=== PATIENT | female | born 1945 | race Caucasian/White ===

== ENCOUNTER 2017-04-03 10:53 | Day surgery (SDC) | payer MEDICARE, SELFPAY ==
[2017-04-03 11:11] VITALS: BP 126/69; PULSE 98; RESP 18; TEMP 36.2; O2SAT 100; BMI 29.3
--- NOTE | 2017-04-03 12:00 | RAD_ITS ---
STUDY: X-RAY - CERVICAL SPINE REASON FOR EXAM: Female, 72 years old. Radiofrequency ablation. TECHNIQUE: 12 C-arm views of the cervical spine were obtained. COMPARISON: None FINDINGS: 12 limited [id number] images show multiple needles along the left side of the cervical spine at positions compatible with C4-C7. Correlate with procedure note. Electronically Signed: Donte Lucas MD at 7:51 EST , Service support , RAD/Cerv Spine 2 or 3 Views
[2017-04-03] MEDS: Bupivacaine 0.25% 30 ML Vial (12:24)
[2017-04-03] MEDS: MethylPREDNISolone Acetate 80 MG/ML Vial (12:24)
[2017-04-03 12:47] VITALS: BP 115/68; BP 126/69; PULSE 85; RESP 16; TEMP 36.1; O2SAT 95
[2017-04-03 12:50] VITALS: BP 109/69; BP 126/69; PULSE 85; RESP 16; O2SAT 92
[2017-04-03 12:55] VITALS: BP 116/69; BP 126/69; PULSE 80; RESP 16; O2SAT 94
[2017-04-03 13:00] VITALS: BP 126/69; BP 98/73; PULSE 80; RESP 16; TEMP 36.1; O2SAT 94
[2017-04-03 13:25] VITALS: BP 126/69
--- NOTE | 2017-04-03 16:09 | OP.PCM_ITS ---
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 Report of Operation Date of Procedure: 04/03/17 Pre-Operative Diagnosis: Cervical spondylosis, cervical degenerative disc disease, cervical facet arthropathy Post-Operative Diagnosis: Cervical spondylosis, cervical degenerative disc disease, cervical facet arthropathy Surgery/Procedure Performed:: Left-sided cervical radiofrequency ablation of the medial branch at C4, C5, C6, C7 Description of Surgical Findings:: PROCEDURE: Left-sided cervical radiofrequency ablation of the medial branch at C4, C5, C6, C7 PREOPERATIVE DIAGNOSES: Cervical spondylosis, cervical degenerative disc disease, and cervical facet arthropathy POSTOPERATIVE DIAGNOSES: Cervical spondylosis, cervical degenerative disc disease, and cervical facet arthropathy ANESTHESIA: MAC COMPLICATIONS: None BLOOD LOSS: Minimal PROCEDURE IN DETAIL: History and physical today was reviewed. Risks and benefits of the procedure were explained. The patient understood, agreed to our procedure, and informed consent was obtained. IV inserted per routine protocol. The patient was taken to the operating room, placed in a prone position with a pillow positioned underneath the chest. The neck area was prepped and draped in a sterile fashion using iodine x3. Under fluoroscopy guidance, on AP view, C4 through C7 vertebral bodies were visualized. Skin and subcutaneous tissues were anesthetized with approximately 10 mL of 1% lidocaine using a 25- gauge regular needle. Under direct visualization with fluoroscopy at approximately 15-degree angle, starting on the left C4, ending on the left C7, passing through the C5-C6 using a 20-gauge 10 cm with a 10 mm curved active tip radiofrequency ablation needle, the needle was passed through the skin. The tip of the needle was maneuvered and directed towards the apophyseal junction of each corresponding vertebra. Once the tip of the needle was at the vicinity of the medial branch and in contact with the bone, the needle was redirected more lateral towards the medial branch. Once in contact with the medial branch, the stylet of each needle was then removed. After negative aspiration of blood with CSF and confirmation of AP as well as oblique view, the radiofrequency ablation probe was then inserted at each level. Impedance was then recorded at C4 to be 276, at C5 246, at C6 215, at C7 285 ohms. Motor-evoked potential was then initiated to 1.5 volt without any motor response at each corresponding level or the left arm. The radiofrequency ablation probe was then removed intact and a total of 4 mL preservative-free 1% lidocaine was injected in divided doses between those 4 levels after negative aspiration of blood with CSF. The radiofrequency ablation probe was then reinserted after confirmation of AP, oblique as well as lateral view. Radiofrequency ablation was then initiated to 80 degrees Celsius for 60 seconds at each level. Once concluded, the probe was then removed intact and a total of 3 mL of preservative-free 0.25% Marcaine with 40 mg Depo-Medrol was injected in divided doses between those 4 levels. The needles were then removed intact. The patient experienced no signs or symptoms of intrathecal, intravascular injection. The patient experienced no paraesthesia. The procedure was completed without any apparent difficulty, any complication. The patient appeared to tolerate well. Sensory as well as motor exam was unchanged from prior to procedure. ASSESSMENT AND PLAN: This is a 72-year-old Female with cervical spondylosis, cervical degenerative disc disease, and cervical facet arthropathy, status post left-sided radiofrequency ablation of the medial branch C4 through C7. The patient will continue her current medications. The patient will follow up in approximately 2 weeks fo reevaluation.
== END 2017-04-03 13:28 | disposition home or self-care (01) ==
LOC: SDC 10:53 → AC 10:54
PROVIDERS: Family Provider Family Medicine Geriatric Medicine; PCP Family Medicine Geriatric Medicine; Visit Provider Anesthesiology Pain Medicine
PROC: (CPT 64633; principal; 2017-04-03 12:25)
DX: M47.812 Spondylosis without myelopathy or radiculopathy, cervical region (principal); M50.30 Other cervical disc degeneration, unspecified cervical region; Z87.442 Personal history of urinary calculi; E78.00 Pure hypercholesterolemia, unspecified; K21.9 Gastro-esophageal reflux disease without esophagitis; Z79.899 Other long term (current) drug therapy; I10 Essential (primary) hypertension; K51.90 Ulcerative colitis, unspecified, without complications; M19.90 Unspecified osteoarthritis, unspecified site; M79.7 Fibromyalgia; E55.9 Vitamin D deficiency, unspecified; G62.9 Polyneuropathy, unspecified; Z87.891 Personal history of nicotine dependence; Z79.891 Long term (current) use of opiate analgesic
CPT/HCPCS: 64633; 64634 ×3; 72040; 76000; J7120

== ENCOUNTER → 2017-05-24 11:49 | Outpatient (CLI) | payer MEDICARE, SELFPAY ==
[2017-05-24 13:59] LABS: Absolute Lymphocyte Count 1.43 X10^3/ul (0.83-4.51); Absolute Neutrophil Count 4.2 X10^3/uL (2.0-7.7); Basophil# 0.02 X10^3/uL; Basophil% 0.3 % (0-1); Eosinophil# 0.16 X10^3/uL; Eosinophils% 2.5 % (0-5); Hematocrit 38.1 % (37-47); Lymphocyte # 1.43 X10^3/ul (4.0); Lymphocyte % 22.1 % (19-41); Mean Corp Hgb Conc 31.5 g/gl (32-36); Mean Corpuscular Hgb 29.1 pg (27.0-32.0); Mean Corpuscular Volume 92.3 fL (81-99); Mean Platelet Vol. 9.6 fl (6.2-12.0); Monocyte# 0.67 X10^3/uL; Monocyte% 10.3 % (0-10); Neutrophil # 4.19 X10^3/uL (2.7-7.7); Neutrophil % 64.6 % (47-70); POSITIVE COUNT NO; POSITIVE DIFFERENTIAL NO; POSITIVE MORPHOLOGY NO; Platelet Count 306 K/mm3 (150-450); RBC Distribution Width CV 14.7 % (11.6-14.6); RBC Distribution Width SD 48.2 fl (35.1-43.9); Red Blood Count 4.13 M/mm3 (4.2-5.4); White Blood Count 6.5 K/mm3 (4.4-11.0)
[2017-05-24 14:16] LABS: AST(SGOT) 25 U/L (15-37); Alanine Aminotransfer ALT/SGPT 37 U/L (13-56); Albumin, Serum 3.9 g/dL (3.2-5.0); Alkaline Phosphatase 64 U/L (45-117); Anion Gap 8 (5-15); BUN 17 mg/dL (7-18); BUN/Creat Ratio 19.7 RATIO (10-20); Calcium,Total 9.1 mg/dL (8.5-10.1); Chloride 104 mmol/L (98-107); Creatinine, Serum 0.86 mg/dL (0.55-1.02); EST Glomerular Filtration Rate 69 mL/min (>60); Est Glom Filt Rate - Afr Amer 84 mL/min (>60); Globulin 3.8 g/dL (2.2-4.2); Glucose 89 mg/dL (74-106); Protein, Total 7.7 g/dL (6.4-8.2); Sodium Level 139 mmol/L (136-145); Thyroid Stim Hormone (TSH) 0.81 uIU/mL (0.358-3.74)
== END ==
PROVIDERS: Family Provider Family Medicine Geriatric Medicine; PCP Family Medicine Geriatric Medicine; Visit Provider Family Medicine Geriatric Medicine
DX: E55.9 Vitamin D deficiency, unspecified (principal); R53.83 Other fatigue
CPT/HCPCS: 36415; 80053; 82306; 84443; 85025

== ENCOUNTER → 2017-09-19 13:29 | Outpatient (CLI) | payer MEDICARE, SELFPAY ==
[2017-09-19 14:19] LABS: BUN 17 mg/dL (7-18); Creatinine, Serum 0.79 mg/dL (0.55-1.02); EST Glomerular Filtration Rate 76 mL/min (>60); Est Glom Filt Rate - Afr Amer 92 mL/min (>60)
== END ==
PROVIDERS: Family Provider Family Medicine Geriatric Medicine; PCP Family Medicine Geriatric Medicine; Visit Provider Psychiatry & Neurology Neurology
DX: M13.0 Polyarthritis, unspecified (principal); M54.14 Radiculopathy, thoracic region; M54.81 Occipital neuralgia
CPT/HCPCS: 36415; 82565; 84520

== ENCOUNTER → 2017-09-28 10:16 | Outpatient (CLI) | payer MEDICARE, SELFPAY | PROVIDERS: Family Provider Family Medicine Geriatric Medicine; PCP Family Medicine Geriatric Medicine; Visit Provider Psychiatry & Neurology Neurology | DX: M54.14 Radiculopathy, thoracic region (principal) | CPT/HCPCS: 72157; A9585 ==

== ENCOUNTER → 2017-10-27 09:00 | Outpatient (CLI) | payer MEDICARE, SELFPAY ==
[2017-10-27 11:34] LABS: Absolute Lymphocyte Count 1.39 X10^3/ul (0.83-4.51); Absolute Neutrophil Count 4.6 X10^3/uL (2.0-7.7); Basophil# 0.02 X10^3/uL; Basophil% 0.3 % (0-1); Eosinophils% 1.5 % (0-5); Hematocrit 39.1 % (37-47); Hemoglobin 12.3 g/dl (12.0-15.0); Lymphocyte # 1.39 X10^3/ul (4.0); Lymphocyte % 20.5 % (19-41); Mean Corp Hgb Conc 31.5 g/gl (32-36); Mean Corpuscular Hgb 28.9 pg (27.0-32.0); Mean Corpuscular Volume 91.8 fL (81-99); Mean Platelet Vol. 9.1 fl (6.2-12.0); Monocyte# 0.64 X10^3/uL; Monocyte% 9.4 % (0-10); Neutrophil # 4.62 X10^3/uL (2.7-7.7); Neutrophil % 68.2 % (47-70); POSITIVE COUNT NO; POSITIVE DIFFERENTIAL NO; POSITIVE MORPHOLOGY NO; Platelet Count 307 K/mm3 (150-450); RBC Distribution Width SD 46.8 fl (35.1-43.9); Red Blood Count 4.26 M/mm3 (4.2-5.4); White Blood Count 6.8 K/mm3 (4.4-11.0)
[2017-10-27 11:54] LABS: Vitamin D,25 Hydroxy 31.3 ng/mL (29.95-100.01)
[2017-10-27 11:59] LABS: AST(SGOT) 20 U/L (15-37); Alanine Aminotransfer ALT/SGPT 30 U/L (13-56); Alkaline Phosphatase 78 U/L (45-117); Anion Gap 10 (5-15); BUN 16 mg/dL (7-18); BUN/Creat Ratio 20.9 RATIO (10-20); Calcium,Total 9.1 mg/dL (8.5-10.1); Chloride 98 mmol/L (98-107); Creatinine, Serum 0.77 mg/dL (0.55-1.02); EST Glomerular Filtration Rate 79 mL/min (>60); Est Glom Filt Rate - Afr Amer 96 mL/min (>60); Globulin 3.9 g/dL (2.2-4.2); Glucose 79 mg/dL (74-106); Potassium 3.3 mmol/L (3.5-5.1); Protein, Total 7.9 g/dL (6.4-8.2); Sodium Level 136 mmol/L (136-145); Thyroid Stim Hormone (TSH) 0.72 uIU/mL (0.358-3.74)
[2017-10-28 13:40] LABS: Hep C Antibodies 0.5 s/co ratio (0.0-0.9)
== END ==
PROVIDERS: Family Provider Family Medicine Geriatric Medicine; PCP Family Medicine Geriatric Medicine; Visit Provider Family Medicine Geriatric Medicine
DX: E55.9 Vitamin D deficiency, unspecified (principal); I10 Essential (primary) hypertension; Z13.89 Encounter for screening for other disorder
CPT/HCPCS: 36415; 80053; 82306; 84443; 85025; 86803

== ENCOUNTER → 2017-11-06 11:01 | Outpatient (CLI) | payer MEDICARE, SELFPAY ==
[2017-11-06 11:39] LABS: BUN 13 mg/dL (7-18); Creatinine, Serum 0.81 mg/dL (0.55-1.02); EST Glomerular Filtration Rate 75 mL/min (>60); Glucose 95 mg/dL (74-106)
[2017-11-06 11:40] LABS: Anion Gap 12 (5-15); BUN/Creat Ratio 16.1 RATIO (10-20); Calcium,Total 9.8 mg/dL (8.5-10.1); Chloride 95 mmol/L (98-107); Est Glom Filt Rate - Afr Amer 90 mL/min (>60); Potassium 3.6 mmol/L (3.5-5.1); Sodium Level 132 mmol/L (136-145)
== END ==
PROVIDERS: Family Provider Family Medicine Geriatric Medicine; PCP Family Medicine Geriatric Medicine; Visit Provider Family Medicine Geriatric Medicine
DX: E87.6 Hypokalemia (principal)
CPT/HCPCS: 36415; 80048

== ENCOUNTER → 2017-11-28 10:12 | Outpatient (CLI) | payer MEDICARE, SELFPAY ==
--- NOTE | 2017-11-28 10:16 | US_ITS ---
STUDY: THYROID ULTRASOUND REASON FOR EXAM: Female, 72 years old. Nodule TECHNIQUE: Ultrasound evaluation of the thyroid was performed with real-time and static mlceod-scale imaging. COMPARISON: 11/25/2016 FINDINGS: RIGHT LOBE: The right lobe of the thyroid gland measures 5.5 x 2.0 x 1.7 cm. There is a homogeneous echotexture. There are no demonstrated solid, cystic or complex lesions. LEFT LOBE: The left lobe of the thyroid gland measures 5.5 x 2.3 x 2.3 cm. There is a homogeneous echotexture. Stable heterogeneous central left thyroid mass measuring 3.7 x 2.0 x 1.9 cm. This is partially solid and partially cystic with increased vascularity. Posterior to this, a cyst is present measuring 10 x 9 x 7 mm. ISTHMUS: The isthmus measures 11 mm . A 3 x 3 x 3 mm cystic nodule is present in the thyroid isthmus, not clearly visible on prior study. Vascularity was not determined. US/Thyroid IMPRESSION: Stable ultrasound appearance of a left thyroid mass, partially solid and partially cystic, with increased vascularity. Interval development of a small cystic nodule in the thyroid isthmus for which continued ultrasound may be indicated. Electronically Signed: Franki Bacon MD at 1:15 EDT Tel , Service support ,
== END ==
PROVIDERS: Family Provider Family Medicine Geriatric Medicine; PCP Family Medicine Geriatric Medicine; Referring Provider Otolaryngology; Visit Provider Otolaryngology
DX: E04.1 Nontoxic single thyroid nodule (principal)
CPT/HCPCS: 76536

== ENCOUNTER 2017-12-22 14:55 | Observation (INO) | payer MEDICARE, SELFPAY ==
[2017-12-22] VITALS (12 sets, daily range): BP systolic 104–149; BP diastolic 49–86; PULSE 81–111; RESP 16–20; TEMP 36.5–37.1; O2SAT 92–96; BMI 23.2
--- NOTE | 2017-12-22 | THYROID_PTH ---
PATIENT: SONY CHENG LOC: [facility] U#:[id number] AGE/SX: 72/F ROOM: [facility]316 RE12/22/[address]: Dr. Ant Gallardo MD : [id number] BED: 1 DIS: 12/23/2017 SPEC #: [id number] RECD: 12/22/17 14:25 STATUS: RAFAEL LISSETTE #: [id number] MART: 12/22/17 00:[address]: Ant Gallardo DEPT: SURGICAL PATHOLOGY RECD BY: Christianne Silva ENTERED: 12/22/17 15:11 SP TYPE: THYROID OTHR DR: Dr. Ray Izquierdo MD Tissues: A - Thyroid gland, NOS Procedures: Frozen Section (charge) Surgery Specimen Level V HEADER OPERATION: Thyroid lobectomy and isthmusectomy PRE-OP DIAGNOSIS: Left thyroid nodule TISSUE SUBMITTED: Left thyroid nodule with isthmus nodule FROZEN SECTION DIAGNOSIS Left lobe of thyroid, lobectomy: Colloid nodule. AM:sung 12/22/17 Case has been reviewed in consultation with Dr. Lee who concurs with the above diagnosis. JAMES:IOANA MICROSCOPIC DIAGNOSIS Left thyroid nodule with isthmus nodule, thyroid lobectomy and isthmusectomy. Multinodular goiter with a dominant isthmus nodule with focal calcification. Three perithyroidal lymph nodes reactive changes. IOANA:rickey 12/25/17 COMMENT Please make reference to previous specimen [id number], Fine needle aspiration, left thyroid nodule, with diagnosis of consistent with benign follicular nodule. MICROSCOPIC DESCRIPTION Slides are reviewed. GROSS DESCRIPTION Received fresh for frozen section diagnosis labeled with the patient's name is a specimen designated left thyroid lobe with isthmus nodule. The specimen weighs 30.8 g. The thyroid lobe measures 3.5 x 2.5 x 1 cm. The nodule in the isthmus measures 5 x 4 x 3 cm. Serial sections of the nodule reveal both solid and cystic cut surfaces filled with hemorrhagic fluid. Each section of the nodule with surrounding tissue is submitted for frozen section diagnosis. The entire specimen is submitted in 13 cassettes as follows: 1 - Frozen section. 2 through 12 - rest of the specimen, 2 through 6 containing lobe, 7 through 13 containing the nodule. /IOAAN:sp 12/22/17 TC: 5 CPT: 10504, 09549
--- NOTE | 2017-12-22 11:16 | EKG12_ITS ---
Test Reason : PREOP Blood Pressure : / mmHG Vent. Rate : 078 BPM Atrial Rate : 078 BPM P-R Int : 164 ms QRS Dur : 082 ms QT Int : 402 ms P-R-T Axes : 014 041 054 degrees QTc Int : 458 ms Normal sinus rhythm Low voltage QRS Borderline ECG When compared with ECG of 21-AUG-2013 13:33, No significant change was found Confirmed by CASIMIRO BUSTAMANTE, SURI ([id number]), legal editor KIERRA EDUARDO ([id number]) on 01/01/2018 2:34:51 PM Referred By: Ant Gallardo Confirmed By:SURI KIRKPATRICK MD
[2017-12-22 11:52] LABS: Anion Gap 8 (5-15); BUN 16 mg/dL (7-18); BUN/Creat Ratio 20.6 RATIO (10-20); Calcium,Total 9.3 mg/dL (8.5-10.1); Chloride 102 mmol/L (98-107); Creatinine, Serum 0.78 mg/dL (0.55-1.02); EST Glomerular Filtration Rate 78 mL/min (>60); Est Glom Filt Rate - Afr Amer 94 mL/min (>60); Glucose 93 mg/dL (74-106); Potassium 3.6 mmol/L (3.5-5.1); Sodium Level 136 mmol/L (136-145)
--- NOTE | 2017-12-22 14:52 | OP.PCM_ITS ---
Problem List (1) Uninodular goiter Status: Chronic Report of Operation Date of Procedure: 12/22/17 Pre-Operative Diagnosis: Uninodular goiter Post-Operative Diagnosis: same Surgery/Procedure Performed:: Left hemithyroidectomy with resection of large isthmus nodule Description of Surgical Findings:: Sarah is a 72-year-old female with a enlarging mass of the anterior thyroid. Ultrasound showed a large nodular goiter with possible satellite lesion and given the large size excision for definitive evaluation was offered as well as for therapeutic intent. The risks, alternatives, potential benefits, and complications were discussed at length and any questions answered to the patient and/or caregiver's satisfaction. Witnessed informed consent was obtained in the office, and the patient and/or caregiver was agreeable to proceed. Procedure went as follows: The patient was identified in the preoperative holding and brought to the operating room, placed under general anesthesia and intubated. The neuro monitoring electrodes were then placed in the chest and confirmed to be operational in accordance with the computer applications developer's directions to allow for recurrent laryngeal nerve monitoring. The neck was then prepped and draped in usual sterile fashion and the planned skin incision was marked 2 finger breadths above the sternal notch with a marking pen. The incisional line was then injected with 1% lidocaine with 100,000 epinephrine for a total of 6 mL. After allowing for vasoconstriction, a 15 blade scalpel was used to make an incision 6 cm in length through the skin and subcutaneous tissues and platysma. A subplatysmal flap was then elevated superiorly and inferiorly to allow placement of the self-retaining thyroid retractor. The strap muscles were then divided in the midline and beginning on the left side the thyroid lobe dissected in a sub-capsular fashion. The inferior, middle, and superior thyroid vessels were individually clamped and ligated with a combination of 3-0 silk sutures and vascular clips. The parathyroid glands were identified along the inferior vascular pedicle and preserved the recurrent laryngeal nerve was also identified and followed to its nerve entry point and the thyroid gland dissected free of its attachments to the trachea at Broyle's ligament. The large isthmus nodule was then freed with dissection continued laterally to allow for resection of this in continuity with the left lobe of the thyroid. This was then transected at the isthmus and sent for pathologic evaluation. The wound bed was then irrigated saline solution and examined for sites of bleeding. No significant bleeding was encountered and #7 flat drains were then placed into each tracheoesophageal groove and brought out through a separate stab incision in the neck and secured with 3-0 silk sutures. The strap muscles were then re- approximated in the midline with a running 3-0 Vicryl suture followed by interrupted 3-0 Vicryl sutures to close the platysma and subcutaneous tissues. A 5-0 Monocryl was then used to close the skin followed by Steri-Strips completing the procedure. An NG tube was then placed to decompress the stomach and the patient returned to anesthesia, revived and extubated having tolerated the procedure well. Type of Anesthesia:: General Anesthesiologist: Ant Downey Special Medications: none Specimen's removed: left thyroid Drains: #7 LORE drain Estimated Blood Loss (mL): 25 mL Fluids Replaced: 1200 mL Grafts/Implants Used: none - Complications none - Admit VTE Documentation VTE Present on Admission: No VTE Mechan Device Prophylaxis: SCD's VTE Pharm Prophylaxis ordered?: No
--- NOTE | 2017-12-22 14:54 | DCINST_ITS ---
- Discharge Diagnoses Current Active Problems: Current Active and Chronic Problems Uninodular goiter (Chronic) You will use the following diet at home:: Regular Discharge Activity: Return to Normal Activity, May not drive while taking narcotic pain medications. Call your doctor if your incision/area has: Increased Pain/ Swelling, Increased Redness Call your doctor if you observe: Fever of 101 or Higher, Uncontrolled pain Suture Line Care: Avoid Pulling/Pushing Cleanse incision/area with: Keep Dressing Clean & Dry Allergies/Adverse Reactions: Allergies adhesive tape Allergy (Verified 03/29/17 14:20) skin tear lisinopril Allergy (Verified 12/15/17 13:54) Other COUGH tetracycline [Tetracycline] Allergy (Verified 03/29/17 14:20) Other Medications to take at Discharge Acetaminophen [Tylenol Extra Strength] 1,000 mg PO TID 08/16/13 Naproxen Sodium [Aleve] 440 mg PO BID 08/16/13 Omeprazole [Prilosec] 20 mg PO DAILY 08/16/13 Amlodipine [Norvasc] 2.5 mg PO DAILY 03/29/17 Gabapentin [Neurontin] 600 mg PO QHS 03/29/17 Diclofenac Sodium [Voltaren] 100 gm TP PRN PRN 12/15/17 Losartan/Hydrochlorothiazide [Losartan-Hctz 100-25 mg Tab] 1 each PO DAILY 12/15/17 Tizanidine HCl [Zanaflex] 4 mg PO PRN PRN 12/15/17 traMADol [Ultram (G)] 50 mg PO Q6H PRN PRN 12/15/17 Primary Care Physician: Ray Izquierdo Chi, MD [Primary Care Provider] - Test Results: Test results from this visit will be discussed in further detail at your follow- up appointment, if applicable. Please Follow Up With: Ant Gallardo MD When: 10 days
[2017-12-22] MEDS: Acetaminophen 325 MG Tablet 650 MG PO (15:12)
[2017-12-22] MEDS: Lactated Ringers 1,000 ML 125 ML IV ×2 (16:17→23:16)
[2017-12-22] MEDS: traMADol 50 MG Tablet PO (16:57)
[2017-12-22] MEDS: Ibuprofen 400 MG Tablet PO ×2 (17:42→23:16)
[2017-12-22] MEDS: Gabapentin 600 MG Tablet PO (20:29)
[2017-12-23] MEDS: Ibuprofen 400 MG Tablet PO (05:34)
[2017-12-23 05:41] VITALS: BP 127/74; PULSE 59; RESP 16; TEMP 37.1; O2SAT 95
[2017-12-23 08:38] VITALS: BP 118/65; TEMP 30.5
[2017-12-23] MEDS: hydroCHLOROthiazide 25 MG Tablet PO (08:40)
[2017-12-23] MEDS: Losartan Potassium 100 MG Tablet PO (08:40)
[2017-12-23] MEDS: amLODIPine 2.5 MG Tablet PO (08:40)
[2017-12-23] MEDS: Pantoprazole Sodium 20 MG Tablet PO (08:40)
--- NOTE | 2017-12-23 09:08 | PCM.PN.SRG ---
Subjective: Doing well, minimal incisional pain. Objective: Well appearing, neck incision intake with minimal serous output in drain. - Physical Exam General: Alert, Oriented x3 HEENT: Atraumatic, PERRLA Oral: Moist Mucosa Neck: Supple Lungs: Normal air movement Cardiovascular: Regular rate, Regular Rhythm Skin: No rashes, No breakdown Psych/Mental Status: Alert and oriented to time, place, person, mood and affect Vital Signs Temp Pulse Resp BP Pulse Ox 87 F L 59 L 16 118/65 95 12/23/17 08:38 12/23/17 05:41 12/23/17 05:41 12/23/17 08:38 12/23/17 05:41 Oxygen Delivery Method Room Air Weight: 65.3 kg Body Mass Index (BMI) 23.2 Intake and Output for Last 24 Hours 12/21/17 12/22/17 12/23/17 23:59 23:59 23:59 Intake Total 2365 / 2365 1578 / 1578 Balance 2365 / 2365 1578 / 1578 Laboratory Tests Past 24 Hrs 12/22/17 11:30 Sodium 136 Potassium 3.6 Chloride 102 Carbon Dioxide 26.0 Anion Gap 8 BUN 16 Creatinine 0.78 Estim Creat Clear Calc 49.00 Est GFR (MDRD) Af Amer 94 Est GFR (MDRD) Non-Af 78 BUN/Creatinine Ratio 20.6 H Glucose 93 Calcium 9.3 Medical Necessity - Tobacco Use Smoking Status: Never smoker Assessment/Plan Doing well s/p left hemithyroidectomy for large nodule. Drain removed at beside with minimal output. Discharge to home.
== END 2017-12-23 09:45 | disposition home or self-care (01) ==
LOC: SDC 15:03
PROVIDERS: Admitting Provider Otolaryngology; Family Provider Family Medicine Geriatric Medicine; PCP Family Medicine Geriatric Medicine; Referring Provider Otolaryngology; Visit Provider Otolaryngology
PROC: (CPT 60220; principal; 2017-12-22 12:15)
DX: E04.1 Nontoxic single thyroid nodule (principal); Z79.899 Other long term (current) drug therapy; I10 Essential (primary) hypertension; M19.90 Unspecified osteoarthritis, unspecified site; K51.90 Ulcerative colitis, unspecified, without complications; E78.5 Hyperlipidemia, unspecified; K21.9 Gastro-esophageal reflux disease without esophagitis; Z87.891 Personal history of nicotine dependence
CPT/HCPCS: 00320; 60220; 80048; 88307; 88331; 93005; 96360; 96361; 99218; J7120; G0378; G0379; J2405

== ENCOUNTER → 2018-01-01 09:41 | Outpatient (CLI) | payer MEDICARE, SELFPAY ==
--- NOTE | 2018-01-01 09:46 | US_ITS ---
STUDY: ABDOMINAL ULTRASOUND REASON FOR EXAM: Female, 72 years old. Nausea, bloating, dyspepsia for 5 months with 7 pound weight loss. TECHNIQUE: Transabdominal ultrasound was performed with real-time and static mcleod scale imaging. COMPARISON: None. FINDINGS: Liver: The liver measures 15.1 cm. Normal echotexture of the liver parenchyma. There are 2 simple appearing right liver cysts measuring 4.3 x 4.0 x 2.7 cm and 7 x 8 x 5 mm respectively. There is no intrahepatic biliary ductal diliatation. There is no demonstrated mass lesion. Gallbladder: Normal distended gallbladder. The gallbladder wall measures 2.8 mm. There is a negative sonographic Hollis's sign. There is no pericholecystic fluid. There are no gallstones. Common Bile Duct (C.B.D.): The common bile duct measures 3.4 mm. Pancreas: There is evidence of mild pancreatic fatty infiltration/atrophy. No observed focal lesion or ductal ectasia. Spleen: Normal size of the spleen. The spleen measures 6.4 cm. Right Kidney: The right kidney measures 10.2 cm. Normal renal cortex. The renal cortex measures 1.2 cm. There is no demonstrated renal mass or cyst. There is no right hydronephrosis. Right kidney lower pole nonobstructing calyceal calculus measuring about 5 mm. Left Kidney: The left kidney measures 10.1 cm. Normal renal cortex. The renal cortex measures 1.1 cm. There is no demonstrated renal mass or cyst. There is no left hydronephrosis. Left renal punctate superior pole metastatic calyceal calculus measuring approximately 2 mm, another measuring approximately 4 mm. Aorta: Moderate plaque. Nondilated. I.V.C.: The IVC is patent. US/Abdomen Complete IMPRESSION: Small nonobstructing calyceal calculi of the kidneys. No hydronephrosis. Benign hepatic cysts. Otherwise normal features of the liver, gallbladder and biliary tree. Electronically Signed: Jose Hennessy, at 16:53 EST Tel , Service support ,
== END ==
PROVIDERS: Family Provider Family Medicine Geriatric Medicine; PCP Family Medicine Geriatric Medicine; Referring Provider Internal Medicine Gastroenterology; Visit Provider Internal Medicine Gastroenterology
DX: R11.0 Nausea (principal); R63.4 Abnormal weight loss; R14.0 Abdominal distension (gaseous); R10.13 Epigastric pain
CPT/HCPCS: 76700

== ENCOUNTER 2018-02-13 13:23 | Emergency (ER) | payer MEDICARE, SELFPAY ==
[2018-02-13 13:24] VITALS: BP 117/69; PULSE 94; RESP 17; TEMP 36.6; O2SAT 99; BMI 21.4
--- NOTE | 2018-02-13 13:43 | EKG12_ITS ---
Test Reason : N AND VOMIT Blood Pressure : / mmHG Vent. Rate : 087 BPM Atrial Rate : 087 BPM P-R Int : 154 ms QRS Dur : 086 ms QT Int : 398 ms P-R-T Axes : 003 046 054 degrees QTc Int : 478 ms Normal sinus rhythm Normal ECG Confirmed by CHINYERE BUSTAMANTE, ANNITA ([id number]), school photograph editor KIERRA EDUARDO ([id number]) on 02/15/2018 1:41:27 PM Referred By: PC Confirmed By:ANNITA WHITLOCK MD
--- NOTE | 2018-02-13 13:47 | ED.VISSUMM ---
- ER Visit Summary Date of Service: 02/13/18 Chief Complaint: Nausea History of Present Illness: The patient is a 73 F with nausea for the past 3 months. She has no fever chills no abdominal pain. She has no vomiting just nausea. She has decreased p.o. intake because of the chronic nausea. Apparently she has had an endoscopy which was unremarkable she is due for more GI testing. She denies any kind of abdominal pain. No chest pain or shortness of breath. Physical Examination: She appears comfortable she is talking to me. Slightly dry mucous membranes, no obvious facial deformity No C-spine tenderness supple neck. Regular rate and rhythm without any obvious murmurs Clear lungs bilaterally speaking in full sentences without any obvious respiratory distress Abdomen soft and nontender no guarding or rebound Moves all extremities without any difficulty or pain. Skin does not show any obvious rashes or lesions, no trauma. Alert oriented ?3 with no gross focal deficit Test Results: Normal CMP and CBC. Emergency Department Course and Treatment: Patient received IV fluids Reglan Benadryl as well as 2 mg of Haldol. She was observed, she only slightly improved. However she is requesting to go home. She has this for the past few months it is chronic. She is due for a gastric function test as well as a possible HIDA in the outpatient environment. She has antiemetics which sometimes work. She is tolerating p.o. especially fluids well but not as much food. This may even be gastroparesis, I will discharge with just a few Valium to try at home, does not want to try any new medications today in the emergency department. Disposition: Discharge stable condition Impression: Nausea This note was generated with [facility] dictation software. It may contain incorrect words, spelling, and punctuation that were not noted in review of the chart prior to signing ED Disposition - Plan for ED Patient: Disposition: Home or Assisted Living Chief Complaint: Nausea/Vomiting Instructions: ED Nausea Vomiting Prescriptions: Diazepam [Valium] 2 mg PO BID PRN PRN 5 Days #10 tab PRN Reason: Spasms Referrals: Blanca Jenkins DO [Primary Care Provider] -
[2018-02-13] MEDS: 0.9% Normal Saline 1,000 ML 1000 ML IV (13:49)
[2018-02-13] MEDS: Haloperidol Lactate 5 MG/ML Vial 2 MG IV (13:55)
[2018-02-13] MEDS: DiphenhydrAMINE 50 MG/ML Syringe 25 MG IV ×2 (13:56→14:53)
[2018-02-13 14:01] LABS: Absolute Lymphocyte Count 2.04 X10^3/ul (0.83-4.51); Absolute Neutrophil Count 7.2 X10^3/uL (2.0-7.7); Basophil# 0.03 X10^3/uL; Basophil% 0.3 % (0-1); Hematocrit 40.3 % (37-47); Hemoglobin 13.6 g/dl (12.0-15.0); Lymphocyte # 2.04 X10^3/ul (4.0); Lymphocyte % 20.3 % (19-41); Mean Corp Hgb Conc 33.7 g/gl (32-36); Mean Corpuscular Hgb 29.6 pg (27.0-32.0); Mean Corpuscular Volume 87.8 fL (81-99); Mean Platelet Vol. 8.7 fl (6.2-12.0); Monocyte# 0.69 X10^3/uL; Monocyte% 6.9 % (0-10); Neutrophil # 7.19 X10^3/uL (2.7-7.7); Neutrophil % 71.3 % (47-70); Platelet Count 329 K/mm3 (150-450); RBC Distribution Width CV 12.7 % (11.6-14.6); RBC Distribution Width SD 40.5 fl (35.1-43.9); Red Blood Count 4.59 M/mm3 (4.2-5.4); White Blood Count 10.1 K/mm3 (4.4-11.0)
[2018-02-13 14:02] LABS: POSITIVE COUNT NO; POSITIVE DIFFERENTIAL NO; POSITIVE MORPHOLOGY NO
[2018-02-13 14:19] LABS: ALB/GLOB Ratio 0.9 RATIO (0.9-2.4); AST(SGOT) 15 U/L (15-37); Alanine Aminotransfer ALT/SGPT 25 U/L (13-56); Albumin, Serum 3.8 g/dL (3.2-5.0); Alkaline Phosphatase 109 U/L (45-117); Anion Gap 12 (5-15); BUN 17 mg/dL (7-18); BUN/Creat Ratio 20.8 RATIO (10-20); Calcium,Total 9.4 mg/dL (8.5-10.1); Chloride 100 mmol/L (98-107); Creatinine, Serum 0.82 mg/dL (0.55-1.02); EST Glomerular Filtration Rate 73 mL/min (>60); Est Glom Filt Rate - Afr Amer 89 mL/min (>60); Estimated Creatinine Clearance 58.91 ml/min; Globulin 4.3 g/dL (2.2-4.2); Glucose 98 mg/dL (74-106); Lipase 289 U/L (73-393); Potassium 3.3 mmol/L (3.5-5.1); Protein, Total 8.1 g/dL (6.4-8.2); Sodium Level 132 mmol/L (136-145)
[2018-02-13] MEDS: Metoclopramide 10 MG/2 ML Vial IV (14:50)
--- NOTE | 2018-02-13 15:02 | ED.RN ---
ICE WATER GIVEN TO SPOUSE.
[2018-02-13 16:10] VITALS: BP 112/62; PULSE 86; RESP 16; O2SAT 97; O2SAT 98
== END 2018-02-13 16:11 | disposition home or self-care (01) ==
PROVIDERS: Emergency Provider Emergency Medicine
DX: R11.0 Nausea (principal); I10 Essential (primary) hypertension; M19.90 Unspecified osteoarthritis, unspecified site; Z79.899 Other long term (current) drug therapy
CPT/HCPCS: 80053; 83690; 85025; 93005; 96374; 96375; 96376; 99283; J7030

== ENCOUNTER → 2018-02-15 10:44 | Outpatient (CLI) | payer MEDICARE, SELFPAY ==
[2018-02-13 13:24] VITALS: BMI 21.4
--- NOTE | 2018-02-15 10:48 | NM_ITS ---
CLINICAL: 73-year-old female with reported history of chronic nausea. SEMI-SOLID PHASE 99m Tc SULFUR COLLOID GASTRIC EMPTYING STUDY COMPARISON: Abdominal ultrasound report 01/01/2018 FINDINGS: The patient was administered 1.1 mCi of 99m Tc sulfur colloid mixed with oatmeal and consumed per os. Image acquisitions in the anterior-posterior projections for a total of 60 minutes. There is prompt visualization of the stomach. There is no gastroesophageal reflux identified. First order kinetics are maintained throughout the duration of the acquisitions. The T1/2 linear fit was calculated to be 63.44 minutes, (Normal: 12-56 minutes). NM/Gastric Emptying Study IMPRESSION: 1. ABNORMAL 99m Tc sulfur colloid semi-solid phase (oatmeal) gastric emptying imaging examination. A. There is delayed semi-solid phase gastric emptying compared to normal controls with maintained first order kinetics throughout all components of the examination. (Rhonda abdul al, J Nucl Med Tech 38: 186, 2010). Electronically Signed: Jose Duff DO at 22:39 EST Tel , Service support ,
== END ==
DX: R10.9 Unspecified abdominal pain (principal); R11.0 Nausea; R63.4 Abnormal weight loss; K51.20 Ulcerative (chronic) proctitis without complications; R14.0 Abdominal distension (gaseous)
CPT/HCPCS: 78264; A9541

== ENCOUNTER 2018-04-11 10:00 | Outpatient (RCR) | payer MEDICARE, SELFPAY | END 2018-04-12 23:59 | LOC: NS 10:00 | DX: R63.4 Abnormal weight loss (principal); Z68.21 Body mass index [BMI] 21.0-21.9, adult; R11.0 Nausea; K31.84 Gastroparesis; Z71.3 Dietary counseling and surveillance | CPT/HCPCS: 97802; 97803 ==

== ENCOUNTER → 2019-01-25 13:10 | Outpatient (CLI) | payer MEDICARE, SELFPAY ==
--- NOTE | 2019-01-25 13:36 | MRI_ITS ---
HISTORY: Radiculopathy in the thoracic region. Spinal arthritis. Most of pain is on right side. Symptoms been ongoing for 5 years. Technique: Sagittal T1 counting localizer was explained from the skull base to the lumbar spine. Sagittal T1, T2, STIR, axial T1 and T2-weighted images were obtained through the lumbar spine. 161 images. Comparison study most recently is an MRI of the thoracic spine performed on September 28, 2017. Findings: Kyphosis remains. Vertebral body height is fairly well preserved. Degenerative disc disease remains at almost every level. Degenerative disc disease is manifested by loss of disc height, disc desiccation, endplate sclerosis, endplate narrowing with some wedging in the midthoracic spine, and anterior enthesophytes. This severity of the wedging, the loss of disc height, and the disc desiccation is the same as on the previous study. Facets are adequately aligned. No spinous process fractures are perceived. There are some disc bulges. At the T3-T4 level there is a small disc bulge indenting into the ventral portion of the thecal sac. At the T5-T6 level a small disc bulge is present. This indents out into the ventral portion of the thecal sac displacing some of the CSF ventral to the cord without abutting displacement or deformity of the cord. At the T6-T7 level there is a small central disc bulge. Small central disc protrusion is present at the T7-T8 level. Minimal disc bulge is present at the T8-T9 level, T9-T10 level, but these are without significant spinal canal stenosis. No fractures are perceived. No lytic or blastic metastasis are demonstrated. No cord impingement. No cord edema. MRI/Spine Thoracic (Routine) IMPRESSION: Multilevel degenerative disc disease. Mild kyphosis. This disc disease is manifested by loss of disc height, disc desiccation, endplate sclerosis, and enthesophytes. Several Schmorl's node invaginations are also present. This disease is slightly more severe but very similar to the previous study of September 27, 2017. No cord impingement at 0111 Reported and signed by: Sebastian Harrison MD Electronically Signed: Sebastian Harrison MD at 1:09 EST Tel , Service support ,
== END ==
PROVIDERS: Referring Provider Anesthesiology Pain Medicine; Visit Provider Anesthesiology Pain Medicine
DX: M51.34 Other intervertebral disc degeneration, thoracic region (principal); M54.14 Radiculopathy, thoracic region
CPT/HCPCS: 72146

== ENCOUNTER → 2019-07-04 11:13 | Outpatient (CLI) | payer MEDICARE, SELFPAY ==
[2019-07-04 12:45] LABS: ALB/GLOB Ratio 1.1 RATIO (0.9-2.4); AST(SGOT) 14 U/L (15-37); Alanine Aminotransfer ALT/SGPT 20 U/L (13-56); Albumin, Serum 4.1 g/dL (3.2-5.0); Alkaline Phosphatase 72 U/L (45-117); Anion Gap 8 (5-15); BUN 30 mg/dL (7-18); BUN/Creat Ratio 24.6 RATIO (10-20); Calcium,Total 9.6 mg/dL (8.5-10.1); Chloride 100 mmol/L (98-107); Cholesterol 206 mg/dL (200); Creatinine, Serum 1.22 mg/dL (0.55-1.02); EST Glomerular Filtration Rate 46 mL/min (>60); Est Glom Filt Rate - Afr Amer 56 mL/min (>60); Globulin 3.8 g/dL (2.2-4.2); Glucose 86 mg/dL (74-106); High Density Lipoprotein 92 mg/dL; Potassium 3.6 mmol/L (3.5-5.1); Protein, Total 7.9 g/dL (6.4-8.2); Sodium Level 138 mmol/L (136-145); Triglycerides 92 mg/dL; Very Low Density Lipoprotein 18 mg/dL (5-40)
== END ==
DX: I10 Essential (primary) hypertension (principal); E78.5 Hyperlipidemia, unspecified; K31.84 Gastroparesis; M54.2 Cervicalgia; G89.29 Other chronic pain
CPT/HCPCS: 36415; 80053; 80061

== ENCOUNTER → 2020-01-31 11:19 | Outpatient (CLI) | payer MEDICARE, SELFPAY ==
--- NOTE | 2020-01-31 11:22 | BI_ITS ---
MAMMOGRAPHY - BILATERAL SCREENING REASON FOR EXAM: Female, 74 years old. Routine annual screening examination. PERTINENT HISTORY: Non-contributory. TECHNIQUE: Digital bilateral breast gail (3D mammographic acquisition) in the CC and MLO projections. 2-D mediolateral oblique (MLO) and craniocaudad (CC) views of both breasts were obtained. CAD: Full Field Digital Mammography with Computer Added Detection was performed. COMPARISON: Comparison is made with prior examination dated 12/06/2016. FINDINGS: Breast Composition: The breasts are heterogeneously dense, which may obscure small masses. There are no dominant masses or suspicious calcifications. Stable small benign appearing bilateral axillary lymph nodes. No other significant abnormalities are identified. There has been no significant change since the prior study. BI/SCREEN MAMM (CAD) W/GAIL BILAT IMPRESSION: Stable bilateral screening mammogram. Yearly follow-up mammogram recommended. (A) ASSESSMENT CATEGORY: BIRADS Category 2: Benign. A letter regarding these results will be sent to the patient by the facility within 30 days. Approximately 10% of breast cancers are not detected by mammography. A normal mammogram should not delay biopsy of a clinically suspicious abnormality. [id number] Electronically Signed: Ghulam Bear, at 12:44 EST , Service support ,
== END ==
DX: Z12.31 Encounter for screening mammogram for malignant neoplasm of breast (principal); R94.4 Abnormal results of kidney function studies
CPT/HCPCS: 36415; 77063; 77067; 80048

== ENCOUNTER → 2020-01-31 11:55 | Outpatient (CLI) | payer MEDICARE, SELFPAY ==
[2020-01-31 13:14] LABS: Anion Gap 7 (5-15); BUN 12 mg/dL (7-18); BUN/Creat Ratio 10.3 RATIO (10-20); Calcium,Total 9.6 mg/dL (8.5-10.1); Chloride 105 mmol/L (98-107); Creatinine, Serum 1.16 mg/dL (0.55-1.02); EST Glomerular Filtration Rate 49 mL/min (>60); Est Glom Filt Rate - Afr Amer 59 mL/min (>60); Glucose 90 mg/dL (74-106); Potassium 4.2 mmol/L (3.5-5.1); Sodium Level 140 mmol/L (136-145)
== END ==
DX: R94.4 Abnormal results of kidney function studies (principal)
CPT/HCPCS: 36415; 80048

== ENCOUNTER → 2020-05-27 14:08 | Outpatient (CLI) | payer MEDICARE, SELFPAY ==
[2020-05-27 16:19] LABS: Hematocrit 38.3 % (37-47); Hemoglobin 11.7 g/dL (12.0-15.0); Mean Corp Hgb Conc 30.5 g/dL (32-36); Mean Corpuscular Hgb 29.3 pg (27.0-32.0); Mean Platelet Vol. 9.5 fl (6.2-12.0); Platelet Count 287 K/mm3 (150-450); RBC Distribution Width CV 13.1 % (11.6-14.6); RBC Distribution Width SD 45.9 fl (35.1-43.9); Red Blood Count 3.99 M/mm3 (4.2-5.4); White Blood Count 5.4 K/mm3 (4.4-11.0)
[2020-05-27 17:05] LABS: AST(SGOT) 21 U/L (15-37); Alanine Aminotransfer ALT/SGPT 27 U/L (13-56); Albumin, Serum 3.7 g/dL (3.2-5.0); Alkaline Phosphatase 84 U/L (45-117); Anion Gap 6 (5-15); BUN 12 mg/dL (7-18); BUN/Creat Ratio 12.3 RATIO (10-20); Calcium,Total 9.1 mg/dL (8.5-10.1); Chloride 104 mmol/L (98-107); Cholesterol 189 mg/dL (200); Creatinine, Serum 0.97 mg/dL (0.55-1.02); EST Glomerular Filtration Rate 60 mL/min (>60); Est Glom Filt Rate - Afr Amer 72 mL/min (>60); Globulin 3.8 g/dL (2.2-4.2); Glucose 94 mg/dL (74-106); High Density Lipoprotein 96 mg/dL; Potassium 4.3 mmol/L (3.5-5.1); Protein, Total 7.5 g/dL (6.4-8.2); Sodium Level 137 mmol/L (136-145); Triglycerides 194 mg/dL; Very Low Density Lipoprotein 39 mg/dL (5-40)
== END ==
DX: E78.5 Hyperlipidemia, unspecified (principal); I10 Essential (primary) hypertension
CPT/HCPCS: 36415; 80053; 80061; 85027

== ENCOUNTER 2020-12-09 22:49 | Emergency (ER) | payer MEDICARE, SELFPAY ==
[2020-12-09 22:50] VITALS: BP 138/86; PULSE 71; RESP 16; TEMP 35.8; O2SAT 98; BMI 21.4
[2020-12-09 23:09] LABS: Bacteria 0 SEEN /hpf (None Seen); Mucous, Urine 0 SEEN /hpf (<or=2+); Red Blood Cells-Urine 0 SEEN /hpf (0-5)
[2020-12-09 23:11] LABS: Color, Urine Yellow (Yellow); Glucose, Dipstick Normal (Normal); Ketone-Dipstick Negative (Negative); Leukocyte Esterase-Dipstick 500 /ul (Negative); Nitrite-Dipstick Negative (Negative); Occult Blood-Urine 25 /ul (Negative); Protein-Dipstick 30 mg/dl (Negative); Urine Bilirubin Dipstick Negative (Negative); Urine Clarity Sl. Cloudy (Clear); Urine Urobilinogen Normal (Normal)
--- NOTE | 2020-12-09 23:11 | EDS_ITS ---
HPI HPI - Female History of Present Illness Chief Complaint: Complaint Informant: patient Narrative Narrative: Patient presents with frequency progressing to dysuria throughout the day. No nausea vomiting fevers chills or flank pain. No abdominal pain. She states after she urinates she feels a little bit of spasm in the lower bladder. This is typical for her when she starts with a urinary tract infection. Nothing makes the symptoms better or worse. PFSH PFSH Home Medications acetaminophen 1,000 mg PO TID 08/16/13 [History Last Taken 12/22/17 07:30] naproxen sodium [Aleve] 440 mg PO BID 08/16/13 [History Last Taken Unknown] omeprazole 20 mg PO DAILY 08/16/13 [History Last Taken 12/22/17 07:30] amlodipine 2.5 mg PO DAILY 03/29/17 [History Last Taken 12/22/17 07:30] gabapentin [Neurontin] 600 mg PO QHS 03/29/17 [History Last Taken Unknown] diclofenac sodium [Voltaren] 100 g TP PRN PRN 12/15/17 [History Last Taken Unknown] losartan-hydrochlorothiazide 1 ea PO DAILY 12/15/17 [History Last Taken Unknown] promethazine 25 mg PO Q4H PRN PRN 02/13/18 [History Last Taken Unknown] cephalexin 500 mg PO Q6 #28 cap 12/09/20 [Rx Last Taken Unknown] phenazopyridine [Pyridium] 100 mg PO TID PRN #6 tab 12/09/20 [Rx Last Taken Unknown] Allergy/AdvReac Type Severity Reaction Status Date / Time adhesive tape Allergy skin tear Verified 12/09/20 22:53 lisinopril Allergy Other Verified 12/09/20 22:53 tetracycline [Tetracycline] Allergy Other Verified 12/09/20 22:53 Social History Smoking Status: Never smoker ROS ROS ED Constitutional Constitutional ED: Denies chills or fever(s) ENT ENT ED: Denies rhinorrhea or sore throat Respiratory/Chest Respiratory/Chest: Denies cough Gastrointestinal Gastrointestinal: Denies abdominal pain, nausea or vomiting Genitourinary Genitourinary ED: Reports dysuria and urinary frequency; Denies hematuria Musculoskeletal Musculoskeletal: Reports other Details: No flank pain. ; Denies arthralgias or myalgias Integumentary Denies rash Endocrine Endocrinology: Denies polydipsia or polyuria Hematologic/Lymphatic Hematologic/Lymphatic: Denies easy bleeding or easy bruising EXAM Physical Exam Const Vital Signs: 12/09/20 22:50 Temperature 96.5 F L Temperature Source Temporal Pulse Rate 71 Respiratory Rate 16 Blood Pressure 138/86 H Blood Pressure Mean 103 Pulse Ox 98 Oxygen Delivery Method Room Air Positive well nourished and well developed General Appearance ED: well developed and NAD HEENT Reports moist mucous membranes Eyes General Eye ED: Negative for pale conjunctiva or scleral icterus Resp normal respiratory effort Auscultation: Negative for rales, rhonchi or wheezes Cardio regular rate and regular rhythm GI normal to inspection, nondistended, normoactive bowel sounds, soft to palpation, non-tender and non-distended no CVA tenderness Back/Spine no CVA tenderness Neuro oriented x3 Sensorium / Orientation: alert Psych mental status grossly normal Skin no rashes or lesions noted MDM MDM MDM Narrative Medical decision making narrative: Urinalysis is consistent with UTI. In light of the fact that she has symptoms,, cloudy urine with leukocyte esterase and 25- 50 white cells we will treat her. She will be given cephalexin and Pyridium for symptom control. Return with fevers chills flank pain nausea vomiting or other concerns. Lab Data Attestation: I reviewed the patient's lab results. Labs: Laboratory Results - last 24 hr 12/09/20 23:02 Urine Color Yellow Urine Clarity Sl. Cloudy Urine pH 5.0 Ur Specific [place] 1.020 Urine Protein 30 H Urine Glucose (UA) Normal Urine Ketones Negative Urine Occult Blood 25 H Urine Nitrite Negative Urine Bilirubin Negative Urine Urobilinogen Normal Ur Leukocyte Esterase 500 H Urine RBC 0 SEEN Urine WBC 25-50 SEEN Ur Squamous Epith Cells 0-5 SEEN Urine Bacteria 0 SEEN Urine Mucus 0 SEEN Discharge Plan Triage Chief Complaint: Complaint ED Provider: Luis Balderas Dx/Rx/DC Orders Clinical Impression: Acute UTI Instructions: ED CYSTITIS Female Adult Prescriptions: New cephalexin [cephalexin] 500 MG capsule 500 mg PO Q6 Qty: 28 RF: 0 phenazopyridine [Pyridium] 100 mg tablet 100 mg PO TID PRN (Reason: pain) Qty: 6 RF: 0 No Action acetaminophen 500 MG tablet 1,000 mg PO TID RF: 0 naproxen sodium [Aleve] 220 MG tablet 440 mg PO BID RF: 0 omeprazole 20 MG capsule 20 mg PO DAILY RF: 0 gabapentin [Neurontin] 400 MG capsule 600 mg PO QHS RF: 0 amlodipine 2.5 MG tablet 2.5 mg PO DAILY RF: 0 losartan-hydrochlorothiazide 1 EACH tablet 1 ea PO DAILY RF: 0 diclofenac sodium [Voltaren] 100 GM gel 100 g TP PRN PRN (Reason: BACK PAIN) RF: 0 promethazine 25 MG tablet 25 mg PO Q4H PRN PRN (Reason: Nausea) RF: 0 Primary Care Provider: Blanca Jenkins Referrals: Blanca Jenkins, [Primary Care Provider] - 3-5 Days if not improving Disposition Disposition: Home, Self Care
[2020-12-09 23:19] LABS: Squamous Epithelial Cells - UA 0-5 SEEN /hpf (5-10); White Blood Cells 25-50 SEEN /hpf (0-5)
[2020-12-09] MEDS: Cephalexin 250 MG Capsule 500 MG PO (23:59)
[2020-12-09] MEDS: Phenazopyridine 95 MG Tablet 190 MG PO (23:59)
[2020-12-10 00:03] VITALS: BP 138/77; PULSE 75; RESP 16
== END 2020-12-10 00:04 | disposition home or self-care (01) ==
PROVIDERS: Emergency Provider Emergency Medicine
DX: N39.0 Urinary tract infection, site not specified (principal)
CPT/HCPCS: 81001; 87077; 87086; 87088; 87186; 99283

== ENCOUNTER 2021-03-23 12:52 | Outpatient (CLI) | payer MEDICARE, SELFPAY ==
--- NOTE | 2021-03-23 12:46 | ST.MBS ---
Modified Barium Swallow - Patient Information Study Date: 03/23/21 Study Time: 13:00 Direct Billable Minutes: 81 Total Minutes procedure & reportin Diagnosis: Dysphagia, unspecified (R13.10) Referring Physician: Ant Gallardo Medical History: The patient is a 76 year old female with PMH significant for L hemithyroidectomy (12/2017), acid reflux, hypertensive disorder, HLD, hearing loss, and arthritis. She has reported two episodes of solid foods (turkey at Thanksgiving) feeling lodged in her throat and requiring extensive coughing or extended time to clear from her throat. On one occasion, she had a whistling sound associated with the food being caught; she stated she could breathe during the episode but feared the food was entering her airway. She also reports trouble swallowing pills, sensing they often get stuck. Current Diet Ordered: Regular textures / Thin liquids Dentition: Partials - Pt has lower partials, but reports barely using them. Partials not used during the study. Mental Status: WNL Respiratory Status: Oxygenating on Room Air - Penetration-Aspiration Scale Penetration-Aspiration Scale: OBJECTIVE ASSESSMENT OF SWALLOW FUNCTION (QUANTITATIVE ? PER TRIAL): PENETRATION / ASPIRATION SCALE (LEBRON): 1 = does not enter airway 2 = enters airway/above vocal folds/ejected 3 = enters airway/above vocal folds/not ejected 4 = enters airway/contacts vocal folds/ejected 5 = enters airway/contacts vocal folds/not ejected 6 = enters airway/below vocal folds/ejected 7 = enters airway/below vocal folds/not ejected despite effort 8 = enters airway/below vocal folds/no effort VIDEOFLOROSCOPIC SCALE SCORE (LEBRON): Grade I = aspiration of material that has penetrated into the laryngeal vestibule, intact cough reflex Grade II = aspiration < 10 % of the bolus, intact cough reflex Grade III = aspiration of < 10 % of the bolus, reduced cough reflex or aspiration of > 10 % of the bolus, intact cough reflex Grade IV = aspiration of > 10 % of the bolus, reduced cough reflex - Penetration-Aspiration Scale Score Thin Liquid via teaspoon Result: 2= enter airway/above vocal folds/ejected Thin Liquid via teaspoon Trial 2 Result: 1= does not enter airway Thin Liquid via small single sip from cup Result: 2= enter airway/above vocal folds/ejected Thin Liquid via sequential sips from cup Result: 1= does not enter airway [place] Thick Liquid via small single sip from cup Result: 1= does not enter airway [place] Thick Liquid via small single sip from cup Result: 1= does not enter airway Pudding with esophageal screen Result: 1= does not enter airway - Significant retention of pudding in mid and distal esophagus with retrograde flow of bolus below UES. Cookie Result: 1= does not enter airway Thin Liquid via single sip from straw Result: 1= does not enter airway Thin Liquid via sequential sips from straw Result: 2= enter airway/above vocal folds/ejected Thin Liquid via small single sip from cup Trial 2 Result: 1= does not enter airway Thin Liquid via small single sip from cup Effortful swallow Result: 1= does not enter airway Thin Liquid via small single sip from cup Effortful swallow Trial 2 Result: 1= does not enter airway Barium Tablet with thin liquid Result: 1= does not enter airway - First trial of barium tablet remained in upper esophagus on the swallow - visible during subsequent trial with pudding. Barium Tablet with pudding Result: 1= does not enter airway - Retention of both barium tablet trials evident in distal esophagus after the swallow. CHEMICAL PLANT TECHNICAL DIRECTOR provided pt liquid wash to clear pills from distal esophagus. - Oral Phase Labial Seal: No Labial Escape Tongue Control During Bolus Hold: Posterior escape of less than half of bolus Bolus Preparation/Mastication: Timely and efficient chewing and mashing Bolus Transport/Lingual Motion: Slowed tongue motion Oral Residue: Residue collection on oral structures - Piecemeal deglutition of cookie - Pharyngeal Phase Initiation of Pharyngeal Swallow: Bolus head at posterior laryngeal surgace of epiglottis Soft Palate Elevation: No bolus between soft palate and pharyngeal wall Laryngeal Elevation: Partial superior movement thyroid cart/partial apprx aryt-epig petiole Anterior Hyoid Excursion: Complete anterior movement Epiglottic Movement: Partial inversion Laryngeal Vestibule Closure at Height of Swallow: Incomplete; narrow column of air/contrast in laryngeal vestibule Pharyngeal Stripping Wave: Present - complete Pharyngoesophageal Segment Opening: Parital distension and partial duration; parital obstruction of flow Tongue Base Retraction: Trace column of contrast between tongue base & post. pharyngeal wall Pharyngeal Residue: Trace residue within or on pharyngeal structures - Esophageal Phase Esophageal Clearance: Esophageal retention w/ retrograde flow through pharyngoesophageal seg - Treatment Strategies Effects of treatment strategies attemped:: Effortful swallow = Effective. Slowed rate = Somewhat effective. Barium pill in pudding = Somewhat effective. - Diagnosis/Impression Diagnosis: mild pharyngoesophageal phase dysphagia (R13.14) Impression: The oral phase is marked by piecemeal deglutition of cookie; however, pt independently cleared oral residue with use of multiple swallows. The pharyngeal phase is marked by mild deficits in airway closure due to decreased laryngeal elevation and epiglottic inversion. The patient had increased delay initiating the swallow with sequential sips. She demonstrated laryngeal penetration of certain thin liquid trials via tsp, cup, and straw with full ejection from the laryngeal vestibule. No aspiration observed during the study. The patient demonstrates a prominent CP bar at the level of C6, which did appear to somewhat obstruct boluses, resulting in min retention of various trials in the upper esophagus. She did demonstrate reflux of contrast remaining above the CP bar through the UES . The patient also demonstrated retention of pudding contrast in the mid and distal esophagus with retrograde flow of bolus below the UES. With trials of barium tablet, the tablet consumed with a thin liquid remained in the upper esophagus. The pill barium tablet consumed with pudding remained in the distal esophagus until cleared by a liquid wash. - Recommendations Diet: Regular Textures, Thin Liquids Comment: Consider cutting meats bite size and utilizing sauce to moisten. Take medications whole in puree (applesauce, yogurt, pudding) to promote improved clearance. Wash with liquids after taking medications. Compensatory Strategies: Small Bites, Small Sips, Slow Rate - Sips and bites one at a time, Sitting upright, Remain sitting upright for 30 minutes after PO intake Recommend Repeat Modified Barium Swallow: No Need for Skilled Speech Therapy Services: Yes Comment: Will recommend outpatient dysphagia therapy to implement pharyngeal strengthening to improve laryngeal elevation, airway closure, and UES opening (effortful swallow, effortful breath hold and swallow, Parul mcnamara). Would additionally recommend further education re: aspiration precautions and diet recommendations. Recommended Referrals: GI Consult - CP bar, esophageal retention, and reflux observed during study. SEE Impression for details. Education Completed: 1. Described result of evaluation., 2. Pt understands evaluation & agrees with goals and treatment plan., 4. Family/caregivers understand evaluation & agree w/ goals & tx plan., 7. Pt requires further education on strategies & risks. - Status Active ST Patient: Active - Contact Information [facility] Speech Therapy:: Chely Hernández M.A. [facility]-CHEMICAL PLANT TECHNICAL DIRECTOR Speech-Language Pathologist [facility] [address] [place] [address] [phone] 03/23/21 14:48
== END 2021-03-23 23:59 | disposition home or self-care (01) ==
PROVIDERS: Referring Provider Otolaryngology; Visit Provider Otolaryngology
DX: R13.10 Dysphagia, unspecified (principal)
CPT/HCPCS: 74230; 92611

== ENCOUNTER 2021-05-24 14:54 | Outpatient (CLI) | payer MEDICARE, SELFPAY ==
[2021-05-24 15:11] LABS: Mucous, Urine 0 SEEN /hpf (<or=2+); Squamous Epithelial Cells - UA 0 SEEN /hpf (5-10)
[2021-05-24 15:23] LABS: Color, Urine Yellow (Yellow); Glucose, Dipstick Normal (Normal); Ketone-Dipstick Negative (Negative); Leukocyte Esterase-Dipstick 500 /ul (Negative); Nitrite-Dipstick Negative (Negative); Occult Blood-Urine 250 /ul (Negative); Protein-Dipstick 15 mg/dl (Negative); Urine Bilirubin Dipstick Negative (Negative); Urine Clarity Cloudy (Clear); Urine Urobilinogen Normal (Normal)
[2021-05-24 15:43] LABS: Red Blood Cells-Urine 5-10 SEEN /hpf (0-5); White Blood Cells >100 SEEN /hpf (0-5)
[2021-05-24 15:44] LABS: Bacteria RARE /hpf (None Seen)
== END 2021-05-24 23:59 | disposition home or self-care (01) ==
LOC: LABSPEC 14:56
PROVIDERS: Visit Provider Physician Assistant
DX: R30.9 Painful micturition, unspecified (principal)
CPT/HCPCS: 81001; 87077; 87086; 87088; 87186

== ENCOUNTER → 2021-06-10 | Outpatient (CLI) | payer MEDICARE, SELFPAY ==
--- NOTE | 2021-06-10 12:01 | US_ITS ---
STUDY: RENAL ULTRASOUND - COMPLETE REASON FOR EXAM: Female, 76 years old. UTI CHRONIC TECHNIQUE: Ultrasound evaluation of the kidneys was performed with real-time and static santana-scale imaging. COMPARISON: 01.01.18 FINDINGS: RIGHT KIDNEY: Normal location of the right kidney, which is normal in size. The right kidney measures 11.4x5.4 cm. Echogenic. The renal cortex measures 1.2 cm. There is no right renal mass or cyst. There is 2 x 2 mm right renal calculi. There is no right hydronephrosis. DISTAL RIGHT URETER: There is non-visualization of the distal right ureter. There is no demonstrated right ureterovesical junction calculus. There is a visualized right ureteral jet. LEFT KIDNEY: Normal location of the left kidney, which is normal in size. The left kidney measures 11.1x5.2 cm. Echogenic. The renal cortex measures 1.2 cm. There is no left renal mass or cyst. There are no left renal calculi. There is no left hydronephrosis. DISTAL LEFT URETER: There is non-visualization of the distal left ureter. There is no demonstrated left ureterovesical junction calculus. There is a visualized left ureteral jet. AORTA: There is obscuration of the abdominal aorta by overlying bowel gas I.V.C.: The IVC is obscured. BLADDER: The distended urinary bladder has a volume of 492 ml. The empty urinary bladder has a volume of 22 ml. There is a normal wall thickness of the distended urinary bladder. There is no demonstrated mass within the urinary bladder. There are no demonstrated bladder calculi. US/Kidney and Bladder IMPRESSION: Echogenic kidneys are suggestive of chronic medical renal disease. Nonobstructive right renal stone Electronically Signed: Brooks Rooney MD at 15:44 EDT ,
== END | disposition home or self-care (01) ==
LOC: US 12:00
PROVIDERS: Referring Provider Urology; Visit Provider Urology
DX: N39.0 Urinary tract infection, site not specified (principal)
CPT/HCPCS: 76770

== ENCOUNTER 2021-07-21 10:00 | Outpatient (RCR) | payer MEDICARE, SELFPAY ==
--- NOTE | 2021-05-25 17:41 | ST ---
[facility] Speech Pathology [address] [place] [address] Modified Barium Swallow Study MR#: [id number] Acct: [id number] Name: SONY CHENG Rep #: [id number] : 1945 76 From: Chely Hernández M.A., [facility]-ROLLER PRESSER OPERATOR Modified Barium Swallow - Patient Information Study Date: 03/23/21 Study Time: 13:00 Direct Billable Minutes: 81 Total Minutes procedure & reportin Diagnosis: Dysphagia, unspecified (R13.10) Referring Physician: Ant Gallardo Medical History: The patient is a 76 year old female with PMH significant for L hemithyroidectomy (12/2017), acid reflux, hypertensive disorder, HLD, hearing loss, and arthritis. She has reported two episodes of solid foods (turkey at Thanksgiving) feeling lodged in her throat and requiring extensive coughing or extended time to clear from her throat. On one occasion, she had a whistling sound associated with the food being caught; she stated she could breathe during the episode but feared the food was entering her airway. She also reports trouble swallowing pills, sensing they often get stuck. Current Diet Ordered: Regular textures / Thin liquids Dentition: Partials - Pt has lower partials, but reports barely using them. Partials not used during the study. Mental Status: WNL Respiratory Status: Oxygenating on Room Air - Penetration-Aspiration Scale Penetration-Aspiration Scale: OBJECTIVE ASSESSMENT OF SWALLOW FUNCTION (QUANTITATIVE ? PER TRIAL): PENETRATION / ASPIRATION SCALE (LEBRON): 1 = does not enter airway 2 = enters airway/above vocal folds/ejected 3 = enters airway/above vocal folds/not ejected 4 = enters airway/contacts vocal folds/ejected 5 = enters airway/contacts vocal folds/not ejected 6 = enters airway/below vocal folds/ejected 7 = enters airway/below vocal folds/not ejected despite effort 8 = enters airway/below vocal folds/no effort - Penetration-Aspiration Scale Score Thin Liquid via teaspoon Result: 2= enter airway/above vocal folds/ejected Thin Liquid via teaspoon Trial 2 Result: 1= does not enter airway Thin Liquid via small single sip from cup Result: 2= enter airway/above vocal folds/ejected Thin Liquid via sequential sips from cup Result: 1= does not enter airway [place] Thick Liquid via small single sip from cup Result: 1= does not enter airway [place] Thick Liquid via small single sip from cup Result: 1= does not enter airway Pudding with esophageal screen Result: 1= does not enter airway - Significant retention of pudding in mid and distal esophagus with retrograde flow of bolus below UES. Cookie Result: 1= does not enter airway Thin Liquid via single sip from straw Result: 1= does not enter airway Thin Liquid via sequential sips from straw Result: 2= enter airway/above vocal folds/ejected Thin Liquid via small single sip from cup Trial 2 Result: 1= does not enter airway Thin Liquid via small single sip from cup Effortful swallow Result: 1= does not enter airway Thin Liquid via small single sip from cup Effortful swallow Trial 2 Result: 1= does not enter airway Barium Tablet with thin liquid Result: 1= does not enter airway - First trial of barium tablet remained in upper esophagus on the swallow - visible during subsequent trial with pudding. Barium Tablet with pudding Result: 1= does not enter airway - Retention of both barium tablet trials evident in distal esophagus after the swallow. ROLLER PRESSER OPERATOR provided pt liquid wash to clear pills from distal esophagus. - Oral Phase Labial Seal: No Labial Escape Tongue Control During Bolus Hold: Posterior escape of less than half of bolus Bolus Preparation/Mastication: Timely and efficient chewing and mashing Bolus Transport/Lingual Motion: Slowed tongue motion Oral Residue: Residue collection on oral structures - Piecemeal deglutition of cookie - Pharyngeal Phase Initiation of Pharyngeal Swallow: Bolus head at posterior laryngeal surgace of epiglottis Soft Palate Elevation: No bolus between soft palate and pharyngeal wall Laryngeal Elevation: Partial superior movement thyroid cart/partial apprx aryt-epig petiole Anterior Hyoid Excursion: Complete anterior movement Epiglottic Movement: Partial inversion Laryngeal Vestibule Closure at Height of Swallow: Incomplete; narrow column of air/contrast in laryngeal vestibule Pharyngeal Stripping Wave: Present - complete Pharyngoesophageal Segment Opening: Parital distension and partial duration; parital obstruction of flow Tongue Base Retraction: Trace column of contrast between tongue base & post. pharyngeal wall Pharyngeal Residue: Trace residue within or on pharyngeal structures - Esophageal Phase Esophageal Clearance: Esophageal retention w/ retrograde flow through pharyngoesophageal seg - Treatment Strategies Effects of treatment strategies attemped:: Effortful swallow = Effective. Slowed rate = Somewhat effective. Barium pill in pudding = Somewhat effective. - Diagnosis/Impression Diagnosis: mild pharyngoesophageal phase dysphagia (R13.14) Impression: The oral phase is marked by piecemeal deglutition of cookie; however, pt independently cleared oral residue with use of multiple swallows. The pharyngeal phase is marked by mild deficits in airway closure due to decreased laryngeal elevation and epiglottic inversion. The patient had increased delay initiating the swallow with sequential sips. She demonstrated laryngeal penetration of certain thin liquid trials via tsp, cup, and straw with full ejection from the laryngeal vestibule. No aspiration observed during the study. The patient demonstrates a prominent CP bar at the level of C6, which did appear to somewhat obstruct boluses, resulting in min retention of various trials in the upper esophagus. She did demonstrate reflux of contrast remaining above the CP bar through the UES . The patient also demonstrated retention of pudding contrast in the mid and distal esophagus with retrograde flow of bolus below the UES. With trials of barium tablet, the tablet consumed with a thin liquid remained in the upper esophagus. The pill barium tablet consumed with pudding remained in the distal esophagus until cleared by a liquid wash. - Recommendations Diet: Regular Textures, Thin Liquids Comment: Consider cutting meats bite size and utilizing sauce to moisten. Take medications whole in puree (applesauce, yogurt, pudding) to promote improved clearance. Wash with liquids after taking medications. Compensatory Strategies: Small Bites, Small Sips, Slow Rate - Sips and bites one at a time, Sitting upright, Remain sitting upright for 30 minutes after PO intake Recommend Repeat Modified Barium Swallow: No Need for Skilled Speech Therapy Services: Yes Comment: Will recommend outpatient dysphagia therapy to implement pharyngeal strengthening to improve laryngeal elevation, airway closure, and UES opening (effortful swallow, effortful breath hold and swallow, Parul mcnamara). Would additionally recommend further education re: aspiration precautions and diet recommendations. Recommended Referrals: GI Consult - CP bar, esophageal retention, and reflux observed during study. SEE Impression for details. Education Completed: 1. Described result of evaluation., 2. Pt understands evaluation & agrees with goals and treatment plan., 4. Family/caregivers understand evaluation & agree w/ goals & tx plan., 7. Pt requires further education on strategies & risks. - Status Active ST Patient: Active - Contact Information [facility] Speech Therapy:: Chely Hernández M.A. [employer]-ROLLER PRESSER OPERATOR Speech-Language Pathologist [facility] [address] [place] [address] [email or web address] [phone] 03/23/21 14:48 03/23/21 1451 <Electronically signed by Chely Hernández M.A., CCC-ROLLER PRESSER OPERATOR> Date/Time Chely Hernández M.A., CCC-ROLLER PRESSER OPERATOR
--- NOTE | 2021-05-25 19:44 | HP.SP.AD_ITS ---
History - History Date of Eval: 05/25/21 Medical Diagnosis (from RX): mild pharyngoesophageal dysphagia Previous speech therapy: Yes Results: MBSS on 03/23/2021 see below Other Relevant Medical History/Diagnoses/Surgery: ANNALISA CHENG is a 76 [id number] who presents to [facility] in [place] on 05/25/2021 for concerns with dysphagia. Pt with PMH significant for L hemithyroidectomy (12/2017), acid reflux, hypertensive disorder, HLD, hearing loss, and arthritis. She has reported two episodes of solid foods (turkey at Thanksgiving) feeling lodged in her throat and requiring extensive coughing or extended time to clear from her throat. On one occasion, she had a whistling sound associated with the food being caught; she stated she could breathe during the episode but feared the food was entering her airway. She also reports trouble swallowing pills, sensing they often get stuck. Pt participated in an MBSS on 03/23/2021 which rx regular solids and thin liquids with medications taken with puree with a thin liquid rinse afterwards. It was also rx Pt follow-up with her GI doctor re: a CP bar at the level of C6 and the presence of retrograde flow in the medial and distal esophagus. Pt reports she has not followed up with GI yet. Pt enjoys gardening and [place]. Medications related to this diagnosis: Losartan (50mg, once a day), Buspirone (15mg , 3x/day), Ondansetron (4 mg, 8hrs PRN), Gabapentin (600 mg, 3x/day), Tramadol (50mg 1-2x/day PRN), Pravastatin (20 mg Once a day) Smoking Status: Never smoker Hx Smoking: No Hx Tobacco Use: No Hx Smoking Exposure: No - Pain Is pain an issue with your current prescribed condition?: No - Personal Occupation: Retired Right Hearing Abillity: Hard of Hearing Left Hearing Abillity: Hard of Hearing Visual Assistive Devices: Glasses Patients Living Arrangements: With Significant Other Patient Allergies - Allergies Allergies adhesive tape Allergy (Verified 12/09/20 22:53) skin tear lisinopril Allergy (Verified 12/09/20 22:53) Other COUGH tetracycline [Tetracycline] Allergy (Verified 12/09/20 22:53) Other Objective Oral Motor - Oral Status Dentition: Upper Dentures Additional: Working on getting a new partial lower plate - Labial Impairment: WNL Observation at Rest: WNL Closure: WNL Pucker: WNL Retraction: WNL - Lingual Impairment: WNL Protrusion: WNL Retraction: WNL Lateralization: WNL - Respiratory Status Respiratory Status: Room Air Subjective Dysphagia - Symptoms Reported Symptoms/Problems with: Choking, Difficulty Swallowing Solids, Difficulty Swallowing Pills, Food gets stuck - Current Diet Solids Current Diet: Regular - Current Diet Liquids Current Liquids: Thin Objective Dysphagia - Administered by Administered by: Self - Thin Liquids Administred via: Cup Symptoms: Couging, Delayed Comments: Pt demonstrating 2x delay coughing following thin liquid rinse after regular solid trials. Pt reports this occasionally occurs when she turns her head while swallowing or shortly after. Will continue to monitor. - Regular Laryngeal Elevation: WFL AP Movement: Following thorough education re: importance of bolus collection and not allowing bolus to escape posteriorly with piecemeal deglutition, Pt focusing on keeping a bolus collection prior to swallowing which reportedly improved her AP movement. Pt reports feeling like she was able to swallow harder when she swallowed the whole bolus vs. how she previously swallowed with piecemealing. - Results Swallowing Within Normal Limits: No Swallowing Diagnosis: Pharyngoesophageal Phase Dysphagia Additional: per MBSS completed on 03/23/21 Modified Barium Results Hx MBS Report Entered: Yes MBS Results (from prior exam): 05/25/21 17:41 Speech Therapy by Kacey Gunter [facility] Speech Pathology [address] [place] [address] Modified Barium Swallow Study MR#: [id number] Acct: [id number] Name: ANNALISA CHENG Rep #:[id number] : 1945 76 From: Chely Woodward [facility] Modified Barium Swallow - Patient Information Study Date: 03/23/21 Study Time: 13:00 Direct Billable Minutes: 81 Total Minutes procedure & reportin Diagnosis: Dysphagia, unspecified (R13.10) Referring Physician: Ant Gallardo Medical History: The patient is a 76 year old female with PMH significant for L hemithyroidectomy (12/2017), acid reflux, hypertensive disorder, HLD, hearing loss, and arthritis. She has reported two episodes of solid foods (turkey at Thanksgiving) feeling lodged in her throat and requiring extensive coughing or extended time to clear from her throat. On one occasion, she had a whistling sound associated with the food being caught; she stated she could breathe during the episode but feared the food was entering her airway. She also reports trouble swallowing pills, sensing they often get stuck. Current Diet Ordered: Regular textures / Thin liquids Dentition: Partials - Pt has lower partials, but reports barely using them. Partials not used during the study. Mental Status: WNL Respiratory Status: Oxygenating on Room Air - Penetration-Aspiration Scale Penetration-Aspiration Scale: OBJECTIVE ASSESSMENT OF SWALLOW FUNCTION (QUANTITATIVE ? PER TRIAL): PENETRATION / ASPIRATION SCALE (LEBRON): 1 = does not enter airway 2 = enters airway/above vocal folds/ejected 3 = enters airway/above vocal folds/not ejected 4 = enters airway/contacts vocal folds/ejected 5 = enters airway/contacts vocal folds/not ejected 6 = enters airway/below vocal folds/ejected 7 = enters airway/below vocal folds/not ejected despite effort 8 = enters airway/below vocal folds/no effort - Penetration-Aspiration Scale Score Thin Liquid via teaspoon Result: 2= enter airway/above vocal folds/ejected Thin Liquid via teaspoon Trial 2 Result: 1= does not enter airway Thin Liquid via small single sip from cup Result: 2= enter airway/above vocal folds/ejected Thin Liquid via sequential sips from cup Result: 1= does not enter airway [place] Thick Liquid via small single sip from cup Result: 1= does not enter airway Honey Thick Liquid via small single sip from cup Result: 1= does not enter airway Pudding with esophageal screen Result: 1= does not enter airway - Significant retention of pudding in mid and distal esophagus with retrograde flow of bolus below UES. Cookie Result: 1= does not enter airway Thin Liquid via single sip from straw Result: 1= does not enter airway Thin Liquid via sequential sips from straw Result: 2= enter airway/above vocal folds/ejected Thin Liquid via small single sip from cup Trial 2 Result: 1= does not enter airway Thin Liquid via small single sip from cup Effortful swallow Result: 1= does not enter airway Thin Liquid via small single sip from cup Effortful swallow Trial 2 Result: 1= does not enter airway Barium Tablet with thin liquid Result: 1= does not enter airway - First trial of barium tablet remained in upper esophagus on the swallow - visible during subsequent trial with pudding. Barium Tablet with pudding Result: 1= does not enter airway - Retention of both barium tablet trials evident in distal esophagus after the swallow. [facility] provided pt liquid wash to clear pills from distal esophagus. - Oral Phase Labial Seal: No Labial Escape Tongue Control During Bolus Hold: Posterior escape of less than half of bolus Bolus Preparation/Mastication: Timely and efficient chewing and mashing Bolus Transport/Lingual Motion: Slowed tongue motion Oral Residue: Residue collection on oral structures - Piecemeal deglutition of cookie - Pharyngeal Phase Initiation of Pharyngeal Swallow: Bolus head at posterior laryngeal surgace of epiglottis Soft Palate Elevation: No bolus between soft palate and pharyngeal wall Laryngeal Elevation: Partial superior movement thyroid cart/partial apprx aryt- epig petiole Anterior Hyoid Excursion: Complete anterior movement Epiglottic Movement: Partial inversion Laryngeal Vestibule Closure at Height of Swallow: Incomplete; narrow column of air/contrast in laryngeal vestibule Pharyngeal Stripping Wave: Present - complete Pharyngoesophageal Segment Opening: Parital distension and partial duration; parital obstruction of flow Tongue Base Retraction: Trace column of contrast between tongue base & post. pharyngeal wall Pharyngeal Residue: Trace residue within or on pharyngeal structures - Esophageal Phase Esophageal Clearance: Esophageal retention w/ retrograde flow through pharyngoesophageal seg - Treatment Strategies Effects of treatment strategies attemped:: Effortful swallow = Effective. Slowed rate = Somewhat effective. Barium pill in pudding = Somewhat effective. - Diagnosis/Impression Diagnosis: mild pharyngoesophageal phase dysphagia (R13.14) Impression: The oral phase is marked by piecemeal deglutition of cookie; however, pt independently cleared oral residue with use of multiple swallows. The pharyngeal phase is marked by mild deficits in airway closure due to decreased laryngeal elevation and epiglottic inversion. The patient had increased delay initiating the swallow with sequential sips. She demonstrated laryngeal penetration of certain thin liquid trials via tsp, cup, and straw with full ejection from the laryngeal vestibule. No aspiration observed during the study. The patient demonstrates a prominent CP bar at the level of C6, which did appear to somewhat obstruct boluses, resulting in min retention of various trials in the upper esophagus. She did demonstrate reflux of contrast remaining above the CP bar through the UES . The patient also demonstrated retention of pudding contrast in the mid and distal esophagus with retrograde flow of bolus below the UES. With trials of barium tablet, the tablet consumed with a thin liquid remained in the upper esophagus. The pill barium tablet consumed with pudding remained in the distal esophagus until cleared by a liquid wash. - Recommendations Diet: Regular Textures, Thin Liquids Comment: Consider cutting meats bite size and utilizing sauce to moisten. Take medications whole in puree (applesauce, yogurt, pudding) to promote improved clearance. Wash with liquids after taking medications. Compensatory Strategies: Small Bites, Small Sips, Slow Rate - Sips and bites one at a time, Sitting upright, Remain sitting upright for 30 minutes after PO intake Recommend Repeat Modified Barium Swallow: No Need for Skilled Speech Therapy Services: Yes Comment: Will recommend outpatient dysphagia therapy to implement pharyngeal strengthening to improve laryngeal elevation, airway closure, and UES opening (effortful swallow, effortful breath hold and swallow, Parul mcnamara). Would additionally recommend further education re: aspiration precautions and diet recommendations. Recommended Referrals: GI Consult - CP bar, esophageal retention, and reflux observed during study. SEE Impression for details. Education Completed: 1. Described result of evaluation., 2. Pt understands evaluation & agrees with goals and treatment plan., 4. Family/caregivers understand evaluation & agree w/ goals & tx plan., 7. Pt requires further education on strategies & risks. - Status Active ST Patient: Active - Contact Information [facility] Speech Therapy:: Chely Hernández M.A. [facility] Speech-Language Pathologist [facility] [address] [place] [address] [email or web address] [phone] 03/23/21 14:48 03/23/21 1451 <Electronically signed by Chely Hernández M.A., [facility]> Date/Time Chely Hernández M.A., CCC[facility] Initialized on 05/25/21 17:41 - END OF NOTE Dysphagia Assessment - Swallowing Impairment Contributing Factors to Swallowing Impairment: Mastication Inefficiency, Impaired Oral-Pharyngeal Transport, Delayed Swallow Initiation - Recommendations Modified Barium Swallow/Cookie Swallow Recommended: Yes Swallowing Treatment: Yes - Diet Texture Recommendations Solids Other: Regular, Soft Other Solid: Per Pt preference; education provided re: IDDSI 7 and 6 Liquids: Thin - Safety Saftey Precautions/Swallowing Recommendations (Check all that Apply): Reduce Distractions, Upright Position at Least 30 Minutes After Meals, Small Sips & Bites when Eating, Multiple Swallows, Alternate Liquids & Solids Other: Collect bolus prior to swallowing - Compensatory Strategies Compensatory Strategies: Double Swallow Plan - Plan Plan: Will rx Pt for skilled outpatient tx to address deficits in mild pharyngoesophageal dysphagia. Pt would benefit from training and education re: process of utilizing safe swallowing strategies with PO intake, diet tolerance checks, and swallowing exercises to aid in oropharyngeal strengthening. Without skilled intervention, Pt is at risk for consuming a restrictive diet putting her at risk for aspiration pneumonia and atrophy of laryngeal musculature. - Recommendations MBS: Yes Treatment Warranted: Yes - Frequency Frequency: 1x/Week Duration: TBD pending next session - Prognosis Prognosis: Excellent - Goals that are Established: Determination:: Goals will be added/modified as deemed necessary and appropriate. Therapy will be discontinued when results of re-evaluation indicate therapy is no longer needed or lack of progress has been documented. - Goal #1-5 Goal #1: Annalisa will utilize swallowing strategies and tolerate least restrictive diet with no overt s/s of aspiration/penetration to aid in safe co nsumption of solid/liquids independently with greater than 90% of PO intake. Goal #2: Annalisa will complete pharyngeal exercises (effortful swallow, effortful breath hold and swallow, Inocente, Shaker) for 10 reps, 3x/day independently to improve tongue base retraction, PES opening/distention, and hyolaryngeal elevation and excursion. Goal #3: Annalisa will complete oral motor exercises to aid in bolus manipulation and collection, oral strengthening, and ROM with no cues. Goal #4: Annalisa will participate in a GI consult to determine presence of reflux and course of intervention if appropriate. Education - Patient has Indicated that the Following Identified Educational Needs: None The Patient has indicated that they have no educational or learning abilities that may effect their care.: Yes - Patient Instruction Patient Education: Diagnosis, Treatment Plan, Goals, Diet Level Other Education: Extensive direct education was provided along with handouts (MBSS report, diet recommendations, GERD handout) to Pt and Pt's . Thoroughly discussed her MBSS and reviewed imaging from two months ago - Pt showed appreciation of reviewing and demonstrated better understanding of her dx by seeing the images. Discussed unknown terminology in the report (UES, CP bar, etc.) and the course our therapy will take. Discussed reducing distractions while eating and not talking while chewing her food. Discussed the term piecemeal deglutition and the importance of creating a cohesive bolus prior to initiating swallow - Pt able to observe posterior loss of bolus on MBSS imaging. Discussed consuming her medications in a puree and then utilizing a liquid rinse to help clear bolus from esophagus. Provided Pt with a daily symptom tracker to record instances of penetration/aspiration prior to our next visit. Pt asking appropriate and knowledgeable questions - eager to learn and start tx. Pt inquiring if this is something that will block her airway and if it will get worse - discussed the term presbyphagia and how this may be a case of her swallow aging, however decided we would look at other dx she has (gastroparesis and others) to see if they are connected in some way. Person Taught: Patient, Family Teaching Method: Discussion, Demonstration, Handout, Teach back Response to teaching: Return demonstration, Verbalize understanding
== END 2021-07-21 19:00 | disposition home or self-care (01) ==
LOC: SP 10:00
PROVIDERS: Referring Provider Otolaryngology; Visit Provider Otolaryngology
DX: R13.12 Dysphagia, oropharyngeal phase (principal)
CPT/HCPCS: 92526; 92610

== ENCOUNTER → 2021-11-10 | Outpatient (CLI) | payer MEDICARE, SELFPAY ==
[2021-11-10 23:24] LABS: Mucous, Urine 0 SEEN /hpf (<or=2+); Red Blood Cells-Urine 0 SEEN /hpf (0-5)
[2021-11-10 23:27] LABS: Color, Urine Yellow (Yellow); Glucose, Dipstick Normal (Normal); Ketone-Dipstick Negative (Negative); Leukocyte Esterase-Dipstick 500 /ul (Negative); Nitrite-Dipstick Negative (Negative); Occult Blood-Urine Negative /ul (Negative); Protein-Dipstick Negative (Negative); Urine Bilirubin Dipstick Negative (Negative); Urine Clarity Clear (Clear); Urine Urobilinogen Normal (Normal); Urine pH 6.5 (5.0 - 8.0)
[2021-11-10 23:37] LABS: Bacteria 1+ /hpf (None Seen); Squamous Epithelial Cells - UA 0-5 SEEN /hpf (5-10); White Blood Cells 10-25 SEEN /hpf (0-5)
== END | disposition home or self-care (01) ==
PROVIDERS: Visit Provider Physician Assistant
DX: N39.0 Urinary tract infection, site not specified (principal); R31.9 Hematuria, unspecified
CPT/HCPCS: 81001; 87086; 87088

== ENCOUNTER 2022-01-04 13:21 | Outpatient (CLI) | payer MEDICARE, SELFPAY ==
--- NOTE | 2022-01-04 13:23 | BI_ITS ---
MAMMOGRAPHY - BILATERAL SCREENING REASON FOR EXAM: Female, 76 years old. Routine annual screening examination. PERTINENT HISTORY: Non-contributory. TECHNIQUE: Digital bilateral breast gail (3D mammographic acquisition) in the CC and MLO projections. 2-D mediolateral oblique (MLO) and craniocaudad (CC) views of both breasts were obtained. CAD: Full Field Digital Mammography with Computer Added Detection was performed. COMPARISON: 01/31/2020, 12/06/2016. FINDINGS: Breast Composition: The breasts are heterogeneously dense, which may obscure small masses. There are no dominant masses or suspicious calcifications. Stable benign-appearing bilateral axillary lymph nodes. No other significant abnormalities are identified. There has been no significant change since the prior study. BI/SCRN MAMM (CAD)W/GAIL BILAT IMPRESSION: Stable bilateral screening mammogram. Yearly follow-up mammogram recommended. (A) ASSESSMENT CATEGORY: BIRADS Category 2: Benign. A letter regarding these results will be sent to the patient by the facility within 30 days. Approximately 10% of breast cancers are not detected by mammography. A normal mammogram should not delay biopsy of a clinically suspicious abnormality. Electronically Signed: Joey Dee, at 9:20 EST ,
--- NOTE | 2022-01-04 13:48 | BD_ITS ---
STUDY: DUAL ENERGY X-RAY ABSORPTIOMETRY / DXA REASON FOR EXAM: Female, 76 years old. Z780 TECHNIQUE: Bone Mineral Density (BMD) measurements of lumbar spine and bilateral hips were obtained. COMPARISON: Comparison is made with prior study dated 12/06/2016. FINDINGS: Lumbar Spine (L1-L4): g/cm2 (0.790) / T-score (-2.3) / Z-score (0.1) Findings are suggestive of osteopenia with a high fracture risk. Left Femur Total: g/cm2 (0.743) / T-score (-1.6) / Z-score (0.1) Left Femoral Neck: g/cm2 (0.631) / T-score (-2.0) / Z-score (0.1) Right Femur Total: g/cm2 (0.716) / T-score (-1.9) / Z-score (-0.1) Right Femoral Neck: g/cm2 (0.585) / T-score (-2.4) / Z-score (-0.3) The T-Scores on the most recent prior examination were: Lumbar Spine (L1-L4): There has been improvement of bone density since the previous examination. Left Femur Total: which represents a worsening of 11%. Right Femur Total: which represents a worsening of 15.4%. BD/Dexa Bone Density Study IMPRESSION: The patient is considered osteopenic as outlined below according to World Diallo Organization (WHO) criteria with a high fracture risk. There has been worsening of bone density since the previous examination. Reference Information: The T-score is the number of standard deviations above or below the standard which is normal for young adults at their peak bone mineral density. The World Health Organization (WHO) interprets the T-scores as follows: Above -1 Normal bone density Between -1 and -2.5 Osteopenia Equal to / or below -2.5 Osteoporosis As a practical clinical guideline, osteopenia may be graded as follows: Mild -1 through -1.5 Moderate -1.6 through -2.0 Severe -2.1 through -2.4 The Z-score is the number of standard deviations above or below age-matched controls. A Z-score of less than -1.5 would be considered abnormal. References: 1. NIH Osteoporosis and Related Bone Diseases www osteo.org 2. International Society for Clinical Densitometry www iscd.org 3. National Osteoporosis Foundation www nof.org Electronically Signed: Ghulam Bear MD at 10:16 EST ,
== END 2022-01-04 23:59 | disposition home or self-care (01) ==
LOC: OPBD 13:21
DX: Z12.31 Encounter for screening mammogram for malignant neoplasm of breast (principal); Z78.0 Asymptomatic menopausal state
CPT/HCPCS: 77063; 77067; 77080

== ENCOUNTER 2022-01-09 13:11 | Emergency (ER) | payer MEDICARE, SELFPAY ==
[2022-01-09 13:12] VITALS: BP 107/70; PULSE 79; RESP 16; TEMP 36.2; O2SAT 98; BMI 24.9
--- NOTE | 2022-01-09 13:44 | RAD_ITS ---
EXAM: XR CHEST, 1 VIEW CLINICAL INDICATION: covid 19 cough TECHNIQUE: Frontal view of the chest. This report was created using [employer] report generation technology. COMPARISON: None. FINDINGS: LUNGS AND PLEURAL SPACES: Linear density left lung base consistent with atelectasis or scarring. Lungs are otherwise clear. No pneumothorax. No effusion. HEART: Normal heart size. MEDIASTINUM: No mediastinal or hilar mass. BONES/JOINTS: No acute abnormality. SOFT TISSUES: Normal. RAD/Chest 1 View (Portable) IMPRESSION: No acute findings in the chest. Electronically Signed: Tor Rhodes MD at 14:13 EST ,
--- NOTE | 2022-01-09 13:45 | EDS_ITS ---
HPI History of Present Illness Chief Complaint: Cough Informant: patient Narrative Narrative: [age] female states that yesterday she began to feel ill. She tested negative for COVID but then tested positive today. She does note a slight cough. She notes myalgias. Subjective fever. She denies vomiting or diarrhea. Significant other is also positive. She does not wear oxygen at home. [facility] Medical History Urinary tract infection Urinary tract infection with hematuria Home Medications acetaminophen 500 mg tablet 1,000 mg PO TID 08/16/13 [History Last Taken 12/22/17 07:30] naproxen sodium 220 mg tablet (Aleve) 440 mg PO BID 08/16/13 [History Last Taken Unknown] omeprazole 20 mg capsule,delayed release 20 mg PO DAILY 08/16/13 [History Last Taken 12/22/17 07:30] amlodipine 2.5 mg tablet 2.5 mg PO DAILY 03/29/17 [History Last Taken 12/22/17 07:30] gabapentin 400 mg capsule (Neurontin) 600 mg PO QHS 03/29/17 [History Last Taken Unknown] diclofenac sodium 1 % topical gel (Voltaren) 100 g TP PRN PRN BACK PAIN 12/15/17 [History Last Taken Unknown] losartan 100 mg-hydrochlorothiazide 25 mg tablet 1 ea PO DAILY 12/15/17 [History Last Taken Unknown] promethazine 25 mg tablet 25 mg PO Q4H PRN PRN Nausea 02/13/18 [History Last Taken Unknown] cephalexin 500 mg capsule 500 mg PO Q6 #28 caps 12/09/20 [Rx Last Taken Unknown] phenazopyridine 100 mg tablet (Pyridium) 100 mg PO TID PRN pain 6 doses #6 tabs 12/09/20 [Rx Last Taken Unknown] ciprofloxacin HCl 500 mg tablet 500 mg PO BID #14 tabs 05/24/21 [Rx Last Taken Unknown] Allergy/AdvReac Type Severity Reaction Status Date / Time adhesive tape Allergy skin tear Verified 01/09/22 13:12 lisinopril Allergy Other Verified 01/09/22 13:12 tetracycline [Tetracycline] Allergy Other Verified 01/09/22 13:12 Social History Smoking Status: Never smoker ROS ROS ED Constitutional Constitutional ED: Reports fever(s); Denies chills or weight loss Eyes Eyes: Denies change in vision or diplopia ENT ENT ED: Denies ear pain, rhinorrhea or sore throat Cardiovascular Cardiovascular: Denies chest pain, orthopnea, palpitations or racing heartbeat Respiratory/Chest Respiratory/Chest: Reports cough; Denies dyspnea or orthopnea Gastrointestinal Gastrointestinal: Denies abdominal pain, diarrhea, nausea or vomiting Genitourinary Genitourinary ED: Denies dysuria, hematuria or urinary frequency Musculoskeletal Musculoskeletal: Reports myalgias; Denies arthralgias or back pain Integumentary Denies abscess or rash Neurologic Neurologic: Denies headache(s) or weakness Psychiatric Psychiatric: Denies anxiety, depression, suicidal ideation or suicidal thoughts Endocrine Endocrinology: Denies polydipsia, polyphagia or polyuria Allergic/Immunologic Allergic/Immunologic ED: Denies mouth swelling, tongue swelling or urticaria EXAM Physical Exam Const Vital Signs: 01/09/22 13:12 Temperature 97.2 F L Temperature Source Temporal Pulse Rate 79 Respiratory Rate 16 Blood Pressure 107/70 Blood Pressure Mean 82 Pulse Ox 98 Oxygen Delivery Method Room Air Positive well nourished and well developed General Appearance ED: well developed HEENT Reports normocephalic, head/scalp atraumatic and moist mucous membranes Eyes PERRL and EOMs intact bilaterally Neck no lymphadenopathy, supple and no JVD Resp normal respiratory effort and clear to auscultation bilaterally Cardio regular rate, regular rhythm and no murmurs GI normal to inspection, nondistended, normoactive bowel sounds and non-tender Palpation: soft Back/Spine no CVA tenderness and normal ROM Extremity normal to inspection General Extremety ED: Negative for edema General Extremity: Negative for edema Neuro oriented x3 and CN's II-XII intact bilaterally Sensorium / Orientation: alert Motor Exam: strength 5/5 throughout Psych mental status grossly normal Mood & Affect: Negative for depressed or tearful Skin no rashes or lesions noted and no wounds MDM MDM MDM Narrative Medical decision making narrative: My interpretation of the plain films of the chest x-ray is no acute process. Patient clinically appears to have a mild case of COVID-19. She is 98% on room air with a normal sounding chest and chest x-ray. At this point patient will be discharged home with supportive care. We did talk about the risk and benefits of Paxlovid and at this point she is going to hold on that Radiography Diagnostic Testing: Clinical Impression(s) from Imaging Studies Chest X-Ray 01/09/22 13:44 IMPRESSION: No acute findings in the chest. Electronically Signed: Tor Rhodes MD at 14:13 EST , Discharge Plan Triage Chief Complaint: Cough ED Provider: Jw Sweet Dx/Rx/DC Orders Clinical Impression: COVID-19 Instructions: Coronavirus Disease 2019 (COVID-19): Caring for Yourself or Others Prescriptions: No Action ciprofloxacin HCl 500 mg tablet 500 mg PO BID Qty: 14 0RF acetaminophen 500 MG tablet 1,000 mg PO TID naproxen sodium [Aleve] 220 MG tablet 440 mg PO BID omeprazole 20 MG capsule 20 mg PO DAILY gabapentin [Neurontin] 400 MG capsule 600 mg PO QHS amlodipine 2.5 MG tablet 2.5 mg PO DAILY losartan-hydrochlorothiazide 1 EACH tablet 1 ea PO DAILY diclofenac sodium [Voltaren] 100 GM gel 100 g TP PRN PRN (Reason: BACK PAIN) promethazine 25 MG tablet 25 mg PO Q4H PRN PRN (Reason: Nausea) cephalexin [cephalexin] 500 MG capsule 500 mg PO Q6 Qty: 28 0RF phenazopyridine [Pyridium] 100 mg tablet 100 mg PO TID PRN (Reason: pain) Qty: 6 0RF Primary Care Provider: Balnca Jenkins Referrals: Blanca Jenkins, [Primary Care Provider] - As Needed Disposition Disposition: Home, Self Care
== END 2022-01-09 14:49 | disposition home or self-care (01) ==
PROVIDERS: Emergency Provider Emergency Medicine; Visit Provider Emergency Medicine
DX: U07.1 COVID-19 (principal)
CPT/HCPCS: 71045; 99282

== ENCOUNTER → 2022-01-31 | Outpatient (CLI) | payer MEDICARE, SELFPAY ==
[2022-01-31 17:42] LABS: Mucous, Urine 0 SEEN /hpf (<or=2+); Red Blood Cells-Urine 0 SEEN /hpf (0-5); Squamous Epithelial Cells - UA 0 SEEN /hpf (5-10)
[2022-01-31 17:49] LABS: Color, Urine Yellow (Yellow); Glucose, Dipstick Normal (Normal); Ketone-Dipstick Negative (Negative); Leukocyte Esterase-Dipstick 500 /ul (Negative); Nitrite-Dipstick Negative (Negative); Occult Blood-Urine Negative /ul (Negative); Protein-Dipstick Negative (Negative); Urine Bilirubin Dipstick Negative (Negative); Urine Clarity Clear (Clear); Urine Urobilinogen Normal (Normal); Urine pH 6.5 (5.0 - 8.0)
[2022-01-31 18:06] LABS: Bacteria RARE /hpf (None Seen); White Blood Cells 10-25 SEEN /hpf (0-5)
== END | disposition home or self-care (01) ==
PROVIDERS: Visit Provider Physician Assistant
DX: N39.0 Urinary tract infection, site not specified (principal); R31.9 Hematuria, unspecified; R30.0 Dysuria
CPT/HCPCS: 81001; 87077; 87086; 87088; 87186

== ENCOUNTER → 2022-06-12 | Outpatient (CLI) | payer MEDICARE, SELFPAY ==
[2022-06-12 14:51] LABS: Mucous, Urine 0 SEEN /hpf (<or=2+); Red Blood Cells-Urine 0 SEEN /hpf (0-5)
[2022-06-12 14:55] LABS: Color, Urine Yellow (Yellow); Glucose, Dipstick Normal (Normal); Ketone-Dipstick Negative (Negative); Leukocyte Esterase-Dipstick 500 /ul (Negative); Nitrite-Dipstick Negative (Negative); Occult Blood-Urine Negative /ul (Negative); Protein-Dipstick Negative (Negative); Specific Gravity, Urine 1.005 (1.002-1.030); Urine Bilirubin Dipstick Negative (Negative); Urine Clarity Clear (Clear); Urine Urobilinogen Normal (Normal)
[2022-06-12 15:05] LABS: White Blood Cells >100 SEEN /hpf (0-5)
[2022-06-12 15:06] LABS: Bacteria 2+ /hpf (None Seen); Squamous Epithelial Cells - UA 0-5 SEEN /hpf (5-10)
== END | disposition home or self-care (01) ==
PROVIDERS: Visit Provider Physician Assistant Surgical
DX: N39.0 Urinary tract infection, site not specified (principal); R31.9 Hematuria, unspecified
CPT/HCPCS: 81001; 87086; 87088

== ENCOUNTER → 2022-12-02 | Outpatient (CLI) | payer MEDICARE, SELFPAY | END | disposition home or self-care (01) | PROVIDERS: Visit Provider Physician Assistant Surgical | DX: N39.0 Urinary tract infection, site not specified (principal); R31.9 Hematuria, unspecified | CPT/HCPCS: 87077; 87086; 87088; 87186 ==

== ENCOUNTER → 2022-12-21 | Outpatient (CLI) | payer MEDICARE, SELFPAY | END | disposition home or self-care (01) | PROVIDERS: Visit Provider Physician Assistant Surgical | DX: R30.0 Dysuria (principal) | CPT/HCPCS: 87077; 87086; 87088; 87186 ==

== ENCOUNTER → 2023-03-09 | Outpatient (CLI) | payer MEDICARE, SELFPAY ==
[2023-03-09 18:08] LABS: Bacteria 0 SEEN /hpf (None Seen); Mucous, Urine 0 SEEN /hpf (<or=2+); Red Blood Cells-Urine 0 SEEN /hpf (0-5)
--- OUTSIDE RECORDS SUMMARY | 2023-03-09 18:09 | XMS RPT_ITS | CCD ---
Author Name Unknown Address [facility] [address] [place] [address] Organization [employer] Care Team Providers Care Rn Appeals Name Role Phone Elver Berg MD Unavailable [phone] Elena Batista DO Primary Care Provider LESTER BERNAL, DR PARKER Primary Care Physician [phone] LESTER BERNAL, DR PARKER Primary Care Physician [phone] LESTER BERNAL, DR. PARKER Attending Unavailrene BATISTA DO, DR. PARKER Primary Care Unavailrene HERNANDEZ MD., DR. ARSHAD Attending Unavail able LESTER BERNAL, DR. PARKER Primary Care Unavailrene HERNANDEZ MD., DR. ARSHAD Attending Unavail able LESTER BERNAL, DR. PARKER Primary Care Unavailrene BATISTA DO, DR. PARKER Attending Unavailrene e LESTER BERNAL, DR. PARKER Primary Care UnavailElena Coombs DO Primary Care Provider Elena Batista DO Primary Care Provider ELENA BATISTA Primary Care Unavailable MANAN HERNANDEZ JR Referring Unavailable ELENA BATISTA Primary Care Unavailable MANAN HERNANDEZ JR Referring Unavailable ELENA BATISTA Primary Care Unavailable MANAN HERNANDEZ JR Referring Unavailable ELENA BATISTA Primary Care Unavailable MANAN HERNANDEZ JR Attending Unavailable ELENA BATISTA Primary Care Unavailable ELENA BATISTA Primary Care Unavailable NJ CAI Referring Unavailable ELENA BATISTA Primary Care Unavailable NJ CAI Attending Unavailable ELENA BATISTA Primary Care Unavailable MANAN HERNANDEZ JR Referring Unavailable ELENA BATISTA Primary Care Unavailable MANAN HERNANDEZ JR Referring Unavailable MANAN HERNANDEZ JR Attending Unavailable Allergies Allergy Classification Reported Allergen(s) Allergy Type Date of Onset Reaction(s) Facility (2 sources) Tetracycline; Translations: [TETRACYCLINE] Drug Allergy 6 [facility] [place] [facility] Work Phone: (16 sources) Adhesive Tape; Translations: [ADHESIVE TAPE (ROSINS)] Allergy to substance 9 Rash [facility] (19 sources) Lisinopril; Translations: [lisinopril] Drug Allergy 9 Cough, Cough (finding) [facility] (18 sources) Tetracycline; Translations: [tetracycline] Drug Allergy 6 Tinnitus (finding) [facility] Work Phone: (3 sources) Ciprofloxacin; Translations: [ciprofloxacin] Drug Allergy Nausea (finding) [facility] Medications Current Medications Medication Drug Class(es) Dates Sig (Normalized) Sig (Original) 8 hr acetaminophen 650 mg extended release oral tablet (13 sources) Start: 04-17-2020 Tylenol 8 HR Arthritis Pain 650 mg oral tablet, extended release Dose : 1,300 mg = 2 tab(s), Oral, q8h, PRN as needed for fever, # 24 tab(s), 0 Refill(s) Start Date: 04/17/20 Status: Ordered Completed/Discontinued Medications Medication Drug Class(es) Dates Sig (Normalized) Sig (Original) amitriptyline hydrochloride 25 mg oral tablet (5 sources) Tricyclic Antidepressant take 1 tablet by mouth once daily at bedtime amitriptyline (ELAVIL) 25 mg tablet Take 25 mg by mouth daily at bedtime. 0 Active Problems Active Problems Problem Classification Problem Date Documented Da te Episodic/Chronic Allergic reactions (1 source) Contact dermatitis due to poison roxanne 08-07-2021 Episodic Cardiac dysrhythmias (6 sources) Paroxysmal supraventricular tachycardia; Translations: [Ventricular premature beats] 06-30-2021 Chronic Cardiac dysrhythmias (3 sources) Palpitations 05-28-2020 Episodic Congestive heart failure; nonhypertensive (1 source) Chronic diastolic heart failure 10-27-2021 Chronic Disorders of lipid metabolism (18 sources) Hyperlipidemia; Translations: [Hyperlipidemia, unspecified] Onset: 5 11-21-2014 Chronic Essential hypertension (18 sources) Essential hypertension; Translations: [Essential (primary) hypertension] Onset: 5 10-07-2014 Chronic Hemorrhoids (15 sources) Internal hemorrhoids; Translations: [Other hemorrhoids] 03-20-2008 Episodic Nutritional deficiencies (15 sources) Vitamin D deficiency; Translations: [Vitamin D deficiency, unspecified] Onset: 5 10-07-2014 Chronic Osteoarthritis (20 sources) Degenerative joint disease involving multiple joints; Translations: [Polyosteoarthritis, unspecified] Onset: 1 09-12-2010 Chronic Other connective tissue disease (2 sources) Pain of bilateral upper limbs; Translations: [Pain in right arm] 08-19-2022 Episodic Other connective tissue disease (2 sources) Muscle weakness of upper limb; Translations: [Other symptoms and signs involving the musculoskeletal system] 08-19-2022 Episodic Other gastrointestinal disorders (1 source) Chronic constipation; Translations: [Other constipation] Episodic Other gastrointestinal disorders (1 source) Constipation 08-27-2021 Episodic Other nervous system disorders (1 source) Demyelinating disease of central nervous system; Translations: [Demyelinating disease of central nervous system, unspecified] 08-05-2022 Chronic Other nervous system disorders (1 source) Polyneuropathy, unspecified; Translations: [Neuropathy] Onset: 4 Chronic Other nervous system disorders (1 source) Demyelinating disease of central nervous system, unspecified; Translations: [Demyelinating disease of central nervous system (HCC)] Onset: 3 Chronic Other nervous system disorders (1 source) Unspecified abnormalities of gait and mobility; Translations: [Abnormality of gait] Onset: 4 Episodic Other skin disorders (3 sources) Eruption 04-17-2020 Episodic Regional enteritis and ulcerative colitis (20 sources) Chronic ulcerative proctitis; Translations: [Ulcerative (chronic) proctitis without complications] Onset: 6 07-14-2005 Chronic Spondylosis; intervertebral disc disorders; other back problems (1 source) Degeneration of cervical intervertebral disc; Translations: [Other cervical disc degeneration, unspecified cervical region] Onset: 9 02-01-2019 Chronic Spondylosis; intervertebral disc disorders; other back problems (20 sources) Low back pain; Translations: [Lumbago] Onset: 6 07-26-2005 Episodic Viral infection (3 sources) Herpes zoster 04-17-2020 Episodic Past or Other Problems Problem Classification Problem Date Documented Da te Episodic/Chronic Gastritis and duodenitis (15 sources) Acute gastritis; Translations: [Acute gastritis without bleeding] Onset: 02-25-2011 02-25-2011 Episodic Nausea and vomiting (18 sources) Nausea; Translations: [Nausea] Onset: 09-24-2018 09-24-2018 Episodic Other connective tissue disease (15 sources) Digital mucous cyst; Translations: [Ganglion, unspecified hand] Onset: 04-22-2013 04-22-2013 Episodic Other connective tissue disease (1 source) Pain in right arm; Translations: [Pain in both upper extremities] Onset: 07-04-2022 Episodic Other connective tissue disease (1 source) Pain in left arm; Translations: [Pain in both upper extremities] Onset: 07-04-2022 Episodic Other connective tissue disease (1 source) Other symptoms and signs involving the musculoskeletal system; Translations: [Arm weakness] Onset: 07-04-2022 Episodic Other disorders of stomach and duodenum (20 sources) Gastroparesis syndrome; Translations: [Gastroparesis] Onset: 11-19-2018 11-19-2018 Episodic Other gastrointestinal disorders (16 sources) Slow transit constipation; Translations: [Slow transit constipation] Onset: 03-20-2020 03-20-2020 Episodic Other non-traumatic joint disorders (15 sources) Pain in elbow; Translations: [Pain in right elbow] Onset: 09-12-2010 09-12-2010 Episodic Other nutritional; endocrine; and metabolic disorders (15 sources) Abnormal weight loss; Translations: [Abnormal weight loss] Onset: 09-24-2018 09-24-2018 Episodic Other screening for suspected conditions (not mental disorders or infectious disease) (1 source) Encounter for screening for other disorder; Translations: [Nephropathy screen] Onset: 07-04-2022 Episodic Residual codes; unclassified (15 sources) Early satiety; Translations: [Early satiety] Onset: 09-24-2018 09-24-2018 Episodic Unclassified (1 source) Problem Urinary tract infections (5 sources) Recurrent urinary tract infection; Translations: [Urinary tract infection, site not specified] Onset: 03-17-2021 06-18-2021 Episodic Results Test Name Value Interpretation Reference Range Facil ity Vital Signs Date Time Vital Sign Value Performing Clinician Facility 08-19-2022 08:53-0400 Body temperature 98.6 [degF] Manan Hernandez Jr., MD Work Phone: [facility] 08-19-2022 08:53-0400 Body weight 72.26 kg Manan Hernandez Jr., MD Work Phone: [facility] 08-19-2022 08:53-0400 Diastolic blood pressure 80 mm[Hg] Manan Hernandez Jr., MD Work Phone: [facility] 08-19-2022 08:53-0400 Heart rate 51 /min Manan Hernandez Jr., MD Work Phone: [facility] 08-19-2022 08:53-0400 Respiratory rate 16 /min Manan Hernandez Jr., MD Work Phone: [facility] 08-19-2022 08:53-0400 SaO2% (BldA) [Mass fraction] 98 % Manan Hernandez Jr., MD Work Phone: [facility] 08-19-2022 08:53-0400 Systolic blood pressure 135 mm[Hg] Manan Hernandez Jr., MD Work Phone: [facility] NEGATED: Highlighted [id number] 10:42-0500 BMI (Body Mass Index) 20.41 kg/m2 Judit Jyotsna AT [facility] Work Phone: NEGATED: Highlighted [id number] 10:42-0500 Body weight 57.15 kg Judit Jyotsna AT [facility] Work Phone: NEGATED: Highlighted [id number] 10:42-0500 Body weight 57 kg Judit Jyotsna AT [facility] Work Phone: NEGATED: Highlighted [id number] 10:42-0500 BP Diastolic 60 mm[Hg] Judit Jyotsna AT [facility] Work Phone: NEGATED: Highlighted [id number] 10:42-0500 BP Systolic 88 mm[Hg] Judit Jyotsna AT [facility] Work Phone: NEGATED: Highlighted [id number] 10:42-0500 Height 167.64 cm Judit Jyotsna AT [facility] Work Phone: NEGATED: Highlighted [id number] 10:42-0500 Height 168 cm Judit Jyotsna AT [facility] Work Phone: NEGATED: Highlighted [id number] 10:42-0500 Pulse (Heart Rate) 77 /min Judit Jyotsna AT [facility] Work Phone: Encounters Encounter Date Encounter Type Care Provider Facility Start: 02-24-2023 End: 02-25-2023 ambulatory ELENA San LESTER Facility:[facility] Start: 02-23-2023 End: [facility] Start: 02-22-2023 End: 02-23-2023 [facility] Start: 09-19-2022 End: 09-19-2022 ambulatory [facility] Facility:[facility] Start: 09-19-2022 End: 09-19-2022 ambulatory Emg 850) Neurology Start: 09-19-2022 End: 09-19-2022 Patient encounter procedure Emg 2 Neur Vazquez Pavon (Max Weight: 850) VAZQUEZ Start: 08-19-2022 End: 08-19-2022 ambulatory ELENA BATISTA Facility:[facility] Start: 08-19-2022 End: 08-19-2022 Patient encounter procedure Manan Hernandez MD Work Phone: Neurology Procedures Date Procedure Procedure Detail Performing Clinician Start: 09-19-2022 Nerve conduction daphney dies 5-6 studies Manan Hernandez MD Work Phone: Start: 08-05-2022 Mri spinal canal cer vical w/o & w/contr matrl Manan Hernandez MD Work Phone: Start: 08-27-[address] ELENA BATISTA DO Plan of Treatment Date Care Activity Detail Author Start: 07-04-2025 DIABETES SCREEN DIABETES SCREEN [facility] Start: 07-04-2025 Diabetes Screening Diabetes Screening [facility] Start: 10-14-2022 Covid-19 Vaccine () Covid-19 Vaccine ( season) [facility] Start: 10-14-2022 Influenza vaccination [facility] Start: 02-13-2022 ADVANCE DIRECTIVE DISCUSSION ADVANCE DIRECTIVE DISCUSSION [facility] Start: 02-13-2022 DEPRESSION ASSESSMENT DEPRESSION ASSESSMENT [facility] Start: 10-14-2021 Influenza vaccination [facility] Start: 08-13-2021 COVID-19 VACCINE (5 - Booster for Moderna series) COVID-19 VACCINE (5 - Booster for Moderna series) [facility] Start: 08-13-2021 COVID-19 VACCINE (5 - Moderna series) COVID-19 VACCINE (5 - Moderna series) [facility] Start: 02-13-2021 ADVANCE DIRECTIVE DISCUSSION ADVANCE DIRECTIVE DISCUSSION [facility] Start: 02-13-2021 DEPRESSION ASSESSMENT DEPRESSION ASSESSMENT [facility] Start: 06-17-2020 Lipid 1996 panel - Serum or Plasma Lipid Screening [facility] Start: 06-17-2020 LIPID SCREEN LIPID SCREEN [facility] Start: 02-18-2019 Colonoscopy COLONOSCOPY [facility] Start: 02-18-2019 COLORECTAL CANCER SCREENING COLORECTAL CANCER SCREENING [facility] Start: 02-01-2019 End: 02-01-2019 Appointment Appointment [facility] [place] [facility] Work Phone: Start: 01-25-2019 DIABETES SCREEN DIABETES SCREEN [facility] Start: 08-15-2017 ANNUAL PCP TEAM CHRONIC DISEASE VISIT ANNUAL PCP TEAM CHRONIC DISEASE VISIT [facility] Start: 10-20-2016 Adult depression screening assessment DEPRESSION SCREENING [facility] Start: 08-25-2016 Mammography MAMMOGRAM [facility] Start: 05-12-2014 SIGMOIDOSCOPY SIGMOIDOSCOPY [facility] Start: 01-03-2012 SHINGRIX VACCINE (2 of 3) SHINGRIX VACCINE (2 of 3) [facility] Start: 01-18-2011 MMR (1 of 2 - Risk 2-dose series) MMR (1 of 2 - Risk 2-dose series) [facility] Start: 01-18-2011 MMR Vaccine (1 of 2 - Risk 2-dose series) MMR Vaccine (1 of 2 - Risk 2-dose series) [facility] Start: 2007 HEPATITIS B (1 of 3 - Risk 3-dose series) HEPATITIS B (1 of 3 - Risk 3-dose series) [facility] Start: 2007 Hepatitis B Vaccine (1 of 3 - Risk 3-dose series) Hepatitis B Vaccine (1 of 3 - Risk 3-dose series) [facility] Start: 2007 RSV Vaccine (1 - 1-dose 60+ series) RSV Vaccine (1 - 1-dose 60+ series) [facility] Start: 09-02-2005 Urine microalbumin profile [facility] Start: 02-12-1992 COLOGUARD (FIT-DNA) COLOGUARD (FIT-DNA) [facility] Start: 02-12-[address] COLONOGRAPHY [facility] Start: 02-12-1992 FECAL OCCULT BLOOD FECAL OCCULT BLOOD [facility] Start: 1966 HEPATITIS A (1 of 2 - Risk 2-dose series) HEPATITIS A (1 of 2 - Risk 2-dose series) [facility] Start: 1966 Hepatitis A Vaccine (1 of 2 - Risk 2-dose series) Hepatitis A Vaccine (1 of 2 - Risk 2-dose series) [facility] Start: 1966 HEPATITIS B (1 of 3 - Risk 3-dose series) HEPATITIS B (1 of 3 - Risk 3-dose series) [facility] Start: 1965 ANNUAL PCP TEAM CHRONIC DISEASE VISIT ANNUAL PCP TEAM CHRONIC DISEASE VISIT [facility] Start: 1965 BP CONTROLLED (<130/80) BP CONTROLLED (<130/80) [facility] Start: 1957 Meningococcal B Vaccine: Consider Based On Risk (1 of 4 - Increased Risk) Meningococcal B Vaccine: Consider Based On Risk (1 of 4 - Increased Risk) [facility] Start: 1957 MENINGOCOCCAL B: Consider based on risk (1 of 4 - Increased Risk Bexsero 2-dose series) MENINGOCOCCAL B: Consider based on risk (1 of 4 - Increased Risk Bexsero 2-dose series) [facility] Start: 1957 MENINGOCOCCAL B: Consider based on risk (1 of 4 - Increased Risk) MENINGOCOCCAL B: Consider based on risk (1 of 4 - Increased Risk) [facility] Start: 02-12-1952 COVID-19 VACCINE (#1) COVID-19 VACCINE (#1) [facility] Start: 02-12-1952 COVID-19 VACCINE (1) COVID-19 VACCINE (1) [facility] Start: 02-12-1948 HEPATITIS A (1 of 2 - Risk 2-dose series) HEPATITIS A (1 of 2 - Risk 2-dose series) [facility] End: 08-20-2023 EMG(NEURO/NI) EMG(NEURO/NI) EMG Routine Pain in both upper extremities Cervicalgia Arm weakness 1 Occurrences starting 08/19/2022 until 08/20/2023 [facility] Work Phone: Immunizations Immunization Date Immunization Notes Care Provider [facility] 11-23-2021 influenza, high dose seasonal, preservative-free DR ELENA BATISTA DO [facility] 11-23-2021 influenza virus vaccine, unspecified formulation Mri (I-Stat/1.5t) Work Phone: [facility] 06-18-2021 COVID-19, mRNA, LNP- S, PF, 100 mcg or 50 mcg dose; Translations: [Moderna COVID-19 Vaccine] DR PAVITHRA HERNANDEZ MD [facility] 01-01-2021 COVID-19, mRNA, LNP- S, PF, 100 mcg or 50 mcg dose; Translations: [Moderna COVID-19 Vaccine] DR PAVITHRA HERNANDEZ MD [facility] 10-20-2020 influenza virus vaccine, unspecified formulation DR PAVITHRA HERNANDEZ MD [facility] Justin Payers Date Payer Category Payer Medicare MMO MEDICARE MMO [employer]ANTAGE HMO [id number] 2020-Present [phone] [address] [place] [address] HMO [id number] 2020 Medicare MMO MEDICARE MMO MED[employer]VANTAGE HMO [id number] 2020-Present [phone] [address] [place] [address] HMO [id number] 2020 Unknown [id number] 1947 Unknown [id number] 1947 Unknown [id number] 1947 Unknown [id number] 1947 Unknown [id number] Social History Date Type Detail Facility Start: 02-01-2019 End: 02-01-2019 Assertion Unknown if ever smoked [facility] Work Phone: Start: 08-02-2010 End: 11-27-2018 Tobacco smoking status NHIS Never smoked tobacco [facility] Start: 02-25-2019 End: 07-05-2022 Alcohol intake Current drinker of alcohol (finding) [facility] Start: 02-25-2019 End: 07-04-2022 Alcohol intake [facility] Start: 09-02-2010 History SDOH Alcohol Comment few glasses wine per year [facility] Start: 1945 Sex Assigned At Female [facility] Sex Assigned At Sex [facility] Start: 08-02-2010 Tobacco use and exposure Smokeless tobacco non-user [facility] Work Phone: Start: 07-04-2022 End: 08-19-2022 Tobacco use panel [facility] Adult Depression Screening Assessment 1 [facility] Start: 10-16-2018 Gender identity Identifies as female gender (finding) [facility] Start: 10-16-2018 Sexual orientation Heterosexual (finding) [facility] Medical Equipment Procedure Code Equipment Code Equipment Origin al Text Equipment Identifier Dates Derick Bn Smpx P Ra dpq Fd Strl - [id number] Start: 11-25-2013 Comp Fem 3 Rt Kn Cr Derick Trthln - [id number] Start: 11-25-2013 Ins Tib 2 9mm Kn X3 Cr Trthln - [id number] Start: 11-25-2013 Comp Pat 3 20mm Asym Trthln - [id number] Start: 11-25-2013 Baseplt Tib Trth ln 2 Kn Derick - [id number] Start: 11-25-2013 Clinical Notes 09-26-2005 to 02-22-2023 Bill Bills MD - 09/19/2022 10:35 AM Oriana Hernandez Jr., MD - 08/19/2022 9:01 AM Glenys Navas RT(R) - 08/05/2022 9:20 AM EDLora Lau MD - 09/10/2021 9:04 AM EDT Note Date & Type Note Facility 02-22-2023 Note HNO ID: [id number] Author: [place] CAI PA-C Service: ? Author Type: Physician Loan Consultant Type: Progress Notes Filed: 02/22/2023 17:15 Note Text: ESTABLISHED PATIENT VISIT Last visit: 08/19/[address] Hernandez ASSESSMENT/PLAN: 1. Pain in both upper extremities - ICD9: 729.5, ICD10: M79.601, M79.602 (primary diagnosis) 2. Cervicalgia - ICD9: 723.1, ICD10: M54.2 3. Arm weakness - ICD9: 729.89, ICD10: R29.898 4. Cervical stenosis of spine - ICD9: 723.0, ICD10: M48.02 Patient with unchanged complaints and exam since time of last visit. Uncertain to what degree if any that cervical spondylosis is contributing to symptoms. However, patient will be evaluated by spine for any additional recommendations following their evaluation. Exam non-focal except for poor effort on strength testing. Prior rheum workup unremarkable. While symptoms per history not suggestive or peripheral n etiology, will repeat EMG/NCV due to possible variability between technicians. Patient agrees with plan. If workup remains unremarkable, then would defer further treatment to pain mgmt with pt having prior dx of fibromyalgia. Manan Hernandez MD CHIEF COMPLAINT: follow up HISTORY OF PRESENT ILLNESS: Sony Cheng is a 78 year old female, There were no vitals taken for this visit. with a PMH significant for HTN, HLD, osteoarthritis, vitamin D deficiency. Saw Dr. Hernandez 08/19/22 for pain in upper extremities and cervcialgia, worse in the mroning. Repeat EMG negative. Wanted to follow up [facility] spine. On gabapentin 600mg four timmes a day, zanaflex, and Elavil 25mg. Patient presents with her for follow-up. Patient notes that starting last fall she began experiencing some burning sensation to her bilateral forearms that would occasionally radiate into her neck and across her chest when she woke up. Occurs daily but varies in intensity. Notes that she will feel her skin and actually feels cold to the touch but is registered as a burning sensation. Notes that the gabapentin is very effective and soon after taking it her symptoms resolved. Recently had this increased to 600 mg 4 times a day and is tolerating this well. However, does note when it is wearing off and when she is due for her next dose. Does see pain management, Dr. Rivas and has seen spine in the past, but not for her cervical spine. Notes that since last appointment some of the sensation occurs to her face as well, primarily in the cervical and around the outsides of her face. Also notes now that will radiate into her hands as well and experiences a tightness in her hands bilaterally when this occurs. Does not favor side, occurs bilaterally each time. Has never been in the legs or abdomen. Reporting some subjective weakness as well. No falls, no bowel bladder incontinence or saddle anesthesia. Notes that triggers include the cold, notes that when she goes outside she can feel it in her face but will go away when she gets warm. Does note that when it goes across her chest and over her neck she will get a sore throat with this as well. Notes this is neverhappened before, no etiology that she can think of. Notes that 1 day she woke up and experiences sensation to her arms bilaterally. No new symptoms since last appointment, no falls. Notes good water intake. Denies any history of diabetes, does have history of B12 deficiency in the past but no longer takes any vitamins other than vitamin C and vitamin D. No history of heavy alcohol use, no heavy metal exposure, does not eat much meat but no diet restrictions. REVIEW OF SYSTEMS GENERAL:No weight loss, malaise or fevers. HEENT:Negative for frequent or significant headaches, No changes in hearing or vision, no nose bleeds or other nasal problems NECK:Negative for lumps, goiter, pain and significant neck swelling RESPIRATORY: Negative for cough, wheezing or shortness of breath. CARDIOVASCULAR: Negative for chest pain, leg swelling or palpitations. GASTROINTESTINAL: Negative for abdominal discomfort, blood in stools or black stools or change in bowel habits GENITOURINARY: No history of dysuria, frequency or incontinence MUSCULOSKELETAL: Negative for joint pain or swelling, back pain or muscle pain. NEUROLOGIC:Negative for focal numbness or weakness, headaches and dizziness or syncope, vision changes, speech/languag changes - EXCEPT that as per HPI above. SKIN:Negative for lesions, rash, and itching. PSYCHIATRIC: Negative for sleep disturbance, mood disorder and recent psychosocial stressors. HEMATOLOGIC/LYMPHATIC/IMMUNOLOG IC:Negative for prolonged bleeding, bruising easily or swollen nodes. ENDOCRINE: Negative for cold or heat intolerance, polyuria, polydipsia and goiter. The remainder of the ROS was reviewed and is negative. LAB/IMAGING: Those performed since patient's last visit have been reviewed. EMG 09/19/22 Study Interpretation Electrodiagnostic examination of the right up (more content not included)... [facility] 09-19-2022 Note HNO ID: [id number] Author: Bill Bills MD Service: ? Author Type: Physician Type: Progress Notes Filed: 09/19/2022 11:19 AM Note Text: UNIVERSAL PROTOCOL / SAFETY CHECKLIST Procedure to be Performed: EMG Sign In: A Moment of CARE was completed. Personnel directly involved with the procedure wore the appropriate PPE (Personal Protective Equipment). Patient/Surrogate Stated/Verified: PATIENT VERIFIED(optional for EMERGENT procedures): Patient name, Date of , Relevant allergies, and The intended procedure Time Out Communication: Intended patient and procedure match the source documents. Correct side/site marked and visible. Sign Out: SIGN OUT (optional for EMERGENT procedures): Post-procedure follow-up management communicated and Plan of Care Visit completed when applicable. Nadeem Parekh MD [facility] 09-19-2022 History of Presen t illness Narrative UNIVERSAL PROTOCOL / SAFETY CHECKLIST Procedure to be Performed: EMG Sign In: A Moment of CARE was completed. Personnel directly involved with the procedure wore the appropriate PPE (Personal Protective Equipment). Patient/Surrogate Stated/Verified: PATIENT VERIFIED(optional for EMERGENT procedures): Patient name, Date of , Relevant allergies, and The intended procedure Time Out Communication: Intended patient and procedure match the source documents. Correct side/site marked and visible. Sign Out: SIGN OUT (optional for EMERGENT procedures): Post-procedure follow-up management communicated and Plan of Care Visit completed when applicable. Nadeem Parekh MD documented in this encounter [facility] 08-19-2022 Note HNO ID: [id number] Author: Manan Hernandez Jr., MD Service: ? Author Type: Physician Type: Progress Notes Filed: 08/20/2022 11:45 PM Note Text: ESTABLISHED PATIENT VISIT CHIEF COMPLAINT: Follow Up HISTORY OF PRESENT ILLNESS: Sony Cheng is a 77 year old female, BMI 25.71 kg/m2 with a PMH significant for and per last office visit of 07/04/22: 1. Pain in both upper extremities - ICD9: 729.5, ICD10: M79.601, M79.602 (primary diagnosis) 2. Cervicalgia - ICD9: 723.1, ICD10: M54.2 3. Arm weakness - ICD9: 729.89, ICD10: R29.898 4. Romberg's test positive - ICD9: 796.4, ICD10: R29.818 5. Abnormality of gait - ICD9: 781.2, ICD10: R26.9 6. Cervical stenosis of spine - ICD9: 723.0, ICD10: M48.02 Patient with pain in upper extremities, as well as some degree of subjective weakness, and abnormal gait for which etiology is uncertain at this time, but following outside neurology workup, told secondary to fibromyalgia with reported unremarkable EMG/NCV. History suggestive of possible C spine etiology of symptoms with cervical pain and reports of prior known history of C spine stenosis. To further evaluate will get MRI of C spine but will perform wwo contrast to also evaluate for possible demyelinating lesion. That said, and while less likely etiology given symmetric nature of symptoms, will also proceed with MRI brain to again evaluate for demyelinating lesion or other intracranial source of symptoms. I have reviewed available labs and also do not note prior inflammatory workup and will screen with sed rate, LAURENT and RF. Due to no recent renal labs, will get CMP to screen for nephropathy prior to receiving contrast. Also pt will require prn dose of Ativan for MRI given history of claustrophobia. At this time, will not change treatment as etiology remains unknown. PT agrees with plan. Pt will follow up after imaging complete. If workup remains unremarkable will consider repeating EMG/NCV and/or referral to neuromuscular. MRI brain and C spine were completed and images reviewed. Per rad report: No acute findings or abnormal intracranial enhancement. Supratentorial chronic microvascular ischemic changes. Cervical spondylosis, as detailed. Cord: The cervical spinal cord is within normal limits of signal intensity and morphology. No evidence of abnormal intradural enhancement. Bone marrow signal/fracture: No evidence of confluent abnormal marrow replacement or an acute fracture. Soft tissues: The prevertebral and paraspinal soft tissues are within normal limits. C2-C3: Mild right foraminal stenosis due to asymmetric uncovertebral and facet hypertrophy. Patent canal and left foramen. C3-C4: Spondylolisthesis, disc/osteophyte complex, dorsal ligamentous hypertrophy, uncovertebral and facet hypertrophy; mild-moderate canal stenosis with cord abutment, at least moderate right greater than left foraminal stenosis. C4-C5: Shallow disc/osteophyte complex abutting the ventral cord. Mild right and moderate left foraminal stenosis due to uncovertebral and facet hypertrophy. C5-C6: Shallow disc/osteophyte complex abutting the ventral cord. At least mild right and mild-moderate left foraminal stenosis due to uncovertebral and facet hypertrophy. C6-C7: Shallow disc bulging abutting the ventral cord. At least mild-moderate left foraminal stenosis due to asymmetric uncovertebral and facet hypertrophy. Patent right foramen. C7-T1: Canal and foramina are patent. No high-grade canal or foraminal compromise in the imaged thoracic spine to the level of T5-6. Above images reviewed with pt. Patient today states had RFA done on cervical spine in distant past. States no longer having the symptoms as when she had RFA - cervical headaches. States miserable when she wakes in the AM and arms burn. Today states burning is worst in the forearms and goes over dorsal surface of corinne hands and then radiates up her arms through her neck, and up into her face. States it starts calming after taking her AM dose of gabapentin. States movement of arms does not help but rubbing or placing pressure on the arms helps, but then it comes back (inconsistent with typical CTS symptoms). States wears long sleeves due to cold temperature on arms bothering her. No matter what position patient sleeps in wakes with these symptoms. If takes a nap during day and wakes up it does not bother her. Pt confirms prior Rheum workup was unremarkable. REVIEW OF SYSTEMS GENERAL:No weight loss, malaise or fevers. HEENT:Negative for frequent or significant headaches, No changes in hearing or vision, no nose bleeds or other nasal problems NECK:See HPI. RESPIRATORY: Negative for cough, wheezing or shortness of breath. CARDIOVASCULAR: Negative for chest pain, leg swelling or palpitations. GASTROINTESTINAL: Negative for abdominal discomfort, blood in stools or black stools or change in bowel habits GENITOURINARY: No history of (more content not included)... [facility] 08-19-2022 History of Presen t illness Narrative ESTABLISHED PATIENT VISIT CHIEF COMPLAINT: Follow Up HISTORY OF PRESENT ILLNESS: Sony Cheng is a 77 year old female, BMI 25.71 kg/m2 with a PMH significant for and per last office visit of 07/04/22: 1. Pain in both upper extremities - ICD9: 729.5, ICD10: M79.601, M79.602 (primary diagnosis) 2. Cervicalgia - ICD9: 723.1, ICD10: M54.2 3. Arm weakness - ICD9: 729.89, ICD10: R29.898 4. Romberg's test positive - ICD9: 796.4, ICD10: R29.818 5. Abnormality of gait - ICD9: 781.2, ICD10: R26.9 6. Cervical stenosis of spine - ICD9: 723.0, ICD10: M48.02 Patient with pain in upper extremities, as well as some degree of subjective weakness, and abnormal gait for which etiology is uncertain at this time, but following outside neurology workup, told secondary to fibromyalgia with reported unremarkable EMG/NCV. History suggestive of possible C spine etiology of symptoms with cervical pain and reports of prior known history of C spine stenosis. To further evaluate will get MRI of C spine but will perform wwo contrast to also evaluate for possible demyelinating lesion. That said, and while less likely etiology given symmetric nature of symptoms, will also proceed with MRI brain to again evaluate for demyelinating lesion or other intracranial source of symptoms. I have reviewed available labs and also do not note prior inflammatory workup and will screen with sed rate, LAURENT and RF. Due to no recent renal labs, will get CMP to screen for nephropathy prior to receiving contrast. Also pt will require prn dose of Ativan for MRI given history of claustrophobia. At this time, will not change treatment as etiology remains unknown. PT agrees with plan. Pt will follow up after imaging complete. If workup remains unremarkable will consider repeating EMG/NCV and/or referral to neuromuscular. MRI brain and C spine were completed and images reviewed. Per rad report: No acute findings or abnormal intracranial enhancement. Supratentorial chronic microvascular ischemic changes. Cervical spondylosis, as detailed. Cord: The cervical spinal cord is within normal limits of signal intensity and morphology. No evidence of abnormal intradural enhancement. Bone marrow signal/fracture: No evidence of confluent abnormal marrow replacement or an acute fracture. Soft tissues: The prevertebral and paraspinal soft tissues are within normal limits. C2-C3: Mild right foraminal stenosis due to asymmetric uncovertebral and facet hypertrophy. Patent canal and left foramen. C3-C4: Spondylolisthesis, disc/osteophyte complex, dorsal ligamentous hypertrophy, uncovertebral and facet hypertrophy; mild-moderate canal stenosis with cord abutment, at least moderate right greater than left foraminal stenosis. C4-C5: Shallow disc/osteophyte complex abutting the ventral cord. Mild right and moderate left foraminal stenosis due to uncovertebral and facet hypertrophy. C5-C6: Shallow disc/osteophyte complex abutting the ventral cord. At least mild right and mild-moderate left foraminal stenosis due to uncovertebral and facet hypertrophy. C6-C7: Shallow disc bulging abutting the ventral cord. At least mild-moderate left foraminal stenosis due to asymmetric uncovertebral and facet hypertrophy. Patent right foramen. C7-T1: Canal and foramina are patent. No high-grade canal or foraminal compromise in the imaged thoracic spine to the level of T5-6. Above images reviewed with pt. Patient today states had RFA done on cervical spine in distant past. States no longer having the symptoms as when she had RFA - cervical headaches. States miserable when she wakes in the AM and arms burn. Today states burning is worst in the forearms and goes over dorsal surface of corinne hands and then radiates up her arms through her neck, and up into her face. States it starts calming after taking her AM dose of gabapentin. States movement of arms does not help but rubbing or placing pressure on the arms helps, but then it comes back (inconsistent with typical CTS symptoms). States wears long sleeves due to cold temperature on arms bothering her. No matter what position patient sleeps in wakes with these symptoms. If takes a nap during day and wakes up it does not bother her. Pt confirms prior Rheum workup was unremarkable. REVIEW OF SYSTEMS GENERAL:No weight loss, malaise or fevers. HEENT:Negative for frequent or significant headaches, No changes in hearing or vision, no nose bleeds or other nasal problems NECK:See HPI. RESPIRATORY: Negative for cough, wheezing or shortness of breath. CARDIOVASCULAR: Negative for chest pain, leg swelling or palpitations. GASTROINTESTINAL: Negative for abdominal discomfort, blood in stools or black stools or change in bowel habits GENITOURINARY: No history of dysuria, frequency or incontinence MUSCULOSKELETAL: See HPI. NEUROLOGIC:See HPI. LAB/IMAGING: Those performed since patient's last visit have been reviewed. WBC (k/uL) Date Value 01/26/2016 7.04 RBC (m/uL) Date Value 01/26/2016 4.61 Hemoglobin (g/dL) Date Value 01/26/2016 12.0 Hematocrit (%) Date Value 01/26/2016 40.0 MCV (fL) Date Value 01/26/2016 86.8 MCH (pG) Date Value 01/26/2016 26.0 MCHC (g/dL) Date Value 01/26/2016 30.0 (L) RDW-CV (%) Date Value 01/26/2016 15.7 (H) Platelet Count (k/uL) Date Value 01/26/2016 366 MPV (fL) Date Value 01/26/2016 9.3 Glucose (mg/dL) Date Value 07/04/2022 109 (H) BUN (mg/dL) Date Value 07/04/2022 14 Creatinine (mg/dL) Date Value 07/04/2022 0.88 Sodium (mmol/L) Date Value 07/04/2022 139 Potassium (mmol/L) Date Value 07/04/2022 4.1 Chloride (mmol/L) Date Value 07/04/2022 105 CO2 (mmol/L) Date Value 07/04/2022 22 Protein, Total (g/dL) Date Value 07/04/2022 7.4 Albumin (g/dL) Date Value 07/04/2022 4.3 Calcium, Total (mg/dL) Date Value 07/04/2022 9.4 Alkaline Phosphatase (U/L) Date Value 07/04/2022 74 Bilirubin, Total (mg/dL) Date Value 07/04/2022 0.3 AST (U/L) Date Value 07/04/2022 20 ALT (U/L) Date Value 07/04/2022 16 LAURENT (no units) Date Value 07/04/2022 Negative Rheumatoid Factor (IU/mL) Date Value 07/04/2022 11 Hep C Antibody IA (no units) Date Value 11/07/2013 Negative MEDICATIONS: traMADol (ULTRAM) 50 mg tablet Take 50 mg by mouth every 6 hours as needed for pain. gabapentin (NEURONTIN) 400 mg capsule Take 400 mg by mouth three times daily. dilTIAZem CD (CARDIZEM CD, CARTIA XT) 120 mg 24 hr capsule Take 120 mg by mouth twice daily. amitriptyline (ELAVIL) 25 mg tablet Take 25 mg by mouth daily at bedtime. tiZANidine (ZANAFLEX) 4 mg tablet Take 4 mg by mouth every 6 hours as needed. LORazepam (ATIVAN) 0.5 mg Take 1 tablet 30 minutes prior to MRI and repeat at time of MRI if needed. Do not drive on day of taking medication. busPIRone (BUSPAR) 15 mg tablet Take 1 tablet by mouth three times daily. losartan (COZAAR) 25 mg tablet Take 1 tablet by mouth once daily. pravastatin (PRAVACHOL) 10 mg tablet Take 1 tablet by mouth once daily. cholecalciferol (VITAMIN D3) 1,000 unit tab Take 1 tablet by mouth once daily. omeprazole (PRILOSEC) 20 mg capsule Take 20 mg by mouth once daily. gabapentin (NEURONTIN) 300 mg capsule Take 300 mg by mouth once daily. 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 No current treatment, previously on SSA and Asacol Uterine prolapse FAMILY HISTORY Problem Relation Age of Onset Diabetes Maternal Grandmother Diabetes Maternal Grandfather Diabetes Paternal Grandmother Diabetes Paternal Grandfather Heart Mother CHF Diabetes Sister Diabetes Brother Thyroid Brother cancer Thyroid Sister disorder Diabetes Mother Diabetes Father SOCIAL HISTORY Social History Tobacco Use Smoking status: Never Smokeless tobacco: Never Substance Use Topics Alcohol use: Yes Alcohol/week: 1.7 standard drinks Comment: few glasses wine per year Drug use: No PHYSICAL EXAMINATION BP 135/80 Pulse (!) 51 Temp 37 C (98.6 F) Resp 16 Wt 72.3 kg (159 lb 4.8 oz) SpO2 98% BMI 25.71 kg/m GENERAL EXAM: General appearance: NAD, pleasant. HEENT: NC/AT, nasal congestion absent, no oral lesions, membranes moist. NECK: ROM nml. Lungs: CTA bilaterally. CV: RRR nl S1, S2 Extr: No cyanosis, clubbing or edema. Skin: Cool to touch. NEUROLOGICAL EXAM: General: Awake, alert, oriented x3 (person,place,time), speech fluent, no dysarthria; comprehension, naming, repetition intact. CN: PERRL, EOMI and without nystagmus, VFF to confrontation, facial sensation and strength are normal and symmetric, hearing is intact, palate and tongue movements are intact and symmetric. SCM and trapezius strength normal. Motor: Normal tone, bulk and strength testing non focal except poor effort. Coordination: FNF, KRISTI, HTS intact. No tremors. Sensation: Light touch, vibration intact throughout. No evidence of neglect. Gait: Stable with normal stride and arm swing. Assessment and Plan: ASSESSMENT/PLAN: 1. Pain in both upper extremities - ICD9: 729.5, ICD10: M79.601, M79.602 (primary diagnosis) 2. Cervicalgia - ICD9: 723.1, ICD10: M54.2 3. Arm weakness - ICD9: 729.89, ICD10: R29.898 4. Cervical stenosis of spine - ICD9: 723.0, ICD10: M48.02 Patient with unchanged complaints and exam since time of last visit. Uncertain to what degree if any that cervical spondylosis is contributing to symptoms. However, patient will be evaluated by spine for any additional recommendations following their evaluation. Exam non-focal except for poor effort on strength testing. Prior rheum workup unremarkable. While symptoms per history not suggestive or peripheral n etiology, will repeat EMG/NCV due to possible variability between technicians. Patient agrees with plan. If workup remains unremarkable, then would defer further treatment to pain mgmt with pt having prior dx of fibromyalgia. Manan Hernandez MD Medical Decision Making: Problems: Low: Stable chronic illness Data: Unique test result(s) reviewed: 2 Unique test(s) ordered: 1 Risk: Moderate: Moderate risk from testing/treatment Medical Decision Making Level: 4 - Moderate Mod risk testing = EMG documented in this encounter [facility] 08-05-2022 Note HNO ID: [id number] Author: RT Desirae(Nadeem) Service: ? Author Type: Technologist Type: Progress Notes Filed: 08/05/2022 9:57 AM Note Text: Radiology Service Progress Note DATE OF SERVICE: August 05, 2022 TIME: 9:56 AM PATIENT IDENTITY VERIFICATION COMPLETED USING TWO (2) STANDARD IDENTIFIERS: Name and Date of confirmed by patient verbally. FALL SCREENING: Has the patient had 2 falls in the last year or 1 fall with injury or currently using an Ambulatory Assistive Device (Walker, Cane, Wheelchair, Crutches, etc.)? Yes, Patient High Risk for Falls What interventions were put in place to prevent falls during this visit? Instructed Patient to Call for Help if Needed, Offered Assistance with Transfers/Clothing, Instructed Patient to Remain Seated (Not on Exam Table) Until Exam, and Increased Observations by Caregivers PATIENT GENDER DATA: Female. status: : No status: NO. PATIENT RELEVANT IMPLANT DATA REVIEWED: Yes ALLERGIES: Reviewed and unchanged CONTRAST ALLERGY: NO. EXAM: MRI - CONTRAST TYPE: GROUP II PERIPHERAL IV DATA: Ambulatory: A peripheral IV was started in the Right antecubital site with a Angio cath: 22 gauge. RADIOLOGY DEPARTMENT: MR; Exam(s) Completed: Head: Multiple Sclerosis Spine: Cervical spine SIGNATURE: RT Desirae(R) PATIENT NAME: Sony Cheng DATE: August 05, 2022 TIME: 9:56 AM [facility] 08-05-2022 History of Presen t illness Narrative Radiology Service Progress Note DATE OF SERVICE: August 05, 2022 TIME: 9:56 AM PATIENT IDENTITY VERIFICATION COMPLETED USING TWO (2) STANDARD IDENTIFIERS: Name and Date of confirmed by patient verbally. FALL SCREENING: Has the patient had 2 falls in the last year or 1 fall with injury or currently using an Ambulatory Assistive Device (Walker, Cane, Wheelchair, Crutches, etc.)? Yes, Patient High Risk for Falls What interventions were put in place to prevent falls during this visit? Instructed Patient to Call for Help if Needed, Offered Assistance with Transfers/Clothing, Instructed Patient to Remain Seated (Not on Exam Table) Until Exam, and Increased Observations by Caregivers PATIENT GENDER DATA: Female. status: : No status: NO. PATIENT RELEVANT IMPLANT DATA REVIEWED: Yes ALLERGIES: Reviewed and unchanged CONTRAST ALLERGY: NO. EXAM: MRI - CONTRAST TYPE: GROUP II PERIPHERAL IV DATA: Ambulatory: A peripheral IV was started in the Right antecubital site with a Angio cath: 22 gauge. RADIOLOGY DEPARTMENT: MR; Exam(s) Completed: Head: Multiple Sclerosis Spine: Cervical spine SIGNATURE: RT Desirae(Nadeem) PATIENT NAME: Sony Cheng DATE: August 05, 2022 TIME: 9:56 AM documented in this encounter [facility] 07-04-2022 Note HNO ID: [id number] Author: Manan Hernandez Jr., MD Service: ? Author Type: Physician Type: Progress Notes Filed: 07/05/2022 10:49 PM Note Text: NEW PATIENT (CONSULT) HISTORY AND PHYSICAL EXAM PRIMARY CARE PHYSICIAN: Elena Batista DO, DO REASON FOR CONSULT: Burning and pain in corinne arms. Second opinion as previously dx'd as fibromyalgia. REFERRING PHYSICIAN: Self CHIEF COMPLAINT: Burning in arms Consultation requested by Self for an opinion regarding chief complaint of Patient presents with: New Patient Evaluation and my final recommendations will be communicated back to the requesting physician by way of shared medical record or letter via [place] mail. HISTORY OF PRESENT ILLNESS: Sony Cheng is a 77 year old female, with a PMH significant for that below. Pt presents with burning arms that started beginning early this year in March 2022. Pt states met with PCP who recommended an EMG/NCV that was performed at [facility] that per report was normal. Then presented to [facility], where she was told she had fibromyalgia. States had no imaging studies but known history of a bad C spine . Note symptoms only in the arms. Takes gabapentin for C spine pain - 400mg TID and 600mg QHS -- seems to make a difference (along with Amitriptyline) but still with burning in the amrs. States feels like arms are chilly but yet feel like they are burning when she wakes up. Present all day but minimizes as she takes gabapentin. Burning not in fingers but feels in collar bones and side of neck. No exacerbation with head movement. No coloration changes of the arms. Does note decreased strength in arms and feels like dropping things. Balance progressively worsening. Last C spine imaging was 2016. History of cervicogenic headaches. Currently getting RFAs of the thoracic spine for intercostal neuritis. If taking it easy and not pushing herself she is ok, but activity such as gardening making it worse. Arms feel equal and symmetric in regards to pain. Known gastroparesis and UC but no urinary incontinence. No known family history of neurologic disease. No prior head imaging. REVIEW OF SYSTEMS GENERAL:No weight loss, malaise or fevers. HEENT:Negative for frequent or significant headaches, No changes in hearing or vision, no nose bleeds or other nasal problems NECK:Negative for lumps, goiter, pain and significant neck swelling RESPIRATORY: Negative for cough, wheezing or shortness of breath. CARDIOVASCULAR: Negative for chest pain, leg swelling or palpitations. GASTROINTESTINAL: Negative for abdominal discomfort, blood in stools or black stools or change in bowel habits GENITOURINARY: No history of dysuria, frequency or incontinence MUSCULOSKELETAL: See HPI. NEUROLOGIC:See HPI. SKIN:Negative for lesions, rash, and itching. PSYCHIATRIC: Negative for sleep disturbance, mood disorder and recent psychosocial stressors. HEMATOLOGIC/LYMPHATIC/IMMUNOLOG IC:Negative for prolonged bleeding, bruising easily or swollen nodes. ENDOCRINE: Negative for cold or heat intolerance, polyuria, polydipsia and goiter. The remainder of the ROS was reviewed and is negative. LAB/IMAGING: Reviewed and include: WBC (k/uL) Date Value 01/26/2016 7.04 RBC (m/uL) Date Value 01/26/2016 4.61 Hemoglobin (g/dL) Date Value 01/26/2016 12.0 Hematocrit (%) Date Value 01/26/2016 40.0 MCV (fL) Date Value 01/26/2016 86.8 MCH (pG) Date Value 01/26/2016 26.0 MCHC (g/dL) Date Value 01/26/2016 30.0 (L) RDW-CV (%) Date Value 01/26/2016 15.7 (H) Platelet Count (k/uL) Date Value 01/26/2016 366 MPV (fL) Date Value 01/26/2016 9.3 Glucose (mg/dL) Date Value 01/26/2016 75 BUN (mg/dL) Date Value 01/26/2016 12 Creatinine (mg/dL) Date Value 01/26/2016 0.73 Sodium (mmol/L) Date Value 01/26/2016 141 Potassium (mmol/L) Date Value 01/26/2016 4.3 Chloride (mmol/L) Date Value 01/26/2016 102 CO2 (mmol/L) Date Value 01/26/2016 24 Protein, Total (g/dL) Date Value 01/26/2016 7.8 Albumin (g/dL) Date Value 01/26/2016 4.1 Calcium (mg/dL) Date Value 01/26/2016 9.9 Alkaline Phosphatase (U/L) Date Value 01/26/2016 72 Bilirubin, Total (mg/dL) Date Value 01/26/2016 0.2 AST (U/L) Date Value 01/26/2016 23 ALT (U/L) Date Value 01/26/2016 17 Rheumatoid Factor (IU/mL) Date Value 08/02/2010 11 Hep C Antibody IA (no units) Date Value 11/07/2013 Negative MEDICATIONS: traMADol (ULTRAM) 50 mg tablet Take 50 mg by mouth every 6 hours as needed for pain. gabapentin (NEURONTIN) 400 mg capsule Take 400 mg by mouth three times daily. gabapentin (NEURONTIN) 300 mg capsule Take 300 mg by mouth once daily. dilTIAZem CD (CARDIZEM CD) 120 mg 24 hr capsule Take 120 mg by mouth twice daily. amitriptyline (ELAVIL) 25 mg tablet Take 25 mg by mouth daily at bedtime. tiZANidine (ZANAFLEX) 4 mg tablet Take 4 mg by mouth every 6 hours as needed. b (more content not included)... [facility] 06-27-2022 Miscellaneous Notes The patient is requesting an appointment for a second opinion. The patient's referral is for fibromyalgia. The patient is aware the referral isn't for spine or pain issues. The patient declined sooner appointment with the PA. documented in this encounter [facility] 01-25-2022 Miscellaneous Notes [facility] 09/10/21 Patient phones requesting refills as follows: Requested Prescriptions Pending Prescriptions Disp Refills ondansetron (ZOFRAN) 4 mg tablet 60 tablet 2 Sig: TAKE 1 TABLET BY MOUTH EVERY 8 HOURS NEEDED FOR NAUSEA Please review and advise. Milvia Tavera RN Pt is asking for refill on ondansetron (ZOFRAN) 4 mg tablet documented in this encounter [facility] 09-10-2021 History of Presen t illness Narrative VIRTUAL VISIT FOLLOW UP I had a virtual visit with Ms. Cheng today for follow up of constipation. UPDATED HISTORY: Patient developed hives off of metoprolol. Pharmacy notified patient that cardizem interacts with colchicine which was helpful for constipation. Only wound up taking colchicine for 2 weeks. Miralax is helpful but can cause very loose stools. Wondering if she can titrate/taper dose of miralax. 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 No current treatment, previously on SSA and Asacol Uterine prolapse PAST SURGICAL HISTORY Procedure Laterality Date COLONOSCOP W/ OR W/O [facility] SPEC 03/01/04 Colonoscopy COLONOSCOP W/ OR W/O [facility] SPEC 05/19/2008 Colonoscopy COLONOSCOP W/ OR W/O [facility] SPEC 09/18/2012 Colonoscopy EGD W/O [facility] SPECIMEN W/BX 02/25/11 FRAGMENTING/KIDNEY STONE 09/18/2013 Lithotripsy right kidney stone NEUROPLASTY/TRANSPOSITION,ULNAR NRV/WRIST Exploratory - RIght REMOVAL OF OVARY/TUBE(S);NEGAR REPAIR BOWEL-BOWEL FISTULA SIGMOIDOSCOPY FLEX DIAG 05/12/09 TOTAL ABD HYSTERECTOMY+BLAD REPR bladder suspension TOTAL KNEE REPLACEMENT Right 11/25/2013 Knee replacement, total FAMILY HISTORY Problem Relation Age of Onset Diabetes Maternal Grandmother Diabetes Maternal Grandfather Diabetes Paternal Grandmother Diabetes Paternal Grandfather Heart Mother CHF Diabetes Sister Diabetes Brother Thyroid Brother cancer Thyroid Sister disorder Diabetes Mother Diabetes Father Social History Tobacco Use Smoking status: Never Smoker Smokeless tobacco: Never Used Substance Use Topics Alcohol use: Yes Alcohol/week: 1.7 standard drinks Comment: few glasses wine per year Drug use: No Current Outpatient Medications Medication Sig Dispense Refill ondansetron (ZOFRAN) 4 mg tablet TAKE 1 TABLET BY MOUTH EVERY 8 HOURS NEEDED FOR NAUSEA 60 tablet 2 colchicine 0.6 mg tablet Take 1 tablet by mouth twice daily. 180 tablet 3 busPIRone (BUSPAR) 15 mg tablet Take 1 tablet by mouth three times daily. 270 tablet 2 losartan (COZAAR) 25 mg tablet Take 1 tablet by mouth once daily. 30 tablet 3 pravastatin (PRAVACHOL) 10 mg tablet Take 1 tablet by mouth once daily. 30 tablet 11 cholecalciferol (VITAMIN D3) 1,000 unit tab Take 1 tablet by mouth once daily. 0 naproxen sodium (ALEVE) 220 mg tablet Take 220 mg by mouth three times daily with meals. acetaminophen (TYLENOL) 325 mg tablet Take 1,300 mg by mouth every 8 hours. omeprazole (PRILOSEC) 20 mg capsule Take 20 mg by mouth once daily. No current facility-administered medications for this visit. ALLERGIES Allergen Reactions Adhesive Tape (Sofie* Rash Tears my skin off Lisinopril Cough Tetracycline ringing in ears REVIEW OF SYSTEMS: PAIN ASSESSMENT: Negative for pain, history of chronic pain, or current treatment for a chronic pain condition. GENERAL: No weight loss, malaise or fevers RESPIRATORY: Negative for cough, hemoptysis, wheezing, COPD, dyspnea or shortness of breath CARDIOVASCULAR: Negative for chest pain, leg swelling, hypertension, CHF or palpitations GI: No nausea, vomiting, or diarrhea : No history of dysuria, frequency or incontinence SECURITY CLERK: Negative for abnormal vaginal bleeding, abnormal vaginal discharge PHYSICAL FINDINGS OF NOTE: Patient reported height 5'6'' and weight 143 lbs General Normal, healthy, cooperative, in no acute distress Able to interact verbally by video conference Psych ORIENTATION: normal to time place, person and situation Mood/Affect: AFFECT AND MOOD: Normal Head/Neuro Normal size and shape Facial appearance normal Pulmonary respiratory effort normal Cardiovascular patient describes extremities normal, warm, no cyanosis,no clubbing and no edema Abdominal Not performed Skin abnormal lesions not visualized Motor patient seen sitting with Normal appearing strength and coordination Anorectal exam Not Performed REVIEWED ITEMS 1. Prior GI notes. IMPRESSION ASSESSMENT/PLAN: 1. Slow transit constipation - ICD9: 564.01, ICD10: K59.01 - Trial of Miralax titration 2. Gastroparesis: Suggest Living (Well) with Gastroparesis RECOMMENDATION: I spent more than 15 minutes [id number] with the patient and over half the time was devoted to counseling and/or coordination of care. Alek Lau MD documented in this encounter [facility] 08-31-2021 Miscellaneous Notes Please call patient to schedule for either in person or virtual visit. Thank you. documented in this encounter [facility] 08-17-2021 Miscellaneous Notes Could you please let patient know she should have 2 refills at her pharmacy, ordered in May. Thanks, Alanna Tai MD Called patient. Informed of the message above from Dr. Tai. Patient will call pharmacy. Her bottle has no refills listed. Informed her receipt was confirmed by her pharmacy on 05/17/21. Patient verbalized understanding. Patient phones requesting refills as follows: Pending Prescriptions Disp Refills BUSPIRONE 15 MG TABLET 270 tablet 2 Sig: Take 1 tablet by mouth three times daily. VICKY: No Please review and advise. Naya Davila documented in this encounter [facility] 08-02-2021 Miscellaneous Notes Distance Health Visit 07/23/21 Patient phones requesting refills as follows: Pending Prescriptions Disp Refills ONDANSETRON HCL 4 MG TABLET 60 tablet 2 Sig: TAKE 1 TABLET BY MOUTH EVERY 8 HOURS NEEDED FOR NAUSEA VICKY: No Please review and advise. Dana Davila documented in this encounter [facility] 07-23-2021 History of Presen t illness Narrative VIRTUAL VISIT FOLLOW UP I had a virtual visit with Ms. Cheng today for follow up of dysphagia. UPDATED HISTORY: Underwent swallowing study @ [facility]. The oral phase is marked by piecemeal deglutition of cookie; however, pt independently cleared oral residue with use of multiple swallows. The pharyngeal phase is marked by mild deficits in airway closure due to decreased laryngeal elevation and epiglottic inversion. The patient had increased delay initiating the swallow with sequential sips. She demonstrated laryngeal penetration of certain thin liquid trials via tsp, cup, and straw with full ejection from the laryngeal vestibule. No aspiration observed during the study. The patient demonstrates a prominent CP bar at the level of C6, which did appear to somewhat obstruct boluses, resulting in min retention of various trials in the upper esophagus. She did demonstrate reflux of contrast remaining above the CP bar through the UES . The patient also demonstrated retention of pudding contrast in the mid and distal esophagus with retrograde flow of bolus below the UES. With trials of barium tablet, the tablet consumed with a thin liquid remained in the upper esophagus. The pill barium tablet consumed with Diet: Regular Textures, Thin Liquids Comment: Consider cutting meats bite size and utilizing sauce to moisten. Take medications whole in puree (applesauce, yogurt, pudding) to promote improved clearance. Wash with liquids after taking medications. Compensatory Strategies: Small Bites, Small Sips, Slow Rate - Sips and bites one at a time, Sitting upright, Remain sitting upright for 30 minutes after PO intake Recommend Repeat Modified Barium Swallow: No Need for Skilled Speech Therapy Services: Yes Comment: Will recommend outpatient dysphagia therapy to implement pharyngeal strengthening to improve laryngeal elevation, airway closure, and UES opening (effortful swallow, effortful breath hold and swallow, Parul mcnamara). Would additionally recommend further education re: aspiration precautions and diet recommendations. Recommended Referrals: GI Consult - CP bar, esophageal retention, and reflux observed during study. SEE Impression for details. Re: gastroparesis, weight is stable (living on carbs). Constipation continues. Not improved. Has tried Magnesium, MCT oil without much improvement. A localized area of mildly granular and dbyrxolb-vwbhucl-dxgptldgb mucosa was found in the rectum. Biopsies were taken with a cold forceps for histology. The sigmoid colon, descending colon, splenic flexure, transverse colon, hepatic flexure, ascending colon and cecum appeared normal. Biopsies were taken with a cold forceps for histology. 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 No current treatment, previously on SSA and Asacol Uterine prolapse PAST SURGICAL HISTORY Procedure Laterality Date COLONOSCOP W/ OR W/O [facility] SPEC 03/01/04 Colonoscopy COLONOSCOP W/ OR W/O [facility] SPEC 05/19/2008 Colonoscopy COLONOSCOP W/ OR W/O [facility] SPEC 09/18/2012 Colonoscopy EGD W/O [facility] SPECIMEN W/BX 02/25/11 FRAGMENTING/KIDNEY STONE 09/18/2013 Lithotripsy right kidney stone NEUROPLASTY/TRANSPOSITION,ULNAR NRV/WRIST Exploratory - RIght REMOVAL OF OVARY/TUBE(S);NEGAR REPAIR BOWEL-BOWEL FISTULA SIGMOIDOSCOPY FLEX DIAG 05/12/09 TOTAL ABD HYSTERECTOMY+BLAD REPR bladder suspension TOTAL KNEE REPLACEMENT Right 11/25/2013 Knee replacement, total FAMILY HISTORY Problem Relation Age of Onset Diabetes Maternal Grandmother Diabetes Maternal Grandfather Diabetes Paternal Grandmother Diabetes Paternal Grandfather Heart Mother CHF Diabetes Sister Diabetes Brother Thyroid Brother cancer Thyroid Sister disorder Diabetes Mother Diabetes Father Social History Tobacco Use Smoking status: Never Smoker Smokeless tobacco: Never Used Substance Use Topics Alcohol use: Yes Alcohol/week: 1.7 standard drinks Comment: few glasses wine per year Drug use: No Current Outpatient Medications Medication Sig Dispense Refill ondansetron (ZOFRAN) 4 mg tablet TAKE 1 TABLET BY MOUTH EVERY 8 HOURS NEEDED FOR NAUSEA 60 tablet 0 busPIRone (BUSPAR) 15 mg tablet Take 1 tablet by mouth three times daily. 270 tablet 2 losartan (COZAAR) 25 mg tablet Take 1 tablet by mouth once daily. 30 tablet 3 pravastatin (PRAVACHOL) 10 mg tablet Take 1 tablet by mouth once daily. 30 tablet 11 cholecalciferol (VITAMIN D3) 1,000 unit tab Take 1 tablet by mouth once daily. 0 naproxen sodium (ALEVE) 220 mg tablet Take 220 mg by mouth three times daily with meals. acetaminophen (TYLENOL) 325 mg tablet Take 1,300 mg by mouth every 8 hours. omeprazole (PRILOSEC) 20 mg capsule Take 20 mg by mouth once daily. No current facility-administered medications for this visit. ALLERGIES Allergen Reactions Adhesive Tape (Sofie* Rash Tears my skin off Lisinopril Cough Tetracycline ringing in ears REVIEW OF SYSTEMS: PAIN ASSESSMENT: Negative for pain, history of chronic pain, or current treatment for a chronic pain condition. GENERAL: No weight loss, malaise or fevers RESPIRATORY: Negative for cough, hemoptysis, wheezing, COPD, dyspnea or shortness of breath CARDIOVASCULAR: Negative for chest pain, leg swelling, hypertension, CHF or palpitations GI: No nausea, vomiting, or diarrhea : No history of dysuria, frequency or incontinence SECURITY CLERK: Negative for abnormal vaginal bleeding, abnormal vaginal discharge PHYSICAL FINDINGS OF NOTE: Patient reported height 5'6'' and weight 137 lbs General Normal, healthy, cooperative, in no acute distress Able to interact verbally by video conference Psych ORIENTATION: normal to time place, person and situation Mood/Affect: AFFECT AND MOOD: Normal Head/Neuro Normal size and shape Facial appearance normal Pulmonary respiratory effort normal Cardiovascular patient describes extremities normal, warm, no cyanosis,no clubbing and no edema Abdominal Not performed Skin abnormal lesions not visualized Motor patient seen sitting with Normal appearing strength and coordination Anorectal exam Not Performed REVIEWED ITEMS 1. Outside speech/swallow evaluation IMPRESSION ASSESSMENT/PLAN: 1. Chronic constipation - ICD9: 564.00, ICD10: K59.09 - Trial of COLCHICINE 0.6 MG TABLET po every day, ok to go to bid if needed. 2. Oropharyngeal dysphagia: Will recommend outpatient dysphagia therapy to implement pharyngeal strengthening to improve laryngeal elevation, airway closure, and UES opening (effortful swallow, effortful breath hold and swallow, Parul mcnamara). Would additionally recommend further education re: aspiration precautions and diet recommendations. 3. Gastroparesis: currently doing well. RECOMMENDATION: I spent more than 15 minutes [id number]-[id number] with the patient and over half the time was devoted to counseling and/or coordination of care. Alek Lau MD documented in this encounter [facility] 06-03-2021 Miscellaneous Notes Distance Health Visit 03/20/[address] Lau Patient phones requesting refills as follows: Pending Prescriptions Disp Refills ONDANSETRON HCL 4 MG TABLET 60 tablet 0 Sig: TAKE 1 TABLET BY MOUTH EVERY 8 HOURS NEEDED FOR NAUSEA VICKY: No Please review and advise. Naya Davila documented in this encounter [facility] 05-17-2021 Miscellaneous Notes Patient phones requesting refills as follows: Pending Prescriptions Disp Refills BUSPIRONE 15 MG TABLET 270 tablet 2 Sig: Take 1 tablet by mouth three times daily. VICKY: No [facility] 03/20/20 Please review and advise. Milvia Tavera RN Wrong pool? Patient phones requesting refills as follows: Pending Prescriptions Disp Refills BUSPIRONE 15 MG TABLET 270 tablet 2 Sig: Take 1 tablet by mouth three times daily. VICKY: No Please review and advise. Dana Davila documented in this encounter [facility] 03-19-2021 Note . MICRO - Microbiology PROCEDURE: Urine Culture [*1] SOURCE: Urine, Clean Catch BODY SITE: COLLECTED DATE/TIME: 03/16/2021 15:02 EST RECEIVED DATE/TIME: 03/17/2021 20:46 EST START DATE/TIME: 03/17/2021 20:46 EST FREE TEXT SOURCE: FINAL REPORTS Final Report [] Verified Date/Time/Personnel: 03/19/2021 10:34 EST >100,000 cfu/ml Escherichia coli PRELIMINARY REPORTS Preliminary Report [] Verified Date/Time/Personnel: 03/18/2021 12:31 EST >100,000 cfu/ml Escherichia coli UTYET to follow SUSCEPTIBILITY RESULTS Escherichia coli Antibiotic TUYET Dilut TUYET Inter Ampicillin >16 Resistant Ampicillin/ 16/8 Intermediate Sulbactam Aztreonam <=4 Susceptible Cefazolin <=2 Susceptible Ciprofloxacin <=0.25 Susceptible Ertapenem <=0.5 Susceptible Gentamicin <=2 Susceptible Imipenem <=1 Susceptible Levofloxacin <=0.5 Susceptible Meropenem <=1 Susceptible Nitrofurantoin <=32 Susceptible Piperacillin/ <=8 Susceptible Tazobactam Trimethoprim/ <=0.5/9.5 Susceptible Sulfa Performing Locations *1: This test was performed at: [facility], [address] [place] [address], [address] [place] [address] ([place]) documented as of this encounter (statuses as of 05/17/2021) [facility] History of Past illness Narrative* Problem Noted Date Resolved Date Sebaceous cyst 09/26/2005 10/07/2014 External hemorrhoids without mention of complica tion 11/21/2014 documented as of this encounter (statuses as of 06/03/2021) [facility] History of Past illness Narrative* Problem Noted Date Resolved Date Sebaceous cyst 09/26/2005 10/07/2014 External hemorrhoids without mention of complica tion 11/21/2014 documented as of this encounter (statuses as of 07/22/2021) [facility] History of Past illness Narrative* Problem Noted Date Resolved Date Sebaceous cyst 09/26/2005 10/07/2014 External hemorrhoids without mention of complica tion 11/21/2014 documented as of this encounter (statuses as of 07/23/2021) [facility] History of Past illness Narrative* Problem Noted Date Resolved Date Sebaceous cyst 09/26/2005 10/07/2014 External hemorrhoids without mention of complica tion 11/21/2014 documented as of this encounter (statuses as of 08/02/2021) [place] [id number] History of Past illness Narrative* Problem Noted Date Resolved Date Sebaceous cyst 09/26/2005 10/07/2014 External hemorrhoids without mention of complica tion 11/21/2014 documented as of this encounter (statuses as of 08/17/2021) [facility] History of Past illness Narrative* Problem Noted Date Resolved Date Sebaceous cyst 09/26/2005 10/07/2014 External hemorrhoids without mention of complica tion 11/21/2014 documented as of this encounter (statuses as of 08/31/2021) [facility] History of Past illness Narrative* Problem Noted Date Resolved Date Sebaceous cyst 09/26/2005 10/07/2014 External hemorrhoids without mention of complica tion 11/21/2014 documented as of this encounter (statuses as of 09/10/2021) [facility] History of Past illness Narrative* Problem Noted Date Resolved Date Sebaceous cyst 09/26/2005 10/07/2014 External hemorrhoids without mention of complica tion 11/21/2014 documented as of this encounter (statuses as of 01/25/2022) [facility] History of Past illness Narrative* Problem Noted Date Resolved Date Sebaceous cyst 09/26/2005 10/07/2014 External hemorrhoids without mention of complica tion 11/21/2014 documented as of this encounter (statuses as of 06/28/2022) [facility] History of Past illness Narrative* Problem Noted Date Diagnosed Date Resolved Date Sebaceous cyst 09/26/2005 10/07/2014 External hemorrhoids without mention of complication 11/21/2014 documented as of this encounter (statuses as of 08/21/2022) [facility] History of Past illness Narrative* Problem Noted Date Diagnosed Date Resolved Date Sebaceous cyst 09/26/2005 10/07/2014 External hemorrhoids without mention of complication 11/21/2014 documented as of this encounter (statuses as of 08/25/2022) [facility] History of Past illness Narrative* Problem Noted Date Diagnosed Date Resolved Date Sebaceous cyst 09/26/2005 10/07/2014 External hemorrhoids without mention of complication 11/21/2014 documented as of this encounter (statuses as of 09/19/2022) [facility] History of Past illness Narrative* Problem Noted Date Diagnosed Date Resolved Date Sebaceous cyst 09/26/2005 10/07/2014 External hemorrhoids without mention of complication 11/21/2014 documented as of this encounter (statuses as of 12/17/2022) [facility] History of Past illness Narrative* Problem Noted Date Diagnosed Date Resolved Date Sebaceous cyst 09/26/2005 10/07/2014 External hemorrhoids without mention of complication 11/21/2014 documented as of this encounter (statuses as of 12/17/2022) [facility] Appointment Date:07/27/2021 08:30:00 AM Scheduled Provider: Location:[facility] Appointment Type:NM Myocardial Spect Rest/Stress (AH/AO) Appointment Date:07/27/2021 09:00:00 AM Scheduled Provider: Location:[facility] Appointment Type:CV Procedure - AOH Echo Appointment Date:12/17/2021 11:30:00 AM Scheduled Provider:ELENA BATISTA DO Location:[facility] Appointment Type: OV Future Scheduled Tests Laboratory* Magnesium Level 06/18/21 * Thyroid Stimulating Hormone 06/18/21 * Free T4 06/18/21 * Complete Blood Count 06/18/21 * Free T3 06/18/21 * Lipid Profile 06/18/21 * Complete Metabolic Panel 06/18/21 Radiology* NM Myocardial Spect Rest/Stress 07/27/21 [facility] Evaluation + Plan note Future Appointments Appointment Date:12/17/2021 11:30:00 AM Scheduled Provider:ELENA BATISTA DO Location:[facility] Appointment Type: OV Future Scheduled Tests Laboratory* Magnesium Level 06/18/21 * Thyroid Stimulating Hormone 06/18/21 * Free T4 06/18/21 * Complete Blood Count 06/18/21 * Free T3 06/18/21 * Lipid Profile 06/18/21 * Complete Metabolic Panel 06/18/21 [facility] Evaluation + Plan note Future Appointments Appointment Date:12/17/2021 11:30:00 AM Scheduled Provider:ELENA BATISTA DO Location:[facility] Appointment Type: OV Future Scheduled Tests Laboratory* Magnesium Level 06/18/21 * Thyroid Stimulating Hormone 06/18/21 * Free T4 06/18/21 * Complete Blood Count 06/18/21 * Free T3 06/18/21 * Lipid Profile 04/26/22 * Lipid Profile 06/18/21 * Complete Metabolic Panel 06/18/21 * N-Terminal proBNP 04/26/22 [facility] Evaluation note* Diagnosis Chronic ulcerative proctitis with complication (HCC) Ulcerative (chronic) proctitis Nausea Nausea alone Gastroparesis [facility] Chronic constipation- Primary Unspecified constipation [facility] Diagnosis Chronic ulcerative proctitis with complication (HCC) Ulcerative (chronic) proctitis Nausea Nausea alone Gastroparesis [facility] Diagnosis Slow transit constipation- Primary [facility] Diagnosis Pain in both upper extremities- Primary Cervicalgia Arm weakness Other musculoskeletal symptoms referable to limbs Cervical stenosis of spine Spinal stenosis in cervical region [facility] Diagnosis Pain in both upper extremities Cervicalgia Arm weakness Other musculoskeletal symptoms referable to limbs [facility] Diagnosis Spinal stenosis of cervical region Spinal stenosis in cervical region documented in this encounter [facility] Diagnosis Demyelinating disease of central nervous system (HCC) Demyelinating disease of central nervous system, unspecified [facility] Narrative No data available for this section [facility] Hospital Discharge instructions No data available for this section [facility] Progress note No data available for this section [facility] Reason for visit Narrative* Outpatient Procedure (Routine) - Closed Specialty Diagnoses / Procedures Referred By Contac t Referred To Contact [facility] Diagnoses Pain in both upper extremities Cervicalgia Arm weakness Procedures EMG(NEURO/NI) NERVE CONDUCTION STUDIES 9-10 STUDIES Manan Hernandez Jr., MD [address] [facility] [address] [place] [address] [facility] [place] [address] [place] [address] Referral ID Status Reason Start Date Expiration Date V isits Requested Visits Authorized [id number] Closed Auto-Generate d Referral 08/19/2022 08/20/2023 1 1 [facility] Summary Purpose Family History No Family History Records FoundThere may be information available, but it has not been provided by the sender.No Family History Records FoundNo Family History Records Found Advance Directives No Advanced Directives Records FoundDocuments on File Type Date Recorded 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 Review of System There may be information available, but it has not been provided by the sender. History of Present Illness There may be information available, but it has not been provided by the sender. Reason for Referral Specialty Diagnoses / Procedures Referred By Francesca bernal Referred To Contact Diagnoses Chronic ulcerative proctitis with complication (HCC) Nausea Gastroparesis Daniel Ibanez MD [address] [place] [address] Referral ID Status Reason Start Date Expiration Date Visits Re quested Visits Authorized [id number] Closed 1 1 Specialty Diagnoses / Procedures Referred By Francesca bernal Referred To Contact Diagnoses Chronic ulcerative proctitis with complication (HCC) Nausea Gastroparesis Alek Lau MD [address] [facility] [place] [address] Referral ID Status Reason Start Date Expiration Date Visits Re quested Visits Authorized [id number] Closed 1 1 Referral ID Status Reason Start Date Expiration Date Visits Re quested Visits Authorized [id number] Closed 1 1 Specialty Diagnoses / Procedures Referred By Contac t Referred To Contact [facility] [place] Diagnoses Pain in both upper extremities Cervicalgia Arm weakness Cervical stenosis of spine Procedures CONSULT TO [facility] OFFICE/OUTPATIENT [facility] 60-74 MINUTES Manan Hernandez Jr., MD [address] [place] [address] Referral ID Status Reason Start Date Expiration Date Visits Requested Visits Authorized [id number] Authorized PCP Requested Referral 08/19/2022 08/19/2023 1 1 Specialty Diagnoses / Procedures Referred By Contac t Referred To Contact [facility] Diagnoses Pain in both upper extremities Cervicalgia Arm weakness Procedures EMG(NEURO/NI) NERVE CONDUCTION STUDIES 9-10 STUDIES Manan Hernandez Jr., MD [address] [place] [address] [facility] [place] [address] [place] [address] Referral ID Status Reason Start Date Expiration Date Visits Requested Visits Authorized [id number] Authorized Auto-Generat ed Referral 08/19/2022 08/20/2023 1 1 Specialty Diagnoses / Procedures Referred By Contac t Referred To Contact MR IMAGING Diagnoses Spinal stenosis of cervical region Procedures MRI CERVICAL SPINE WO/W IVCON MRI SPINAL CANAL CERVICAL W/O & W/CONTR MATRL Manan Hernandez Jr., MD [address] [facility] [address] [place] [address] Mr [facility] [place] [address] Referral ID Status Reason Start Date Expiration Date V isits Requested Visits Authorized [id number] Closed Auto-Generate d Referral 07/04/2022 08/03/2023 1 1 Specialty Diagnoses / Procedures Referred By Contac t Referred To Contact MR IMAGING Diagnoses Demyelinating disease of central nervous system (HCC) Procedures MRI BRAIN WO/W IVCON MRI BRAIN BRAIN STEM W/O W/CONTRAST MATERIAL Manan Hernandez Jr., MD [address] [place] [address] [place] [address] Referral ID Status Reason Start Date Expiration Date V isits Requested Visits Authorized [id number] Closed Auto-Generate d Referral 07/04/2022 08/03/2023 1 1 Additional Source Comments INFORMATION SOURCE (unrecogn ized section and content) DATE CREATED AUTHOR AUTHOR'S ORGANIZ ATION 11/24/2021 [facility] ([place]) DATE CREATED AUTHOR AUTHOR'S ORGANIZ ATION 03/01/2023 [facility] Reason for Visit (unrecogniz ed section and content) Reason Onset Date Comments Refill Request 05/17/2021 Reason Onset Date Comments Refill Request 06/03/2021 Reason Comments Dysphagia Reason Onset Date Comments Refill Request 08/02/2021 Reason Onset Date Comments Refill Request 08/17/2021 Reason Comments Constipation Reason Comments Refill Request Reason Comments Appointment Reason Comments Follow Up Reason Comments Patient Question Specialty Diagnoses / Procedures Referred By Contac t Referred To Contact MR IMAGING Diagnoses Spinal stenosis of cervical region Procedures MRI CERVICAL SPINE WO/W IVCON MRI SPINAL CANAL CERVICAL W/O & W/CONTR MATRL Manan Hernandez Jr., MD [address] [facility] [address] [place] [address] [place] [address] Referral ID Status Reason Start Date Expiration Date V isits Requested Visits Authorized [id number] Closed Auto-Generate d Referral 07/04/2022 08/03/2023 1 1 Specialty Diagnoses / Procedures Referred By Contac t Referred To Contact MR IMAGING Diagnoses Demyelinating disease of central nervous system (HCC) Procedures MRI BRAIN WO/W IVCON MRI BRAIN BRAIN STEM W/O W/CONTRAST MATERIAL Manan Hernandez Jr., MD [address] [place] [address] [place] [address] Referral ID Status Reason Start Date Expiration Date V isits Requested Visits Authorized [id number] Closed Auto-Generate d Referral 07/04/2022 08/03/2023 1 1 Source Comments (unrecognize d section and content) In the event this informatio n is protected by the Federal Confidentiality of Alcohol and Drug Abuse Patient Records regulations: The Federal rules restrict any use of the information to criminally investigate or prosecute any alcohol or drug abuse patient.[facility] the event this information is protected by the Federal Confidentiality of Alcohol and Drug Abuse Patient Records regulations: The Federal rules restrict any use of the information to criminally investigate or prosecute any alcohol or drug abuse patient.[facility] Hospital[facility] the event this information is protected by the Federal Confidentiality of Alcohol and Drug Abuse Patient Records regulations: The Federal rules restrict any use of the information to criminally investigate or prosecute any alcohol or drug abuse patient.[facility] HospitalIn the event this information is protected by the Federal Confidentiality of Alcohol and Drug Abuse Patient Records regulations: The Federal rules restrict any use of the information to criminally investigate or prosecute any alcohol or drug abuse patient.[facility] Hospital[facility] the event this information is protected by the Federal Confidentiality of Alcohol and Drug Abuse Patient Records regulations: The Federal rules restrict any use of the information to criminally investigate or prosecute any alcohol or drug abuse patient.[facility] Hospital[facility] the event this information is protected by the Federal Confidentiality of Alcohol and Drug Abuse Patient Records regulations: The Federal rules restrict any use of the information to criminally investigate or prosecute any alcohol or drug abuse patient.[facility] HospitalIn the event this information is protected by the Federal Confidentiality of Alcohol and Drug Abuse Patient Records regulations: The Federal rules restrict any use of the information to criminally investigate or prosecute any alcohol or drug abuse patient.[facility] Hospital[facility] the event this information is protected by the Federal Confidentiality of Alcohol and Drug Abuse Patient Records regulations: The Federal rules restrict any use of the information to criminally investigate or prosecute any alcohol or drug abuse patient.[facility] Hospital[facility] the event this information is protected by the Federal Confidentiality of Alcohol and Drug Abuse Patient Records regulations: The Federal rules restrict any use of the information to criminally investigate or prosecute any alcohol or drug abuse patient.[facility] HospitalIn the event this information is protected by the Federal Confidentiality of Alcohol and Drug Abuse Patient Records regulations: The Federal rules restrict any use of the information to criminally investigate or prosecute any alcohol or drug abuse patient.[facility] HospitalIn the event this information is protected by the Federal Confidentiality of Alcohol and Drug Abuse Patient Records regulations: The Federal rules restrict any use of the information to criminally investigate or prosecute any alcohol or drug abuse patient.[facility] HospitalIn the event this information is protected by the Federal Confidentiality of Alcohol and Drug Abuse Patient Records regulations: The Federal rules restrict any use of the information to criminally investigate or prosecute any alcohol or drug abuse patient.[facility] HospitalIn the event this information is protected by the Federal Confidentiality of Alcohol and Drug Abuse Patient Records regulations: The Federal rules restrict any use of the information to criminally investigate or prosecute any alcohol or drug abuse patient.[facility] HospitalIn the event this information is protected by the Federal Confidentiality of Alcohol and Drug Abuse Patient Records regulations: The Federal rules restrict any use of the information to criminally investigate or prosecute any alcohol or drug abuse patient.[facility] HospitalIn the event this information is protected by the Federal Confidentiality of Alcohol and Drug Abuse Patient Records regulations: The Federal rules restrict any use of the information to criminally investigate or prosecute any alcohol or drug abuse patient.[facility] Care Teams (unrecognized sec tion and content) Rn Appeals Relationship Specialty Start Date End Date Elena Batista, DO [address] [place] [address] PCP - General Family Practice 05/30/18 Rn Appeals Relationship Specialty Start Date End Date Elena Batista, DO [address] [place] [address] PCP - General Family Practice 05/30/18 Rn Appeals Relationship Specialty Start Date End Date Elena Batista, [address] [place] [address] PCP - General Family Practice 05/30/18 Rn Appeals Relationship Specialty Start Date End Date Elena Batista, [address] [place] [address] PCP - General Family Practice 05/30/18 Rn Appeals Relationship Specialty Start Date End Date Elena Batista, [address] [place] [address] PCP - General Family Practice 05/30/18 Rn Appeals Relationship Specialty Start Date End Date Elena Batista, [address] [place] [address] PCP - General Family Practice 05/30/18 Rn Appeals Relationship Specialty Start Date End Date Elena Batista, DO [address] [place] [address] PCP - General Family Medicine 05/30/18 Rn Appeals Relationship Specialty Start Date End Date Elena Batista, [address] [place] [address] PCP - General Family Medicine 05/30/18 Rn Appeals Relationship Specialty Start Date End Date Elena Batista [place] [address] PCP - General Family Medicine 05/30/18 Rn Appeals Relationship Specialty Start Date End Date Elena Batista DO [address] [place] [address] PCP - General Family Medicine 05/30/18 Rn Appeals Relationship Specialty Start Date End Date Elena Batista DO [address] [place] [address] PCP - General Family Medicine 05/30/18 Rn Appeals Relationship Specialty Start Date End Date Elena Batista DO [address] [place] [address] PCP - General Family Medicine 05/30/18 Rn Appeals Relationship Specialty Start Date End Date Elena Batista DO [address] [place] [address] PCP - General Family Medicine 05/30/18 Care Team (unrecognized sect ion and content) Care Team Personnel Name: ELENA BATISTA DO Position: P4 Physician - Primary Care Med Service: Active Provider Member Role: Primary Care Physician Address: Address: [address] [place] [address]- Name: PAVITHRA HERNANDEZ MD Position: P4 Physician - Cardiology Med Service: Active Provider Member Role: Kerrick Kleaner Operator Address: Address: [address] [place] [address] [address] [facility] [place], [place] [address] Care Team Related Persons Name: NONE, NONE Name: CABRERA CHENG Address: Home [address] [id number] Address: Temporary [address], [place] [id number] FOR RECORDS PERTAINING TO PATIENTS WHO ARE OR HAVE BEEN ENROLLED IN A CHEMICAL DEPENDENCY/SUBSTANCEABUSE PROGRAM, SOME INFORMATION MAY BE OMITTED. This clinical summary was aggregated from multiple sources. Caution should be exercised in using it in the provision of clinical care. This summary normalizes information from multiple sources, and as a consequence, information in this document may materially change the coding, format and clinical context of patient data. In addition, data may be omitted in some cases. CLINICAL DECISIONS SHOULD BE BASED ON THE PRIMARY CLINICAL RECORDS. [facility] [employer] [facility] provides no warranty or guarantee of the accuracy or completeness of information in this document.
[2023-03-09 18:24] LABS: Color, Urine Yellow (Yellow); Glucose, Dipstick Normal (Normal); Ketone-Dipstick Negative (Negative); Leukocyte Esterase-Dipstick 500 /ul (Negative); Nitrite-Dipstick Negative (Negative); Occult Blood-Urine 150 /ul (Negative); Protein-Dipstick 100 mg/dl (Negative); Specific Gravity, Urine 1.015 (1.002-1.030); Urine Bilirubin Dipstick Negative (Negative); Urine Clarity Cloudy (Clear); Urine Urobilinogen Normal (Normal)
[2023-03-09 18:31] LABS: Renal Epithelial Cells 0-5 SEEN /hpf (0-5); Squamous Epithelial Cells - UA 0-5 SEEN /hpf (5-10); White Blood Cells >100 SEEN /hpf (0-5)
== END | disposition home or self-care (01) ==
PROVIDERS: Visit Provider Physician Assistant Surgical
DX: N39.0 Urinary tract infection, site not specified (principal); R31.9 Hematuria, unspecified; R30.0 Dysuria
CPT/HCPCS: 81001; 87077; 87086; 87088; 87186

== ENCOUNTER → 2023-04-17 | Outpatient (CLI) | payer MEDICARE, SELFPAY ==
[2023-04-17 11:14] LABS: Bacteria 0 SEEN /hpf (None Seen); Mucous, Urine 0 SEEN /hpf (<or=2+); Red Blood Cells-Urine 0 SEEN /hpf (0-5)
--- OUTSIDE RECORDS SUMMARY | 2023-04-17 11:14 | XMS RPT_ITS | CCD ---
Author Name Unknown Address [facility] [address] [place] [address] Organization [facility] Care Team Providers Care Car Ferry Master Name Role Phone Elevr Berg MD Unavailable Elena Batista DO Primary Care Provider LESTER BERNAL, DR PARKER Primary Care Physician [phone] LESTER BERNAL, DR PARKER Primary Care Physician [phone] LESTER BERNAL, DR. PARKER Attending Unavailrene BATISTA DO, DR. PARKER Primary Care Unavailrene HERNANDEZ MD., DR. ARSHAD Attending Unavail able LESTER BERNAL, DR. PARKER Primary Care Unavailrene HERNANDEZ MD., DR. ARSHAD Attending Unavail able LESTER BERNAL, DR. PARKER Primary Care Unavailrene BATISTA DO, DR. PARKER Attending Unavailrene BATISTA DO, DR. PARKER Primary Care UnavailElena Coombs DO [...] Unavailable MANAN HERNANDEZ JR Referring Unavailable MANAN HERNANEDZ JR Attending Unavailable Allergies Allergy Classification Reported Allergen(s) Allergy Type Date of Onset Reaction(s) Facility (2 sources) Tetracycline; Translations: [TETRACYCLINE] Drug Allergy 6 [facility] Work Phone: (16 sources) Adhesive Tape; Translations: [ADHESIVE TAPE (ROSINS)] Allergy to substance 9 Rash [facility] (19 sources) Lisinopril; Translations: [lisinopril] Drug Allergy 9 Cough, Cough (finding) [facility] (18 sources) Tetracycline; Translations: [tetracycline] Drug Allergy 6 Tinnitus (finding) [facility] Work Phone: (3 sources) Ciprofloxacin; Translations: [ciprofloxacin] Drug Allergy Nausea (finding) [facility] Medications Current Medications Medication Drug Class(es) Dates [...] [degF] Manan Hernandez Jr., MD Work Phone: [facility] 08-19-2022 08:53-0400 Body weight 72.26 kg Manan Hernandez Jr., MD Work Phone: [facility] 08-19-2022 08:53-0400 Diastolic blood pressure 80 mm[Hg] Manan Hernandez Jr., MD Work Phone: [facility] 08-19-2022 08:53-0400 Heart rate 51 /min Manan Hernandez Jr., MD Work Phone: [facility] 08-19-2022 08:53-0400 Respiratory rate 16 /min Manan Hernandez Jr., MD Work Phone: [facility] 08-19-2022 08:53-0400 SaO2% (BldA) [Mass fraction] 98 % Manan Hernandez Jr., MD Work Phone: [facility] 08-19-2022 08:53-0400 Systolic blood pressure 135 mm[Hg] Manan Hernandez Jr., MD Work Phone: [facility] NEGATED: Highlighted [id number] 10:42-0500 BMI (Body Mass Index) 20.41 kg/m2 Judit Jyotsna AT [facility] Work Phone: NEGATED: Highlighted [id number] 10:42-0500 Body weight 57.15 kg Judit Jyotsna AT [facility] Work Phone: NEGATED: Highlighted [id number] 10:42-0500 Body weight 57 kg Judit Jyotsna AT [facility] Work Phone: NEGATED: Highlighted [id number] 10:42-0500 BP Diastolic 60 mm[Hg] Judit Jyotsna AT [facility] Work Phone: NEGATED: Highlighted [id number] 10:42-0500 BP Systolic 88 mm[Hg] Judit Jyotsna AT [facility] Work Phone: NEGATED: Highlighted [id number] 10:42-0500 Height 167.64 cm Judit Jyotsna AT [facility] Work Phone: NEGATED: Highlighted [id number] 10:42-0500 Height 168 cm Judit Jyotsna AT [facility] Work Phone: NEGATED: Highlighted [id number] 10:42-0500 Pulse (Heart Rate) 77 /min Judit Jyotsna AT [facility] Work Phone: Encounters Encounter Date Encounter Type Care Provider Facility Start: 02-24-2023 End: 02-25-2023 ambulatory ELENA San LESTER Facility:[facility] Start: 02-23-2023 End: 02-24-20[facility] Start: 02-22-2023 End: 02-23-2023 [facility] Start: 09-19-2022 End: 09-19-2022 [facility] Start: 09-19-2022 End: 09-19-2022 ambulatory Emg 850) Neurology Start: 09-19-2022 End: 09-19-2022 Patient encounter procedure Emg 2 Neur Vazquez (Max Weight: 850) VAZQUEZ Start: 08-19-2022 End: 08-19-2022 ambulatory ELENA BATISTA Facility:[facility] Start: 08-19-2022 End: 08-19-2022 Patient encounter procedure [...] Author Start: 07-04-2025 DIABETES SCREEN DIABETES SCREEN [facility] Start: 07-04-2025 Diabetes Screening Diabetes Screening [facility] Start: 10-14-2022 Covid-19 Vaccine () Covid-19 Vaccine ( season) [facility] Start: 10-14-2022 Influenza vaccination [facility] Start: 02-13-2022 ADVANCE DIRECTIVE DISCUSSION ADVANCE DIRECTIVE DISCUSSION [facility] Start: 02-13-2022 DEPRESSION ASSESSMENT DEPRESSION ASSESSMENT [facility] Start: 10-14-2021 Influenza vaccination [facility] Start: 08-13-2021 COVID-19 VACCINE (5 - Booster for Moderna series) COVID-19 VACCINE (5 - Booster for Moderna series) [facility] Start: 08-13-2021 COVID-19 VACCINE (5 - Moderna series) COVID-19 VACCINE (5 - Moderna series) [facility] Start: 02-13-2021 ADVANCE DIRECTIVE DISCUSSION ADVANCE DIRECTIVE DISCUSSION [facility] Start: 02-13-2021 DEPRESSION ASSESSMENT DEPRESSION ASSESSMENT [facility] Start: 06-17-2020 Lipid 1996 panel - Serum or Plasma Lipid Screening [facility] Start: 06-17-2020 LIPID SCREEN LIPID SCREEN [facility] Start: 02-18-2019 Colonoscopy COLONOSCOPY [facility] Start: 02-18-2019 COLORECTAL CANCER SCREENING COLORECTAL CANCER SCREENING [facility] Start: 02-01-2019 End: 02-01-2019 Appointment Appointment [facility] Work Phone: Start: 01-25-2019 DIABETES SCREEN DIABETES SCREEN [facility] Start: 08-15-2017 ANNUAL PCP TEAM CHRONIC DISEASE VISIT ANNUAL PCP TEAM CHRONIC DISEASE VISIT [facility] Start: 10-20-2016 Adult depression screening assessment DEPRESSION SCREENING [facility] Start: 08-25-2016 Mammography MAMMOGRAM [facility] Start: 05-12-2014 SIGMOIDOSCOPY SIGMOIDOSCOPY [facility] Start: 02-15-2011 SHINGRIX VACCINE (2 of 3) SHINGRIX VACCINE (2 of 3) [facility] Start: 01-18-2011 MMR (1 of 2 - Risk 2-dose series) MMR (1 of 2 - Risk 2-dose series) [facility] Start: 01-18-2011 MMR Vaccine (1 of 2 - Risk 2-dose series) MMR Vaccine (1 of 2 - Risk 2-dose series) [facility] Start: 2007 HEPATITIS B (1 of 3 - Risk 3-dose series) HEPATITIS B (1 of 3 - Risk 3-dose series) [facility] Start: 2007 Hepatitis B Vaccine (1 of 3 - Risk 3-dose series) Hepatitis B Vaccine (1 of 3 - Risk 3-dose series) [facility] Start: 2007 RSV Vaccine (1 - 1-dose 60+ series) RSV Vaccine (1 - 1-dose 60+ series) [facility] Start: 09-02-2005 Urine microalbumin profile [facility] Start: 02-12-1992 COLOGUARD (FIT-DNA) COLOGUARD (FIT-DNA) [facility] Start: 02-12-[address] COLONOGRAPHY [facility] Start: 02-12-1992 FECAL OCCULT BLOOD FECAL OCCULT BLOOD [facility] Start: 1966 HEPATITIS A (1 of 2 - Risk 2-dose series) HEPATITIS A (1 of 2 - Risk 2-dose series) [facility] Start: 1966 Hepatitis A Vaccine (1 of 2 - Risk 2-dose series) Hepatitis A Vaccine (1 of 2 - Risk 2-dose series) [facility] Start: 1966 HEPATITIS B (1 of 3 - Risk 3-dose series) HEPATITIS B (1 of 3 - Risk 3-dose series) [facility] Start: 1965 ANNUAL PCP TEAM CHRONIC DISEASE VISIT ANNUAL PCP TEAM CHRONIC DISEASE VISIT [facility] Start: 1965 BP CONTROLLED (<130/80) BP CONTROLLED (<130/80) [facility] Start: 1957 Meningococcal B Vaccine: Consider Based On Risk (1 of 4 - Increased Risk) Meningococcal B Vaccine: Consider Based On Risk (1 of 4 - Increased Risk) [facility] Start: 1957 MENINGOCOCCAL B: Consider based on risk (1 of 4 - Increased Risk Bexsero 2-dose series) MENINGOCOCCAL B: Consider based on risk (1 of 4 - Increased Risk Bexsero 2-dose series) [facility] Start: 1957 MENINGOCOCCAL B: Consider based on risk (1 of 4 - Increased Risk) MENINGOCOCCAL B: Consider based on risk (1 of 4 - Increased Risk) [facility] Start: 02-12-1952 COVID-19 VACCINE (#1) COVID-19 VACCINE (#1) [facility] Start: 02-12-1952 COVID-19 VACCINE (1) COVID-19 VACCINE (1) [facility] Start: 02-12-1948 HEPATITIS A (1 of 2 - Risk 2-dose series) HEPATITIS A (1 of 2 - Risk 2-dose series) [facility] End: 08-20-2023 EMG(NEURO/NI) EMG(NEURO/NI) EMG Routine Pain in both upper extremities Cervicalgia Arm weakness 1 Occurrences starting 08/19/2022 until 08/20/2023 [facility] Work Phone: Immunizations Immunization Date Immunization Notes Care Provider [facility] 11-23-2021 influenza, high dose seasonal, preservative-free DR ELENA BATISTA DO [facility] 11-23-2021 influenza virus vaccine, unspecified formulation Mri (I-Stat/1.5t) Work Phone: [facility] 06-18-2021 COVID-19, mRNA, LNP- S, PF, 100 mcg or 50 mcg dose; Translations: [Moderna COVID-19 Vaccine] DR PAVITHRA HERNANDEZ MD [facility] 01-01-2021 COVID-19, mRNA, LNP- S, PF, 100 mcg or 50 mcg dose; Translations: [Moderna COVID-19 Vaccine] DR PAVITHRA HERNANDEZ MD [facility] 10-20-2020 influenza virus vaccine, unspecified formulation DR PAVITHRA HERNANDEZ MD [facility] Payers Date Payer Category Payer Medicare MMO MEDICARE MMO [employer] HMO [id number] 2020-Present [phone] [address] [place] [address] HMO [id number] 2020 Medicare MMO MEDICARE MMO [employer] HMO [id number] 2020-Present [phone] [address] [place] [address] HMO [id number] 2020 Unknown [id number] 1947 Unknown [id number] 1945 Unknown [id number] 1947 Unknown [id number] 1947 Unknown [id number] Social History Date Type Detail Facility Start: 02-01-2019 End: 02-01-2019 Assertion Unknown if ever smoked [facility] Work Phone: Start: 08-02-2010 End: 11-27-2018 Tobacco smoking status NHIS Never smoked tobacco [facility] Start: 02-25-2019 End: 07-05-2022 Alcohol intake Current drinker of alcohol (finding) [facility] Start: 02-25-2019 End: 07-04-2022 Alcohol intake [facility] Start: 09-02-2010 History SDOH Alcohol Comment few glasses wine per year [facility] Start: 1945 Sex Assigned At Female [facility] Sex Assigned At Sex [facility] Start: 08-02-2010 Tobacco use and exposure Smokeless tobacco non-user [facility] Work Phone: Start: 07-04-2022 End: 08-19-2022 Tobacco use panel [facility] Adult Depression Screening Assessment 1 [facility] Start: 10-16-2018 Gender identity Identifies as female gender (finding) [facility] Start: 10-16-2018 Sexual orientation Heterosexual (finding) [facility] Medical Equipment Procedure Code Equipment Code Equipment Origin al Text Equipment Identifier Dates Derick Bn Smpx P Ra dpq Fd Strl - [id number] Start: 11-25-2013 Comp Fem 3 Rt Kn Cr Derick Trthln - [id number] Start: 11-25-2013 Ins Tib 2 9mm Kn X3 Cr Trthln - [id number] Start: 11-25-2013 Comp Pat 3 20mm Asym Trthln - [id number] Start: 11-25-2013 Baseplt Tib Trth ln 2 Kn Derick - [id number] Start: 11-25-2013 Clinical Notes 09-26-2005 to 02-22-2023 Bill Bills MD - 09/19/2022 10:35 AM Oriana Hernandez Jr., MD - 08/19/2022 9:01 AM Glenys Navas RT(R) - 08/05/2022 9:20 AM EDLora Lau MD - 09/10/2021 9:04 AM EDT Note Date & Type Note Facility 02-22-2023 Note HNO ID: [id number] Author: [place] CAI PA-C Service: ? Author Type: Physician Hris Specialist Type: Progress Notes Filed: 02/22/2023 17:15 Note [...] Repeat EMG negative. Wanted to follow up [facility] spine. On gabapentin 600mg four timmes a [...] the right up (more content not included)... [facility] 09-19-2022 Note HNO ID: [id number] Author: Bill Bills MD Service: ? Author [...] Visit completed when applicable. Nadeem Parekh MD [facility] 09-19-2022 History of Presen t illness Narrative [...] Nadeem Parekh MD documented in this encounter [facility] 08-19-2022 Note HNO ID: [id number] Author: Manan Hernandez Jr., MD Service: ? [...] No history of (more content not included)... [facility] 08-19-2022 History of Presen t illness Narrative [...] testing = EMG documented in this encounter [facility] 08-05-2022 Note HNO ID: [id number] Author: RT Desirae(Nadeem) Service: ? Author Type: [...] DATE: August 05, 2022 TIME: 9:56 AM [facility] 08-05-2022 History of Presen t illness Narrative [...] TIME: 9:56 AM documented in this encounter [facility] 07-04-2022 Note HNO ID: [id number] Author: Manan Hernandez Jr., MD Service: ? [...] recommended an EMG/NCV that was performed at [facility] that per report was normal. Then presented [...] as needed. b (more content not included)... [facility] 06-27-2022 Miscellaneous Notes The patient is requesting an appointment for a second opinion. The patient's referral is for fibromyalgia. The patient is aware the referral isn't for spine or pain issues. The patient declined sooner appointment with the PA. documented in this encounter [facility] 01-25-2022 Miscellaneous Notes [facility] 09/10/21 Patient phones requesting refills as follows: Requested Prescriptions Pending Prescriptions Disp Refills ondansetron (ZOFRAN) 4 mg tablet 60 tablet 2 Sig: TAKE 1 TABLET BY MOUTH EVERY 8 HOURS NEEDED FOR NAUSEA Please review and advise. Milvia Tavera RN Pt is asking for refill on ondansetron (ZOFRAN) 4 mg tablet documented in this encounter [facility] 09-10-2021 History of Presen t illness [...] Procedure Laterality Date COLONOSCOP W/ OR W/O [facility] SPEC 03/01/04 Colonoscopy COLONOSCOP W/ OR W/O [facility] SPEC 05/19/2008 Colonoscopy COLONOSCOP W/ OR W/O [facility] SPEC 09/18/2012 Colonoscopy EGD W/O 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 lAek Lau MD documented in this encounter [facility] 08-31-2021 Miscellaneous Notes Please call patient to schedule for either in person or virtual visit. Thank you. documented in this encounter [facility] 08-17-2021 Miscellaneous Notes Could you please [...] advise. Naya Davila documented in this encounter [facility] 08-02-2021 Miscellaneous Notes [facility] Visit 07/23/21 Patient phones requesting refills as follows: Pending Prescriptions Disp Refills ONDANSETRON HCL 4 MG TABLET 60 tablet 2 Sig: TAKE 1 TABLET BY MOUTH EVERY 8 HOURS NEEDED FOR NAUSEA VICKY: No Please review and advise. Dana Davila documented in this encounter [facility] 07-23-2021 History of Presen t illness Narrative VIRTUAL VISIT FOLLOW UP I had a virtual visit with Ms. Cheng today for follow up of dysphagia. UPDATED HISTORY: Underwent swallowing study @ [facility]. The oral phase is marked by piecemeal [...] A localized area of mildly granular and efpacdsg-qbvkrrr-mjnsplmot mucosa was found in the rectum. Biopsies [...] W/O [facility] SPEC 09/18/2012 Colonoscopy EGD W/O 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 Alek Lau MD documented in this encounter [facility] 06-03-2021 Miscellaneous Notes Distance Health Visit 03/20/[address] Lau Patient phones requesting refills as follows: Pending Prescriptions Disp Refills ONDANSETRON HCL 4 MG TABLET 60 tablet 0 Sig: TAKE 1 TABLET BY MOUTH EVERY 8 HOURS NEEDED FOR NAUSEA VICKY: No Please review and advise. Naya Davila documented in this encounter [facility] 05-17-2021 Miscellaneous Notes Patient phones requesting [...] advise. Dana Davila documented in this encounter [facility] 03-19-2021 Note . MICRO - Microbiology PROCEDURE: Urine Culture [*1] SOURCE: Urine, Clean Catch BODY SITE: COLLECTED DATE/TIME: 03/16/2021 15:02 EST RECEIVED DATE/TIME: 03/17/2021 20:46 EST START DATE/TIME: 03/17/2021 20:46 EST FREE TEXT SOURCE: FINAL REPORTS Final Report [] Verified Date/Time/Personnel: 03/19/2021 10:34 EST >100,000 cfu/ml Escherichia coli PRELIMINARY REPORTS Preliminary Report [] Verified Date/Time/Personnel: 03/18/2021 12:31 EST >100,000 cfu/ml Escherichia coli TUYET to follow SUSCEPTIBILITY RESULTS Escherichia coli Antibiotic TUYET Dilut TUYET Inter Ampicillin >16 Resistant Ampicillin/ 16/8 Intermediate Sulbactam Aztreonam <=4 Susceptible Cefazolin <=2 Susceptible Ciprofloxacin <=0.25 Susceptible Ertapenem <=0.5 Susceptible Gentamicin <=2 Susceptible Imipenem <=1 Susceptible Levofloxacin <=0.5 Susceptible Meropenem <=1 Susceptible Nitrofurantoin <=32 Susceptible Piperacillin/ <=8 Susceptible Tazobactam Trimethoprim/ <=0.5/9.5 Susceptible Sulfa Performing Locations *1: This test was performed at: [facility], [address] [place] [address], [address] [place] [address] ([place]) documented as of this encounter (statuses as of 05/17/2021) [facility] History of Past illness Narrative* Problem Noted Date Resolved Date Sebaceous cyst 09/26/2005 10/07/2014 External hemorrhoids without mention of complica tion 11/21/2014 documented as of this encounter (statuses as of 06/03/2021) [facility] History of Past illness Narrative* Problem Noted Date Resolved Date Sebaceous cyst 09/26/2005 10/07/2014 External hemorrhoids without mention of complica tion 11/21/2014 documented as of this encounter (statuses as of 07/22/2021) [facility] History of Past illness Narrative* Problem Noted Date Resolved Date Sebaceous cyst 09/26/2005 10/07/2014 External hemorrhoids without mention of complica tion 11/21/2014 documented as of this encounter (statuses as of 07/23/2021) [facility] History of Past illness Narrative* Problem Noted Date Resolved Date Sebaceous cyst 09/26/2005 10/07/2014 External hemorrhoids without mention of complica tion 11/21/2014 documented as of this encounter (statuses as of 08/02/2021) [place] [id number] History of Past illness Narrative* Problem Noted Date Resolved Date Sebaceous cyst 09/26/2005 10/07/2014 External hemorrhoids without mention of complica tion 11/21/2014 documented as of this encounter (statuses as of 08/17/2021) [facility] History of Past illness Narrative* Problem Noted Date Resolved Date Sebaceous cyst 09/26/2005 10/07/2014 External hemorrhoids without mention of complica tion 11/21/2014 documented as of this encounter (statuses as of 08/31/2021) [facility] History of Past illness Narrative* Problem Noted Date Resolved Date Sebaceous cyst 09/26/2005 10/07/2014 External hemorrhoids without mention of complica tion 11/21/2014 documented as of this encounter (statuses as of 09/10/2021) [facility] History of Past illness Narrative* Problem Noted Date Resolved Date Sebaceous cyst 09/26/2005 10/07/2014 External hemorrhoids without mention of complica tion 11/21/2014 documented as of this encounter (statuses as of 01/25/2022) [facility] History of Past illness Narrative* Problem Noted Date Resolved Date Sebaceous cyst 09/26/2005 10/07/2014 External hemorrhoids without mention of complica tion 11/21/2014 documented as of this encounter (statuses as of 06/28/2022) [facility] History of Past illness Narrative* Problem Noted Date Diagnosed Date Resolved Date Sebaceous cyst 09/26/2005 10/07/2014 External hemorrhoids without mention of complication 11/21/2014 documented as of this encounter (statuses as of 08/21/2022) [facility] History of Past illness Narrative* Problem Noted Date Diagnosed Date Resolved Date Sebaceous cyst 09/26/2005 10/07/2014 External hemorrhoids without mention of complication 11/21/2014 documented as of this encounter (statuses as of 08/25/2022) [facility] History of Past illness Narrative* Problem Noted Date Diagnosed Date Resolved Date Sebaceous cyst 09/26/2005 10/07/2014 External hemorrhoids without mention of complication 11/21/2014 documented as of this encounter (statuses as of 09/19/2022) [facility] History of Past illness Narrative* Problem Noted Date Diagnosed Date Resolved Date Sebaceous cyst 09/26/2005 10/07/2014 External hemorrhoids without mention of complication 11/21/2014 documented as of this encounter (statuses as of 12/17/2022) [facility] History of Past illness Narrative* Problem Noted Date Diagnosed Date Resolved Date Sebaceous cyst 09/26/2005 10/07/2014 External hemorrhoids without mention of complication 11/21/2014 documented as of this encounter (statuses as of 12/17/2022) [facility] Future App[facility]ments Appointment Date:07/27/2021 08:30:00 AM Scheduled Provider: Location:[facility] Appointment Type:NM Myocardial Spect Rest/Stress (AH/AO) Appointment Date:07/27/2021 09:00:00 AM Scheduled Provider: Location:[facility] Appointment Type:CV Procedure - AOH Echo Appointment Date:12/17/2021 11:30:00 AM Scheduled Provider:ELENA BATISTA DO Location:[facility] Appointment Type: OV Future Scheduled Tests Laboratory* Magnesium Level 06/18/21 * Thyroid Stimulating Hormone 06/18/21 * Free T4 06/18/21 * Complete Blood Count 06/18/21 * Free T3 06/18/21 * Lipid Profile 06/18/21 * Complete Metabolic Panel 06/18/21 Radiology* NM Myocardial Spect Rest/Stress 07/27/21 [facility] Evaluation + Plan note Future Appointments Appointment Date:12/17/2021 11:30:00 AM Scheduled Provider:ELENA BATISTA DO Location:[facility] Appointment Type: OV Future Scheduled Tests Laboratory* Magnesium Level 06/18/21 * Thyroid Stimulating Hormone 06/18/21 * Free T4 06/18/21 * Complete Blood Count 06/18/21 * Free T3 06/18/21 * Lipid Profile 06/18/21 * Complete Metabolic Panel 06/18/21 [facility] Evaluation + Plan note Future Appointments Appointment Date:12/17/2021 11:30:00 AM Scheduled Provider:ELENA BATISTA DO Location:[facility] Appointment Type: OV Future Scheduled Tests Laboratory* Magnesium Level 06/18/21 * Thyroid Stimulating Hormone 06/18/21 * Free T4 06/18/21 * Complete Blood Count 06/18/21 * Free T3 06/18/21 * Lipid Profile 04/26/22 * Lipid Profile 06/18/21 * Complete Metabolic Panel 06/18/21 * N-Terminal proBNP 04/26/22 [facility] Evaluation note* Diagnosis Chronic ulcerative proctitis with complication (HCC) Ulcerative (chronic) proctitis Nausea Nausea alone Gastroparesis [facility] Chronic constipation- Primary Unspecified constipation [facility] Diagnosis Chronic ulcerative proctitis with complication (HCC) Ulcerative (chronic) proctitis Nausea Nausea alone Gastroparesis [facility] Diagnosis Slow transit constipation- Primary [...] nervous system, unspecified [facility] Narrative No data available for this section [facility] Discharge instructions No data available for this section [facility] Progress note No data available for this section [facility] Reason for visit Narrative* Outpatient Procedure (Routine) - Closed Specialty Diagnoses / Procedures Referred By Contac t Referred To Contact [facility] Diagnoses Pain in both upper extremities Cervicalgia Arm weakness Procedures EMG(NEURO/NI) NERVE CONDUCTION STUDIES 9-10 STUDIES Manan Hernandez Jr., MD [address] [facility] [address] [place] [address] [facility] [address] [place] [address] Referral ID Status Reason Start Date Expiration Date V isits Requested Visits Authorized [id number] Closed Auto-Generate d Referral 08/19/2022 08/20/2023 1 1 [facility] Summary Purpose Family History No Family History Records FoundThere may be information available, but it has not been provided by the sender.No Family History Records FoundNo Family History Records Found Advance Directives No Advanced Directives Records FoundDocuments on File Type Date Recorded 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 Expl anation Advance Directive(s) 02/19/2016 3:49 PM Documents on File Type Date Recorded 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 Supervisor Expl anation Advance Directive(s) 02/19/2016 3:49 PM [...] complication (HCC) Nausea Gastroparesis Daniel Ibanez MD [address] [place] [place] [address] Referral ID Status Reason Start Date Expiration Date Visits Re quested Visits Authorized [id number] Closed 1 1 Specialty Diagnoses / Procedures Referred By Francesca bernal Referred To Contact Diagnoses Chronic ulcerative proctitis with complication (HCC) Nausea Gastroparesis Alek Lau MD [address] [place] [address] Referral ID Status Reason Start Date Expiration Date Visits Re quested Visits Authorized [id number] Closed 1 1 Referral ID Status Reason Start Date Expiration Date Visits Re quested Visits Authorized [id number] Closed 1 1 Specialty Diagnoses / Procedures Referred By Contac t Referred To Contact [facility] Diagnoses Pain in both upper extremities Cervicalgia Arm weakness Cervical stenosis of spine Procedures CONSULT TO [facility] OFFICE/OUTPATIENT [facility] 60-74 MINUTES Manan Hernandez Jr., MD [address] [place] [address] Referral ID Status Reason Start Date Expiration Date Visits Requested Visits Authorized [id number] Authorized PCP Requested Referral 08/19/2022 08/19/2023 1 1 Specialty Diagnoses / Procedures Referred By Contac t Referred To Contact [facility] Diagnoses Pain in both upper extremities Cervicalgia Arm weakness Procedures EMG(NEURO/NI) NERVE CONDUCTION STUDIES 9-10 STUDIES Manan Hernandez Jr., MD [address] [place] [address] [facility] [address] [place] [address] Referral ID Status Reason Start Date Expiration Date Visits Requested Visits Authorized [id number] Authorized Auto-Generat ed Referral 08/19/2022 08/20/2023 1 1 Specialty Diagnoses / Procedures Referred By Contac t Referred To Contact MR IMAGING Diagnoses Spinal stenosis of cervical region Procedures MRI CERVICAL SPINE WO/W IVCON MRI SPINAL CANAL CERVICAL W/O & W/CONTR MATRL Manan Hernandez Jr., MD [address] [facility] [address] [place] [address] Mr [facility] [place] [address] Referral ID Status Reason Start Date Expiration Date V isits Requested Visits Authorized [id number] Closed Auto-Generate d Referral 07/04/2022 08/03/2023 1 1 Specialty Diagnoses / Procedures Referred By Contac t Referred To Contact MR IMAGING Diagnoses Demyelinating disease of central nervous system (HCC) Procedures MRI BRAIN WO/W IVCON MRI BRAIN BRAIN STEM W/O W/CONTRAST MATERIAL Manan Hernandez Jr., MD [address] [place] [address] [place] [address] Referral ID Status Reason Start Date Expiration Date V isits Requested Visits Authorized [id number] Closed Auto-Generate d Referral 07/04/2022 08/03/2023 1 1 Additional Source Comments INFORMATION SOURCE (unrecogn ized section and content) DATE CREATED AUTHOR AUTHOR'S ORGANIZ ATION 11/24/2021 [facility] ([place]) DATE CREATED AUTHOR AUTHOR'S ORGANIZ ATION 03/01/2023 [facility] Reason for Visit (unrecogniz ed section and [...] W/CONTR MATRL Manan Hernandez Jr., MD [address] [facility] [address] [place] [address] [place] [address] Referral ID Status Reason Start Date Expiration Date V isits Requested Visits Authorized [id number] Closed Auto-Generate d Referral 07/04/2022 08/03/2023 1 1 Specialty Diagnoses / Procedures Referred By Contac t Referred To Contact MR IMAGING Diagnoses Demyelinating disease of central nervous system (HCC) Procedures MRI BRAIN WO/W IVCON MRI BRAIN BRAIN STEM W/O W/CONTRAST MATERIAL Manan Hernandez Jr., MD [address] [facility] [address] [place] [address] [place] [address] Referral ID Status Reason Start Date Expiration Date V isits Requested Visits Authorized [id number] Closed Auto-Generate d Referral 07/04/2022 08/03/2023 1 1 Source Comments (unrecognize d section and content) In the event this informatio n is protected by the Federal Confidentiality of Alcohol and Drug Abuse Patient Records regulations: The Federal rules restrict any use of the information to criminally investigate or prosecute any alcohol or drug abuse patient.[facility] the event this information is protected by the Federal Confidentiality of Alcohol and Drug Abuse Patient Records regulations: The Federal rules restrict any use of the information to criminally investigate or prosecute any alcohol or drug abuse patient.[facility] Hospital[facility] the event this information is protected by the Federal Confidentiality of Alcohol and Drug Abuse Patient Records regulations: The Federal rules restrict any use of the information to criminally investigate or prosecute any alcohol or drug abuse patient.[facility] Hospital[facility] the event this information is protected by the Federal Confidentiality of Alcohol and Drug Abuse Patient Records regulations: The Federal rules restrict any use of the information to criminally investigate or prosecute any alcohol or drug abuse patient.[facility] Hospital[facility] the event this information is protected by the Federal Confidentiality of Alcohol and Drug Abuse Patient Records regulations: The Federal rules restrict any use of the information to criminally investigate or prosecute any alcohol or drug abuse patient.[facility] HospitalIn the event this information is protected by the Federal Confidentiality of Alcohol and Drug Abuse Patient Records regulations: The Federal rules restrict any use of the information to criminally investigate or prosecute any alcohol or drug abuse patient.[facility] HospitalIn the event this information is protected by the Federal Confidentiality of Alcohol and Drug Abuse Patient Records regulations: The Federal rules restrict any use of the information to criminally investigate or prosecute any alcohol or drug abuse patient.[facility] Hospital[facility] the event this information is protected by the Federal Confidentiality of Alcohol and Drug Abuse Patient Records regulations: The Federal rules restrict any use of the information to criminally investigate or prosecute any alcohol or drug abuse patient.[facility] HospitalIn the event this information is protected by the Federal Confidentiality of Alcohol and Drug Abuse Patient Records regulations: The Federal rules restrict any use of the information to criminally investigate or prosecute any alcohol or drug abuse patient.[facility] HospitalIn the event this information is protected by the Federal Confidentiality of Alcohol and Drug Abuse Patient Records regulations: The Federal rules restrict any use of the information to criminally investigate or prosecute any alcohol or drug abuse patient.[facility] HospitalIn the event this information is protected by the Federal Confidentiality of Alcohol and Drug Abuse Patient Records regulations: The Federal rules restrict any use of the information to criminally investigate or prosecute any alcohol or drug abuse patient.[facility] HospitalIn the event this information is protected by the Federal Confidentiality of Alcohol and Drug Abuse Patient Records regulations: The Federal rules restrict any use of the information to criminally investigate or prosecute any alcohol or drug abuse patient.[facility] HospitalIn the event this information is protected by the Federal Confidentiality of Alcohol and Drug Abuse Patient Records regulations: The Federal rules restrict any use of the information to criminally investigate or prosecute any alcohol or drug abuse patient.[facility] HospitalIn the event this information is protected by the Federal Confidentiality of Alcohol and Drug Abuse Patient Records regulations: The Federal rules restrict any use of the information to criminally investigate or prosecute any alcohol or drug abuse patient.[facility] HospitalIn the event this information is protected by the Federal Confidentiality of Alcohol and Drug Abuse Patient Records regulations: The Federal rules restrict any use of the information to criminally investigate or prosecute any alcohol or drug abuse patient.[facility] Care Teams (unrecognized sec tion and content) Car Ferry Master Relationship Specialty Start Date End Date Elena Batista DO [address] [place] [address] PCP - General Family Practice 05/30/18 Car Ferry Master Relationship Specialty Start Date End Date Elena Batista DO [address] [place] [address] PCP - General Family Practice 05/30/18 Car Ferry Master Relationship Specialty Start Date End Date Elena Batista, [address] [place] [address] PCP - General Family Practice 05/30/18 Car Ferry Master Relationship Specialty Start Date End Date Elena Batista, [address] [place] [address] PCP - General Family Practice 05/30/18 Car Ferry Master Relationship Specialty Start Date End Date Elena Batista, [address] [place] [address] PCP - General Family Practice 05/30/18 Car Ferry Master Relationship Specialty Start Date End Date Elena Batista, [address] [place] [address] PCP - General Family Practice 05/30/18 Car Ferry Master Relationship Specialty Start Date End Date Elena Batista, DO [address] [place] [address] PCP - General Family Medicine 05/30/18 Car Ferry Master Relationship Specialty Start Date End Date Elena Batista, [address] [place] [address] PCP - General Family Medicine 05/30/18 Car Ferry Master Relationship Specialty Start Date End Date Elena Batista DO [address] [place] [address] PCP - General Family Medicine 05/30/18 Car Ferry Master Relationship Specialty Start Date End Date Elena Batista DO [address] [place] [address] PCP - General Family Medicine 05/30/18 Car Ferry Master Relationship Specialty Start Date End Date Elena Batista DO [address] [place] [address] PCP - General Family Medicine 05/30/18 Car Ferry Master Relationship Specialty Start Date End Date Elena Batista DO [address] [place] [address] PCP - General Family Medicine 05/30/18 Car Ferry Master Relationship Specialty Start Date End Date Elena Batista DO [address] [place] [address] PCP - General Family Medicine 05/30/18 Care Team (unrecognized sect ion and content) Care Team Personnel Name: ELENA BATISTA DO Position: P4 Physician - Primary Care Med Service: Active Provider Member Role: Primary Care Physician Address: Address: [address] [place] [address]- Name: PAVITHRA HERNANDEZ MD Position: P4 Physician - Cardiology Med Service: Active Provider Member Role: Fabrication Specialist Address: Address: [address] [place] [address] [address] [facility] [place], [place] [address] Care Team Related Persons Name: NONE, NONE Name: CABRERA CHENG Address: Home [address] [id number] Address: Temporary [address], [place] [id number] FOR RECORDS PERTAINING TO PATIENTS WHO ARE [...] BE BASED ON THE PRIMARY CLINICAL RECORDS. [facility]. provides no warranty or guarantee of the accuracy or completeness of information in this document.
[2023-04-17 11:50] LABS: Color, Urine Yellow (Yellow); Glucose, Dipstick Normal (Normal); Ketone-Dipstick Negative (Negative); Leukocyte Esterase-Dipstick 500 /ul (Negative); Nitrite-Dipstick Negative (Negative); Occult Blood-Urine 150 /ul (Negative); Protein-Dipstick 15 mg/dl (Negative); Urine Bilirubin Dipstick Negative (Negative); Urine Clarity Sl. Cloudy (Clear); Urine Urobilinogen Normal (Normal); Urine pH 6.5 (5.0 - 8.0)
[2023-04-17 12:04] LABS: Calcium Oxalate Crystals Ur 1+ /hpf (<or=2+); Squamous Epithelial Cells - UA 0-5 SEEN /hpf (5-10); White Blood Cells 25-50 SEEN /hpf (0-5)
== END | disposition home or self-care (01) ==
PROVIDERS: Referring Provider Nurse Practitioner Family; Visit Provider Nurse Practitioner Family
DX: N39.0 Urinary tract infection, site not specified (principal); R30.0 Dysuria
CPT/HCPCS: 81001; 87086; 87088

== ENCOUNTER 2023-06-14 05:35 | Emergency (ER) | payer MEDICARE, SELFPAY ==
[2023-06-14 05:37] VITALS: BP 150/81; PULSE 89; RESP 16; TEMP 36.1; O2SAT 98; BMI 26.9
--- NOTE | 2023-06-14 05:38 | RAD_ITS ---
INDICATION: chest pain EXAMINATION/TECHNIQUE: X-RAY - XR Chest 1 View COMPARISON: 01/09/2022 chest radiograph. Findings: Single frontal view of the chest. LUNG PARENCHYMA: No significant acute focal airspace disease or mass lesion. PLEURA: No pleural effusion. No pneumothorax. HEART/GREAT VESSELS: Cardiomediastinal silhouette is unremarkable. BONES: Osseous structures are unremarkable for age. RAD/Chest 1 View (Portable) IMPRESSION: Chest with no acute disease. Electronically Signed: Shailesh Perdue MD at 7:04 EDT ,
--- NOTE | 2023-06-14 05:38 | EKG12_ITS ---
Test Reason : CP Blood Pressure : / mmHG Vent. Rate : 091 BPM Atrial Rate : 091 BPM P-R Int : 178 ms QRS Dur : 080 ms QT Int : 360 ms P-R-T Axes : 045 036 045 degrees QTc Int : 442 ms Normal sinus rhythm Normal ECG Confirmed by SURI KIRKPATRICK MD ([id number]), offline editor LORIE BOLDEN ([id number]) on 06/15/2023 11:31:51 AM Referred By: AVRIL Confirmed By:SURI KIRKPATRICK MD
--- NOTE | 2023-06-14 05:39 | EX.ED.VIS.UR ---
HPI HPI - URI History of Present Illness Chief Complaint: Chest Pain Informant: patient and spouse/S.O. Onset/Context/Timing Onset: Today and Hours Context: Sudden Onset Timing: Continuous Current Severity: Mild Maximum Severity: Mild Associated Symptoms Associated Symptoms: Positive for Chest Pain and Nonproductive cough Narrative Narrative: 78-year-old female history of tachycardia reflux. She has developed URI symptoms in the last 2 to 3 days with a nonproductive cough. She was sleep tonight and was awoken around 4 AM with burning chest discomfort across her chest. She denies any fever or chills. No hemoptysis. No history of cardiac disease. No history of DVT or PE. No recent surgery, hospitalization or immobilization. No leg pain or swelling. Prior similar symptoms: Yes Recent Illness/Hospitalization: No ROS ROS ED ROS Narrative Nonproductive cough. Burning chest pain. Review of Systems ROS Unobtainable: Denies due to encephalopathy Constitutional Constitutional ED: Denies chills or fever(s) Eyes Eyes: Denies blurry vision ENT ENT ED: Denies ear pain or rhinorrhea Cardiovascular Cardiovascular: Reports chest pain Respiratory/Chest Respiratory/Chest: Reports cough Gastrointestinal Gastrointestinal: Denies abdominal pain, diarrhea, nausea or vomiting Genitourinary Genitourinary ED: Denies dysuria or hematuria Musculoskeletal Musculoskeletal: Denies arthralgias or back pain Integumentary Denies abscess or Abrasions Neurologic Neurologic: Denies headache(s) Psychiatric Psychiatric: Denies anxiety or depression Endocrine Endocrinology: Denies cold intolerance Hematologic/Lymphatic Hematologic/Lymphatic: Denies easy bleeding or easy bruising Allergic/Immunologic Allergic/Immunologic ED: Denies mouth swelling, tongue swelling or urticaria [facility] Medical History Tachycardia Urinary tract infection Urinary tract infection with hematuria Home Medications acetaminophen 500 mg tablet 1,000 mg PO TID 08/16/13 [History Last Taken 12/22/17 07:30] diclofenac sodium 1 % topical gel (Voltaren) 100 g TP PRN PRN BACK PAIN 12/15/17 [History Last Taken Unknown] losartan 100 mg-hydrochlorothiazide 25 mg tablet 1 ea PO DAILY 12/15/17 [History Last Taken Unknown] buspirone 15 mg tablet 15 mg PO TID 06/14/23 [History Last Taken Unknown] diltiazem HCl 120 mg capsule,extended release 24 hr (Cartia XT) 120 mg PO DAILY 06/14/23 [History Last Taken Unknown] diltiazem HCl 30 mg tablet 30 mg PO TID PRN PRN palpitations 06/14/23 [History Last Taken Unknown] gabapentin 600 mg tablet 600 mg PO 4X/DAY 06/14/23 [History Last Taken Unknown] losartan 25 mg tablet 25 mg PO DAILY 06/14/23 [History Last Taken Unknown] pravastatin 20 mg tablet 20 mg PO DAILY 06/14/23 [History Last Taken Unknown] Allergy/AdvReac Type Severity Reaction Status Date / Time adhesive tape Allergy skin tear Verified 06/14/23 05:37 lisinopril Allergy Other Verified 06/14/23 05:37 tetracycline [Tetracycline] Allergy Other Verified 06/14/23 05:37 Social History Smoking Status: Never smoker EXAM Physical Exam Narrative Exam Narrative: 78-year-old female no acute distress. Vital signs stable afebrile. Pulse ox 98% on room air no hypoxia. H EENT exam unremarkable. Neck nontender. Lungs clear to auscultation bilaterally. Dry cough. No rales, rhonchi or wheezing. Equal symmetrical. Heart regular rate and rhythm no murmur. Abdomen soft and nontender. Moving all 4 extremities. Nontender without edema or cords. Normal strength. Neurologically she is awake and alert with no focal motor deficits. Skin unremarkable. No rashes. No petechiae or purpura. Back nontender. Const Vital Signs: 06/14/23 05:37 06/14/23 05:40 06/14/23 05:46 Temperature 97 F L Temperature Source Temporal Pulse Rate 89 Respiratory Rate 16 Respiratory Effort Short of Breath Blood Pressure 150/81 H Blood Pressure Mean 104 Pulse Ox 98 Oxygen Delivery Method Room Air 06/14/23 06:36 06/14/23 06:00 06/14/23 07:00 Temperature Temperature Source Pulse Rate 75 83 Respiratory Rate 20 H 24 H Respiratory Effort Blood Pressure 142/81 H 142/81 H 129/80 H Blood Pressure Mean 101 99 96 Pulse Ox 97 95 Oxygen Delivery Method Positive well nourished and well developed; Negative for obese, cachectic or contractures General Appearance ED: well developed and NAD; Negative for cachectic, contractures, cyanotic, diaphoretic or pallor Nutritional Appearance: Negative for cachectic or obese HEENT Reports moist mucous membranes normocephalic and atraumatic; Negative for scalp tenderness Face and Sinus: Negative for sinus tenderness Teeth and Gingiva: Negative for caries Throat: posterior oropharynx normal Eyes PERRL and EOMs intact bilaterally General Eye ED: Negative for pale conjunctiva or scleral icterus Neck no lymphadenopathy, supple, no meningeal signs and no JVD General: Negative for anterior neck swelling or lymphadenopathy Resp normal respiratory effort and clear to auscultation bilaterally Resp Narrative: Dry cough. Effort and Inspection: Negative for retractions Auscultation: Negative for rales, rhonchi, wheezes or diminished lung sounds Cardio S1 normal heart sound, S2 normal heart sound and no murmurs Rate: regular rate Rhythm: regular rhythm GI non-tender, non-distended and no masses Inspection: Negative for abdominal distention Auscultation: normoactive bowel sounds Palpation: soft; Negative for tender or guarding Back/Spine no CVA tenderness General Back: Negative for CVA tenderness Cervical Spine: Negative for cervical spine tenderness Thoracic Spine / Upper Back: Negative for thoracic spinal tenderness Lumbar Spine / Lower Back: Negative for lumbar spinal tenderness Sacrum: Negative for tenderness Extremity normal to inspection and full ROM General Extremety ED: Negative for cyanosis, tenderness or other findings General Extremity: Negative for cyanosis or other findings Neuro oriented x3 and CN's II-XII intact bilaterally Sensorium / Orientation: alert, oriented to person, oriented to place and oriented to time; Negative for orientation impaired or lethargic Motor Exam: strength 5/5 throughout Psych mental status grossly normal Appearance: Negative for other Attitude: No agitated Mood & Affect: Negative for depressed, anxious or tearful Skin General Skin Exam: Negative for jaundice or pallor Lesions: no lesions Rashes: no rashes Trauma: Negative for abrasion or laceration MDM MDM MDM Narrative Medical decision making narrative: 78-year-old female complaining of burning chest discomfort started around 4 AM this morning. Does not sound cardiac in etiology. She has URI symptoms with a nonproductive dry cough. She undergo cardiac workup due to the chest pain. She has no history of DVT or PE or risk factors. No leg pain or swelling. I do not believe she needs a D-dimer. This very well could be from a URI and/or reflux. Or rule out cardiac etiology. Repeat exam patient doing well at 7:30 AM. We discussed all of her test results chest x-ray and EKG. Clinically I think this is a viral URI. She does not need antibiotics. She has normal white count. No pneumonia on the chest x-ray. She and her are comfortable with the plan. Discharged home. Outpatient follow-up with primary care physician if not improving or return if she is feeling worse. History & Record Review Discussion w/independent historian: Patient and Family Additional record(s) reviewed:: Prior inpatient record, Prior outpatient record, Prior ED visit and Prior labs Lab Data Attestation: I reviewed the patient's lab results. Lab results narrative: CBC normal. White count 8.9. H&H 14 and 43. Platelets 272. Electrolytes show a gap of 5. BUN and creatinine 18 and 0.8 Glucose 113. Troponin 8. Chest x-ray unremarkable. EKG normal. Labs: Laboratory Results - last 24 hr 06/14/23 05:45 WBC 8.9 RBC 4.63 Hgb 14.0 Hct 43.9 MCV 94.8 MCH 30.2 MCHC 31.9 L RDW Std Deviation 46.1 H RDW Coeff of Roland 13.2 Plt Count 272 MPV 9.1 Immature Gran % (Auto) 0.900 Neut % (Auto) 52.6 Lymph % (Auto) 34.2 Trimble % (Auto) 9.6 Eos % (Auto) 2.1 Baso % (Auto) 0.6 Absolute Neuts (auto) 4.7 Absolute Lymphs (auto) 3.04 Nucleated RBC % 0 Sodium 141 Potassium 3.7 Chloride 109 H Carbon Dioxide 27.0 Anion Gap 5 BUN 18 Creatinine 0.88 Estim Creat Clear Calc 56.58 Est GFR (MDRD) Af Amer 80 Est GFR (MDRD) Non-Af 66 BUN/Creatinine Ratio 20.3 H Glucose 113 H Calcium 9.5 Troponin I High Sens 8 Radiography Chest X-Ray - ED: 1 View, Read by ED Physician, Read by Radiologist, Unchanged, Normal, Heart, Lungs, Mediastinum, Bony Structures, No Acute Disease and Chronic Changes Diagnostic Testing: Clinical Impression(s) from Imaging Studies Chest X-Ray 06/14/23 05:38 IMPRESSION: Chest with no acute disease. Electronically Signed: Shailesh Perdue MD at 7:04 EDT , Chest x-ray, portable, single view interpreted both by myself and the radiologist shows no acute abnormality. Normal cardiac silhouette. Normal lung varela. No infiltrates. No effusions. Rhythm Strip Rhythm Strip: Sinus Rhythm Rate: 91 Ectopy: None EKG Initial EKG: Attestation: I personally reviewed and interpreted this EKG as follows: Interpretation: Sinus Rhythm and No Acute Injury Pattern Comments: Normal sinus rhythm rate of 91 no acute signs of MT nor ischemia. No dysrhythmia Discharge Plan Triage Chief Complaint: Chest Pain ED Provider: Julius Loving Dx/Rx/DC Orders Clinical Impression: Viral URI, Chest pain Instructions: ED URI, Viral, No Abx (Adult) Prescriptions: No Action acetaminophen 500 MG tablet 1,000 mg PO TID losartan-hydrochlorothiazide 1 EACH tablet 1 ea PO DAILY diclofenac sodium [Voltaren] 100 GM gel 100 g TP PRN PRN (Reason: BACK PAIN) gabapentin 600 mg tablet 600 mg PO 4X/DAY losartan 25 mg tablet 25 mg PO DAILY diltiazem HCl [Cartia XT] 120 mg capsule,extended release 24hr 120 mg PO DAILY pravastatin 20 mg tablet 20 mg PO DAILY diltiazem HCl 30 mg tablet 30 mg PO TID PRN PRN (Reason: palpitations) buspirone 15 mg tablet 15 mg PO TID Primary Care Provider: Blanca Jenkins Referrals: Blanca Jenkins, [Primary Care Provider] - 1 Week if not improving Activity Restrictions/Additional Instructions: Plenty of fluids and rest. Tylenol as needed. You have a viral respiratory infection. Follow-up with your doctor if not improving or return if worse. At this time there is no reason to start you on any antibiotics. Your labs, chest x-ray and EKG were all normal. Disposition Disposition: Home, Self Care
[2023-06-14 05:53] LABS: Absolute Lymphocyte Count 3.04 X10^3/uL (0.83-4.51); Absolute Neutrophil Count 4.7 X10^3/uL (2.0-7.7); Basophil# 0.05 X10^3/uL; Basophil% 0.6 % (0-1); Eosinophil# 0.19 X10^3/uL; Eosinophils% 2.1 % (0-5); Hematocrit 43.9 % (37-47); Lymphocyte # 3.04 X10^3/ul (0.83-4.51); Lymphocyte % 34.2 % (19-41); Mean Corp Hgb Conc 31.9 g/dL (32-36); Mean Corpuscular Hgb 30.2 pg (27.0-32.0); Mean Corpuscular Volume 94.8 fL (81-99); Mean Platelet Vol. 9.1 fl (6.2-12.0); Monocyte# 0.85 X10^3/uL; Monocyte% 9.6 % (0-10); NRBC Flagged by Analyzer 0 % (0-5); Neutrophil # 4.68 X10^3/uL (2.7-7.7); Neutrophil % 52.6 % (47-70); Platelet Count 272 K/mm3 (150-450); RBC Distribution Width CV 13.2 % (11.6-14.6); RBC Distribution Width SD 46.1 fl (35.1-43.9); Red Blood Count 4.63 M/mm3 (4.2-5.4); White Blood Count 8.9 K/mm3 (4.4-11.0)
[2023-06-14 06:00] VITALS: BP 142/81; PULSE 83; RESP 24; O2SAT 95
[2023-06-14 06:15] LABS: Anion Gap 5 (5-15); BUN 18 mg/dL (7-18); BUN/Creat Ratio 20.3 RATIO (10-20); Calcium,Total 9.5 mg/dL (8.5-10.1); Chloride 109 mmol/L (98-107); Creatinine, Serum 0.88 mg/dL (0.55-1.02); EST Glomerular Filtration Rate 66 mL/min (>60); Est Glom Filt Rate - Afr Amer 80 mL/min (>60); Estimated Creatinine Clearance 56.58 ml/min; Glucose 113 mg/dL (74-106); Potassium 3.7 mmol/L (3.5-5.1); Sodium Level 141 mmol/L (136-145); Troponin-I HS 8 pg/mL (3.0-54.0)
[2023-06-14 06:36] VITALS: BP 142/81; PULSE 75; RESP 20; O2SAT 97
[2023-06-14 07:00] VITALS: BP 129/80
[2023-06-14 08:00] VITALS: BP 132/76; PULSE 64; RESP 18; TEMP 36.4; O2SAT 99
== END 2023-06-14 08:01 | disposition home or self-care (01) ==
PROVIDERS: Emergency Provider Emergency Medicine; Visit Provider Emergency Medicine
DX: R07.9 Chest pain, unspecified (principal); J06.9 Acute upper respiratory infection, unspecified
CPT/HCPCS: 71045; 80048; 84484; 85025; 87631; 93005; 99284; A4216

== ENCOUNTER → 2023-08-29 | Outpatient (CLI) | payer MEDICARE, SELFPAY ==
[2023-08-29 10:17] LABS: Absolute Lymphocyte Count 1.54 X10^3/uL (0.83-4.51); Absolute Neutrophil Count 3.3 X10^3/uL (2.0-7.7); Basophil# 0.05 X10^3/uL; Basophil% 0.9 % (0-1); Eosinophils% 5.2 % (0-5); Hematocrit 42.8 % (37-47); Hemoglobin 13.6 g/dL (12.0-15.0); Lymphocyte # 1.54 X10^3/ul (0.83-4.51); Lymphocyte % 26.9 % (19-41); Mean Corp Hgb Conc 31.8 g/dL (32-36); Mean Corpuscular Hgb 30.1 pg (27.0-32.0); Mean Corpuscular Volume 94.7 fL (81-99); Mean Platelet Vol. 9.5 fl (6.2-12.0); Monocyte# 0.48 X10^3/uL; Monocyte% 8.4 % (0-10); NRBC Flagged by Analyzer 0 % (0-5); Neutrophil # 3.34 X10^3/uL (2.7-7.7); Neutrophil % 58.3 % (47-70); Platelet Count 240 K/mm3 (150-450); RBC Distribution Width CV 12.8 % (11.6-14.6); RBC Distribution Width SD 44.3 fl (35.1-43.9); Red Blood Count 4.52 M/mm3 (4.2-5.4); White Blood Count 5.7 K/mm3 (4.4-11.0)
[2023-08-29 11:06] LABS: ALB/GLOB Ratio 0.8 RATIO (0.9-2.4); AST(SGOT) 16 U/L (15-37); Alanine Aminotransfer ALT/SGPT 26 U/L (13-56); Albumin, Serum 3.4 g/dL (3.2-5.0); Alkaline Phosphatase 70 U/L (45-117); Anion Gap 9 (5-15); BUN 16 mg/dL (7-18); BUN/Creat Ratio 18.6 RATIO (10-20); Chloride 110 mmol/L (98-107); Cholesterol 188 mg/dL (200); Creatinine, Serum 0.86 mg/dL (0.55-1.02); EST Glomerular Filtration Rate 68 mL/min (>60); Est Glom Filt Rate - Afr Amer 82 mL/min (>60); Globulin 4.3 g/dL (2.2-4.2); Glucose 108 mg/dL (74-106); High Density Lipoprotein 80 mg/dL; Potassium 4.1 mmol/L (3.5-5.1); Protein, Total 7.7 g/dL (6.4-8.2); Sodium Level 142 mmol/L (136-145); Thyroid Stim Hormone (TSH) 1.37 uIU/mL (0.358-3.74); Triglycerides 136 mg/dL; Very Low Density Lipoprotein 27 mg/dL (5-40)
== END | disposition home or self-care (01) ==
LOC: LAB 09:03
DX: E78.5 Hyperlipidemia, unspecified (principal); I11.0 Hypertensive heart disease with heart failure; I50.32 Chronic diastolic (congestive) heart failure; R73.9 Hyperglycemia, unspecified
CPT/HCPCS: 36415; 80053; 80061; 83036; 84443; 85025

== ENCOUNTER → 2023-09-12 | Outpatient (CLI) | payer MEDICARE, SELFPAY ==
--- NOTE | 2023-09-12 16:49 | CT_ITS ---
STUDY: CT ABDOMEN WITH CONTRAST REASON FOR EXAM: Female, 78 years old. CHRONIC INTERMITTENT EPIGASTRIC PAIN RADIATION DOSAGE (If Supplied By Facility): CTDIvol = ( 18.37 ) mGy, DLP = ( 676.76 ) mGycm TECHNIQUE: Transaxial images were obtained post I.V. administration of Oral and amp; IV Readi-CAT and amp; 100mL Isovue-370, and with oral contrast. Sagittal and coronal images were reconstructed. Individualized dose optimization techniques were used for this CT. COMPARISON: Comparison is made with prior study dated August 16, 2013. FINDINGS: The visualized lung bases are unremarkable. Coronary artery calcification. There is decreased attenuation of the liver consistent with steatosis. There is a 5.3 cm x 5.2 cm cyst in the inferior medial portion of the right lobe of the liver. 1 cm cyst in the inferior aspect of the right lobe of the liver. Normal gallbladder and extrahepatic biliary system. Normal spleen. There is diffuse atrophy of the pancreas. Normal bilateral adrenal glands. Normal right kidney. Normal left kidney. Normal visualized stomach. Normal small intestine. Normal colon. The appendix is visualized and appears normal. There is diffuse atherosclerotic calcification of the abdominal aorta, without a demonstrated aneurysm. Normal inferior vena cava. Normal retroperitoneum. Normal abdominal wall. There are mild degenerative changes of the visualized lumbar spine. CT/Abdomen WITH IV Contrast IMPRESSION: Fatty infiltration of the liver. Stable hepatic cysts. Electronically Signed: Ghulam Bear MD at 15:17 EDT ,
== END | disposition home or self-care (01) ==
LOC: CT 16:47
DX: R10.13 Epigastric pain (principal)
CPT/HCPCS: 74160; Q9967

== ENCOUNTER 2023-09-13 12:00 | Outpatient (RCR) | payer MEDICARE, SELFPAY ==
--- NOTE | 2023-09-04 13:28 | HP.PTEVAL_ITS ---
Patient's Visit Information Visit Information Visit Information: SONY CHENG is a 78 year old F referred to Physical Therapy by Dr. Rye Moreno MD with a diagnosis of Thoracic radiculopathy. Date of Evaluation: 09/01/23 Physical Therapist: Jose Antonio Rios DPT Visit Plan Frequency: 1-2x /Week Duration: 4 Weeks Plan: US to R side of lower thoracic spine than add in thoracic mobility, and postural strengthening. Subjective Subjective: Pt. is here today for her initial evaluation with diagnosis of thoracic radiculopathy. Pt. reports having increased R sided thoracic spine pain for a few years now without a mechanism of injury. Pt. reports her pain is worse with standing and with upright posture. She really likes to garden and her pain does seem to increase during this time of year. She has had injections and RFAs in the past with some relief, but nothing has abolished her symptoms. Pt. has not done any exercises for her back at this point in time. She did report seeing ortho at one point in time and was told there was nothing that they could do. Pt. has decreased pain when less active and increased pain with standing and working in her garden. Pt. is hopeful to reduce symptoms in order to complete all daily activities and gardening with less issues. Pain R side of Thoracic spine: Pain Intensity (Out of 10): 4 Pain Intensity Range: 2 and 8 Objective Objective: POSTURE: Pt. has a general flexed posture with slight L lateral lean. PALPATION: Pt. has marked tenderness with palpation of R erector spinae , less so on the L. Mostly throughout lower thoracic extending into her lumbar spine. Not much pain with spring testing throughout lower thoracic spine, but marked hypomobility noted. No pain with palpation throughout R rib region. NEURO: Normal throughout BUEs. ROM: Thoracic spine: flexion min loss NE, ext mod loss increase NW, SB min loss bilat increase NW to R side, rotation mod loss bilat increase NW to R side. MMT: Pt. has good strength throughout bilateral LEs. Pt. has poor+ core strength, trunk extension poor+ increase NW. Special Tests Thoracic Sitting: Flexion - Mechanical Response: No effect Thoracic Sitting: Flexion - Symptoms During Testing: No effect Thoracic Sitting: Flexion - Symptoms After Testing: No effect Thoracic Sitting: Extension - Mechanical Response: No effect Thoracic Sitting: Extension - Symptoms During Testing: Increases Thoracic Sitting: Extension - Symptoms After Testing: No worse Thoracic Sitting: Right rotation - Mechanical Response: No effect Thoracic Sitting: Right Rotation - Symptoms During Testing: Increases Thoracic Sitting: Right Rotation - Symptoms After Testing: No worse Thoracic Sitting: Left rotation - Mechanical Response: No effect Thoracic Sitting: Left Rotation - Symptoms During Testing: Increases Thoracic Sitting: Left Rotation - Symptoms After Testing: No worse L/S Slump test left side: Negative L/S Slump test right side: Negative L/S Left Straight Leg Raise: Negative L/S Right Straight Leg Raise: Negative Balance/Special Test Scores Oswestry Low Back Score: 26 Goals Goal 1:: LTG: Pt. to be I with HEP Goal Time Frame: 4-6 Weeks Goal 2:: LTG: Pt. to have increased thoracic ROM both into extension and flexion with increase in symptoms less than 3/10 pain. Goal Time Frame: 4-6 Weeks Goal 3:: LTG: Pt. to be able to complete gardening with less than 2-3/10 pain. Goal Time Frame: 4-6 Weeks Goal 4:: LTG: Pt. to sleep without increase in symptoms. Goal Time Frame: 4-6 Weeks Rehabilitation Potential Physical Therapy Diagnosis: Pt. has signs and symptoms consistent with R sided thoracic radiculopathy. Pt. has signs and symptoms consistent with R thoracic radiculopathy. I would like to work on some soft tissue to reduce erector spinae muscle tension and thoracic ROM in order to get back to all recreational activities without limitations. Rehabilitation Potential: Fair Anticipated Interventions Patient/Client Instruction: Educate patient on: Condition, Plan of Care, Risk Factors and Benefits of Fitness Program For the Purpose of:: To improve decision making, To facilitate caregiver knowledge, To improve self management, To prevent re-injury and To improve a bility to perform tasks related to life management Therapeutic Exercise to Include: Strength training, Power training, Coordination, Postural training, Flexibilty training, Passive ROM, Active ROM, Wyatt Exercises and Scapular Strength/Stabilization For the Purpose of:: To decrease pain, To increase ROM, To improve nutrient delivery to tissue, To increase oxygenation perfusion, To improve muscle performance and motor function and To improve ability to perform ADL's Text: Thank you for the opportunity to evaluate your patient. For Medicare and Medicare HMO plans, please review the plan of care and approve it. It will need to be FAXED BACK to us at [phone] for Medicare purposes. For Medicare only, by signing this I certify the plan of care. Please let me know if there are questions or concerns regarding this plan of care. Physician Signature: Date:
== END 2023-09-13 19:00 | disposition home or self-care (01) ==
LOC: PT 12:00
PROVIDERS: Referring Provider Anesthesiology Pain Medicine; Visit Provider Anesthesiology Pain Medicine
DX: M54.14 Radiculopathy, thoracic region (principal)
CPT/HCPCS: 97035; 97110; 97140; 97161

== ENCOUNTER → 2023-12-28 | Outpatient (CLI) | payer MEDICARE, SELFPAY ==
--- NOTE | 2023-12-28 09:15 | BI_ITS ---
MAMMOGRAPHY - BILATERAL SCREENING REASON FOR EXAM: Female, 78 years old. Routine annual screening examination. PERTINENT HISTORY: Daughter with breast cancer. TECHNIQUE: Digital bilateral breast gail (3D mammographic acquisition) in the CC and MLO projections. 2-D mediolateral oblique (MLO) and craniocaudad (CC) views of both breasts were obtained. CAD: Full Field Digital Mammography with Computer Added Detection was performed. COMPARISON: Comparison is made with prior study January 04, 2022 and January 31, 2020. FINDINGS: Breast Composition: The breasts are heterogeneously dense, which may obscure small masses. There are no dominant masses or suspicious calcifications. No other significant abnormalities are identified. There has been no significant change since the prior study. BI/SCRN MAMM (CAD)W/GAIL BILAT IMPRESSION: Stable bilateral screening mammogram. Yearly follow-up mammogram recommended. (A) ASSESSMENT CATEGORY: BIRADS Category 1: Negative. A letter regarding these results will be sent to the patient by the facility within 30 days. Approximately 10% of breast cancers are not detected by mammography. A normal mammogram should not delay biopsy of a clinically suspicious abnormality. [id number] Electronically Signed: Ghulam Bear MD at 10:32 EST ,
== END | disposition home or self-care (01) ==
LOC: OPBD 09:13
DX: Z12.31 Encounter for screening mammogram for malignant neoplasm of breast (principal); Z80.3 Family history of malignant neoplasm of breast
CPT/HCPCS: 77063; 77067

== ENCOUNTER → 2024-01-04 | Outpatient (CLI) | payer MEDICARE, SELFPAY ==
--- NOTE | 2024-01-04 09:03 | US_ITS ---
STUDY: ABDOMINAL ULTRASOUND - RIGHT UPPER QUADRANT; ELASTOGRAPHY REASON FOR VISIT: Female, 78 years old. Fatty infiltration of the liver. TECHNIQUE: Ultrasound evaluation of the right upper quadrant was performed with real-time and static mcleod-scale imaging. Point quantification shear wave elastography was performed ([id number]). TECHNICAL QUALITY: Limited. Examination limited by bowel gas. COMPARISON: Comparison is made with prior CT scan the abdomen dated September 12, 2023. FINDINGS: Liver: The liver measures 16 cm. There is increased echogenicity consistent with fatty infiltration. The bile ducts are within normal limits. There is hepatic color flow. The direction of portal flow is hepatopetal. There is a 5.3 cm x 6 cm x 6.7 cm cyst in the midportion of the right lobe of the liver. There is also evidence of a 1 cm x 0.8 cm cyst in the inferior aspect of the right lobe. Median liver stiffness measured 5 kPa. Gallbladder: Normal distended gallbladder. The gallbladder wall measures 2.8 mm. There is a negative sonographic Hollis''s sign. There is no pericholecystic fluid. There are no gallstones. Common Bile Duct (C.B.D.): The common bile duct measures 3.5 mm. Pancreas: Limited visualization of the pancreas. Right Kidney: Normal size of the right kidney. The right kidney measures 10.5 cm x 5.3 cm x 4.8 cm. Normal renal cortex. The right cortex measures 1.2 cm. There is no demonstrated renal mass or cyst. There is no right hydronephrosis. US/ABD Limited w/ Elastography IMPRESSION: 1. Liver stiffness measures 5 kPa compatible with F0-F1 (Normal to mild liver fibrosis) Metavir score. Electronically Signed: Ghulam Bear MD at 13:49 EST ,
== END | disposition home or self-care (01) ==
PROVIDERS: Referring Provider Student in an Organized Health Care Education/Training Program; Visit Provider Student in an Organized Health Care Education/Training Program
DX: R10.13 Epigastric pain (principal)
CPT/HCPCS: 76705; 76981

== ENCOUNTER 2024-01-17 08:45 | Day surgery (SDC) | payer MEDICARE, SELFPAY ==
[2024-01-17] VITALS (8 sets, daily range): BP systolic 100–121; BP diastolic 54–83; PULSE 78–82; RESP 16–18; TEMP 36.5–36.6; O2SAT 92–98; BMI 27.3
--- NOTE | 2024-01-17 09:45 | EGD_PTH ---
PATIENT: SONY CHENG LOC: EN U#:[id number] AGE/SX: 78/F ROOM: RE01/17/[address]: Dr. Abelardo Torres DO : 1945 BED: DIS: 01/17/2024 SPEC #: [id number] RECD: 01/17/24 10:53 STATUS: RAFAEL REDeborah #: [id number] MART: 01/17/24 09:[address]: Abelardo Torres DEPT: SURGICAL PATHOLOGY RECD BY: Vishal Pearl ENTERED: 01/17/24 11:39 SP TYPE: EGD BIOPSY GRACE DR: Dr. Blanca Jenkins DO Tissues: Esophagus, NOS Procedures: Special Stain Group I Surgery Specimen Level IV GMS Stain (control) HEADER OPERATION: EGD with biopsy and dilatation PRE-OP DIAGNOSIS: Chest pain, epigastric abdominal pain TISSUE SUBMITTED: Random esophagus biopsy MICROSCOPIC DIAGNOSIS Esophagus, random biopsy: Fragments of benign squamous mucosa with focal changes consistent with reflux. Focal minimal acute inflammation. Negative for fungal organisms. See comment. 01/18/2024 COMMENT GMS stain with matched control was used in the evaluation of this case. MICROSCOPIC DESCRIPTION Slides are reviewed. GROSS DESCRIPTION Received in fixative is one container labeled with the patient's name and designated Random esophagus biopsy. The specimen consists of multiple irregular fragments of light culver soft tissue that in aggregate measure 1.5 x 0.6 x 0.1 cm. The specimen is totally submitted in one cassette. AM. 01/17/2024 TC:2 CPT:41186,33167
--- NOTE | 2024-01-17 09:48 | PCM.HP.BLA ---
History and Physical Date of Admission: 01/17/24 Nurse's Note: OV 12.20.23 Pt here to establish care in our office for epigastric pain. Reports epigastric pain, trouble swallowing on occasion and coughing at mealtime. Denies any N/V. Had EGD several years ago. Takes omeprazole daily. FOR[facility]LY [facility], [facility] Medical History (Updated 12/20/23 @ 11:16 by MENG Coello) Heart failure Gastroparesis PVC (premature ventricular contraction) Constipation Hypertension Tachycardia Urinary tract infection Urinary tract infection with hematuria Surgical History (Updated 12/06/23 @ 13:37 by Oksana Lin) History of thyroidectomy History of knee replacement Social History Smoking Status: Never smoker HPI HPI Chief Complaint: Epigastric pain Details: SONY CHENG, is a 78 F who presents to the office today for establishment with [facility]. Pt has a PMHx of heart failure, gastroparesis and cervical spondylosis. She is here today for episodic stabbing epigastric pain happening a few times per year. These episodes typically resolve within 15 minutes. She does have daily soreness in the epigastric reason that causes her to have to take her bra off at the end of the day. She has seen GI in the past for her gastroparesis and her last EGD was a few years ago. SHe denies constipation, diarrhea, n/v, or heartburn. ROS Const Constitutional: Positive for fatigue and weight change; No fever(s) ENT ENT: No difficulty swallowing Gastro GI: Positive for abdominal pain, bloating, change in bowel habits, constipation, heartburn and excessive flatus; No belching, change in stool character, coffee ground emesis, cramping, diarrhea, difficulty swallowing, feeling full early, incontinent of stools, Vomiting blood/hematemesis, Blood in stool, loose stools, Black,tarry stools, nausea/dyspepsia, pain with swallowing, vomiting or other Musc Musculoskeletal: Positive for abnormal gait, joint pain, back pain and Arthritis Skin Skin: No yellowing of the eye or itchy eyes Neuro Neurology: Positive for abnormal gait Psych Psychiatric: Positive for anxiety and Positive for depression Endo Endocrine: Positive for fatigue and weight change Aller/Imm Allergy/Immunologic: No itchy eyes Christoph/Lymp Hematologic/Lymphatic: No easy bleeding or easy bruising Exam Const General: cooperative and comfortable Nutritional Appearance: average body habitus and well nourished HENMT Head: normal to inspection Ears: hearing grossly normal bilaterally Nose: external nose normal Face and sinus: normal facial exam Throat: posterior oropharynx normal Eyes General: appearance normal, both eyes and all related structures Neck Neck: normal visual inspection Chest Chest palpation & inspection: normal inspection of the chest and normal palpation of entire chest wall Resp Effort & Inspection: normal respiratory effort Auscultation: Bilateral: Clear to Auscultation Cardio Palpation: normal PMI Rate: regular rate Rhythm: regular rhythm GI Inspection: normal to inspection Auscultation: normal bowel sounds Percussion: normal to percussion Palpation: no hepatosplenomegaly Skin General: no rashes or lesions noted Neuro General: patient alert Extrem General: normal to inspection Psych Affect: normal affect Assessment and Plan Assessment and Plan (1) Chest pain: (2) Epigastric abdominal pain: Status: Acute Plan: This is a 78 yo female pt here today for establishment with [facility]. For the past couple of years she has had episodic stabbing epigastric pain happening every couple of months. The pain typically resolves on its own after about 15 minutes. She has no hx of pancreatitis. She will undergo EGD to evaluate her stomach and small intestine for inflammation or ulcers. She has been on PPI therapy for years. I will also order blood work with CBC and lipase. She had an incidental finding of fatty liver a few months ago on CT. I will order liver elastography for monitoring Orders: Orders Lipase Today R10.13 - Epigastric pain CBC W/Diff, Automated Today R10.13 - Epigastric pain, R10.9 - Unspecified abdominal pain Comprehensive Metabolic Profil Today R10.13 - Epigastric pain ABD Limited w/ Elastography Today R10.13 - Epigastric pain I have examined the patient and the H&P has been reviewed. There are no clinical changes since date of exam.
--- NOTE | 2024-01-17 09:53 | PRE.ANES_ITS ---
ASA Classification* ASA Classification ASA Classification: 3 Assessment & Plan Anesthesia* Anesthesia Assessment Anesthesia Assessment: Discussed sedation and/or anesthesia options, risks, benefits, and alternatives with patient/parents/legal guardian/POA. Questions invited. The patient/parents/legal guardian/POA seems to understand and agrees to proceed with anesthesia plan. Reviewed the physical assessment, medical history, allergy history and patient home medications list prior to surgery/procedure/anesthetic and documented any changes. Performed airway and anesthesia risk assessments. Anesthesia Type Anesthesia Type: MAC Anesthesia Focused Assessment* Temperature: 97.8 F Pulse Rate: 78 Blood Pressure: 121/54 Respiratory Rate: 18 Pulse Ox: 98 Airway Assessment Mouth opens: >3 cm Mallampati Score: II Focused Labs Anesthesia Preop lab: CBC WBC 5.7 K/mm3 (4.4-11.0) 08/29/23 09:08 RBC 4.52 M/mm3 (4.2-5.4) 08/29/23 09:08 Hgb 13.6 g/dL (12.0-15.0) 08/29/23 09:08 Hct 42.8 % (37-47) 08/29/23 09:08 Plt Count 240 K/mm3 (150-450) 08/29/23 09:08 CHEMISTRY Potassium 4.1 mmol/L (3.5-5.1) 08/29/23 09:08 Sodium 142 mmol/L (136-145) 08/29/23 09:08 BUN 16 mg/dL (7-18) 08/29/23 09:08 Creatinine 0.86 mg/dL (0.55-1.02) 08/29/23 09:08 Glucose 108 mg/dL (74-106) H 08/29/23 09:08 TSH 1.37 uIU/mL (0.358-3.74) 08/29/23 09:08 COAG PT 12.0 SECONDS (11.7-14.9) 12/07/16 13:41 Pre-Assessment Diagnosis/Proposed Procedure Planned Operative Procedure(s): EGD Anesthesia History 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 When Was Last Pacemaker Check QUESTION #4 FULL TEXT: You/Your Family Experience fever (hyperthermia) with Anesthesia Last Oral Intake Last Oral intake: Last Oral Intake NPO since 07:00 01/17/24 09:11 Meds taken in AM with sips of Yes 01/17/24 09:11 water? Meds patient instructed to bob coulter 01/17/24 09:11 take am of surgery PONV PONV - marketing analytics analyst: PONV - marketing analytics analyst Female Yes 01/12/24 09:52 HX of Motion Sickness No 01/12/24 09:52 HX of N/V After Surgery No 01/12/24 09:52 Non-Smoker No 01/12/24 09:52 Duration of Surgery greater No 01/12/24 09:52 than 60 minutes Number of Risk Factors 1 01/12/24 09:52 PONV Score Low Risk 01/12/24 09:52 Height & Weight Height & Weight: Anesthesia: Height & Weight Height 5 ft 6 in 01/17/24 09:11 Weight: 77 kg 01/17/24 09:11 Body Mass Index (BMI) 27.3 01/17/24 09:11 Respiratory Assessment Respiratory Assessment - marketing analytics analyst: Respiratory Tract Infection Hx - marketing analytics analyst Hx Respiratory Tract Infection No 01/12/24 09:52 STOP Sleep Apnea STOP Sleep Apnea - marketing analytics analyst: STOP Sleep Apnea - marketing analytics analyst Hx Hypertension Yes 01/12/24 09:52 Hx Sleep Apnea No 01/12/24 09:52 CPAP No 07/26/23 09:09 BIPAP No 07/26/23 09:09 Do you snore loudly (louder No 01/12/24 09:52 than talking or can be heard Do you often feel tired/ No 01/12/24 09:52 fatigued/ sleepy during daytime? Has anyone observed you stop No 01/12/24 09:52 breathing during sleep? STOP Results Negative 01/12/24 09:52 QUESTION #5 FULL TEXT : Do you snore loudly (louder than talking or can be heard through closed doors)? 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 Specify any problems Hx of Preganancy in last 3 No 01/12/24 09:52 Months Nurse Filling Out Transfusion [facility] 01/12/24 09:52 & Questions: Date: 01/12/24 01/12/24 09:52 Time: 10:07 01/12/24 09:52 Patient unable to answer at this time (ie. confused, unrespo /Reproduction History /Reproductive History - marketing analytics analyst: /Reproductive Hx- marketing analytics analyst Hx Now No 01/12/24 09:52 Gestational Age (in weeks): EDC: Hx Hx Para Hx Section SAB PFSH Medical History Wears dentures Wears partial dentures Wears glasses Thyroid disease Ambulates with cane Arthritis Bladder disease Fatty liver High cholesterol Gastric reflux History of irregular heartbeat Cardiology follow-up encounter Heart failure Gastroparesis PVC (premature ventricular contraction) Constipation Hypertension Tachycardia Urinary tract infection Urinary tract infection with hematuria Home Medications ?Medication ?Instructions ?Recorded ?Last Taken ?Type acetaminophen 500 mg tablet 1,000 mg PO TID 08/16/13 12/22/17 07:30 History diclofenac sodium 1 % topical gel 100 g TP PRN PRN BACK PAIN 12/15/17 Unknown History (Voltaren) buspirone 15 mg tablet 15 mg PO TID 06/14/23 Unknown History diltiazem HCl 120 mg 120 mg PO DAILY 06/14/23 01/17/24 07:00 History capsule,extended release 24 hr (Cartia XT) diltiazem HCl 30 mg tablet 30 mg PO TID PRN PRN palpitations 06/14/23 Unknown History gabapentin 600 mg tablet 600 mg PO 4X/DAY 06/14/23 Unknown History losartan 25 mg tablet 25 mg PO DAILY 06/14/23 01/17/24 07:00 History pravastatin 20 mg tablet 20 mg PO DAILY 06/14/23 Unknown History omeprazole 20 mg capsule,delayed 20 mg PO QDAY 12/06/23 Unknown History release tramadol 50 mg tablet 50 mg PO BID 12/06/23 Unknown History ascorbic acid (vitamin C) 1,000 mg 1 g PO DAILY 01/12/24 Unknown History tablet (C-1000) calcium carb-ergocalciferol (vit 1 tab PO DAILY 01/12/24 Unknown History D2) 600 mg calcium-200 unit tablet cephalexin 250 mg capsule 250 mg PO DAILY 01/12/24 Unknown History lactobacillus combo no.11 15 1 cap PO DAILY 01/12/24 Unknown History billion cell sprinkle capsule (Probiotic) Allergy/AdvReac Type Severity Reaction Status Date / Time adhesive tape Allergy skin tear Verified 01/17/24 09:10 ciprofloxacin (From Cipro) Allergy Nausea Verified 01/17/24 09:10 lisinopril Allergy Other Verified 01/17/24 09:10 metoprolol Allergy Rash Verified 01/17/24 09:10 tetracycline (Tetracycline) Allergy Other Verified 01/17/24 09:10 Surgical History History of thyroidectomy History of knee replacement Social History Smoking Status: Never smoker Review of Systems (Anesthesia) ROS Narrative System reviewed and no additional complaints, except as documented.
--- NOTE | 2024-01-17 10:17 | OP.EGD_ITS ---
Patient Name: Sarah Mcpherson Procedure Date: 01/17/2024 9:53 AM Date of : 1945 Age: 78 Procedure: Upper GI endoscopy Indications: Dysphagia Providers: Abelardo Torres DO Referring MD: Abelardo Torres DO Medicines: Monitored Anesthesia Care Patient Profile: This is a 78 year old female. Refer to note in patient chart for documentation of history and physical. Patient has symptoms of dysphagia with solids. Complications: No immediate complications. Procedure: Pre-Anesthesia Assessment: - Prior to the procedure, a History and Physical was performed, and patient medications and allergies were reviewed. The patient is competent. The risks and benefits of the procedure and the sedation options and risks were discussed with the patient. All questions were answered and informed consent was obtained. Patient identification and proposed procedure were verified by the physician in the pre-procedure area. Mental Status Examination: alert and oriented. Airway Examination: normal oropharyngeal airway and neck mobility. Respiratory Examination: clear to auscultation. CV Examination: normal. Prophylactic Antibiotics: The patient does not require prophylactic antibiotics. Prior Anticoagulants: The patient has taken no anticoagulant or antiplatelet agents except for NSAID medication. ASA Grade Assessment: II - A patient with mild systemic disease. After reviewing the risks and benefits, the patient was deemed in satisfactory condition to undergo the procedure. The anesthesia plan was to use monitored anesthesia care (MAC). Immediately prior to administration of medications, the patient was re-assessed for adequacy to receive sedatives. The heart rate, respiratory rate, oxygen saturations, blood pressure, adequacy of pulmonary ventilation, and response to care were monitored throughout the procedure. The physical status of the patient was re-assessed after the procedure. After obtaining informed consent, the endoscope was passed under direct vision. Throughout the procedure, the patient's blood pressure, pulse, and oxygen saturations were monitored continuously. The gastroscope was introduced through the mouth, and advanced to the second part of duodenum. The upper GI endoscopy was accomplished without difficulty. The patient tolerated the procedure well. Scope In: 10:02:19 AM Scope Out: 10:08:39 AM Total Procedure Duration Time 0 hours 6 minutes 20 seconds Findings: Mucosal changes including ringed esophagus, small-caliber esophagus, circumferential folds and congestion (edema) were found in the middle third of the esophagus and in the lower third of the esophagus. Biopsies were obtained from the proximal and distal esophagus with cold forceps for histology of suspected eosinophilic esophagitis. Verification of patient identification for the specimen was done. Estimated blood loss was minimal. A guidewire was placed and the scope was withdrawn. Dilation was performed with a Savary dilator with no resistance at 54 Fr. No gross lesions were noted in the entire examined stomach. No gross lesions were noted in the duodenal bulb. Impression: - Esophageal mucosal changes suggestive of eosinophilic esophagitis. Dilated. - No gross lesions in the entire stomach. - No gross lesions in the duodenal bulb. - Biopsies were taken with a cold forceps for evaluation of eosinophilic esophagitis. Recommendation: - Discharge patient to home. - Resume previous diet. - Continue present medications. - Await pathology results. Procedure Code(s): --- Professional --- 85217, Esophagogastroduodenoscopy, flexible, transoral; with insertion of guide wire followed by passage of dilator(s) through esophagus over guide wire [id number], 59,51, Esophagogastroduodenoscopy, flexible, transoral; with biopsy, single or multiple CPT copyright 2021 [employer]. All rights reserved. The codes documented in this report are preliminary and upon project administrator review may be revised to meet current compliance requirements. Abelardo Torres DO 01/17/2024 10:17:06 AM This report has been signed electronically. Number of Addenda: 0 Note Initiated On: 01/17/2024 9:53 AM
--- NOTE | 2024-01-17 10:17 | OP.CCLET_ITS ---
01/17/2024 Blanca Jenkins Re : Upper GI endoscopy procedure for Sarah Mcpherson Dear Gregory This procedure was performed on Wednesday, January 17, 2024. My impressions and recommendations are as follows: Impressions : - Esophageal mucosal changes suggestive of eosinophilic esophagitis. Dilated. - No gross lesions in the entire stomach. - No gross lesions in the duodenal bulb. - Biopsies were taken with a cold forceps for evaluation of eosinophilic esophagitis. Recommendations : - Discharge patient to home. - Resume previous diet. - Continue present medications. - Await pathology results. My findings are described in the full procedure note, which is enclosed. If I can be of further assistance, please feel free to contact me at . Sincerely, Abelardo Torres, 01/17/2024 10:17:06 AM This report has been signed electronically.
--- NOTE | 2024-01-17 10:17 | PCM.POST.ANE ---
Anesthesia: Postop Eval I Current Vital Signs Temperature: 97.7 F Pulse Rate: 82 Blood Pressure: 114/66 Respiratory Rate: 16 Pulse Ox: 92 Oxygen Delivery Method: Room Air Assessment Airway patent: Yes Spontaneous unlabored respirations: Yes Mental status: Asleep nausea: No Vomiting: No Anesthesia Complication: No Fluid Hydration Crystalloid volume administer (ml): 30 Total IV fluid infused: 30 Progress Note Anesthesia document: Postop Eval 1 completed: Yes
--- NOTE | 2024-01-17 11:18 | PCM.POSTANE2 ---
Anesthesia Postop Eval I Sum Postop Eval Completion status Anesthesia document: Postop Eval 1 completed: Yes Anesthesia Postop Eval I Summary Anesthesia Postop Eval I Summary: Anesthesia Postop Eval I: Assessment Summary Airway patent Yes 01/17/24 10:17 [email or web address] Spontaneous unlabored Yes 01/17/24 10:17 [email or web address] respirations Mental status Asleep 01/17/24 10:17 [email or web address] nausea No 01/17/24 10:17 [email or web address] Vomiting No 01/17/24 10:17 [email or web address] Anesthesia Postop Eval I: Fluid Summary Crystalloid volume administer 30 01/17/24 10:17 [email or web address] (ml) Colloids volume administered ( ml) Blood Product volume administered (ml) Total IV fluid infused 30 01/17/24 10:17 [email or web address] Anesthesia Postop Eval I: Summary Notes Anesthesia Complication No 01/17/24 10:17 [email or web address] Anesthesia Complication Comment: Post-operative progress note Anesthesia: Postop Eval II Evaluation Mental status: Awake Pain Level: 0 nausea: No Vomiting: No
== END 2024-01-17 11:02 | disposition home or self-care (01) ==
LOC: EN 08:46 → AC 08:47
PROVIDERS: Visit Provider Internal Medicine Gastroenterology
PROC: 0DJ08ZZ Inspection of Upper Intestinal Tract, Via Natural or Artificial Opening Endoscopic (ICD-10-PCS; CPT 43235; principal; 2024-01-17 09:40)
DX: R10.13 Epigastric pain (principal); I11.0 Hypertensive heart disease with heart failure; I50.9 Heart failure, unspecified; Z96.659 Presence of unspecified artificial knee joint; R07.9 Chest pain, unspecified; K22.89 Other specified disease of esophagus
CPT/HCPCS: 43248; 43239; 88305; 88312; A4216; C1769; J2405

== ENCOUNTER → 2024-01-31 | Outpatient (CLI) | payer MEDICARE, SELFPAY ==
--- NOTE | 2024-01-31 10:01 | BD_ITS ---
STUDY: DUAL ENERGY X-RAY ABSORPTIOMETRY / DXA REASON FOR EXAM: Female, 78 years old. Z780 TECHNIQUE: Bone Mineral Density (BMD) measurements of lumbar spine and bilateral hips were obtained. COMPARISON: Comparison is made with prior study dated January 04, 2022. FINDINGS: Lumbar Spine (L1-L4): g/cm2 (0.774) / T-score (-2.8) / Z-score (-0.2) Findings are suggestive of osteoporosis with a high fracture risk. Left Femur Total: g/cm2 (0.799) / T-score (-1.2) / Z-score (0.7) Left Femoral Neck: g/cm2 (0.630) / T-score (-2.0) / Z-score (0.2) Right Femur Total: g/cm2 (0.784) / T-score (-1.3) / Z-score (0.6) Right Femoral Neck: g/cm2 (0.614) / T-score (-2.1) / Z-score (0.1) The T-Scores on the most recent prior examination were: Lumbar Spine (L1-L4): There has been improvement of bone density since the previous examination. Left Femur Total: which represents an improvement of 7.4%. Right Femur Total: which represents an improvement of 9.4%. BD/Dexa Bone Density Study IMPRESSION: The patient is considered osteoporotic as outlined below according to World [employer]ial[employer] Organization (WHO) criteria with a high fracture risk. There has been worsening of bone density since the previous examination. Reference Information: The T-score is the number of standard deviations above or below the standard which is normal for young adults at their peak bone mineral density. The World Health Organization (WHO) interprets the T-scores as follows: Above -1 Normal bone density Between -1 and -2.5 Osteopenia Equal to / or below -2.5 Osteoporosis As a practical clinical guideline, osteopenia may be graded as follows: Mild -1 through -1.5 Moderate -1.6 through -2.0 Severe -2.1 through -2.4 The Z-score is the number of standard deviations above or below age-matched controls. A Z-score of less than -1.5 would be considered abnormal. References: 1. NIH Osteoporosis and Related Bone Diseases www osteo.org 2. International Society for Clinical Densitometry www iscd.org 3. National Osteoporosis Foundation www nof.org Electronically Signed: Ghulam Bear MD at 8:53 EST ,
== END | disposition home or self-care (01) ==
LOC: OPBD 09:57
DX: Z13.820 Encounter for screening for osteoporosis (principal); Z78.0 Asymptomatic menopausal state
CPT/HCPCS: 77080

== ENCOUNTER → 2024-05-13 | Outpatient (CLI) | payer MEDICARE, SELFPAY ==
[2024-05-13 12:38] LABS: Hematocrit 41.3 % (37-47); Hemoglobin 13.2 g/dL (12.0-15.0); Mean Corpuscular Hgb 30.1 pg (27.0-32.0); Mean Corpuscular Volume 94.1 fL (81-99); Mean Platelet Vol. 9.1 fl (6.2-12.0); Platelet Count 275 K/mm3 (150-450); RBC Distribution Width CV 13.6 % (11.6-14.6); RBC Distribution Width SD 47.5 fl (35.1-43.9); Red Blood Count 4.39 M/mm3 (4.2-5.4); White Blood Count 6.6 K/mm3 (4.4-11.0)
[2024-05-13 13:16] LABS: ALB/GLOB Ratio 1.3 RATIO (0.9-2.4); AST(SGOT) 20 U/L (<=31); Alanine Aminotransfer ALT/SGPT 15 U/L (<=34); Albumin, Serum 4.3 g/dL (3.4-4.8); Alkaline Phosphatase 85 U/L (35-104); Anion Gap 13 (5-15); BUN 16 mg/dL (4-19); BUN/Creat Ratio 18.9 RATIO (10-20); Calcium,Total 9.6 mg/dL (7.6-11.0); Carbon Dioxide 23.4 mmol/L (21.0-32.0); Chloride 104 mmol/L (98-108); Creatinine, Serum 0.83 mg/dL (0.70-1.20); EST Glomerular Filtration Rate 73 (>60); Globulin 3.3 g/dL (2.2-4.2); Glucose 103 mg/dL (70-99); Magnesium 2.4 mg/dL (1.5-2.2); Potassium 4.1 mmol/L (3.3-5.1); Protein, Total 7.6 g/dL (5.9-8.4); Sodium Level 140 mmol/L (133-145); Total Bilirubin 0.19 mg/dL (0.00-1.30)
== END | disposition home or self-care (01) ==
LOC: LAB 11:51
PROVIDERS: Referring Provider Internal Medicine Cardiovascular Disease; Visit Provider Internal Medicine Cardiovascular Disease
DX: I11.0 Hypertensive heart disease with heart failure (principal); I50.9 Heart failure, unspecified; E78.5 Hyperlipidemia, unspecified; I49.3 Ventricular premature depolarization
CPT/HCPCS: 36415; 80053; 83735; 84443; 85027

== ENCOUNTER → 2024-05-31 | Outpatient (CLI) | payer MEDICARE, SELFPAY ==
--- NOTE | 2024-05-31 07:09 | ECHOD_ITS ---
Reason For Study Reason For Study: AFIB Procedure This was a 2D Doppler, Color Flow transthoracic echocardiogram. Exam performed in department. Left Ventricle Normal LV size. Mild concentric left ventricular hypertrophy. The left ventricular ejection fraction is 65 %. Stage 1 diastolic dysfunction. Right Ventricle Normal right ventricle. Atria The left and right atria are normal. Mitral Valve Moderate (2+) mitral valve insufficiency. Tricuspid Valve Mild to moderate (1-2+) tricuspid valve insufficiency. Right ventricular systolic pressure estimated to be 37 mmHg. Aortic Valve Trisinus/trileaflet aortic valve. Trivial aortic valve insufficiency. Pulmonic Valve The pulmonic valve is not well visualized. Great Vessels Normal sized aortic root. Pericardium/Pleural No pericardial effusion. MMode/2D Measurements & Calculations LVIDd: 4.0 cm IVSd: 1.0 cm LVOT diam: 2.0 cm LVIDs: 2.8 cm LVPWd: 1.3 cm LVOT area: 3.3 cm2 RVDd: 3.7 cm FS: 30.0 % Ao root diam: 3.7 cm LAV(MOD-bp): 67.3 ml LVAd ap4: 23.8 cm2 LAV(MOD-bp) Indexed: 36.0 ml/m2 LVLd ap4: 7.7 cm LAV(MOD-sp2): 43.6 ml EDV(MOD-sp4): 59.4 ml LAV(MOD-sp4): 70.9 ml EDV(sp4-el): 62.3 ml LVAs ap4: 12.7 cm2 LVLs ap4: 5.9 cm ESV(MOD-sp4): 24.2 ml ESV(sp4-el): 23.3 ml EF(MOD-sp4): 59.3 % EF(sp4-el): 62.7 % SV(MOD-sp4): 35.3 ml SV(sp4-el): 39.0 ml LA A4 area: 23.8 cm2 SI(MOD-sp4): 18.9 ml/m2 LA dimension(2D): 3.6 cm RA A4 area: 16.4 cm2 Time Measurements MV dec time: 0.11 sec Doppler Measurements & Calculations MV E max donavan: 87.6 cm/sec Lat Peak E' Donavan: 13.4 cm/sec Med Peak E' Donavan: 8.4 cm/sec MV A max donavan: 140.4 cm/sec E/E' lat: 6.5 E/E' med: 10.4 MV E/A: 0.62 MV V2 max: 126.8 cm/sec Ao V2 max: 161.6 cm/sec MV max P.4 mmHg MV dec slope: 821.4 cm/sec2 Ao max P.5 mmHg MV V2 mean: 90.5 cm/sec Ao V2 mean: 111.1 cm/sec MV mean P.7 mmHg Ao mean P.7 mmHg MV V2 VTI: 24.8 cm Ao V2 VTI: 41.2 cm AV (velocity ratio): 0.86 MVA(VTI): 4.7 cm2 MISAEL(I,D): 2.8 cm2 MISAEL(V,D): 2.8 cm2 AI max donavan: 354.8 cm/sec LV V1 max: 140.1 cm/sec SV(LVOT): 116.9 ml AI max P.3 mmHg LV V1 max P.9 mmHg LV V1 mean P.4 mmHg AI dec slope: 146.8 cm/sec2 LV V1 mean: 97.6 cm/sec AI P1/2t: 707.7 msec LV V1 VTI: 35.6 cm PA V2 max: 89.3 cm/sec TR max donavan: 283.8 cm/sec PA V2 mean: 56.7 cm/sec TR max P.2 mmHg ECHO/Echo Complete Interpretation Summary Mild concentric left ventricular hypertrophy. The left ventricular ejection fraction is 65 %. Stage 1 diastolic dysfunction. Moderate (2+) mitral valve insufficiency. Mild to moderate (1-2+) tricuspid valve insufficiency. Right ventricular systolic pressure estimated to be 37 mmHg. Ordering Physician: Geovanni Ordonez Referring Physician: Geovanni Ordonez Performed By: Ashely Schwab RCS
== END | disposition home or self-care (01) ==
PROVIDERS: Referring Provider Internal Medicine Cardiovascular Disease; Visit Provider Internal Medicine Cardiovascular Disease
DX: I49.3 Ventricular premature depolarization (principal); I50.9 Heart failure, unspecified; I48.91 Unspecified atrial fibrillation; E78.5 Hyperlipidemia, unspecified; R06.02 Shortness of breath
CPT/HCPCS: 78452; 93017; 93225; 93226; 93306; A9500; A4216; J2785

== ENCOUNTER → 2024-07-19 | Outpatient (CLI) | payer MEDICARE, SELFPAY ==
--- NOTE | 2024-07-19 12:26 | CT_ITS ---
PROCEDURE: LIMITED CHEST CT CARDIAC ONLY REASON FOR EXAM: ABNORMAL STRESS TECHNIQUE: CT for coronary artery calcium scoring. One or more dose reduction techniques were used (e.g., Automated exposure control, adjustment of the mA and/or kV according to patient size, use of iterative reconstruction technique). COMPARISON: Chest x-ray of 06/14/[address] examination 09/12/2019 CT/Limited Chest CT Cardiac Only IMPRESSION: Right hepatic cyst again seen. Limited imaging of the lungs demonstrates no acute process. No pleural effusion or pneumothorax is seen in visualized areas. No adenopathy is noted. The visualized upper abdomen demonstrates no acute abnormality. Reading Location: [id number]
[2024-07-19 12:36] VITALS: BP 133/66; PULSE 70; RESP 16; TEMP 36.5; O2SAT 94; BMI 27.7
[2024-07-19] MEDS: 0.9% Saline Lock 10 ML Syringe IV (12:55)
[2024-07-19 13:03] VITALS: BP 133/66; PULSE 70
[2024-07-19] MEDS: Nitroglycerin SL (ED/IMG/CATH) 0.4 MG TABLET SL (13:03)
[2024-07-19 13:09] VITALS: BP 121/92; PULSE 87; RESP 16; O2SAT 94
--- NOTE | 2024-07-29 20:35 | CCTA.WCONT ---
CCTA w/Cont Coronary Arteries Date of Study:: 07/19/24 Coronary artery disease Coronary Calcium Scoring: High-resolution Computed Tomographic imaging of the chest was performed on [07/19/2024], with particular attention paid to the coronary arteries. Intravenous contrast agent was administered per protocol and images reconstructed and displayed. LEFT MAIN CORONARY ARTERY: Arises from the left coronary cusp with moderate calcification and it bifurcates the left anterior descending artery left circumflex artery. No high-grade stenosis is noted [] LEFT ANTERIOR DESCENDING CORONARY ARTERY: The left anterior descending artery has diffuse calcification noted proximally and in the midsegment. No high-grade stenosis is present. Moderate diffuse disease is present. [] LEFT CIRCUMFLEX CORONARY ARTERY: This comes of the left main coronary artery and is noted to have diffuse proximal calcification and no obvious high-grade stenosis noted. [] RIGHT CORONARY ARTERY: Dominant vessel of the right coronary cusp with diffuse proximal and mid calcification. No high-grade stenosis is present. [] THORACIC AORTA: Mild calcification [] PULMONARY ARTERY: [] LEFT ATRIUM/APPENDAGE: [] MITRAL VALVE: [] AORTIC VALVE: [] LEFT VENTRICLE: [] CORONARY CALCIUM SCORE: Not performed [] Calcium Scoring Interpretation: Different methods to categorize the overall amount of coronary plaque. Overall amount CAC SIS Visual of coronary plaque P1 Mild -100 <2 1-2 vessels with mild amount of plaque P2 Moderate 101-300 3-4 1-2 vessels with moderate amount, 3 vessels with mild amount of plaque P3 Severe 301-999 5-7 3 vessels with moderate amount, 1 vessel with severe amount of plaque P4 Extensive >1000 >8 2-3 vessels with severe amount of plaque Calcium Score: Severe: 3 vessels w/moderate amount, 1 vessel w/severe amt of plaque Conclusion: Moderate amount of diffuse plaque disease noted with no high-grade stenosis present
== END | disposition home or self-care (01) ==
LOC: CT 12:25
PROVIDERS: Referring Provider Physician Assistant Medical; Visit Provider Physician Assistant Medical
DX: R94.39 Abnormal result of other cardiovascular function study (principal)
CPT/HCPCS: 75574; 76380; Q9967

== ENCOUNTER → 2024-10-23 | Outpatient (CLI) | payer MEDICARE, SELFPAY ==
[2024-10-23 11:35] LABS: Hematocrit 39.6 % (37-47); Hemoglobin 12.7 g/dL (12.0-15.0); Mean Corp Hgb Conc 32.1 g/dL (32-36); Mean Corpuscular Volume 96.6 fL (81-99); Mean Platelet Vol. 9.2 fl (6.2-12.0); Platelet Count 278 K/mm3 (150-450); RBC Distribution Width CV 13.3 % (11.6-14.6); RBC Distribution Width SD 47.8 fl (35.1-43.9); Red Blood Count 4.10 M/mm3 (4.2-5.4); White Blood Count 6.5 K/mm3 (4.4-11.0)
[2024-10-23 11:54] LABS: AST(SGOT) 18 U/L (<=31); Alanine Aminotransfer ALT/SGPT 16 U/L (<=34); Albumin, Serum 3.9 g/dL (3.4-4.8); Alkaline Phosphatase 70 U/L (35-104); Anion Gap 13 (5-15); BUN 18 mg/dL (4-19); BUN/Creat Ratio 21.9 RATIO (10-20); CRP 42.20 mg/L (0.0-3.0); Calcium,Total 9.5 mg/dL (7.6-11.0); Carbon Dioxide 23.8 mmol/L (21.0-32.0); Chloride 102 mmol/L (98-108); Globulin 3.3 g/dL (2.2-4.2); Glucose 115 mg/dL (70-99); Potassium 4.3 mmol/L (3.3-5.1)
== END | disposition home or self-care (01) ==
LOC: LAB 10:22
PROVIDERS: Referring Provider Student in an Organized Health Care Education/Training Program; Visit Provider Student in an Organized Health Care Education/Training Program
DX: R68.89 Other general symptoms and signs (principal); M79.10 Myalgia, unspecified site
CPT/HCPCS: 36415; 80053; 85027; 85652; 86140

== ENCOUNTER → 2024-12-13 | Outpatient (CLI) | payer MEDICARE, SELFPAY ==
--- OUTSIDE RECORDS SUMMARY | 2024-12-13 14:30 | XMS RPT_ITS | CCD ---
Author Organization [facility] Care Team Providers Care Retail Aide Name Role Phone Elver Berg MD Unavailable Elena Jenkins DO Primary Care Provider Dr. Elena Jenkins Primary Care Provider 1(05 12) Dr. Elena Jenkins Referring Provider MENG Llamas Attending Provider Dr. Bertin Forman Attending Provider [phone] Rey Moreno Referring Provider GREGORY BERNAL, DR PARKER Primary Care Physician [phone] Dr. Elena Jenkins Primary Care Provider 1(05 12) Dr. Elena Jenkins Referring Provider MENG Llamas Attending Provider GREGORY BERNAL, DR PARKER Primary Care Physician ([facility] ) DR. ELENA JENKINS DO Attending Ashley JENKINS DO, DR. PARKER Primary Care Ashley GOMEZ MD., DR. ARSHAD Attending Unavail able GREGORY BERNAL, DR. PARKER Primary Care Ashley GOMEZ MD., DR. ARSHAD Attending Unavail able GREGORY BERNAL, DR. PARKER Primary Care Ashley JENKINS DO, DR. PARKER Attending Ashley JENKINS DO, DR. PARKER Primary Care Ashley Jenkins, Dr. Elena Clements Primary Care Provider 1(05 12) Dr. Elena Jenkins Referring Provider MENG Llamas Attending Provider Elena Jenkins DO Primary Care Provider Dr. Elena Jenkins Primary Care Provider 1(3 30) Dr. Elena Jenkins Referring Provider MENG Diaz Attending Provider Elena Jenkins DO Primary Care Provider Dr. Elena Jenkins Primary Care Provider 1(3 30) Dr. Elena Jenkins Referring Provider MENG Diaz Attending Provider Dr. Elena Jenkins Primary Care Provider 1(3 30) Dr. Elena Jenkins Referring Provider MENG Diaz Attending Provider Dr. Elena Jenkins Primary Care Provider 1(3 30) MENG Diaz Attending Provider Dr. Elena Jenkins Referring Provider Roof MACHINE HOSE CUTTER, MACHINE HOSE CUTTER-Evon Moscoso Attending Provider Dr. Elena Jenkins Primary Care Provider 1(3 30) Dr. Elena Jenkins Referring Provider MENG Diaz Attending Provider Roof MACHINE HOSE CUTTER, MACHINE HOSE CUTTER-Evon Moscoso Attending Provider Elena Jenkins DO Primary Care Provider 1([phone]) PARKER MARCIAL Attending Unavailabl e AISHA LABOY Referring Unavailable ELENA JENKINS Primary Care Unavailable ELENA JENKINS Primary Care Unavailable AISHA LABOY Referring Unavailable ELENA JENKINS Primary Care Unavailable AISHA LABOY Attending Unavailable ELENA JENKINS Primary Care Unavailable Dr. Elena Jenkins DO Primary Care Provider Gregory BERNAL, Dr. Elena Clements Referring Provider 1(05 12) Brian BERNAL, Dr. Zhou Attending Provider Brian BERNAL, Dr. Zhou Other Provider [phone]) Jer Llamas Attending Provider [phone] Gregory BERNAL, Dr. Elena Clements Attending Provider 1( 30) José Luis BUSTAMANTE, Dr. Galarza Attending Provider José Luis BUSTAMANTE, Dr. Galarza Referring Provider [phone] Gregory BERNAL, Dr. Elena Clements Primary Care Provider Gregory BERNAL, Dr. Elena Clements Referring Provider 1(05 12) Brian BERNAL, Dr. Zhou Attending Provider José Luis BUSTAMANTE, Dr. Galarza Other Provider [phone] Jeanna Rollins Attending Provider 1(33 [phone]) Jeanna Rollins Referring Provider [phone] Gregory BERNAL, Dr. Elena Clements Primary Care Provider Gregory BERNAL, Dr. Elena Clements Referring Provider 1(05 12) Dr. eBrtin Forman MD Attending Provider [phone] Jeanna Rollins Referring Provider 1([phone] 0) Jeanna Rollins Other Provider Gregory BERNAL, Dr. Elena Clements Primary Care Provider José Luis BUSTAMANTE, Dr. Galarza Attending Provider José Luis BUSTAMANTE, Dr. Glaarza Referring Provider Dr. Tanya Alexander MD Attending Provider Gregory BERNAL, Dr. Elena Clements Referring Provider 1(3 30) Jer Llamas Attending Provider [phone] TAMRA OTERO DO Attending Unavailable GREGORY DO, DR PARKER Primary Care Unavailable GREGORY DO, DR PARKER Primary Care Unavailable GREGORY DO, DR PARKER Attending Unavailable DITCHEY DO, GLENYS San Attending Unavailable GREGORY DO, DR PARKER Primary Care Unavailable DITCHEY DO, GLENYS San Attending Unavailable GREGORY DO, DR PARKER Primary Care Unavailable Gregory, Elena Clements Primary Care Unavailable Friend, Abelardo Attending Unavailable GregoryElena Referring Unavailable José Luis, Geovanni Attending Unavailable José Luis, Geovanin Referring Unavailable Gregory, Elena Clements Primary Care Unavailable Gregory, Elena Clements Primary Care Unavailable Ditchey, Glenys San Referring Unavailable DitcheyGlenys Attending Unavailable Gregory, Elena Clements Primary Care Unavailable DasiaIdalmis granadosl Attending Unavailable Jeanna Rollins Referring Unavail able Jeanna Rollins Consulting Unavail able José Luis, Geovanni Attending Unavailable José Luis, Geovanni Consulting Unavailable José Luis, Geovanni Referring Unavailable Gregory, Elena Clements Primary Care Unavailable GregoryElena Referring Unavailable Friend, Abelardo Consulting Unavailable GregoryElena Primary Care Unavailable Friend, Abelardo Attending Unavailable GregoryElena Primary Care Unavailable DasiaBertin granados Attending Unavailable Jeanna Rollins Referring Unavail able José Luis, Geovanni Attending Unavailable GregoryElena Primary Care Unavailable José Luis, Geovanni Attending Unavailable José Luis, Geovanni Referring Unavailable GregoryElena Primary Care Unavailable Gregory, Elena Clements Primary Care Unavailable Gregory, Elena Clements Referring Unavailable DasiaBertin granados Attending Unavailable José Luis, Geovanni Attending Unavailable GregoryElena Primary Care Unavailable Gregory, Elena Clements Referring Unavailable Gregory, Elena Clements Referring Unavailable Gregory, Elena Clements Primary Care Unavailable Friend, Abelardo Attending Unavailable Gregory, Elena Clements Referring Unavailable Gregory, Elena Clements Primary Care Unavailable Jer Garcia Attending Unavailable GregoryElena Attending Unavailable Gregory, Elena Clements Primary Care Unavailable Gregory, Elena Clements Referring Unavailable Gregory, Elena Clements Primary Care Unavailable Veronica Hinton Referring Unavailable Veronica Hinton Attending Unavailable José LuisGeovanni Attending Unavailable José Luis, Geovanni Referring Unavailable Gregory, Elena Clements Primary Care Unavailable Gregory, Elena Clements Primary Care Unavailable Veronica Hinton Attending Unavailable Gregory, Elena Clements Referring Unavailable Gregory, Elena Clements Primary Care Unavailable Gregory, Elena Clements Referring Unavailable Jer Garcia Attending Unavailable José Luis, Geovanni Referring Unavailable José Luis, Geovanni Attending Unavailable Gregory, Elena Clements Primary Care Unavailable Gregory, Elena Clements Primary Care Unavailable Jeanna Rollins Referring Unavail able Jeanna Rollins Attending Unavail able Gregory, Elena Clements Referring Unavailable Gregory, Elena Clements Attending Unavailable Gregory, Elena Clements Primary Care Unavailable Gregory BERNAL, Dr. Elena Clements Primary Care Physician Dasia BUSTAMANTE, Dr. Denton Attending Physician Jeanna Rollins Attending Physician [phone] Jeanna Rollins Nurse Practitioner Dr. Tanya Alexander MD Attending Physician Jer Llamas Attending Physician [phone] Dr. Glenys Morales DO Attending Physician [phone] Dr. Glenys Morales DO Referring Provider Allergies Allergy Classification Reported Allergen(s) Allergy Type Date of Onset Reaction(s) Facility (2 sources) Tetracycline; Translations: [TETRACYCLINE] Drug Allergy 6 [facility] Work Phone: (18 sources) Adhesive Tape; Translations: [ADHESIVE TAPE (ROSINS)] Allergy to substance 9 Rash [facility] (20 sources) Lisinopril; Translations: [lisinopril] Drug Allergy 9 Cough, Cough (finding) [facility] Comment on above: COUGH (20 sources) Tetracycline; Translations: [tetracycline] Drug Allergy 6 Tinnitus (finding) [facility] Work Phone: (20 sources) Adhesive Tape; Translations: [adhesive tape] Allergy to substance 1 skin tear [facility] (13 sources) Ciprofloxacin; Translations: [ciprofloxacin] Drug Allergy 5 Nausea (finding) [facility] Comment on above: awful nausea (11 sources) Metoprolol; Translations: [metoprolol] Drug Allergy 5 Itching (finding), Eruption of skin (disorder) [facility] (1 source) Ciprofloxacin Drug Allergy 5 [facility] (1 source) Lisinopril Drug Allergy 5 [facility] (1 source) Metoprolol Drug Allergy 5 [facility] (1 source) Tetracycline Drug Allergy 5 [facility] Medications Current Medications Medication Drug Class(es) Dates Sig (Normalized) Sig (Original) acetaminophen 500 mg oral tablet (20 sources) Start: 08-23-2024 Tylenol Extra Strength 500 mg oral tablet Dose : 1,000 mg = 2 tab(s), Oral, q6hr, 0 Refill(s) Start Date: 08/23/24 Status: Ordered Medication Dispense Status: Completed Total Allowed Fills: 1 Fills Dispensed: 0 Start: 04-17-2020 Tylenol 8 HR A rthritis Pain 650 mg oral tablet, extended release Dose : 1,300 mg = 2 tab(s), Oral, q8h, PRN as needed for fever, # 24 tab(s), 0 Refill(s) Start Date: 04/17/20 Status: Ordered Quantity: 24.0 Unit: tab(s) Repeat number: 1 Start: 08-16-2013 take 2 tablets by mo uth three times daily Start: 08-16-2013 take 1000 mg by mout h three times daily Acetaminophen Active 1000 MG PO THREE TIMES A DAY August 16, 2013 12:00am take 4 tablets by mo uth every eight hours acetaminophen (TYLENOL) 325 mg tablet Take 1,300 mg by mouth every 8 hours. 0 Active Comment on above: Take 1,300 mg by destinee every 8 hours. acetaminophen 500 mg / diphenhydrAMINE hydrochloride 25 mg oral tablet (2 sources) Histamine-1 Receptor Antagonist Start: take 1 tablet by mouth once daily at bedtime Tylenol PM Extra Strength oral tablet Dose = 1 tab(s), Oral, qHS, # 10 tab(s), 0 Refill(s) Start Date: 01/10/24 Status: Ordered Quantity: 10.0 Unit: tab(s) Repeat number: 1 amitriptyline hydrochloride 25 mg oral tablet (7 sources) Tricyclic Antidepressant take 1 tablet by mouth once daily at bedtime amitriptyline (ELAVIL) 25 mg tablet Take 25 mg by mouth daily at bedtime. Active Comment on above: Take 25 mg by mouth daily at bedtime. ascorbic acid 1000 mg oral tablet (6 sources) Vitamin C Start: take 1 tablet by mouth once daily Start: 01-12-2024 take 1 tablet by mouth once da maxime Ascorbic Acid (Vitamin C) (C-1000) 1,000 mg tablet Active 1 g PO DAILY January 12, 2024 1:00am Calcium Carbonate-Vitamin D2 600 mg calcium- 200 unit tablet (6 sources) Start: 01-12-2024 Start: 01-12-2024 Calcium Carbon ate-Vitamin D2 600 mg calcium- 200 unit tablet Active 1 {tbl} PO DAILY January 12, 2024 1:00am clobetasol propionate 0.0005 mg/mg topical ointment (3 sources) Corticosteroid Start: 09-18-2020 clobetasol 0.05% topical ointment Apply 1 bebeto, Topical, BID, # 15 gram(s), 0 Refill(s), Pharmacy: [id number], Ointment, 167, cm, 06/01/20 14:50:00 EDT, Height, 60.9, kg, 06/01/20 14:50:00 EDT, Dosing Weight Start Date: 09/18/20 Status: Ordered colchicine 0.6 mg oral tablet (7 sources) Start: 07-23-2021 End: 07-23-2022 take 1 tablet by mouth twice daily colchicine 0.6 mg tablet Indications: Chronic constipation Take 1 tablet by mouth twice daily. 180 tablet 3 07/23/2021 07/23/2022 Active Comment on above: Take 1 tablet by destinee th twice daily. diclofenac sodium 0.01 mg/mg topical gel (19 sources) Nonsteroidal Anti-inflammatory Drug Start: 12-15-2017 24 hr dilTIAZem hydrochloride 120 mg extended release oral capsule (20 sources) Calcium Channel Marquis Start: 06-14-2023 End: 08-13-2024 take 1 capsule by mouth once daily, then take 1 capsule by mouth every twenty-four hours Start: 05-19-2023 End: 08-13-2024 take 1 tablet by mouth three times daily as needed Diltiazem Hcl 30 mg tablet Discontinued 30 mg PO 3 TIMES DAILY NEEDED as needed for palpitations June 14, 2023 12:00am August 13, 2024 2:38pm Start: 11-23-2021 Cardizem 30 mg oral tablet Dose : 30 mg = 1 tab(s), Oral, TID, as needed for palpitations, # 90 tab(s), 3 Refill(s), Pharmacy: [id number], 167.6, cm, 10/27/21 15:27:00 EDT, Height, kg, 11/23/21 13:36:00 EDT, Dosing Weight Start Date: 11/23/21 Status: Ordered Start: 11-23-2021 Cardizem CD 12 0 mg/24 hours oral capsule, extended release Dose : 120 mg = 1 cap(s), Oral, qDay, # 90 cap(s), 2 Refill(s), Pharmacy: [id number], 167.6, cm, 10/27/21 15:27:00 EDT, Height, kg, 10/27/21 15:27:00 EDT, Dosing Weight Start Date: 11/23/21 Status: Ordered Comment on above: Take 120 mg by mouth twice daily. gabapentin 600 mg oral tablet (20 sources) Anti-epileptic Agent Start: 01-29-2019 GABAPENTIN 600 MG TABS 1.5 tablets (900mg) twice daily as directed (morning and evening) GABAPENTIN [id number] Nelda Avalos RN Start: 11-29-2018 take 1 tablet by destinee th four times daily Start: 03-29-2017 End: 06-14-2023 Gabapentin (Neurontin) 400 M G capsule Discontinued 600 mg PO AT BEDTIME March 29, 2017 1:00am June 14, 2023 5:46am take 1 capsule by [facility] once daily gabapentin (NEURONTIN) 300 mg capsule Take 300 mg by mouth once daily. Active take 1 capsule by [facility] three times daily gabapentin (NEURONTIN) 400 mg capsule Take 400 mg by mouth three times daily. Active take 600 mg by mouth four times daily gabapentin enacarbil 600 mg TbER Take 600 mg by mouth four times daily. Active Comment on above: Take 400 mg by mouth three times daily. Take 300 mg by mouth once daily. Lactobacillus Combo No.11 (Probiotic) 15 billion cell capsule, sprinkle (6 sources) Start: 01-12-2024 Start: 01-12-2024 Lactobacillus Combo No.11 (Probiotic) 15 billion cell capsule, sprinkle Active 1 NMA PO DAILY January 12, 2024 1:00am do not crush/chew/cut; swallow whole OR may open and sprinkle in cold drink/food losartan potassium 25 mg oral tablet (20 sources) Angiotensin 2 Receptor Marquis Start: 07-05-2016 take 1 tablet by mouth once daily Comment on above: [facility]. magnesium citrate 100 mg oral tablet (2 sources) Start: 04-17-2020 magnesium citr ate 100 mg oral tablet See Instructions, 0 Refill(s) Start Date: 04/17/20 Status: Ordered MCT Oil (3 sources) Start: 04-17-2020 MCT Oil See Instructions, 0 Refill(s) Start Date: 04/17/20 Status: Ordered melatonin 3 mg oral tablet (4 sources) Start: 05-23-2019 melatonin 3 mg oral tablet Dose : 3 mg = 1 tab(s), Oral, qHS, PRN as needed for insomnia, as needed, # 60 tab(s), 0 Refill(s) Start Date: 05/23/19 Status: Ordered Start: 01-29-2019 MELATONIN 3 MG TABS 1 tablet once daily MELATONIN [id number] Terena Avalos RN methylPREDNISolone 4 mg oral tablet (7 sources) Corticosteroid Start: 10-25-2024 End: 10-31-2024 take 1 tablet by mouth once daily Medrol 4 mg oral tablet 1 packet(s), Oral, qDay, as directed on package labeling, X 6 day(s), # 21 tab(s), 0 Refill(s), 10/31/24 8:07:00 AM EDT, Pharmacy: [id number], Polymyalgia, 164, cm, 10/25/24 7:37:00 EDT, Height, kg, 10/25/24 7:37:00 EDT, Dosing Weight Start Date: 10/25/24 Stop Date: 10/31/24 Status: Ordered Medication Dispense Status: Completed Quantity: 21.0 Unit: tab(s) Total Allowed Fills: 1 Fills Dispensed: 0 Indications: Polymyalgia rheumatica; Start: 09-22-2023 End: 09-28-2023 take 1 tablet by mouth once Methylprednisolone (Medrol (Car)) 4 mg tablets,dose pack Discontinued 4 mg PO per package directions 21 6 0 September 22, 2023 12:00am September 27, 2023 12:00am September 28, 2023 12:05am [facility] (2 sources) Start: 06-18-2021 [facility] [place] 0 Refill(s), 63.2 Start Date: 06/18/21 Status: Ordered omeprazole 40 mg delayed release oral capsule (20 sources) Proton Pump Inhibitor Start: 01-24-2024 take 1 capsule by mouth twice daily Start: 12-06-2023 End: 01-24-2024 take 1 capsule by mouth once daily Omeprazole 20 mg capsule,delayed release(DR/EC) Discontinued 20 mg PO daily December 06, 2023 12:00am January 24, 2024 9:47am Start: 05-23-2019 omeprazole 20 mg oral delayed release tablet Dose : 40 mg = 2 tab(s), Oral, qDay, 0 Refill(s) Start Date: 05/23/19 Status: Ordered Medication Dispense Status: Completed Total Allowed Fills: 1 Fills Dispensed: 0 Start: 01-29-2019 OMEPRAZOLE 20 MG TBEC 1 tablet once daily OMEPRAZOLE [id number] Nelda Avalos RN Start: 08-16-2013 End: 06-14-2023 take 1 capsule by mouth once daily Omeprazole 20 MG capsule Discontinued 20 mg PO DAILY August 16, 2013 12:00am June 14, 2023 5:46am Comment on above: Take 20 mg by mouth once daily. ondansetron 4 mg oral tablet (20 sources) Serotonin-3 Receptor Antagonist Start: 0 End: 2 take 1 tablet by mouth every eight hours as needed for nausea ondansetron (ZOFRAN) 4 mg tablet Indications: Chronic ulcerative proctitis with complication (HCC) , Nausea , Gastroparesis TAKE 1 TABLET BY MOUTH EVERY 8 HOURS NEEDED FOR NAUSEA 60 tablet 2 01/25/2022 Active Start: 01-29-2019 ONDANSETRON HC L 4 MG TABS 1 tablet every 8 hours as needed ONDANSETRON HCL [id number] Nelda Avalos RN Comment on above: TAKE 1 TABLET BY DESTINEE TH EVERY 8 HOURS NEEDED FOR NAUSEA pravastatin sodium 40 mg oral tablet (20 sources) HMG-CoA Reductase Inhibitor Start: 08-13-2024 take 1 tablet by mouth once daily Start: 05-18-2023 End: 08-13-2024 take 1 tablet by mouth once daily Pravastatin 20 mg tablet Discontinued 20 mg PO DAILY June 14, 2023 12:00am August 13, 2024 2:38pm Start: 08-20-2021 End: 08-15-2022 pravastatin 20 mg oral table t Dose : 20 mg = 1 tab(s), Oral, qDay, X 90 day(s), # 90 tab(s), 3 Refill(s), 08/15/22 11:57:00 EDT, Pharmacy: [id number], 167, cm, 08/07/21 10:44:00 EDT, Height, kg, 08/07/21 10:40:00 EDT, Dosing Weight Start Date: 08/20/21 Stop Date: 08/15/22 Status: Ordered Start: 08-20-2020 take 1 tablet by destinee th once daily pravastatin 20 mg oral tablet See Instructions, Take 1 tablet by mouth once daily, # 90 tab(s), 3 Refill(s), Pharmacy: [facility], 167, cm, 06/01/20 14:50:00 EDT, Height, kg, 06/01/20 14:50:00 EDT, Dosing Weight Start Date: 08/20/20 Status: Ordered Start: 01-29-2019 PRAVASTATIN SO DIUM 20 MG TABS 1 tablet once daily PRAVASTATIN SODIUM [id number] Nelda Avalos RN Start: 12-16-2015 take 1 tablet by destinee th once daily pravastatin (PRAVACHOL) 10 mg tablet Take 1 tablet by mouth once daily. 30 tablet 11 12/16/2015 Active Comment on above: Take 1 tablet by destinee th once daily. predniSONE 10 mg oral tablet (3 sources) Start: 09-18-2024 take 4 tablets by mouth once daily, then take 3 tablets by mouth once daily, then take 2 tablets by mouth once daily, then take 1 tablet by mouth once daily Start: 08-07-2021 prednisone 10m g tab (TAPER) See Instructions, Take 3 tabs today. Starting tomorrow, Taper 40-30-20-10 x 2 days each dose Oral qDay 9 day(s), # 23 tab(s), 0 Refill(s), Pharmacy: [id number], 167, cm, 08/07/21 10:44:00 EDT, Height Start Date: 08/07/21 Status: Ordered Psyllium (2 sources) Start: 04-17-2020 Metamucil See Instructions, Oral, 0 Refill(s) Start Date: 04/17/20 Status: Ordered tiZANidine 4 mg oral capsule (14 sources) Central alpha-2 Adrenergic Agonist Start: 11-29-2018 tiZANidine 4 mg oral capsule See Instructions, 1 cap(s) Oral PRN, 0 Refill(s) Start Date: 11/29/18 Status: Ordered Medication Dispense Status: Completed Total Allowed Fills: 1 Fills Dispensed: 0 take 1 tablet by destinee th every six hours as needed tiZANidine (ZANAFLEX) 4 mg tablet Take 4 mg by mouth every 6 hours as needed. Active Comment on above: Take 4 mg by mouth e very 6 hours as needed. traMADol hydrochloride 50 mg oral tablet (20 sources) Opioid Agonist Start: 08-13-2024 Start: 11-21-2019 End: 08-13-2024 take 1 tablet by mouth twice daily Tramadol 50 mg tablet Discontinued 50 mg PO TWICE A DAY December 06, 2023 12:00am August 13, 2024 2:20pm Start: 11-21-2019 traMADol 50 mg oral tablet Dose : 50 mg = 1 tab(s), Oral, qDay, # 30 tab(s), 0 Refill(s), 56.8 Start Date: 11/21/19 Status: Ordered Quantity: 30.0 Unit: tab(s) Repeat number: 1 Start: 01-29-2019 TRAMADOL HCL 5 0 MG TABS 1 tablet once daily TRAMADOL HCL [id number] Nelda Avalos RN Comment on above: Take 50 mg by mouth every 6 hours as needed for pain. Vitamin C 500 mg oral tablet (7 sources) Start: 06-18-2021 Vitamin C 500 mg oral tablet Dose : 500 mg = 1 tab(s), Oral, qDay, # 30 tab(s), 0 Refill(s) Start Date: 06/18/21 Status: Ordered Medication Dispense Status: Completed Quantity: 30.0 Unit: tab(s) Total Allowed Fills: 1 Fills Dispensed: 0 Start: 06-18-2021 Vitamin C 500 mg oral tablet Dose : 500 mg = 1 tab(s), Oral, qDay, # 30 tab(s), 0 Refill(s) Start Date: 06/18/21 Status: Ordered Quantity: 30.0 Unit: tab(s) Repeat number: 1 Start: 06-18-2021 Vitamin C 500 mg oral tablet Dose : 500 mg = 1 tab(s), Oral, qDay, # 30 tab(s), 0 Refill(s) Start Date: 06/18/21 Status: Ordered {20 (nirmatrelvir 150 MG Ora l Tablet) / 10 (ritonavir 100 MG Oral Tablet) } Pack [Paxlovid 5-Day] (1 source) Start: 10-18-2024 End: 10-23-2024 Paxlovid 300 mg-100 mg Dose Pack oral tablet Dose = 1 packet(s), Oral, BID, Take 1 Packet = two 150mg nirmatrelvir tabs and one 100mg ritonavir tab. 3 tablets to be taken together by mouth twice a day for 5 days, X 5 day(s), # 5 EA, 0 Refill(s), Pharmacy: [facility], 164, cm, 09/20/24 14:04:00 EDT, Height, kg, 10/18/24 11:10:00 EDT, Dosing Weight Start Date: 10/18/24 Stop Date: 10/23/24 Status: Ordered Medication Dispense Status: Completed Quantity: 5.0 Unit: EA Total Allowed Fills: 1 Fills Dispensed: 0 Completed/Discontinued Medications Medication Drug Class(es) Dates Sig (Normalized) Sig (Original) amLODIPine 2.5 mg oral tablet (19 sources) Dihydropyridine Calcium Channel Marquis Start: 03-29-2017 End: 06-14-2023 take 1 tablet by mouth once daily Amlodipine 2.5 MG tablet Discontinued 2.5 mg PO DAILY March 29, 2017 1:00am June 14, 2023 5:46am amoxicillin 500 mg oral capsule (20 sources) Penicillin-class Antibacterial Start: 01-31-2022 End: 02-10-2022 take 1 capsule by mouth three times daily Amoxicillin 500 mg capsule Discontinued 500 mg PO THREE TIMES A DAY 30 10 January 31, 2022 1:00am February 09, 2022 1:00am February 10, 2022 1:04am Start: 11-10-2021 End: 11-20-2021 take 1 capsule by mouth three times daily Amoxicillin 500 mg capsule Discontinued 500 mg PO THREE TIMES A DAY 30 10 November 10, 2021 12:00am November 19, 2021 12:00am November 20, 2021 12:08am busPIRone hydrochloride 15 mg oral tablet (20 sources) Start: 11-29-2018 End: 08-08-2024 take 1 tablet by mouth three times daily Buspirone 15 mg tablet Discontinued 15 mg PO THREE TIMES A DAY June 14, 2023 12:00am August 08, 2024 4:35pm Comment on above: Take 1 tablet by destinee th three times daily. cephalexin 250 mg oral capsule (20 sources) Cephalosporin Antibacterial Start: 01-12-2024 End: 01-22-2024 take 1 capsule by mouth once daily Cephalexin 250 mg capsule Discontinued 250 mg PO DAILY January 12, 2024 1:00am January 22, 2024 6:31pm Start: 03-09-2023 End: 03-19-2023 take 1 capsule by mouth every twelve hours Cephalexin 500 mg capsule Discontinued 500 mg PO Q12H 20 10 March 09, 2023 1:00am March 18, 2023 1:00am March 19, 2023 1:04am Start: 12-02-2022 End: 12-12-2022 take 1 capsule by mouth every twelve hours Cephalexin 500 mg capsule Discontinued 500 mg PO Q12H 20 10 December 02, 2022 12:00am December 11, 2022 12:00am December 12, 2022 12:04am Start: 06-10-2022 End: 06-20-2022 take 1 capsule by mouth every twelve hours Cephalexin 500 mg capsule Discontinued 500 mg PO Q12H 20 10 June 10, 2022 12:00am June 19, 2022 12:00am June 20, 2022 12:04am Start: 12-09-2020 End: 06-10-2022 take 1 capsule by mouth every six hours Cephalexin 500 MG capsule Discontinued 500 mg PO EVERY 6 HOURS December 09, 2020 12:00am June 10, 2022 4:22pm cetirizine hydrochloride 10 mg oral tablet (1 source) Histamine-1 Receptor Antagonist Start: 08-07-2021 End: 09-06-2021 cetirizine 10 mg oral tablet Dose : 10 mg = 1 tab(s), Oral, qDay, PRN Rash, # 30 tab(s), 0 Refill(s), Pharmacy: [id number], 167, cm, 08/07/21 10:44:00 EDT, Height Start Date: 08/07/21 Stop Date: 09/06/21 Status: Ordered cholecalciferol 5000 unt oral tablet (18 sources) Vitamin D Start: 01-29-2019 VITAMIN D3 125 MCG (5000 UT) TABS 1 tablet once daily CHOLECALCIFEROL [id number] Nelda Avalos RN Start: 12-22-2014 take 1 tablet by destinee th once daily cholecalciferol (VITAMIN D3) 1,000 unit tab Indications: Vitamin D deficiency Take 1 tablet by mouth once daily. 0 12/22/2014 Active Comment on above: Take 1 tablet by destinee th once daily. ciprofloxacin 500 mg oral tablet (19 sources) Quinolone Antimicrobial Start: 2021 End: 2022 take 1 tablet by mouth twice daily Ciprofloxacin Hcl 500 mg tablet Discontinued 500 mg PO TWICE A DAY 14 May 24, 2021 12:00am Kadie 28th, 2023 4:22pm diazePAM 2 mg oral tablet (19 sources) Benzodiazepine Start: 2018 End: 2018 take 1 tablet by mouth twice daily as needed for muscle spasms Diazepam 2 MG tablet Discontinued 2 mg PO TWICE DAILY NEEDED as needed for Spasms 10 5 0 February 13, 2018 1:00am February 17, 2018 1:00am February 18, 2018 1:10am Degeneration of intervertebral disc of cervical region Other cervical disc degeneration, unspecified cervical region famotidine 20 mg oral tablet (1 source) Histamine-2 Receptor Antagonist Start: 2021 End: 2021 famotidine 20 mg oral tablet Dose : 20 mg = 1 tab(s), Oral, BID, PRN Rash, avoid eating and drinking for 10 minutes after each dose, # 60 tab(s), 0 Refill(s), Pharmacy: [id number], 167, cm, 08/07/21 10:44:00 EDT, Height Start Date: 08/07/21 Stop Date: 09/06/21 Status: Ordered hydroCHLOROthiazide 12.5 mg / losartan potassium 100 mg oral tablet (20 sources) Thiazide Diuretic, Angiotensin 2 Receptor Marquis Start: 2018 LOSARTAN POTASSIUM-HCTZ 100-12.5 MG TABS 1 tablet once daily LOSARTAN POTASSIUM-HCTZ [id number] Mortezaeze Avalos RN Start: 12-15-2017 End: 01-12-2024 Losartan-Hydrochlorothiazide 1 EACH tablet Discontinued 1 NMA PO DAILY December 15, 2017 12:00am January 12, 2024 10:55am Start: 12-15-2017 Losartan-[place] chlorothiazide Active 1 EACH PO DAILY December 15, 2017 12:00am LORazepam 0.5 mg oral tablet (3 sources) Benzodiazepine Start: 07-04-2022 End: 09-03-2022 LORazepam (ATIVAN) 0.5 mg Indications: Claustrophobia Take 1 tablet 30 minutes prior to MRI and repeat at time of MRI if needed. Do not drive on day of taking medication. 2 tablet 0 07/04/2022 09/03/2022 Comment on above: Take 1 tablet 30 min utes prior to MRI and repeat at time of MRI if needed. Do not drive on day of taking medication. metoprolol tartrate 50 mg oral tablet (8 sources) beta-Adrenergic Marquis Start: 06-05-2024 End: 06-07-2024 take 1 tablet by mouth once Metoprolol Tartrate 50 mg tablet Discontinued 50 mg PO ONCE 1 0 June 05, 2024 12:00am June 07, 2024 4:42pm Take 1 hour prior to your procedure. Start: 06-30-2021 Metoprolol Tar trate 25 mg oral tablet Dose : 25 mg = 1 tab(s), Oral, BID, PRN papitations, # 15 tab(s), 6 Refill(s), Pharmacy: [id number], 167, , 06/30/21 10:26:00 EDT, Height Start Date: 06/30/21 Status: Ordered Start: 06-30-2021 metoprolol suc cinate 25 mg oral TABLET extended release Dose : 25 mg = 1 tab(s), Oral, BID, Do not crush or chew (controlled release), # 60 tab(s), 6 Refill(s), Pharmacy: [id number], 167, , 06/30/21 10:26:00 EDT, Height Start Date: 06/30/21 Status: Ordered MULTIPLE VITAMIN (1 source) Start: 01-29-2019 MULTIPLE VITAM INS TABS 1 tablet once daily MULTIPLE VITAMIN [id number] Nelda Avalos RN Naproxen (20 sources) Nonsteroidal Anti-inflammatory Drug Start: 01-29-2019 NAPROXEN SODIUM 2 20 MG TABS 2 tablets every 12 hours as needed NAPROXEN SODIUM [id number] Nelda Avalos RN Start: 08-16-2013 End: 06-10-2022 take 2 tablets by mouth twice daily Naproxen Sodium (Aleve) 220 MG tablet Discontinued 440 mg PO TWICE A DAY August 16, 2013 12:00am June 10, 2022 4:23pm take 1 tablet by destinee th three times daily at mealtime naproxen sodium (ALEVE) 220 mg tablet Take 220 mg by mouth three times daily with meals. 0 Active Comment on above: Take 220 mg by mouth three times daily with meals. nitrofurantoin, macrocrystals 25 mg / nitrofurantoin, monohydrate 75 mg oral capsule (18 sources) Nitrofuran Antibacterial Start: 024 End: take 1 capsule by mouth every twelve hours at mealtime Nitrofurantoin Monohyd/M-Cryst 100 mg capsule Discontinued 1 NMA PO Q12H 14 7 0 April 16, 2023 12:05pm April 22, 2023 1:00am April 23, 2023 1:04am administer with a meal/food; swallow whole; do not open, crush, dissolve , or chew Start: 12-21-2022 End: 12-28-2022 take 1 capsule by mouth every twelve hours at mealtime Nitrofurantoin Monohyd/M-Cryst 100 mg capsule Discontinued 1 NMA PO Q12H 14 7 0 December 21, 2022 1:00am December 27, 2022 1:00am December 28, 2022 1:05am administer with a meal/food; swallow whole; do not open, crush, dissolve , or chew phenazopyridine hydrochloride 100 mg oral tablet (19 sources) Start: 12-09-2020 End: 06-10-2022 take 1 tablet by mouth three times daily as needed for pain Phenazopyridine (Pyridium) 100 mg tablet Discontinued 100 mg PO THREE TIMES A DAY as needed for pain 6 0 December 09, 2020 12:00am June 10, 2022 4:22pm promethazine hydrochloride 25 mg oral tablet (19 sources) Phenothiazine Start: 02-13-2018 End: 06-14-2023 take 1 tablet by mouth every four hours as needed for nausea Promethazine 25 MG tablet Discontinued 25 mg PO EVERY 4 HOURS NEEDED as needed for Nausea February 13, 2018 1:00am June 14, 2023 5:46am sulfamethoxazole 800 mg / trimethoprim 160 mg oral tablet (6 sources) Dihydrofolate Reductase Inhibitor Antibacterial, Sulfonamide Antimicrobial Start: 09-22-2023 End: 09-29-2023 Sulfamethoxazole-Tri methoprim (Bactrim Ds) 800-160 mg tablet Discontinued 1 {tbl} PO Q12H 14 7 0 September 22, 2023 12:00am September 28, 2023 12:00am September 29, 2023 12:05am Problems Active Problems Problem Classification Problem Date Documented Da te Episodic/Chronic Allergic reactions (7 sources) Contact dermatitis due to poison roxanne; Translations: [Irritant contact dermatitis due to plant] 08-07-2021 Episodic Cardiac dysrhythmias (20 sources) Paroxysmal supraventricular tachycardia; Translations: [Ventricular premature beats] Onset: 5 06-30-2021 Chronic Cardiac dysrhythmias (7 sources) Palpitations 05-28-2020 Episodic Congestive heart failure; nonhypertensive (14 sources) Chronic diastolic heart failure; Translations: [Heart failure] Onset: 5 10-27-2021 Chronic Disorders of lipid metabolism (20 sources) Hyperlipidemia; Translations: [Hyperlipidemia, unspecified] Onset: 5 11-21-2014 Chronic Essential hypertension (20 sources) Essential hypertension; Translations: [Essential (primary) hypertension] Onset: 5 10-07-2014 Chronic Hemorrhoids (19 sources) Internal hemorrhoids; Translations: [Other hemorrhoids] Resolved: 5 03-20-2008 Episodic Hypertension with complications and secondary hypertension (1 source) Hypertensive heart disease with heart failure; Translations: [Hypertensive heart disease with heart failure] Onset: 5 Chronic Immunizations and screening for infectious disease (7 sources) Contact with or exposure to other viral diseases; Translations: [Contact with and (suspected) exposure to other viral communicable diseases] 01-22-2024 Episodic Malaise and fatigue (3 sources) Fatigue; Translations: [Other fatigue] Onset: 5 10-25-2024 Episodic Nutritional deficiencies (17 sources) Vitamin D deficiency; Translations: [Vitamin D deficiency, unspecified] Onset: 5 10-07-2014 Chronic Osteoarthritis (20 sources) Degenerative joint disease involving multiple joints; Translations: [Polyosteoarthritis, unspecified] Onset: 1 09-12-2010 Chronic Osteoporosis (2 sources) Age-related osteoporosis without current pathological fracture; Translations: [Age-related osteoporosis without current pathological fracture] Onset: 5 Chronic Other connective tissue disease (1 source) Polymyalgia 10-25-2024 Chronic Other connective tissue disease (2 sources) Polymyalgia rheumatica; Translations: [Polymyalgia rheumatica] Onset: 5 Chronic Other connective tissue disease (3 sources) Pain of bilateral upper limbs; Translations: [Pain in right arm] 08-19-2022 Episodic Other connective tissue disease (2 sources) Muscle weakness of upper limb; Translations: [Other symptoms and signs involving the musculoskeletal system] 08-19-2022 Episodic Other connective tissue disease (1 source) Pain in right arm; Translations: [Pain in both upper extremities] Onset: 4 Episodic Other connective tissue disease (1 source) Pain in left arm; Translations: [Pain in both upper extremities] Onset: 4 Episodic Other connective tissue disease (1 source) Other symptoms and signs involving the musculoskeletal system; Translations: [Arm weakness] Onset: 4 Episodic Other disorders of stomach and duodenum (20 sources) Gastroparesis syndrome; Translations: [Gastroparesis] Onset: 9 11-19-2018 Episodic Other gastrointestinal disorders (1 source) Chronic constipation; Translations: [Other constipation] Episodic Other gastrointestinal disorders (5 sources) Constipation 08-27-2021 Episodic Other nervous system disorders (1 source) Demyelinating disease of central nervous system; Translations: [Demyelinating disease of central nervous system, unspecified] 08-05-2022 Chronic Other nervous system disorders (1 source) Polyneuropathy, unspecified; Translations: [Neuropathy] Onset: 4 Chronic Other non-traumatic joint disorders (20 sources) Pain in elbow; Translations: [Pain in right elbow] Onset: 1 09-12-2010 Episodic Other screening for suspected conditions (not mental disorders or infectious disease) (11 sources) Calcification of coronary artery; Translations: [Abnormal findings on diagnostic imaging of heart and coronary circulation] Onset: 4 08-13-2024 Episodic Other skin disorders (7 sources) Eruption 04-17-2020 Episodic Poisoning by nonmedicinal substances (9 sources) Bee sting; Translations: [Toxic effect of venom of bees, accidental (unintentional), initial encounter] Onset: 5 09-22-2023 Episodic Regional enteritis and ulcerative colitis (20 sources) Chronic ulcerative proctitis; Translations: [Ulcerative (chronic) proctitis without complications] Onset: 6 07-14-2005 Chronic Residual codes; unclassified (3 sources) Other general symptoms and signs; Translations: [Other general symptoms and signs] Onset: 5 Episodic Spondylosis; intervertebral disc disorders; other back problems (20 sources) Degeneration of cervical intervertebral disc; Translations: [Cervical spondylosis] Onset: 9 02-01-2019 Chronic Spondylosis; intervertebral disc disorders; other back problems (20 sources) Low back pain; Translations: [Lumbago] Onset: 6 07-26-2005 Episodic Thyroid disorders (19 sources) Uninodular goiter; Translations: [Nontoxic single thyroid nodule] 12-22-2017 Chronic Urinary tract infections (20 sources) Urinary tract infectious disease; Translations: [Urinary tract infection, site not specified] Onset: Episodic Viral infection (17 sources) Herpes zoster; Translations: [Disease caused by 2019-nCoV] 04-17-2020 Episodic Past or Other Problems Problem Classification Problem Date Documented Da te Episodic/Chronic Abdominal pain (10 sources) Epigastric pain; Translations: [Epigastric pain] Onset: 02-21-2024 12-20-2023 Episodic Diabetes mellitus without complication (4 sources) Hyperglycemia; Translations: [Hyperglycemia, unspecified] Onset: 03-07-2024 09-20-2024 Episodic Gastritis and duodenitis (17 sources) Acute gastritis; Translations: [Acute gastritis without bleeding] Onset: 02-25-2011 02-25-2011 Episodic Nausea and vomiting (20 sources) Nausea; Translations: [Nausea] Onset: 09-24-2018 09-24-2018 Episodic Nonspecific chest pain (8 sources) Chest pain; Translations: [Chest pain, unspecified] Onset: 12-20-2023 06-14-2023 Episodic Other connective tissue disease (17 sources) Digital mucous cyst; Translations: [Ganglion, unspecified hand] Onset: 04-22-2013 04-22-2013 Episodic Other gastrointestinal disorders (18 sources) Slow transit constipation; Translations: [Slow transit constipation] Onset: 03-20-2020 03-20-2020 Episodic Other nervous system disorders (1 source) Unspecified abnormalities of gait and mobility; Translations: [Abnormality of gait] Onset: 02-22-2023 Episodic Other nutritional; endocrine; and metabolic disorders (17 sources) Abnormal weight loss; Translations: [Abnormal weight loss] Onset: 09-24-2018 09-24-2018 Episodic Other skin disorders (2 sources) Sebaceous cyst of skin; Translations: [Sebaceous cyst] Onset: 09-26-2005 Resolved: 10-07-2014 10-07-2014 Episodic Other upper respiratory infections (16 sources) Viral upper respiratory tract infection; Translations: [Acute upper respiratory infection, unspecified] Onset: 01-22-2024 06-14-2023 Episodic Residual codes; unclassified (17 sources) Early satiety; Translations: [Early satiety] Onset: 09-24-2018 09-24-2018 Episodic Unclassified (1 source) Problem Results Test Name Value Interpretation Reference Range Facility [facility] 10-28-2024 Antinuclear Ab Screen Negative Normal Negative [facility] Comment on above: Result Comment: Anti -nuclear antibody test is used as an aid in diagnosis of systemic autoimmune diseases. Where positive and clinically warranted, follow-up using disease-specific testing is recommended. Low positive titers are not uncommon with advanced age, certain chronic infections, and malignancies among others. Test methodology: Indirect fluorescence immunoassay (IFA) using HEp-2 cells. Performed By: [facility] [address] [place] [address] [employer] Cast[employer] Machine Operator: Ben Diaz III, M.D. CLIA#: [id number] Performed By: #### F ERR, TSHR, FE, VIDH, IBC, [id number], [id number], ANAIFS #### [place] [address] #### B12 #### [place] [address] CCPon 10-26-2024 Anti-CCP Ab, IgG/IgA 8 units Normal 0-19 [facility] Comment on above: Result Comment: Nega tive <20 Weak positive 20 - 39 Moderate positive 40 - 59 Strong positive >59 Performed At: [facility] [address] [place], [place] [id number] Radha Putnam PhD Ph:[phone] Performed By: #### F ERR, TSHR, FE, VIDH, IBC, [id number], [id number], ANAIFS #### [place] [address] #### B12 #### [place] [address] RFon 10-26-2024 Rheumatoid Factor (RF) 10.8 IU/mL Normal <14.0 [facility] Comment on above: Result Comment: Perf ormed At: [facility] [address] [id number] Radha Putnam PhD Ph:[phone] Performed By: #### F ERR, TSHR, FE, VIDH, IBC, [id number], [id number], ANAIFS #### [place] [address] #### B12 #### [place] [address] B12on 10-25-2024 Cobalamin (Vitamin B12) [Mass/Vol] 924 pg/mL High 211-911 [facility] Comment on above: Performed By: #### F ERR, TSHR, FE, VIDH, IBC, [id number], [id number], ANAIFS #### [place] [address] #### B12 #### [place] [address] FEon 10-25-2024 Iron [Mass/Vol] 63 ug/dL Normal 50-170 [facility] Comment on above: Performed By: #### F ERR, TSHR, FE, VIDH, IBC, [id number], [id number], ANAIFS #### [place] [address] #### B12 #### [place] [address] Ana 10-25-2024 Ferritin [Mass/Vol] 120.0 ng/mL Normal 8.0-252.0 [facility] Comment on above: Performed By: #### F ERR, TSHR, FE, VIDH, IBC, [id number], [id number], ANAIFS #### [place] [address] #### B12 #### [place] [address] IBCon 10-25-2024 TIBC 365 mcg/dL Normal 250-450 [facility] Comment on above: Performed By: #### F ERR, TSHR, FE, VIDH, IBC, [id number], [id number], ANAIFS #### [facility] [address] [place], [place] [address] #### B12 #### [address] [address] LABORATORYOrdered By: SYSTEM SYSTEM on 10-25-2024 25-hydroxyvitamin D3 [Mass/Vol] 71.2 ng/mL Invalid Interpretation Code AO ADM SS Comment on above: Interpretive Data: I nterpretive Values Based on Total 25(OH) Vitamin D: Deficient <20 ng/mL Insufficient 20 - <30 ng/mL Sufficient 30-100 ng/mL Cobalamin (Vitamin B12) [Mass/Vol] 924 pg/mL High 211 - 911 pg/mL AH ADM SS Ferritin [Mass/Vol] 120.0 ng/mL Normal 8.0 - 25 2.0 ng/mL AO ADM SS Iron [Mass/Vol] 63 ug/dL Normal 50 - 170 mcg/dL AO ADM SS Iron binding capacity [Mass/Vol] 365 mcg/dL Normal 250 - 450 mcg/dL AO ADM SS TSH Qn 1.78 m[IU]/L Normal 0.36 - 3.74 mcIU/mL AO ADM SS LABORATORYOrdered By: RPI ([employer] CONTRIBUTOR_SYSTEM on 10-25-2024 Anti-CCP Ab, IgG/IgA (LC) 8 Units Invalid Interpretation Code AO [facility] Comment on above: Result Comment: Nega tive <20 Weak positive 20 - 39 Moderate positive 40 - 59 Strong positive >59 Performed At: [facility] [address] [id number] Radha Putnam PhD Ph:[phone] Rheumatoid Factor (RF) (LC) 10.8 Int unit/mL Invalid Interpretation Code AO [facility] Comment on above: Result Comment: Perf ormed At: [facility] [address] [id number] Radha Putnam PhD Ph:[phone] LABORATORYOrdered By: KENDALL BARAHONA CONTRIBUTOR_SYSTEM on 10-25-2024 Antinuclear Ab Screen Negative Invalid Interpretation Code Negative AO [facility] Comment on above: Result Comment: Anti -nuclear antibody test is used as an aid in diagnosis of systemic autoimmune diseases. Where positive and clinically warranted, follow-up using disease-specific testing is recommended. Low positive titers are not uncommon with advanced age, certain chronic infections, and malignancies among others. Test methodology: Indirect fluorescence immunoassay (IFA) using HEp-2 cells. Performed By: [facility] [address] [place] [address] Type Casting Machine Operator: Ben Diaz III, M.D. CLIA#: [id number] TSHRon 10-25-2024 TSH Qn 1.78 m[IU]/L Normal 0.36-3.74 [facility] Comment on above: Performed By: #### F ERR, TSHR, FE, VIDH, IBC, [id number], [id number], ANAIFS #### [place] [address] #### B12 #### [place] [address] VIDHon 10-25-2024 Vit. D 25-Hydroxy 71.2 ng/mL Normal [facility] Comment on above: Result Comment: Inte rpretive Values Based on Total 25(OH) Vitamin D: Deficient <20 ng/mL Insufficient 20 - <30 ng/mL Sufficient 30-100 ng/mL Performed By: #### F ERR, TSHR, FE, VIDH, IBC, [id number], [id number], ANAIFS #### [place] [address] #### B12 #### [place] [address] Anion gap in Serum or Plasma Ordered By: Glenys Morales on 10-23-2024 Anion gap [Moles/Vol] 13 mmol/L - [facility] BUN/creatinine ratioOrdered By: Glenys Morales on 10-23-2024 Urea nitrogen/Creatinine [Mass ratio] 21.9 mg/mg High - [facility] Bilirubin, totalOrdered By: Glenys Morales on 10-23-2024 Bilirubin [Mass/Vol] 0.30 mg/dL 0.00-1.30 [facility] CBC-Complete Blood Cnt No Di ffon 10-23-2024 Erythrocyte distribution width (RBC) [Ratio] 13.3 % Normal 11.6-14.6 [facility] Comment on above: Performed By: #### L 101.9900, L501.6710, L500.4050, L100.0500 ####[facility] [address] [place], [address] Hematocrit (Bld) [Volume fraction] 39.6 % Normal 37-47 [facility] Comment on above: Performed By: #### L 101.9900, L501.6710, L500.4050, L100.0500 ####[facility] [address] [place], [address] Hemoglobin (Bld) [Mass/Vol] 12.7 g/dL Normal 12.0-15.0 [facility] Comment on above: Performed By: #### L 101.9900, L501.6710, L500.4050, L100.0500 ####[facility] [address] [place], [address] MCH (RBC) [Entitic mass] 31.0 pg Normal 27.0-32.0 [facility] Comment on above: Performed By: #### L 101.9900, L501.6710, L500.4050, L100.0500 ####[facility] [address] [place], [address] MCHC (RBC) [Mass/Vol] 32.1 g/dL Normal 32-36 [facility] Comment on above: Performed By: #### L 101.9900, L501.6710, L500.4050, L100.0500 ####[facility] [address] [place], [address] MCV (RBC) [Entitic vol] 96.6 fL Normal 81-99 [facility] Comment on above: Performed By: #### L 101.9900, L501.6710, L500.4050, L100.0500 ####[facility] [address] [place], [address] Platelet mean volume (Bld) [Entitic vol] 9.2 fL Normal 6.2-12.0 [facility] Comment on above: Performed By: #### L 101.9900, L501.6710, L500.4050, L100.0500 ####[facility] [address] [place], [address] Platelets (Bld) [#/Vol] 278 10*3/uL Normal 150-450 [facility] Comment on above: Performed By: #### L 101.9900, L501.6710, L500.4050, L100.0500 ####[facility] [address] [place], [address] RBC (Bld) [#/Vol] 4.10 10*6/uL Low 4.2-5.4 [facility] Comment on above: Performed By: #### L 101.9900, L501.6710, L500.4050, L100.0500 ####[facility] [address] [place], [address] RDW SD 47.8 fl High 35.1-43.9 [facility] Comment on above: Performed By: #### L 101.9900, L501.6710, L500.4050, L100.0500 ####[facility] [address] [place], [address] WBC (Bld) [#/Vol] 6.5 10*3/uL Normal 4.4-11.0 [facility] Comment on above: Performed By: #### L 101.9900, L501.6710, L500.4050, L100.0500 ####[facility] [address] [place], [address] CRPon 10-23-2024 C-REACTIVE PROT 42.20 mg/L High 0.0-3.0 [facility] Comment on above: Performed By: #### L 101.9900, L501.6710, L500.4050, L100.0500 ####[facility] [address] [place], [address] Carbon dioxide, total [Moles /volume] in Central venous bloodOrdered By: Glenys Morales on 10-23-2024 CO2 [Moles/Vol] 23.8 mmol/L 21.0-32.0 [facility] Chloride assayOrdered By: Raven Morales on 10-23-2024 Chloride [Moles/Vol] 102 mmol/L 98-108 [facility] Comprehensive Metabolic Prof ilon 10-23-2024 Albumin [Mass/Vol] 3.9 g/dL Normal 3.4-4.8 [facility] Comment on above: Performed By: #### L 101.9900, L501.6710, L500.4050, L100.0500 ####[facility] [address] [place], [address] Albumin/Globulin [Mass ratio] 1.2 {ratio} Normal 0.9-2.4 [facility] Comment on above: Performed By: #### L 101.9900, L501.6710, L500.4050, L100.0500 ####[facility] [address] [place], [address] ALK PHOS 70 U/L Normal 35-104 [facility] Comment on above: Performed By: #### L 101.9900, L501.6710, L500.4050, L100.0500 ####[facility] [address] [place], [address] ALT [Catalytic activity/Vol] 16 U/L Normal <=34 [facility] Comment on above: Performed By: #### L 101.9900, L501.6710, L500.4050, L100.0500 ####[facility] [address] [place], [address] AST [Catalytic activity/Vol] 18 U/L Normal <=31 [facility] Comment on above: Performed By: #### L 101.9900, L501.6710, L500.4050, L100.0500 ####[facility] [address] [place], [address] Bilirubin [Mass/Vol] 0.30 mg/dL Normal 0.00-1.30 [facility] Comment on above: Performed By: #### L 101.9900, L501.6710, L500.4050, L100.0500 ####[facility] [address] [place], [address] BUN/CRE 21.9 RATIO High 10-20 [facility] Comment on above: Performed By: #### L 101.9900, L501.6710, L500.4050, L100.0500 ####[facility] [address] [place], [address] Calcium [Mass/Vol] 9.5 mg/dL Normal 7.6-11.0 [facility] Comment on above: Performed By: #### L 101.9900, L501.6710, L500.4050, L100.0500 ####[facility] [address] [place], [address] Chloride [Moles/Vol] 102 mmol/L Normal 98-108 [facility] Comment on above: Performed By: #### L 101.9900, L501.6710, L500.4050, L100.0500 ####[facility] [address] [place], [address] CO2 [Moles/Vol] 23.8 mmol/L Normal 21.0-32.0 [facility] Comment on above: Performed By: #### L 101.9900, L501.6710, L500.4050, L100.0500 ####[facility] [address] [place], [address] Creatinine [Mass/Vol] 0.84 mg/dL Normal 0.70-1.20 [facility] Comment on above: Performed By: #### L 101.9900, L501.6710, L500.4050, L100.0500 ####[facility] [address] [place], [address] GAP 13 Normal 5-15 [facility] Comment on above: Performed By: #### L 101.9900, L501.6710, L500.4050, L100.0500 ####[facility] [address] [place], [address] GFR/1.73 sq M.predicted among non-blacks MDRD (S/P/Bld) [Vol rate/Area] 72 mL/min/{1.73_m2} Normal >60 [facility] Comment on above: Result Comment: mL/m in/1.73m2 CKD-EPI Creatinine Equation (2020) Performed By: #### L 101.9900, L501.6710, L500.4050, L100.0500 ####[facility] [address] [place], [address] Globulin (S) [Mass/Vol] 3.3 g/dL Normal 2.2-4.2 [facility] Comment on above: Performed By: #### L 101.9900, L501.6710, L500.4050, L100.0500 ####[facility] [address] [place], [address] Glucose [Mass/Vol] 115 mg/dL High 70-99 [facility] Comment on above: Performed By: #### L 101.9900, L501.6710, L500.4050, L100.0500 ####[facility] [address] [place], [address] Potassium [Moles/Vol] 4.3 mmol/L Normal 3.3-5.1 [facility] Comment on above: Performed By: #### L 101.9900, L501.6710, L500.4050, L100.0500 ####[facility] [address] [place], [address] Sodium [Moles/Vol] 139 mmol/L Normal 133-145 [facility] Comment on above: Performed By: #### L 101.9900, L501.6710, L500.4050, L100.0500 ####[facility] [address] [place], [address] T PROT 7.2 g/dL Normal 5.9-8.4 [facility] Comment on above: Performed By: #### L 101.9900, L501.6710, L500.4050, L100.0500 ####[facility] [address] [place], [address] Urea nitrogen [Mass/Vol] 18 mg/dL Normal 4-19 [facility] Comment on above: Performed By: #### L 101.9900, L501.6710, L500.4050, L100.0500 ####[facility] [address] [place], [address] Erythrocyte Sed Rateon 10-23 SED RATE 20 mm/hr Normal 0-30 [facility] Comment on above: Performed By: #### L 101.9900, L501.6710, L500.4050, L100.0500 ####[facility] [address] [place], [address] Erythrocyte distribution wid th ratioOrdered By: Glenys Morales on 10-23-2024 Erythrocyte distribution width (RBC) [Ratio] 13.3 % 11.6-14.6 [facility] Erythrocyte distribution wid th standard deviationOrdered By: Glenys Morales on 10-23-2024 Erythrocyte distribution width (RBC) [Ratio] 47.8 fl High 35.1-43.9 [facility] Erythrocyte sedimentation ra teOrdered By: Glenys Morales on 10-23-2024 ESR (Bld) [Velocity] 20 mm/h 0-30 [facility] Glomerular filtration rate ( GFR) estimation/1.73 sq m using serum, plasma, or whole bOrdered By: Glenys Morales on 10-23-2024 GFR/1.73 sq M.predicted among non-blacks MDRD (S/P/Bld) [Vol rate/Area] 72 mL/min/{1.73_m2} >60 [facility] Comment on above: mL/min/1.73m2 CKD-EP I Creatinine Equation (2020) Hematocrit Auto (Bld) [Volum e fraction]Ordered By: Glenys Morales on 10-23-2024 Hematocrit (Bld) [Volume fraction] 39.6 % 37-47 [facility] Hemoglobin measurementOrdere d By: Glenys Morales on 10-23-2024 Hemoglobin (Bld) [Mass/Vol] 12.7 g/dL 12.0-15.0 [facility] Laboratory - Chemistry and C hemistry - challengeOrdered By: Glenys Morales on 10-23-2024 AST [Catalytic activity/Vol] 18 U/L <32 [facility] MCV (mean corpuscular volume ) determinationOrdered By: Glenys Morales on 10-23-2024 MCV (RBC) [Entitic vol] 96.6 fL 81-99 [facility] Mean corpuscular hemoglobin (MCH) determinationOrdered By: Glenys Morales on 10-23-2024 MCH (RBC) [Entitic mass] 31.0 pg 27.0-32.0 [facility] Mean corpuscular hemoglobin concentration (MCHC) determinationOrdered By: Glenys Morales on 10-23-2024 MCHC (RBC) [Mass/Vol] 32.1 g/dL 32-36 [facility] Mean platelet volume determi nationOrdered By: Glenys Morales on 10-23-2024 Platelet mean volume (Bld) [Entitic vol] 9.2 fL 6.2-12.0 [facility] Platelet countOrdered By: Raven Morales on 10-23-2024 Platelets (Bld) [#/Vol] 278 10*3/uL 150-450 [facility] Potassium measurement (mass/ volume)Ordered By: Glenys Morales on 10-23-2024 Potassium (Unsp spec) [Mass/Vol] 4.3 mmol/L 3.3-5.1 [facility] RBC Auto (Bld) [#/Vol]Ordere d By: Glenys Morales on 10-23-2024 RBC (Bld) [#/Vol] 4.10 10*6/uL Low 4.2-5.4 [facility] Serum creatinine measurement (mass/volume)Ordered By: Glenys Morales on 10-23-2024 Creatinine [Mass/Vol] 0.84 mg/dL 0.70-1.20 [facility] Serum globulin measurementOr dered By: Glenys Morales on 10-23-2024 Globulin (S) [Mass/Vol] 3.3 g/dL 2.2-4.2 [facility] Serum glucose measurement (m ass/volume)Ordered By: Glenys Morales on 10-23-2024 Glucose [Mass/Vol] 115 mg/dL High 70-99 [facility] Serum or plasma C reactive p rotein measurement (mass/volume)Ordered By: Glenys Morales on 10-23-2024 CRP [Mass/Vol] 42.20 mg/L High 0.0-3.0 [facility] Serum or plasma alanine herman otransferase (ALT) measurementOrdered By: Glenys Morales on 10-23-2024 ALT [Catalytic activity/Vol] 16 U/L <35 [facility] Serum or plasma albumin kyree urement (mass/volume)Ordered By: Glenys Morales on 10-23-2024 Albumin [Mass/Vol] 3.9 g/dL 3.4-4.8 [facility] Serum or plasma albumin/glob ulin mass ratioOrdered By: Glenys Morales on 10-23-2024 Albumin/Globulin [Mass ratio] 1.2 {ratio} 0.9-2.4 [facility] Serum or plasma alkaline munira sphatase measurementOrdered By: Glenys Morales on 10-23-2024 ALP [Catalytic activity/Vol] 70 U/L 35-104 [facility] Serum or plasma calcium kyree urement (mass/volume)Ordered By: Glenys Morales on 10-23-2024 Calcium [Mass/Vol] 9.5 mg/dL 7.6-11.0 [facility] Serum or plasma urea nitroge n measurement (mass/volume)Ordered By: Glenys Morales on 10-23-2024 Urea nitrogen [Mass/Vol] 18 mg/dL 4-19 [facility] Sodium levelOrdered By: Glenys Morales on 10-23-2024 Sodium [Moles/Vol] 139 mmol/L 133-145 [facility] Total proteinOrdered By: Elizabeth Morales on 10-23-2024 Protein [Mass/Vol] 7.2 g/dL 5.9-8.4 [facility] White blood cell (WBC) count Ordered By: Glenys Morales on 10-23-2024 WBC (Bld) [#/Vol] 6.5 10*3/uL 4.4-11.0 [facility] CVFLURVon 10-18-2024 FLU A PCR Negative Normal Negative [facility] Comment on above: Performed By: #### F ERR, TSHR, FE, VIDH, IBC, [id number], [id number], ANAIFS #### [address] [address] #### B12 #### [address] [address] FLU B PCR Negative Normal Negative [facility] Comment on above: Performed By: #### F ERR, TSHR, FE, VIDH, IBC, [id number], [id number], ANAIFS #### [address] [address] #### B12 #### [address] [address] RSV PCR Negative Normal Negative [facility] Comment on above: Performed By: #### F ERR, TSHR, FE, VIDH, IBC, [id number], [id number], ANAIFS #### [address] [address] #### B12 #### [address] [address] SARS-CoV-2 (COVID-19) RNA ELIZABETH+probe Ql (Unsp spec) Negative Normal Negative [facility] Comment on above: Result Comment: Resu lts from the Xpert Xpress CoV-2/Flu/RSV plus test should be correlated with the clinical history, epidemiological data, and other data available to the clinical evaluating the patient. Performance of the Xpert Xpress CoV-2/Flu/RSV plus test has only been established in nasopharyngeal swab specimen. Erroneous test results might occur from improper specimen collection, failure to follow the recommended sample collection, handling and storage procedures, technical error, or sample mix-up. False negative results may occur if a virus is present at a level below the analytical limit of detection. Viral nucleic acid may persist in vivo, independent of virus viability. Detection of analyte target(s) does not imply that the corresponding virus(es) are infectious or are the causative agents for clinical symptoms. Recent patient exposure to FluMist or other live attenuated influenza vaccines may cause inaccurate positive results. Performed By: #### F ERR, TSHR, FE, VIDH, IBC, [id number], [id number], ANAIFS #### [address] [address] #### B12 #### [address] [address] LABORATORYOrdered By: Mark srivastava on 10-18-2024 FLUAV RNA ELIZABETH+probe Ql (Resp) Negative (10/18/24 2:13 PM) Normal AO Auto Urine SS FLUBV RNA ELIZABETH+probe Ql (Resp) Negative (10/18/24 2:13 PM) Normal AO Auto Urine SS RSV RNA ELIZABETH+probe Ql (Resp) Negative (10/18/24 2:13 PM) Normal AO Auto Urine SS SARS-CoV-2 (COVID-19) RNA ELIZABETH+probe Ql (Resp) Negative 1 (10/18/24 2:13 PM) Normal AO Auto Urine SS Comment on above: Interpretive Data: R esults from the Xpert Xpress CoV-2/Flu/RSV plus test should be correlated with the clinical history, epidemiological data, and other data available to the clinical evaluating the patient. Performance of the Xpert Xpress CoV-2/Flu/RSV plus test has only been established in nasopharyngeal swab specimen. Erroneous test results might occur from improper specimen collection, failure to follow the recommended sample collection, handling and storage procedures, technical error, or sample mix-up. False negative results may occur if a virus is present at a level below the analytical limit of detection. Viral nucleic acid may persist in vivo, independent of virus viability. Detection of analyte target(s) does not imply that the corresponding virus(es) are infectious or are the causative agents for clinical symptoms. Recent patient exposure to FluMist or other live attenuated influenza vaccines may cause inaccurate positive results. Urgent Care Visit Reporton 0 09-18-2024 Urgent Care Visit Report [facility] [address], [address] [place] [address] OFFICE VISIT Date of Service: 09/18/24 MR#: [id number] Acct: [id number] Name: SARAH CHENG Rep #: [id number] : 1945 Provider: MENG Arreguin Age/Sex: 79/F Location: [facility] Status: Signed Intake Vital Signs 08/13/24 14:12 09/18/24 14:45 Height 5 ft 6 in Weight: 174 lb BMI 28.0 BP 137/80 H 122/72 H Blood Pressure Location Lt brachial Position Sitting Sitting Respiration 16 18 Pulse 77 67 Pulse Source Monitor Temp 97.7 F L Temp Source Oral Pulse Oximetry (%) 95 Oxygen Delivery Method room air Intake Visit Reasons: BEE STING R HAND Chief Complaint: Bee sting Rt hand Accompanied by: Allergies adhesive tape Allergy (Verified 08/13/24 14:18) skin tear ciprofloxacin (From Cipro) Allergy (Verified 08/13/24 14:18) Nausea lisinopril Allergy (Verified 08/13/24 14:18) Other metoprolol Allergy (Verified 08/13/24 14:18) Rash tetracycline (Tetracycline) Allergy (Verified 08/13/24 14:18) Other Have you fallen in the past year?: No Nurse's Note: Patient got stung by a bee on her Right hand yesterday. Patient states it bothered her a little yesterday but today it is itchy and swollen. [facility] Medical History Slow transit constipation Abnormal weight loss Early satiety Nausea Essential hypertension Vitamin D deficiency Digital mucous cyst Acute gastritis without mention of hemorrhage Right elbow pain Generalized osteoarthritis Pain in thoracic spine External hemorrhoids without complication Internal hemorrhoids without complication Sebaceous cyst Lumbago Ulcerative proctitis Contact with or exposure to other viral diseases Acute pharyngitis, unspecified Wears dentures Wears partial dentures Wears glasses Thyroid disease Ambulates with cane Arthritis Bladder disease Fatty liver High cholesterol Gastric reflux History of irregular heartbeat Cardiology follow-up encounter Heart failure Gastroparesis PVC (premature ventricular contraction) Constipation Hypertension Tachycardia Urinary tract infection Urinary tract infection with hematuria Surgical History History of thyroidectomy History of knee replacement Social History Smoking Status: Never smoker HPI HPI Chief Complaint: Bee sting Rt hand Details: SARAH CHENG, is a 79 F who presents to the office today for bee sting to right palmar hand yesterday morning while attending her orozco in her garden at home with localized erythema, pruritus, swelling appreciated to the same. No complaints of constricted/pruritic airway or chest pain/shortness of breath/dyspnea on exertion. No [id number] topical or oral medications taken to assist. No other associated symptoms and no alleviating/aggravating factors. ROS Const Constitutional: No other (As above) Exam Const General: cooperative, healthy appearing and no acute distress Orientation: alert and awake [facility] Head: normal to inspection Ears: hearing grossly normal bilaterally, external ears normal, TM's normal bilaterally and EAC's normal Nose: external nose normal, nares normal, septum normal and no nasal discharge Face and sinus: normal facial exam, sinuses nontender and face symmetric Mouth: oral mucosae normal, lip normal, tongue normal, oropharynx normal and moist mucous membranes Throat: posterior oropharynx normal, uvula midline and no postnasal drainage Eyes General: appearance normal, both eyes and all related structures Neck Neck: normal visual inspection, no lymphadenopathy and no meningeal signs Chest Chest palpation inspection: normal inspection of the chest Resp Effort Inspection: normal respiratory effort and able to speak in complete sentences Auscultation: Bilateral: Clear to Auscultation Cardio Palpation: normal PMI Rate: regular rate Rhythm: regular rhythm Heart Sounds: S1 normal and S2 normal Pulses: radial pulses present Skin General: no rashes or lesions noted (Except right palmar hand erythema, edema and tenderness to touch same) Neuro General: patient alert and patient awake Cognition: normal cognition Speech: speech normal Psych Appearance: grossly normal Mental Status: mental status grossly normal Mood: congruent mood Affect: normal affect Speech and Movement: speech and movement normal Attitude: cooperative Coding Level of Care Code Off vis,est,level 3 Diagnoses Bee sting reaction T63.441A Assessment and Plan Assessment and Plan (1) Bee sting reaction: Status: Acute Plan: - right palmar hand Prednisone as prescribed today. (more content not included)... Normal [facility] Cardiology Visit Reporton Cardiology Visit Report [facility] [address] [place] [address] OFFICE VISIT Date of Service: 08/13/24 MR#: [id number] Acct: [id number] Name: SARAH CHENG Rep #: [id number] : 1945 Provider: Dr. Bertin Forman MD Age/Sex: 79/F [place] [facility] Status: Signed HPI HPI History of Present Illness Details: Pleasant 79-year-old lady with no previous cardiac history other than history of tachycardia and a family history of coronary disease. It appears that she had undergone an echocardiogram which had demonstrated preserved ejection fraction of 65% moderate 2+ mitral regurgitation mild 1-2+ tricuspid vegetation which was similar to her previous echocardiogram from 3 years ago. She had also undergone a stress test which demonstrated a small reversible perfusion defect in the apex less than 5% of the myocardium at jeopardy. After her visit she underwent a CT angiogram without a calcium score which demonstrated moderate calcification in the left anterior descending artery, the left main coronary artery and the circumflex artery. No high-grade stenosis was noted in any of these vessels there is diffuse calcification within the proximal right coronary artery. She denies any chest pain or shortness of breath or paroxysmal nocturnal dyspnea or pedal edema no neck arm or jaw discomfort suggest angina. Her physical exam today is unremarkable other than a soft systolic murmur noted at the apex. 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: No Accompanied by: Significant Other Is patient in pain?: No Allergies adhesive tape Allergy (Verified 08/13/24 14:18) skin tear ciprofloxacin (From Cipro) Allergy (Verified 08/13/24 14:18) Nausea lisinopril Allergy (Verified 08/13/24 14:18) Other metoprolol Allergy (Verified 08/13/24 14:18) Rash tetracycline (Tetracycline) Allergy (Verified 08/13/24 14:18) Other Medications ???Medication ???Instructions ???Recorded ???Confirmed ???Type acetaminophen 500 mg tablet 1,000 mg PO TID 08/16/13 08/13/24 History diclofenac sodium 1 % topical gel 100 g TP PRN PRN BACK PAIN 08/13/24 History (Voltaren) gabapentin 600 mg tablet 600 mg PO 4X/DAY 06/14/23 08/13/24 History losartan 25 mg tablet 25 mg PO DAILY 06/14/23 08/13/24 H istory ascorbic acid (vitamin C) 1,000 mg 1 g PO DAILY 01/12/24 08/13/24 H istory tablet (C-1000) calcium carb-ergocalciferol (vit 1 tab PO DAILY 01/12/24 08/13/24 H istory D2) 600 mg calcium-200 unit tablet lactobacillus combo no.11 15 1 cap PO DAILY 01/12/24 08/13/24 H istory billion cell sprinkle capsule (Probiotic) omeprazole 40 mg capsule,delayed 40 mg PO BID 90 days #180 caps 01/0608/13/24 Rx release buspirone 15 mg tablet 15 mg PO TID #270 tabs 08/08/24 Rx diltiazem HCl 120 mg 120 mg PO DAILY #90 caps 08/13/24 08/13/24 Rx capsule,extended release 24 hr (Cartia XT) pravastatin 40 mg tablet 40 mg PO DAILY #90 tabs 08/13/24 0 08/13/24 Rx tramadol 50 mg tablet 50 mg PO Q6-8H 08/13/24 08/13/24 H istory Have you fallen in the past year?: No [facility] Medical History Slow transit constipation Abnormal weight loss Early satiety Nausea Essential hypertension Vitamin D deficiency Digital mucous cyst Acute gastritis without mention of hemorrhage Right elbow pain Generalized osteoarthritis Pain in thoracic spine External hemorrhoids without complication Internal hemorrhoids without complication Sebaceous cyst Lumbago Ulcerative proctitis Contact with or exposure to other viral diseases Acute pharyngitis, unspecified Wears dentures Wears partial dentures Wears glasses Thyroid disease Ambulates with cane Arthritis Bladder disease Fatty liver High cholesterol Gastric reflux History of irregular heartbeat Cardiology follow-up encounter Heart failure Gastroparesis PVC (premature ventricular contraction) Constipation Hypertension Tachycardia Urinary tract infection Urinary tract infection with hematuria Surgical History History of thyroidectomy History of knee replacement Social History Smoking Status: Never smoker ROS Const Const: Positive for difficulty sleeping; Negative for fatigue, weakness, headache(s) or daytime sleepiness ENT ENT: Negative for headache(s), dizziness or Nosebleed/epistaxis Cardio Chest (more content not included)... Normal [facility] Coronary Angiography CTon Coronary Angiography CT [facility] [address] [place] [address] 07/29/242034 MR#: [id number] Acct: [id number] Name: SARAH CHENG Rep #: [id number] : 1945 79 From: Bertin Forman MD PCP: Dr. Elena Jenkins, DO Status:DEP CLI Y Location: CT CCTA w/Cont Coronary Arteries Date of Study:: 07/19/24 Coronary artery disease Coronary Calcium Scoring: High-resolution Computed Tomographic imaging of the chest was performed on [07/19/2024], with particular attention paid to the coronary arteries. Intravenous contrast agent was administered per protocol and images reconstructed and displayed. LEFT MAIN CORONARY ARTERY: Arises from the left coronary cusp with moderate calcification and it bifurcates the left anterior descending artery left circumflex artery. No high-grade stenosis is noted [] LEFT ANTERIOR DESCENDING CORONARY ARTERY: The left anterior descending artery has diffuse calcification noted proximally and in the midsegment. No high-grade stenosis is present. Moderate diffuse disease is present. [] LEFT CIRCUMFLEX CORONARY ARTERY: This comes of the left main coronary artery and is noted to have diffuse proximal calcification and no obvious high-grade stenosis noted. [] RIGHT CORONARY ARTERY: Dominant vessel of the right coronary cusp with diffuse proximal and mid calcification. No high-grade stenosis is present. [] THORACIC AORTA: Mild calcification [] PULMONARY ARTERY: [] LEFT ATRIUM/APPENDAGE: [] MITRAL VALVE: [] AORTIC VALVE: [] LEFT VENTRICLE: [] CORONARY CALCIUM SCORE: Not performed [] Calcium Scoring Interpretation: Different methods to categorize the overall amount of coronary plaque. Overall amount CAC SIS Visual of coronary plaque P1 Mild -100 <2 1-2 vessels with mild amount of plaque P2 Moderate 101-300 3-4 1-2 vessels with moderate amount, 3 vessels with mild amount of plaque P3 Severe 301-999 5-7 3 vessels with moderate amount, 1 vessel with severe amount of plaque P4 Extensive >1000 >8 2-3 vessels with severe amount of plaque Calcium Score: Severe: 3 vessels w/moderate amount, 1 vessel w/severe amt of plaque Conclusion: Moderate amount of diffuse plaque disease noted with no high-grade stenosis present 07/29/242035 Date Bertin Martin Signature (if applicable): Date CC: Dr. Bertin Forman MD; Dr. Elena Jenkins DO; MENG Al Signed Normal [facility] Limited Chest CT Cardiac Onl yon 07-19-[address] Cardiac Only [facility] Services [address] [place] [address] Cardiac Only MR#: [id number] Acct: [id number] Name: SARAH CHENG Rep #: [id number] : 1945 F 79 From: Erwin Khoury PCP: Dr. Elena Jenkins DO Status: REG CLI Study: Limited Chest CT Cardiac Only Date of Exam: Exam# [id number] Ordering Dr: Jeanna Valerio PROCEDURE: LIMITED CHEST CT CARDIAC ONLY REASON FOR EXAM: ABNORMAL STRESS TECHNIQUE: CT for coronary artery calcium scoring. One or more dose reduction techniques were used (e.g., Automated exposure control, adjustment of the mA and/or kV according to patient size, use of iterative reconstruction technique). COMPARISON: Chest x-ray of 06/14/[address] examination 09/12/2019 CT/Limited Chest CT Cardiac Only IMPRESSION: Right hepatic cyst again seen. Limited imaging of the lungs demonstrates no acute process. No pleural effusion or pneumothorax is seen in visualized areas. No adenopathy is noted. The visualized upper abdomen demonstrates no acute abnormality. Reading Location: [address] CC: Dr. Elena Jenkins DO; MENG Al Continuous Dryout Operator: Signed Normal [facility] Echocardiogram study reportO rdered By: Geovanni Ordonez on 06-03-2024 Study report [facility] [address] [place] [address] Echo Complete 05/31/24 0919 MR#: [id number] Acct: [id number] Name: SARAH CHENG Rep #:[id number] : 1945 79 From: Geovanni Ordonez MD Attending Dr: Dr. Geovanni Ordonez MD Status: REG CLI Ordering Dr: Geovanni Ordonez MD Date: Location: [facility] Sex: F C Admitted: Reason For Study Reason For Study: AFIB Procedure This was a 2D Doppler, Color Flow transthoracic echocardiogram. Exam performed in department. Left Ventricle Normal LV size. Mild concentric left ventricular hypertrophy. The left ventricular ejection fraction is 65 %. Stage 1 diastolic dysfunction. Right Ventricle Normal right ventricle. Atria The left and right atria are normal. Mitral Valve Moderate (2+) mitral valve insufficiency. Tricuspid Valve Mild to moderate (1-2+) tricuspid valve insufficiency. Right ventricular systolic pressure estimated to be 37 mmHg. Aortic Valve Trisinus/trileaflet aortic valve. Trivial aortic valve insufficiency. Pulmonic Valve The pulmonic valve is not well visualized. Great Vessels Normal sized aortic root. Pericardium/Pleural No pericardial effusion. MMode/2D Measurements & Calculations LVIDd: 4.0 cm IVSd: 1.0 cm LVOT diam: 2.0 cm LVIDs: 2.8 cm LVPWd: 1.3 cm LVOT area: 3.3 cm2 RVDd: 3.7 cm FS: 30.0 % Ao root diam: 3.7 cm LAV(MOD-bp): 67.3 ml LVAd ap4: 23.8 cm2 LAV(MOD-bp) Indexed: 36.0 ml/m2 LVLd ap4: 7.7 cm LAV(MOD-sp2): 43.6 ml EDV(MOD-sp4): 59.4 ml LAV(MOD-sp4): 70.9 ml EDV(sp4-el): 62.3 ml LVAs ap4: 12.7 cm2 LVLs ap4: 5.9 cm ESV(MOD-sp4): 24.2 ml ESV(sp4-el): 23.3 ml EF(MOD-sp4): 59.3 % EF(sp4-el): 62.7 % SV(MOD-sp4): 35.3 ml SV(sp4-el): 39.0 ml LA A4 area: 23.8 cm2 SI(MOD-sp4): 18.9 ml/m2 LA dimension(2D): 3.6 cm RA A4 area: 16.4 cm2 Time Measurements MV dec time: 0.11 sec Doppler Measurements & Calculations MV E max eula: 87.6 cm/sec Lat Peak E' Eula: 13.4 cm/sec Med Peak E' Eula: 8.4 cm/sec MV A max eula: 140.4 cm/sec E/E' lat: 6.5 E/E' med: 10.4 MV E/A: 0.62 MV V2 max: 126.8 cm/sec Ao V2 max: 161.6 cm/sec MV max P.4 mmHg MV dec slope: 821.4 cm/sec2 Ao max P.5 mmHg MV V2 mean: 90.5 cm/sec Ao V2 mean: 111.1 cm/sec MV mean P.7 mmHg Ao mean P.7 mmHg MV V2 VTI: 24.8 cm Ao V2 VTI: 41.2 cm AV (velocity ratio): 0.86 MVA(VTI): 4.7 cm2 MISAEL(I,D): 2.8 cm2 MISAEL(V,D): 2.8 cm2 AI max eula: 354.8 cm/sec LV V1 max: 140.1 cm/sec SV(LVOT): 116.9 ml AI max P.3 mmHg LV V1 max P.9 mmHg LV V1 mean P.4 mmHg AI dec slope: 146.8 cm/sec2 LV V1 mean: 97.6 cm/sec AI P1/2t: 707.7 msec LV V1 VTI: 35.6 cm PA V2 max: 89.3 cm/sec TR max eula: 283.8 cm/sec PA V2 mean: 56.7 cm/sec TR max P.2 mmHg ECHO/Echo Complete Interpretation Summary Mild concentric left ventricular hypertrophy. The left ventricular ejection fraction is 65 %. Stage 1 diastolic dysfunction. Moderate (2+) mitral valve insufficiency. Mild to moderate (1-2+) tricuspid valve insufficiency. Right ventricular systolic pressure estimated to be 37 mmHg. ___ Ordering Physician: Geovanni Ordonez Referring Physician: Geovanni Ordonez Performed By: Ashely Schwab RCS 06/03/24905 Date _ Geovanni Ordonez MD CC: Dr. Geovanni Ordonez MD; Dr. Elena Jenkins DO ~ Date Dictated: 05/31/24918 Date Transcribed: 06/03/24905 Continuous Dryout Operator: Signed [facility] Work Phone: Stress Reporton 06-03-2024 Stress Report [facility] Cardiovascular Services [address] [place] [address] MR#: [id number] Acct: [id number] Name: SARAH CHENG Rep #: [id number] : 1945 79 From: Geovanin Ordonez MD Primary Care: Dr. Elena Jenkins DO Status: PRE CLI Referring Dr: Geovanni Ordonez MD Sex: F C Stress Test Report Date: Dyspnea Procedure: Pharmacologic stress nuclear imaging study Indications: Dyspnea Consent: Per the patient Procedure: The patient underwent pharmacologic (Regadenoson 0.4mg ) evaluation with a peak heart rate of 91 beats per minute (63%predicted maximal heart rate) and a peak blood pressure of 148/80 mmHg. The baseline ECG demonstrated sinus rhythm. The peak pharmacologic ECG no ischemic changes. Rare PVC noted. There was no complaint of chest discomfort during pharmacologic infusion or recovery. The patient was injected with 13.5 millicuries of technetium 99m Cardiolite and subsequently rest SPECT Cardiolite nuclear imaging was obtained in the horizontal long, vertical long, and short axis views. The patient underwent pharmacologic (Regadenoson) evaluation. The patient was injected with 45.0 millicuries of technetium 99m Cardiolite and subsequently stress SPECT Cardiolite nuclear imaging was obtained in the horizontal long, vertical long, and short axis views. A gated Cardiolite study at peak stress was obtained. The examination was stopped secondary to completion of protocol. Rest and stress SPECT Cardiolite nuclear imaging status post realignment, normalization, and attenuation correction demonstrate a very small reversible perfusion defect of the apex suggestive of minimal apical ischemia. There is end systolic thickening and brightening. The gated Cardiolite study demonstrates myocardial thickening and inward wall motion. The reported LVEF is 78%. Impression: 1. Pharmacologic (Regadenoson) evaluation 2. Peak pharmacologic ECG with no ischemic changes. 3. Rare PVC noted. 5. Small reversible perfusion defect of the apex of mild intensity suggestive of mild apical ischemia. Overall low risk stress test with less than 5% of myocardium at jeopardy. 6. The gated Cardiolite study reports an LVEF of 78%. This note was generated with [employer] software. It may contain incorrect words, spelling, and punctuation that were not noted in checking the note before signing. 06/03/24 1014 Date Geovanni Ordonez MD CC: Dr. Geovanni Ordonez MD; Dr. Elena Jenkins DO Date Dictated: 06/03/24958 Date Transcribed: 06/03/24958 Continuous Dryout Operator: RENNY Signed Normal [facility] Echo Completeon 05-31-2024 Echo Complete [facility] Cardiovascular Services [address] [place] [address] Echo Complete 05/31/24918 MR#: [id number] Acct: [id number] Name: SARAH CHENG Rep #: [id number] : 1945 79 From: Geovanni Ordonez MD Attending Dr: Dr. Geovanni Ordonez MD Status: REG CLI Ordering Dr: Geovanni Ordonez MD Date: 05/31/24 Location: [facility] Sex: F C Admitted: Reason For Study Reason For Study: AFIB Procedure This was a 2D Doppler, Color Flow transthoracic echocardiogram. Exam performed in department. Left Ventricle Normal LV size. Mild concentric left ventricular hypertrophy. The left ventricular ejection fraction is 65 %. Stage 1 diastolic dysfunction. Right Ventricle Normal right ventricle. Atria The left and right atria are normal. Mitral Valve Moderate (2+) mitral valve insufficiency. Tricuspid Valve Mild to moderate (1-2+) tricuspid valve insufficiency. Right ventricular systolic pressure estimated to be 37 mmHg. Aortic Valve Trisinus/trileaflet aortic valve. Trivial aortic valve insufficiency. Pulmonic Valve The pulmonic valve is not well visualized. Great Vessels Normal sized aortic root. Pericardium/Pleural No pericardial effusion. MMode/2D Measurements Calculations LVIDd: 4.0 cm IVSd: 1.0 cm LVOT diam: 2.0 cm LVIDs: 2.8 cm LVPWd: 1.3 cm LVOT area: 3.3 cm2 RVDd: 3.7 cm FS: 30.0 % Ao root diam: 3.7 cm LAV(MOD-bp): 67.3 ml LVAd ap4: 23.8 cm2 LAV(MOD-bp) Indexed: 36.0 ml/m2 LVLd ap4: 7.7 cm LAV(MOD-sp2): 43.6 ml EDV(MOD-sp4): 59.4 ml LAV(MOD-sp4): 70.9 ml EDV(sp4-el): 62.3 ml LVAs ap4: 12.7 cm2 LVLs ap4: 5.9 cm ESV(MOD-sp4): 24.2 ml ESV(sp4-el): 23.3 ml EF(MOD-sp4): 59.3 % EF(sp4-el): 62.7 % SV(MOD-sp4): 35.3 ml SV(sp4-el): 39.0 ml LA A4 area: 23.8 cm2 SI(MOD-sp4): 18.9 ml/m2 LA dimension(2D): 3.6 cm RA A4 area: 16.4 cm2 Time Measurements MV dec time: 0.11 sec Doppler Measurements Calculations MV E max eula: 87.6 cm/sec Lat Peak E' Eula: 13.4 cm/sec Med Peak E' Eula: 8.4 cm/sec MV A max eula: 140.4 cm/sec E/E' lat: 6.5 E/E' med: 10.4 MV E/A: 0.62 MV V2 max: 126.8 cm/sec Ao V2 max: 161.6 cm/sec MV max P.4 mmHg MV dec slope: 821.4 cm/sec2 Ao max P.5 mmHg MV V2 mean: 90.5 cm/sec Ao V2 mean: 111.1 cm/sec MV mean P.7 mmHg Ao mean P.7 mmHg MV V2 VTI: 24.8 cm Ao V2 VTI: 41.2 cm AV (velocity ratio): 0.86 MVA(VTI): 4.7 cm2 MISAEL(I,D): 2.8 cm2 MISAEL(V,D): 2.8 cm2 AI max eula: 354.8 cm/sec LV V1 max: 140.1 cm/sec SV(LVOT): 116.9 ml AI max P.3 mmHg LV V1 max P.9 mmHg LV V1 mean P.4 mmHg AI dec slope: 146.8 cm/sec2 LV V1 mean: 97.6 cm/sec AI P1/2t: 707.7 msec LV V1 VTI: 35.6 cm PA V2 max: 89.3 cm/sec TR max eula: 283.8 cm/sec PA V2 mean: 56.7 cm/sec TR max P.2 mmHg ECHO/Echo Complete Interpretation Summary Mild concentric left ventricular hypertrophy. The left ventricular ejection fraction is 65 %. Stage 1 diastolic dysfunction. Moderate (2+) mitral valve insufficiency. Mild to moderate (1-2+) tricuspid valve insufficiency. Right ventricular systolic pressure estimated to be 37 mmHg. ___ Ordering Physician: Geovanni Ordonez Referring Physician: Geovanni Ordonez Performed By: Ashely Schwab RCS 06/03/24905 Date Geovanni Ordonez MD CC: Dr. Geovanni Ordonez MD; Dr. Elena Jenkins DO Date Dictated: 05/31/24918 Date Transcribed: 06/03/24905 Continuous Dryout Operator: Signed [facility] 12 Lead EKG performed by [facility] on 05-13-2024 12 Lead EKG performed by [address] [address] 12 Lead EKG performed by [facility] 05/13/24 1057 MR#: [id number] Acct: [id number] Name: SARAH CHENG Rep #: [id number] : 1945 79 From: Geovanni Ordonez MD Attending Dr: Dr. Geovanni Ordonez MD Status: DEP AMB Ordering Dr: Geovanni Ordonez MD Date: 05/13/24 [place] [facility] Sex: F C Admitted: [facility]/12 Lead EKG performed by [facility] ECG Report Interpretation -Sinus Rhythm - frequent ectopic ventricular beat s # VECs = 2Electronically signed on 07/10/2024 at 13:[address] Geovanni Hymann[employer]wood Software Version [id number] 07/10/24 1322 Date Geovanni Ordonez MD CC: Dr. Elena Jenkins, DO Date Dictated: 05/13/241056 Date Transcribed: 05/13/241056 Continuous Dryout Operator: AR Signed Normal [facility] Anion gap in Serum or Plasma Ordered By: Geovanni Ordonez on 05-13-2024 Anion gap [Moles/Vol] 13 mmol/L 5- [facility] BUN/creatinine ratioOrdered By: Geovanni Ordonez on 05-13-2024 Urea nitrogen/Creatinine [Mass ratio] 18.9 mg/mg 10- [facility] Bilirubin, totalOrdered By: Geovanni Ordonez on 05-13-2024 Bilirubin [Mass/Vol] 0.19 mg/dL 0.00-1.30 [facility] CBC-Complete Blood Cnt No Di ffon 05-13-2024 Erythrocyte distribution width (RBC) [Ratio] 13.6 % Normal 11.6-14.6 [facility] Comment on above: Performed By: #### L 501.5200, L501.9520, L100.0500, L500.4050 #### [facility] [address] [place], [address] Hematocrit (Bld) [Volume fraction] 41.3 % Normal 37-47 [facility] Comment on above: Performed By: #### L 501.5200, L501.9520, L100.0500, L500.4050 #### [facility] [address] [place], [address] Hemoglobin (Bld) [Mass/Vol] 13.2 g/dL Normal 12.0-15.0 [facility] Comment on above: Performed By: #### L 501.5200, L501.9520, L100.0500, L500.4050 #### [facility] [address] [place], [address] MCH (RBC) [Entitic mass] 30.1 pg Normal 27.0-32.0 [facility] Comment on above: Performed By: #### L 501.5200, L501.9520, L100.0500, L500.4050 #### [facility] [address] [place], [address] MCHC (RBC) [Mass/Vol] 32.0 g/dL Normal 32-36 [facility] Comment on above: Performed By: #### L 501.5200, L501.9520, L100.0500, L500.4050 #### [facility] [address] [place], [address] MCV (RBC) [Entitic vol] 94.1 fL Normal 81-99 [facility] Comment on above: Performed By: #### L 501.5200, L501.9520, L100.0500, L500.4050 #### [facility] [address] [place], [address] Platelet mean volume (Bld) [Entitic vol] 9.1 fL Normal 6.2-12.0 [facility] Comment on above: Performed By: #### L 501.5200, L501.9520, L100.0500, L500.4050 #### [facility] [address] [place], [address] Platelets (Bld) [#/Vol] 275 10*3/uL Normal 150-450 [facility] Comment on above: Performed By: #### L 501.5200, L501.9520, L100.0500, L500.4050 #### [facility] [address] [place], [address] RBC (Bld) [#/Vol] 4.39 10*6/uL Normal 4.2-5.4 [facility] Comment on above: Performed By: #### L 501.5200, L501.9520, L100.0500, L500.4050 #### [facility] [address] [place], [address] RDW SD 47.5 fl High 35.1-43.9 [facility] Comment on above: Performed By: #### L 501.5200, L501.9520, L100.0500, L500.4050 #### [facility] [address] [place], [address] WBC (Bld) [#/Vol] 6.6 10*3/uL Normal 4.4-11.0 [facility] Comment on above: Performed By: #### L 501.5200, L501.9520, L100.0500, L500.4050 #### [facility] [address] [place], [address] Carbon dioxide, total [Moles /volume] in Central venous bloodOrdered By: Geovanni Ordonez on 05-13-2024 CO2 [Moles/Vol] 23.4 mmol/L 21.0-32.0 [facility] Cardiology Visit Reporton Cardiology Visit Report [facility] [address] [place], [place] [address] OFFICE VISIT Date of Service: 05/13/24 MR#: [id number] Acct: [id number] Name: SARAH CHENG Rep #: [id number] : 1945 Provider: Dr. Geovanni Ordonez MD Age/Sex: 79/F Location: [facility] Status: Signed HPI HPI History of Present Illness Details: This lady is here to establish cardiac care with us. According to her, she was under treatment at another cardiology facility for "tachycardia". According to the patient, she feels her heart racing may be once every few weeks. Per her, it lasts briefly. No associated lightheadedness or dizziness. No syncope or presyncope. Patient is bothered more with feeling of extra beats. These occur almost on a daily basis. Denies any chest pains or shortness of breath either at rest or with exertion. No orthopnea. No PND. No ankle edema. Denies excessive caffeine intake. No EtOH abuse. No illicit substance abuse. Intake Vital Signs 01/22/24 12:33 05/13/24 11:03 Height 5 ft 6 in 5 ft 6 in Weight: 170 lb BMI 27.4 BP 120/60 130/75 H Blood Pressure Location Rt brachial Lt brachial Position Sitting Sitting Respiration 12 18 Pulse 75 84 Pulse Source NIBP Monitor Temp 98.2 F Pulse Oximetry (%) 94 97 Oxygen Delivery Method room air room air Intake Visit Reasons: EST CARE IN [place] [employer] Required: No Accompanied by: Is patient in pain?: No Allergies adhesive tape Allergy (Verified 05/13/24 11:03) skin tear ciprofloxacin (From Cipro) Allergy (Verified 05/13/24 11:03) Nausea lisinopril Allergy (Verified 05/13/24 11:03) Other metoprolol Allergy (Verified 05/13/24 11:03) Rash tetracycline (Tetracycline) Allergy (Verified 05/13/24 11:03) Other Medications ???Medication ???Instructions ???Recorded ???Confirmed ???Type acetaminophen 500 mg tablet 1,000 mg PO TID 08/16/13 05/13/24 History diclofenac sodium 1 % topical gel 100 g TP PRN PRN BACK PAIN 05/13/24 History (Voltaren) buspirone 15 mg tablet 15 mg PO TID 06/14/23 05/13/24 His tory diltiazem HCl 120 mg 120 mg PO DAILY 06/14/23 05/13/24 History capsule,extended release 24 hr (Cartia XT) diltiazem HCl 30 mg tablet 30 mg PO TID PRN PRN palpitations 06/14/23 05/13/24 History gabapentin 600 mg tablet 600 mg PO 4X/DAY 06/14/23 05/13/24 History losartan 25 mg tablet 25 mg PO DAILY 06/14/23 05/13/24 H istory pravastatin 20 mg tablet 20 mg PO DAILY 06/14/23 05/13/24 H istory tramadol 50 mg tablet 50 mg PO BID 12/06/23 05/13/24 His tory ascorbic acid (vitamin C) 1,000 mg 1 g PO DAILY 01/12/24 05/13/24 H istory tablet (C-1000) calcium carb-ergocalciferol (vit 1 tab PO DAILY 01/12/24 05/13/24 H istory D2) 600 mg calcium-200 unit tablet lactobacillus combo no.11 15 1 cap PO DAILY 01/12/24 05/13/24 H istory billion cell sprinkle capsule (Probiotic) omeprazole 40 mg capsule,delayed 40 mg PO BID 90 days #180 caps 01/0605/13/24 Rx release Have you fallen in the past year?: No [facility] Medical History (Updated 05/13/24 @ 11:[address] Geovanni Ordonez MD) Slow transit constipation Abnormal weight loss Early satiety Nausea Essential hypertension Vitamin D deficiency Digital mucous cyst Acute gastritis without mention of hemorrhage Right elbow pain Generalized osteoarthritis Pain in thoracic spine External hemorrhoids without complication Internal hemorrhoids without complication Sebaceous cyst Lumbago Ulcerative proctitis Contact with or exposure to other viral diseases Acute pharyngitis, unspecified Wears dentures Wears partial dentures Wears glasses Thyroid disease Ambulates with cane Arthritis Bladder disease Fatty liver High cholesterol Gastric reflux History of irregular heartbeat Cardiology follow-up encounter Heart failure Gastroparesis PVC (premature ventricular contraction) Constipation Hypertension Tachycardia Urinary tract infection Urinary tract infection with hematuria Surgical History History of thyroidectomy History of knee replacement Social History Smoking Status: Never smoker ROS Const Const: Positive for fatigue; Negative for weakness ENT ENT: Negative for dizziness or balance problems Cardio Chest Pain: No Palpitations: Yes Edema: None Muscle aches with walking: None Resp Respiratory: Positive for SOB with activity; Negative for SOB at rest or SOB orthopnea SOB lying down GI GI: Negative nausea, vomiting or heartburn Musc Musc: Negative for muscle weakness or balance problems Neuro Neuro: Negative for dizziness, lightheadedness, near syncope, syncope (more content not included)... Normal [facility] Chloride assayOrdered By: Renny Ordonez on 05-13-2024 Chloride [Moles/Vol] 104 mmol/L 98-108 [facility] Comprehensive Metabolic Prof ilon 05-13-2024 Albumin [Mass/Vol] 4.3 g/dL Normal 3.4-4.8 [facility] Comment on above: Performed By: #### L 501.5200, L501.9520, L100.0500, L500.4050 ####[facility] [address] [place], [address] Albumin/Globulin [Mass ratio] 1.3 {ratio} Normal 0.9-2.4 [facility] Comment on above: Performed By: #### L 501.5200, L501.9520, L100.0500, L500.4050 ####[facility] [address] [place], [address] ALK PHOS 85 U/L Normal 35-104 [facility] Comment on above: Performed By: #### L 501.5200, L501.9520, L100.0500, L500.4050 ####[facility] [address] [place], [address] ALT [Catalytic activity/Vol] 15 U/L Normal <=34 [facility] Comment on above: Performed By: #### L 501.5200, L501.9520, L100.0500, L500.4050 ####[facility] [address] [place], [address] AST [Catalytic activity/Vol] 20 U/L Normal <=31 [facility] Comment on above: Performed By: #### L 501.5200, L501.9520, L100.0500, L500.4050 ####[facility] [address] [place], [address] Bilirubin [Mass/Vol] 0.19 mg/dL Normal 0.00-1.30 [facility] Comment on above: Performed By: #### L 501.5200, L501.9520, L100.0500, L500.4050 ####[facility] [address] [place], [address] BUN/CRE 18.9 RATIO Normal 10-20 [facility] Comment on above: Performed By: #### L 501.5200, L501.9520, L100.0500, L500.4050 ####[facility] [address] [place], [address] Calcium [Mass/Vol] 9.6 mg/dL Normal 7.6-11.0 [facility] Comment on above: Performed By: #### L 501.5200, L501.9520, L100.0500, L500.4050 ####[facility] [address] [place], [address] Chloride [Moles/Vol] 104 mmol/L Normal 98-108 [facility] Comment on above: Performed By: #### L 501.5200, L501.9520, L100.0500, L500.4050 ####[facility] [address] [place], [address] CO2 [Moles/Vol] 23.4 mmol/L Normal 21.0-32.0 [facility] Comment on above: Performed By: #### L 501.5200, L501.9520, L100.0500, L500.4050 ####[facility] [address] [place], [address] Creatinine [Mass/Vol] 0.83 mg/dL Normal 0.70-1.20 [facility] Comment on above: Performed By: #### L 501.5200, L501.9520, L100.0500, L500.4050 ####[facility] [address] [place], [address] GAP 13 Normal 5-15 [facility] Comment on above: Performed By: #### L 501.5200, L501.9520, L100.0500, L500.4050 ####[facility] [address] [place], [address] GFR/1.73 sq M.predicted among non-blacks MDRD (S/P/Bld) [Vol rate/Area] 73 mL/min/{1.73_m2} Normal >60 [facility] Comment on above: Result Comment: mL/m in/1.73m2 CKD-EPI Creatinine Equation (2020) Performed By: #### L 501.5200, L501.9520, L100.0500, L500.4050 ####[facility] [address] [place], [address] Globulin (S) [Mass/Vol] 3.3 g/dL Normal 2.2-4.2 [facility] Comment on above: Performed By: #### L 501.5200, L501.9520, L100.0500, L500.4050 ####[facility] [address] [place], [address] Glucose [Mass/Vol] 103 mg/dL High 70-99 [facility] Comment on above: Performed By: #### L 501.5200, L501.9520, L100.0500, L500.4050 ####[facility] [address] [place], [address] Potassium [Moles/Vol] 4.1 mmol/L Normal 3.3-5.1 [facility] Comment on above: Performed By: #### L 501.5200, L501.9520, L100.0500, L500.4050 ####[facility] [address] [place], [address] Sodium [Moles/Vol] 140 mmol/L Normal 133-145 [facility] Comment on above: Performed By: #### L 501.5200, L501.9520, L100.0500, L500.4050 ####[facility] [address] [place], [address] T PROT 7.6 g/dL Normal 5.9-8.4 [facility] Comment on above: Performed By: #### L 501.5200, L501.9520, L100.0500, L500.4050 ####[facility] [address] [place], [address] Urea nitrogen [Mass/Vol] 16 mg/dL Normal 4-19 [facility] Comment on above: Performed By: #### L 501.5200, L501.9520, L100.0500, L500.4050 ####[facility] [address] [place], [address] Erythrocyte distribution wid th (RBC) [Ratio]Ordered By: Geovanni Ordonez on 05-13-2024 Erythrocyte distribution width (RBC) [Entitic vol] 47.5 fL High 35.1-43.9 [facility] Erythrocyte distribution wid th ratioOrdered By: Geovanni Ordonez on 05-13-2024 Erythrocyte distribution width (RBC) [Ratio] 13.6 % 11.6-14.6 [facility] Erythrocyte distribution wid th standard deviationOrdered By: Geovanni Ordonez on 05-13-2024 Erythrocyte distribution width (RBC) [Ratio] 47.5 fl High 35.1-43.9 [facility] GFR/1.73 sq M.predicted nino g non-blacks MDRD (S/P/Bld) [Vol rate/Area]Ordered By: Geovanni Ordonez on 05-13-2024 Estimated GFR (MDRD) Non-Af Amer 73 >60 [facility] Comment on above: mL/min/1.73m2 CKD-EP I Creatinine Equation (2020) Glomerular filtration rate ( GFR) estimation/1.73 sq m using serum, plasma, or whole bOrdered By: Geovanni Ordonez on 05-13-2024 GFR/1.73 sq M.predicted among non-blacks MDRD (S/P/Bld) [Vol rate/Area] 73 mL/min/{1.73_m2} >60 [facility] Comment on above: mL/min/1.73m2 CKD-EP I Creatinine Equation (2020) Hematocrit Auto (Bld) [Volum e fraction]Ordered By: Geovanni Ordonez on 05-13-2024 Hematocrit (Bld) [Volume fraction] 41.3 % 37-47 [facility] Hemoglobin measurementOrdere d By: Geovanniiraida Ordonez on 05-13-2024 Hemoglobin (Bld) [Mass/Vol] 13.2 g/dL 12.0-15.0 [facility] Laboratory - Chemistry and C hemistry - challengeOrdered By: Geovanni Ordonez on 05-13-2024 AST [Catalytic activity/Vol] 20 U/L <32 [facility] MCV (mean corpuscular volume ) determinationOrdered By: Geovanniiraida Ordonez on 05-13-2024 MCV (RBC) [Entitic vol] 94.1 fL 81-99 [facility] Magnesiumon 05-13-2024 Magnesium [Mass/Vol] 2.4 mg/dL High 1.5-2.2 [facility] Comment on above: Performed By: #### L 501.5200, L501.9520, L100.0500, L500.4050 ####[facility] [address] [place] [place], [address] Magnesium (Unsp spec) [Mass/ Vol]Ordered By: Geovanniiraida Ordonez on 05-13-2024 Magnesium [Mass/Vol] 2.4 mg/dL High 1.5-2.2 [facility] Magnesium measurement (mass/ volume)Ordered By: Geovanni Ordonez on 05-13-2024 Magnesium (Unsp spec) [Mass/Vol] 2.4 mg/dL High 1.5-2.2 [facility] Mean corpuscular hemoglobin (MCH) determinationOrdered By: Geovanniiraida Ordonez on 05-13-2024 MCH (RBC) [Entitic mass] 30.1 pg 27.0-32.0 [facility] Mean corpuscular hemoglobin concentration (MCHC) determinationOrdered By: Geovanniiraida Ordonez on 05-13-2024 MCHC (RBC) [Mass/Vol] 32.0 g/dL 32-36 [facility] Mean platelet volume determi nationOrdered By: Geovanni Ordonez on 05-13-2024 Platelet mean volume (Bld) [Entitic vol] 9.1 fL 6.2-12.0 [facility] Platelet countOrdered By: Renny Ordonez on 05-13-2024 Platelets (Bld) [#/Vol] 275 10*3/uL 150-450 [facility] Potassium (Unsp spec) [Mass/ Vol]Ordered By: Geovanni Ordonez on 05-13-2024 Potassium [Moles/Vol] 4.1 mmol/L 3.3-5.1 [facility] Potassium measurement (mass/ volume)Ordered By: Geovanni Ordonez on 05-13-2024 Potassium (Unsp spec) [Mass/Vol] 4.1 mmol/L 3.3-5.1 [facility] RBC Auto (Bld) [#/Vol]Ordere d By: Geovanni Ordonez on 05-13-2024 RBC (Bld) [#/Vol] 4.39 10*6/uL 4.2-5.4 [facility] Serum creatinine measurement (mass/volume)Ordered By: Geovanni Ordonez on 05-13-2024 Creatinine [Mass/Vol] 0.83 mg/dL 0.70-1.20 [facility] Serum globulin measurementOr dered By: Geovanni Ordonez on 05-13-2024 Globulin (S) [Mass/Vol] 3.3 g/dL 2.2-4.2 [facility] Serum glucose measurement (m ass/volume)Ordered By: Geovanni Ordonez on 05-13-2024 Glucose [Mass/Vol] 103 mg/dL High 70-99 [facility] Serum or plasma alanine herman otransferase (ALT) measurementOrdered By: Geovanni Ordonez on 05-13-2024 ALT [Catalytic activity/Vol] 15 U/L <35 [facility] Serum or plasma albumin kyree urement (mass/volume)Ordered By: Geovanni Ordonez on 05-13-2024 Albumin [Mass/Vol] 4.3 g/dL 3.4-4.8 [facility] Serum or plasma albumin/glob ulin mass ratioOrdered By: Geovanni Ordonez on 05-13-2024 Albumin/Globulin [Mass ratio] 1.3 {ratio} 0.9-2.4 [facility] Serum or plasma alkaline munira sphatase measurementOrdered By: Geovanni Ordonez on 05-13-2024 ALP [Catalytic activity/Vol] 85 U/L 35-104 [facility] Serum or plasma calcium kyree urement (mass/volume)Ordered By: Geovanni Ordonez on 05-13-2024 Calcium [Mass/Vol] 9.6 mg/dL 7.6-11.0 [facility] Serum or plasma urea nitroge n measurement (mass/volume)Ordered By: Geovanni Ordonez on 05-13-2024 Urea nitrogen [Mass/Vol] 16 mg/dL 4-19 [facility] Sodium levelOrdered By: Ryland Ordonez on 05-13-2024 Sodium [Moles/Vol] 140 mmol/L 133-145 [facility] TSH DL <= 0.005 mIU/L QnOrde red By: Geovanni Ordonez on 05-13-2024 Thyroid Stimulating Hormone (TSH) 1.230 uIU/mL 0.300-4.200 [facility] TSH Qn 1.230 uIU/mL 0.300-4.200 [facility] Thyroid Stim Hormone (TSH)on 05-13-2024 TSH 1.230 uIU/mL Normal 0.300-4.200 [facility] Comment on above: Performed By: #### L 501.5200, L501.9520, L100.0500, L500.4050 ####[facility] [id number] [place], [address] Total proteinOrdered By: Mercedes Ordoenz on 05-13-2024 Protein [Mass/Vol] 7.6 g/dL 5.9-8.4 [facility] White blood cell (WBC) count Ordered By: Geovanni Ordonez on 05-13-2024 WBC (Bld) [#/Vol] 6.6 10*3/uL 4.4-11.0 [facility] Gastroenterology Visit Repor ton 03-28-2024 Gastroenterology Visit Report [facility] Gastroenterology [address] [place] [address] OFFICE VISIT Date of Service: 03/28/24 MR#: [id number] Acct: [id number] Name: SARAH CHENG Rep #: [id number] : 1945 Provider: Abelardo Torres DO Age/Sex: 79/F Location: [facility] Status: Signed Intake Vital Signs 01/22/24 12:33 Height 5 ft 6 in BP 120/60 Blood Pressure Location Rt brachial Position Sitting Respiration 12 Pulse 75 Pulse Source NIBP Temp 98.2 F Temp Source Oral Pulse Oximetry (%) 94 Oxygen Delivery Method room air Intake Visit Reasons: 2 M FU Allergies adhesive tape Allergy (Verified 01/22/24 17:30) skin tear ciprofloxacin (From Cipro) Allergy (Verified 01/22/24 17:30) Nausea lisinopril Allergy (Verified 01/22/24 17:30) Other metoprolol Allergy (Verified 01/22/24 17:30) Rash tetracycline (Tetracycline) Allergy (Verified 01/22/24 17:30) Other Medications ???Medication ???Instructions ???Recorded ???Confirmed ???Type acetaminophen 500 mg tablet 1,000 mg PO TID 08/16/13 03/28/24 History diclofenac sodium 1 % topical gel 100 g TP PRN PRN BACK PAIN 03/28/24 History (Voltaren) buspirone 15 mg tablet 15 mg PO TID 06/14/23 03/28/24 His tory diltiazem HCl 120 mg 120 mg PO DAILY 06/14/23 03/28/24 History capsule,extended release 24 hr (Cartia XT) diltiazem HCl 30 mg tablet 30 mg PO TID PRN PRN palpitations 06/14/23 03/28/24 History gabapentin 600 mg tablet 600 mg PO 4X/DAY 06/14/23 03/28/24 History losartan 25 mg tablet 25 mg PO DAILY 06/14/23 03/28/24 H istory pravastatin 20 mg tablet 20 mg PO DAILY 06/14/23 03/28/24 H istory tramadol 50 mg tablet 50 mg PO BID 12/06/23 03/28/24 His tory ascorbic acid (vitamin C) 1,000 mg 1 g PO DAILY 01/12/24 03/28/24 H istory tablet (C-1000) calcium carb-ergocalciferol (vit 1 tab PO DAILY 01/12/24 03/28/24 H istory D2) 600 mg calcium-200 unit tablet lactobacillus combo no.11 15 1 cap PO DAILY 01/12/24 03/28/24 H istory billion cell sprinkle capsule (Probiotic) omeprazole 40 mg capsule,delayed 40 mg PO BID 90 days #180 caps 01/0603/28/24 Rx release Have you fallen in the past year?: No [facility] Medical History (Updated 01/22/24 @ 18:04 by Jer FAN, PA) Contact with or exposure to other viral diseases Acute pharyngitis, unspecified Wears dentures Wears partial dentures Wears glasses Thyroid disease Ambulates with cane Arthritis Bladder disease Fatty liver High cholesterol Gastric reflux History of irregular heartbeat Cardiology follow-up encounter Heart failure Gastroparesis PVC (premature ventricular contraction) Constipation Hypertension Tachycardia Urinary tract infection Urinary tract infection with hematuria Surgical History History of thyroidectomy History of knee replacement Social History Smoking Status: Never smoker HPI HPI Details: SARAH CHENG, is a 79 F who presents to the office today for follow up. *BGI established 12.20.23 Pt has a PMHx of heart failure, gastroparesis and cervical spondylosis. She is here today for episodic stabbing epigastric pain happening a few times per year. These episodes typically resolve within 15 minutes. She does have daily soreness in the epigastric reason that causes her to have to take her bra off at the end of the day. She has seen GI in the past for her gastroparesis and her last EGD was a few years ago. She denies constipation, diarrhea, n/v, or heartburn. US and elastography 01.04.24 hepatic measurement 16cm with fatty infiltration, stiffness measures 5kPa compatible with F0-F1 Metavir score. EGD 01.17.24 Esophageal mucosal changes suggestive of eosinophilic esophagitis. Dilated. No gross lesions in the entire stomach. No gross lesions in the duodenal bulb. Biopsies were ta salvador with a cold forceps for evaluation of eosinophilic esophagitis. OV 2.13.25 pt reports continued soreness / tenderness "at the bottom of her breastbone and top of her stomach". Pt reports that she will occasionally get a stabbing pain that lasts about 5 minutes. ROS Const Constitutional: Positive for fatigue and headache(s); No fever(s) or weight change ENT ENT: Positive for headache(s); No difficulty swallowing Gastro GI: Positive for abdominal pain, bloating and excessive flatus; No belching, change in bowel habits, change in stool character, coffee ground emesis, constipation, cramping, diarrhea, heartburn, difficulty swallowing, feeling full early, incontinent of stools, Vomiting blood/hematemesis, Blood in stool, loose stools, Black,tarry stools, nausea/dyspepsia, pain with swallowing, vomiting or other Musc (more content not included)... Normal [facility] .Auto Diffon 03-07-2024 Basophil, Absolute 0.1 10 3/mcL Normal 0.0-0.2 [facility] Comment on above: Performed By: #### F ERR, TSHR, FE, VIDH, IBC, 693124, 717949, ANAIFS #### [address] [address] #### B12 #### [address] [address] Basophils/100 WBC (Bld) 0.9 % Normal 0.0-2.5 [facility] Comment on above: Performed By: #### F ERR, TSHR, FE, VIDH, IBC, 662909, 083125, ANAIFS #### [address] [address] #### B12 #### [address] [address] Eosinophil, Absolute 0.3 10 3/mcL Normal 0.0-0.7 [facility] Comment on above: Performed By: #### F ERR, TSHR, FE, VIDH, IBC, 051584, 177369, ANAIFS #### [place] [address] #### B12 #### [address] [address] Eosinophils/100 WBC (Bld) 5.0 % Normal 0.0-7.0 [facility] Comment on above: Performed By: #### F ERR, TSHR, FE, VIDH, IBC, 587287, 778713, ANAIFS #### [place] [address] #### B12 #### [address] [address] Lymphocyte, Absolute 1.6 10 3/mcL Normal 0.9-4.3 [facility] Comment on above: Performed By: #### F ERR, TSHR, FE, VIDH, IBC, 668048, 350299, ANAIFS #### [place] [address] #### B12 #### [address] [address] Lymphocytes/100 WBC (Bld) 27.7 % Normal 20.0-40.0 [facility] Comment on above: Performed By: #### F ERR, TSHR, FE, VIDH, IBC, 889420, 172792, ANAIFS #### [place] [address] #### B12 #### [address] [address] Monocyte, Absolute 0.6 10 3/mcL Normal 0.1-1.4 [facility] Comment on above: Performed By: #### F ERR, TSHR, FE, VIDH, IBC, 260258, 187387, ANAIFS #### [place] [address] #### B12 #### [address] [address] Monocytes/100 WBC (Bld) 10.2 % Normal 2.0-13.0 [facility] Comment on above: Performed By: #### F ERR, TSHR, FE, VIDH, IBC, 185848, 125974, ANAIFS #### [address] [address] #### B12 #### [address] [address] Neutrophils/100 WBC (Bld) 56.2 % Normal 50.0-75.0 [facility] Comment on above: Performed By: #### F ERR, TSHR, FE, VIDH, IBC, 775684, 801099, ANAIFS #### [address] [address] #### B12 #### [address] [address] .GFRon 03-07-2024 GFR 75 ml/min/1.73sqm Normal [facility] Comment on above: Result Comment: GFR Population mean for , Non- Americans Ages 20-29 = 116 mL/min/1.73 sq.m. Ages 30-39 = 107 mL/min/1.73 sq.m. Ages 40-49 = 99 mL/min/1.73 sq.m. Ages 50-59 = 93 mL/min/1.73 sq.m. Ages 60-69 = 85 mL/min/1.73 sq.m. Ages 70+ = 75 mL/min/1.73 sq.m. Chronic Kidney Disease: Less than 60 mL/min/1.73 square meters End Stage Renal Disease: Less than 15 mL/min/1.73 square meters Performed By: #### F ERR, TSHR, FE, VIDH, IBC, 240514, 782740, ANAIFS #### [address] [address] #### B12 #### [address] [address] GFR Non- 62 ml/min/1.73sqm Normal [facility] Comment on above: Result Comment: GFR Population mean for , Non- Americans Ages 20-29 = 116 mL/min/1.73 sq.m. Ages 30-39 = 107 mL/min/1.73 sq.m. Ages 40-49 = 99 mL/min/1.73 sq.m. Ages 50-59 = 93 mL/min/1.73 sq.m. Ages 60-69 = 85 mL/min/1.73 sq.m. Ages 70+ = 75 mL/min/1.73 sq.m. Chronic Kidney Disease: Less than 60 mL/min/1.73 square meters End Stage Renal Disease: Less than 15 mL/min/1.73 square meters Performed By: #### F ERR, TSHR, FE, VIDH, IBC, 357283, 544921, ANAIFS #### [address] [address] #### B12 #### [address] [address] .NEUABSon 03-07-2024 Neutrophil, Absolute 3.2 10 3/mcL Normal 2.3-8.1 [facility] Comment on above: Performed By: #### F ERR, TSHR, FE, VIDH, IBC, 391825, 125511, ANAIFS #### [place] [address] #### B12 #### [address] [address] A1Con 03-07-2024 Glucose [Mass/Vol] 131 mg/dL Normal [facility] Comment on above: Result Comment: Laura mated Average Glucose calculated by equation ((28.7xA1C)-46.7) Estimated average glucose (eAG) is a calculated value from Hemoglobin A1C and is outside sales representative of the average blood glucose level in the last 2-3 month period. Normal range: less than 114 mg/dL Performed By: #### F ERR, TSHR, FE, VIDH, IBC, 648330, 878410, ANAIFS #### [place] [address] #### B12 #### [place] [address] HbA1c (Bld) [Mass fraction] 6.2 % Normal 4.3-6.4 [facility] Comment on above: Performed By: #### F ERR, TSHR, FE, VIDH, IBC, 493506, 009842, ANAIFS #### [address] [address] #### B12 #### [facility] [address] [place] [address] CBCon 03-07-2024 Erythrocyte distribution width (RBC) [Ratio] 13.7 % Normal 11.5-15.5 [facility] Comment on above: Performed By: #### V IDH, A1C, CBC, ADIFF, ANEU, TSH, CMP, GFR, LIPID #### [address] [address] Hematocrit (Bld) [Volume fraction] 41.1 % Normal 34.0-46.0 [facility] Comment on above: Performed By: #### V IDH, A1C, CBC, ADIFF, ANEU, TSH, CMP, GFR, LIPID #### [place] [address] Hgb 13.6 G/dL Normal 12.0-16.0 [facility] Comment on above: Performed By: #### V IDH, A1C, CBC, ADIFF, ANEU, TSH, CMP, GFR, LIPID #### [address] [address] MCH (RBC) [Entitic mass] 31.0 pg Normal 27.0-33.0 [facility] Comment on above: Performed By: #### V IDH, A1C, CBC, ADIFF, ANEU, TSH, CMP, GFR, LIPID #### [address] [address] MCHC 33.2 G/dL Normal 32.0-36.0 [facility] Comment on above: Performed By: #### V IDH, A1C, CBC, ADIFF, ANEU, TSH, CMP, GFR, LIPID #### [address] [address] MCV (RBC) [Entitic vol] 93.3 fL Normal 80.0-99.0 [facility] Comment on above: Performed By: #### V IDH, A1C, CBC, ADIFF, ANEU, TSH, CMP, GFR, LIPID #### [address] [address] Platelet 231 10 3/mcL Normal 150-450 [facility] Comment on above: Performed By: #### V IDH, A1C, CBC, ADIFF, ANEU, TSH, CMP, GFR, LIPID #### [address] [address] Platelet mean volume (Bld) [Entitic vol] 7.9 fL Normal 6.6-10.5 [facility] Comment on above: Performed By: #### V IDH, A1C, CBC, ADIFF, ANEU, TSH, CMP, GFR, LIPID #### [address] [address] RBC 4.40 10 6/mcL Normal 4.10-5.30 [facility] Comment on above: Performed By: #### V IDH, A1C, CBC, ADIFF, ANEU, TSH, CMP, GFR, LIPID #### [address] [address] WBC 5.6 10 3/mcL Normal 4.5-10.8 [facility] Comment on above: Performed By: #### V IDH, A1C, CBC, ADIFF, ANEU, TSH, CMP, GFR, LIPID #### [address] [address] CMPon 03-07-2024 Albumin Level 3.8 G/dL Normal 3.4-4.8 [facility] Comment on above: Performed By: #### F ERR, TSHR, FE, VIDH, IBC, 840225, 174070, ANAIFS #### [address] [address] #### B12 #### [address] [address] Albumin/Globulin [Mass ratio] 1.0 {ratio} Low 1.1-2.5 [facility] Comment on above: Performed By: #### F ERR, TSHR, FE, VIDH, IBC, 280137, 148031, ANAIFS #### [place] [address] #### B12 #### [address] [address] ALP [Catalytic activity/Vol] 86 U/L Normal 40-135 [facility] Comment on above: Performed By: #### F ERR, TSHR, FE, VIDH, IBC, 258853, 103537, ANAIFS #### [place] [address] #### B12 #### [place] [address] ALT [Catalytic activity/Vol] 25 U/L Normal 14-59 [facility] Comment on above: Performed By: #### F ERR, TSHR, FE, VIDH, IBC, 520884, 001052, ANAIFS #### [place] [address] #### B12 #### [place] [address] AST [Catalytic activity/Vol] 24 U/L Normal 10-40 [facility] Comment on above: Performed By: #### F ERR, TSHR, FE, VIDH, IBC, 076259, 264420, ANAIFS #### [place] [address] #### B12 #### [place] [address] Bili Total 0.2 mg/dL Normal 0.2-1.0 [facility] Comment on above: Result Comment: Use of this assay is not recommended for patients undergoing treatment with eltrombopag due to the potential for falsely elevated results. Performed By: #### F ERR, TSHR, FE, VIDH, IBC, 705481, 418067, ANAIFS #### [place] [address] #### B12 #### [place] [address] BUN/Creatinine Ratio 11 ratio Normal 7-27 [facility] Comment on above: Performed By: #### F ERR, TSHR, FE, VIDH, IBC, 022744, 876120, ANAIFS #### [address] [address] #### B12 #### [address] [address] Calcium [Mass/Vol] 9.3 mg/dL Normal 8.4-10.2 [facility] Comment on above: Performed By: #### F ERR, TSHR, FE, VIDH, IBC, 049300, 882199, ANAIFS #### [place] [address] #### B12 #### [address] [address] Chloride [Moles/Vol] 103 mmol/L Normal 98-107 [facility] Comment on above: Performed By: #### F ERR, TSHR, FE, VIDH, IBC, 712819, 542786, ANAIFS #### [place] [address] #### B12 #### [address] [address] CO2 [Moles/Vol] 30 mmol/L Normal 23-31 [facility] Comment on above: Performed By: #### F ERR, TSHR, FE, VIDH, IBC, 849712, 291717, ANAIFS #### [place] [address] #### B12 #### [address] [address] Creatinine [Mass/Vol] 0.89 mg/dL Normal 0.55-1.02 [facility] Comment on above: Result Comment: Test ing performed on Siemens Dimension EXL analyzer using a modified kinetic Matthew technique. Performed By: #### F ERR, TSHR, FE, VIDH, IBC, 145756, 775088, ANAIFS #### [place] [address] #### B12 #### [address] [address] Electrolyte Balance 7.0 mEq/L Normal 4.0-15.0 [facility] Comment on above: Performed By: #### F ERR, TSHR, FE, VIDH, IBC, 367939, 901546, ANAIFS #### [place] [address] #### B12 #### [place] [address] Globulin 4.0 G/dL Normal [facility] Comment on above: Performed By: #### F ERR, TSHR, FE, VIDH, IBC, 531045, 521099, ANAIFS #### [place] [address] #### B12 #### [place] [address] Glucose [Mass/Vol] 100 mg/dL Normal 83-110 [facility] Comment on above: Performed By: #### F ERR, TSHR, FE, VIDH, IBC, 066023, 521654, ANAIFS #### [place] [address] #### B12 #### [place] [address] Potassium [Moles/Vol] 4.5 mmol/L Normal 3.5-5.1 [facility] Comment on above: Performed By: #### F ERR, TSHR, FE, VIDH, IBC, 290623, 715874, ANAIFS #### [place] [address] #### B12 #### [place] [id number] Sodium [Moles/Vol] 140 mmol/L Normal 136-145 [facility] Comment on above: Performed By: #### F ERR, TSHR, FE, VIDH, IBC, 767347, 533234, ANAIFS #### [place] [address] #### B12 #### [place] [address] Total Protein 7.8 G/dL Normal 6.4-8.2 [facility] Comment on above: Performed By: #### F ERR, TSHR, FE, VIDH, IBC, 387020, 453634, ANAIFS #### [place] [address] #### B12 #### [place] [address] Urea nitrogen [Mass/Vol] 10 mg/dL Normal 7-18 [facility] Comment on above: Performed By: #### F ERR, TSHR, FE, VIDH, IBC, 996364, 231449, ANAIFS #### [place] [address] #### B12 #### [place] [address] LABORATORYOrdered By: SYSTEM SYSTEM on 03-07-2024 25-hydroxyvitamin D3 [Mass/Vol] 59.8 ng/mL Invalid Interpretation Code AO ADM SS Comment on above: Interpretive Data: I nterpretive Values Based on Total 25(OH) Vitamin D: Deficient <20 ng/mL Insufficient 20 - <30 ng/mL Sufficient 30-100 ng/mL Albumin BCP dye [Mass/Vol] 3.8 G/dL Normal 3.4 - 4.8 G/dL AO ADM SS Albumin/Globulin [Mass ratio] 1.0 {ratio} Low 1.1 - 2.5 ratio AO ADM SS ALP [Catalytic activity/Vol] 86 U/L Normal 40 - 135 U/L AO ADM SS ALT With P-5'-P [Catalytic activity/Vol] 25 U/L Normal 14 - 59 U/L AO ADM SS AST With P-5'-P [Catalytic activity/Vol] 24 U/L Normal 10 - 40 U/L AO ADM SS Basophils (Bld) [#/Vol] 0.1 103/mcL Normal 0.0 - 0.2 10^3/mcL AO Workflow SS Basophils/100 WBC (Bld) 0.9 % Normal 0.0 - 2.5 % AO Workflow SS Bilirubin [Mass/Vol] 0.2 mg/dL Normal 0.2 - 1 .0 mg/dL AO ADM SS Comment on above: Interpretive Data: U se of this assay is not recommended for patients undergoing treatment with eltrombopag due to the potential for falsely elevated results. Calcium [Mass/Vol] 9.3 mg/dL Normal 8.4 - 10. 2 mg/dL AO ADM SS Chloride [Moles/Vol] 103 mmol/L Normal 98 - 10 7 mmol/L AO ADM SS CO2 [Moles/Vol] 30 mmol/L Normal 23 - 31 mmol/L AO ADM SS Creatinine [Mass/Vol] 0.89 mg/dL Normal 0.55 - 1.02 mg/dL AO ADM SS Comment on above: Interpretive Data: T esting performed on Siemens Dimension EXL analyzer using a modified kinetic Matthew technique. Electrolyte Balance 7.0 mEq/L Normal 4.0 - 15 .0 mEq/L AO ADM SS Eosinophil, Absolute 0.3 103/mcL Normal 0.0 - 0 .7 10^3/mcL AO Workflow SS Eosinophils/100 WBC (Bld) 5.0 % Normal 0.0 - 7.0 % AO Workflow SS Erythrocyte distribution width (RBC) [Ratio] 13.7 % Normal 11.5 - 15.5 % AO Workflow SS GFR/1.73 sq M.predicted among blacks MDRD (S/P/Bld) [Vol rate/Area] 75 ml/min/1.73sqm Invalid Interpretation Code AO Chemistry S Comment on above: Interpretive Data: GFR Population mean for , Non- Americans Ages 20-29 = 116 mL/min/1.73 sq.m. Ages 30-39 = 107 mL/min/1.73 sq.m. Ages 40-49 = 99 mL/min/1.73 sq.m. Ages 50-59 = 93 mL/min/1.73 sq.m. Ages 60-69 = 85 mL/min/1.73 sq.m. Ages 70+ = 75 mL/min/1.73 sq.m. Chronic Kidney Disease: Less than 60 mL/min/1.73 square meters End Stage Renal Disease: Less than 15 mL/min/1.73 square meters GFR/1.73 sq M.predicted among non-blacks MDRD (S/P/Bld) [Vol rate/Area] 62 ml/min/1.73sqm Invalid Interpretation Code AO Chemistry S Comment on above: Interpretive Data: GFR Population mean for , Non- Americans Ages 20-29 = 116 mL/min/1.73 sq.m. Ages 30-39 = 107 mL/min/1.73 sq.m. Ages 40-49 = 99 mL/min/1.73 sq.m. Ages 50-59 = 93 mL/min/1.73 sq.m. Ages 60-69 = 85 mL/min/1.73 sq.m. Ages 70+ = 75 mL/min/1.73 sq.m. Chronic Kidney Disease: Less than 60 mL/min/1.73 square meters End Stage Renal Disease: Less than 15 mL/min/1.73 square meters Globulin 4.0 G/dL Invalid Interpretation Code AO ADM SS Glucose [Mass/Vol] 100 mg/dL Normal 83 - 110 mg/dL AO ADM SS Glucose [Mass/Vol] 131 mg/dL Invalid Interpretation Code AO Chemistry S Comment on above: Interpretive Data: E stimated average glucose (eAG) is a calculated value from Hemoglobin A1C and is outside sales representative of the average blood glucose level in the last 2-3 month period. Normal range: less than 114 mg/dL HbA1c (Bld) [Mass fraction] 6.2 % Normal 4.3 - 6.4 % AO ADM SS Hematocrit (Bld) [Volume fraction] 41.1 % Normal 34.0 - 46.0 % AO Workflow SS Hemoglobin (Bld) [Mass/Vol] 13.6 G/dL Normal 12.0 - 16.0 G/dL AO Workflow SS Lymphocytes (Bld) [#/Vol] 1.6 103/mcL Normal 0.9 - 4.3 10^3/mcL AO Workflow SS Lymphocytes/100 WBC (Bld) 27.7 % Normal 20.0 - 40.0 % AO Workflow SS MCH (RBC) [Entitic mass] 31.0 pg Normal 27.0 - 33.0 pg AO Workflow SS MCHC 33.2 G/dL Normal 32.0 - 36.0 G/dL AO Workflow SS MCV (RBC) [Entitic vol] 93.3 fL Normal 80.0 - 99.0 fL AO Workflow SS Monocytes (Bld) [#/Vol] 0.6 103/mcL Normal 0.1 - 1.4 10^3/mcL AO Workflow SS Monocytes/100 WBC (Bld) 10.2 % Normal 2.0 - 13.0 % AO Workflow SS Neutrophils (Bld) [#/Vol] 3.2 103/mcL Normal 2.3 - 8.1 10^3/mcL AO Workflow SS Neutrophils/100 WBC (Bld) 56.2 % Normal 50.0 - 75.0 % AO Workflow SS Platelet mean volume (Bld) [Entitic vol] 7.9 fL Normal 6.6 - 10.5 fL AO Workflow SS Platelets (Bld) [#/Vol] 231 103/mcL Normal 150 - 450 10^3/mcL AO Workflow SS Potassium [Moles/Vol] 4.5 mmol/L Normal 3.5 - 5.1 mmol/L AO ADM SS Protein [Mass/Vol] 7.8 G/dL Normal 6.4 - 8.2 G/dL AO ADM SS RBC (Bld) [#/Vol] 4.40 106/mcL Normal 4.10 - 5.3 0 10^6/mcL AO Workflow SS Sodium [Moles/Vol] 140 mmol/L Normal 136 - 145 mmol/L AO ADM SS TSH Qn 0.94 m[IU]/L Normal 0.36 - 3.74 mcIU/mL AO ADM SS Urea nitrogen [Mass/Vol] 10 mg/dL Normal 7 - 18 mg/dL AO ADM SS Urea nitrogen/Creatinine [Mass ratio] 11 ratio Normal 7 - 27 ratio AO ADM SS WBC (Bld) [#/Vol] 5.6 103/mcL Normal 4.5 - 10.8 10^3/mcL AO Workflow SS LABORATORYOrdered By: Kevin Gar on 03-07-2024 Cholesterol [Mass/Vol] 238 mg/dL High 0 - 2 00 mg/dL AO ADM SS Comment on above: Interpretive Data: C holesterol Reference Interval: Less than 200 Desirable 200-239 Borderline high risk 240 and above High risk Cholesterol in HDL [Mass/Vol] 70 mg/dL High 40 - 60 mg/dL AO ADM SS Cholesterol in LDL [Mass/Vol] 132 mg/dL High 0 - 130 mg/dL AO ADM SS Triglyceride [Mass/Vol] 180 mg/dL High 0 - 150 mg/dL AO ADM SS Comment on above: Interpretive Data: T riglyceride Reference Interval: Less than 150 Normal 150-199 Borderline high risk 200-499 High risk 500 or higher Very high risk LIPIDon 03-07-2024 Cholesterol [Mass/Vol] 238 mg/dL High 0-200 [facility] Comment on above: Result Comment: Chol esterol Reference Interval: Less than 200 Desirable 200-239 Borderline high risk 240 and above High risk Performed By: #### F ERR, TSHR, FE, VIDH, IBC, [id number], [id number], ANAIFS #### [address] [address] #### B12 #### [address] [address] Cholesterol in HDL [Mass/Vol] 70 mg/dL High 40-60 [facility] Comment on above: Performed By: #### F ERR, TSHR, FE, VIDH, IBC, 208931, 166001, ANAIFS #### [address] [address] #### B12 #### [address] [address] Cholesterol in LDL [Mass/Vol] 132 mg/dL High 0-130 [facility] Comment on above: Performed By: #### F ERR, TSHR, FE, VIDH, IBC, 308597, 004298, ANAIFS #### [address] [address] #### B12 #### [address] [address] Triglyceride [Mass/Vol] 180 mg/dL High 0-150 [facility] Comment on above: Result Comment: Trig lyceride Reference Interval: Less than 150 Normal 150-199 Borderline high risk 200-499 High risk 500 or higher Very high risk Performed By: #### F ERR, TSHR, FE, VIDH, IBC, 017970, 105425, ANAIFS #### [address] [address] #### B12 #### [place] [address] TSHon 03-07-2024 TSH Qn 0.94 m[IU]/L Normal 0.36-3.74 [facility] Comment on above: Performed By: #### F ERR, TSHR, FE, VIDH, IBC, 693389, 521844, ANAIFS #### [address] [address] #### B12 #### [place] [id number] VIDHon 03-07-2024 Vit. D 25-Hydroxy 59.8 ng/mL Normal [facility] Comment on above: Result Comment: Inte rpretive Values Based on Total 25(OH) Vitamin D: Deficient <20 ng/mL Insufficient 20 - <30 ng/mL Sufficient 30-100 ng/mL Performed By: #### F ERR, TSHR, FE, VIDH, IBC, 708943, 946927, ANAIFS #### [place] [id number] #### B12 #### [place] [id number] Dexa Bone Density Studyon Dexa Bone Density Study [facility] Imaging Services [address] [place] [address] Dexa Bone Density Study MR#: [id number] Acct: [id number] Name: SARAH CHENG Rep #: [id number] : 1945 F 78 From: Ghluam peterson MD PCP: Dr. Elena Jenkins DO Status: [facility] Study: Dexa Bone Density Study Date of Exam: 01/31/24 Exam# [id number] Ordering Dr: Elena Jenkins DO [id number] STUDY: DUAL ENERGY X-RAY ABSORPTIOMETRY / DXA REASON FOR EXAM: Female, 78 years old. Z780 TECHNIQUE: Bone Mineral Density (BMD) measurements of lumbar spine and bilateral hips were obtained. COMPARISON: Comparison is made with prior study dated January 04, 2022. FINDINGS: Lumbar Spine (L1-L4): g/cm2 (0.774) / T-score (-2.8) / Z-score (-0.2) Findings are suggestive of osteoporosis with a high fracture risk. Left Femur Total: g/cm2 (0.799) / T-score (-1.2) / Z-score (0.7) Left Femoral Neck: g/cm2 (0.630) / T-score (-2.0) / Z-score (0.2) Right Femur Total: g/cm2 (0.784) / T-score (-1.3) / Z-score (0.6) Right Femoral Neck: g/cm2 (0.614) / T-score (-2.1) / Z-score (0.1) The T-Scores on the most recent prior examination were: Lumbar Spine (L1-L4): There has been improvement of bone density since the previous examination. Left Femur Total: which represents an improvement of 7.4%. Right Femur Total: which represents an improvement of 9.4%. BD/Dexa Bone Density Study IMPRESSION: The patient is considered osteoporotic as outlined below according to World [employer]ial[employer] Organization (WHO) criteria with a high fracture risk. There has been worsening of bone density since the previous examination. Reference Information: The T-score is the number of standard deviations above or below the standard which is normal for young adults at their peak bone mineral density. The World Health Organization (WHO) interprets the T-scores as follows: Above -1 Normal bone density Between -1 and -2.5 Osteopenia Equal to / or below -2.5 Osteoporosis As a practical clinical guideline, osteopenia may be graded as follows: Mild -1 through -1.5 Moderate -1.6 through -2.0 Severe -2.1 through -2.4 The Z-score is the number of standard deviations above or below age-matched controls. A Z-score of less than -1.5 would be considered abnormal. References: 1. NIH Osteoporosis and Related Bone Diseases www osteo.org 2. International Society for Clinical Densitometry www iscd.org 3. National Osteoporosis Foundation www nof.org Electronically Signed: Ghulam Bear MD at 8:53 EST , CC: Dr. Elena Jenkins, Continuous Dryout Operator: Signed Normal [facility] No Panel Informationon 01-21 Influenza Types A,B Rapid (Clinic) Negative [facility] POC SARS CoV-2 Antigen Negative [facility] S. pyogenes Ag IA.rapid Ql ( Throat)on 01-22-2024 S. pyogenes Ag IA Ql (Unsp spec) Negative [facility] Urgent Care Visit Reporton 1 03-24-2023 Urgent Care Visit Report [facility] [address], [address] [place], [place] [address] OFFICE VISIT Date of Service: 01/22/24 MR#: [id number] Acct: [id number] Name: SARAH CHENG Rep #: [id number] : 1945 Provider: MENG Arreguin Age/Sex: 78/F Location: [facility] Status: Signed Intake Vital Signs 01/17/24 09:11 01/22/24 12:33 Height 5 ft 6 in 5 ft 6 in BP 120/60 Blood Pressure Location Rt brachial Position Sitting Respiration 12 Pulse 75 Pulse Source NIBP Temp 98.2 F Temp Source Oral Pulse Oximetry (%) 94 Oxygen Delivery Method room air Intake Visit Reasons: THROAT IRRITATION/ST Chief Complaint: throat irritation, ST 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 Estate 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 Required: No Is patient in pain?: No Allergies adhesive tape Allergy (Verified 01/22/24 17:30) skin tear ciprofloxacin (From Cipro) Allergy (Verified 01/22/24 17:30) Nausea lisinopril Allergy (Verified 01/22/24 17:30) Other metoprolol Allergy (Verified 01/22/24 17:30) Rash tetracycline (Tetracycline) Allergy (Verified 01/22/24 17:30) Other Medications ???Medication ???Instructions ???Recorded ???Confirmed ???Type acetaminophen 500 mg tablet 1,000 mg PO TID 08/16/13 01/22/24 History diclofenac sodium 1 % topical gel 100 g TP PRN PRN BACK PAIN 12/15/17 01/22/24 History (Voltaren) buspirone 15 mg tablet 15 mg PO TID 06/14/23 01/22/24 History diltiazem HCl 120 mg 120 mg PO DAILY 06/14/23 01/22/24 History capsule,extended release 24 hr (Cartia XT) diltiazem HCl 30 mg tablet 30 mg PO TID PRN PRN palpitations 06/14/23 01/22/24 History gabapentin 600 mg tablet 600 mg PO 4X/DAY 06/14/23 01/22/24 History losartan 25 mg tablet 25 mg PO DAILY 06/14/23 01/22/24 History pravastatin 20 mg tablet 20 mg PO DAILY 06/14/23 01/22/24 History omeprazole 20 mg capsule,delayed 20 mg PO QDAY 12/06/23 01/22/24 History release tramadol 50 mg tablet 50 mg PO BID 12/06/23 01/22/24 History ascorbic acid (vitamin C) 1,000 mg 1 g PO DAILY 01/12/24 01/22/24 History tablet (C-1000) calcium carb-ergocalciferol (vit 1 tab PO DAILY 01/12/24 01/12/24 History D2) 600 mg calcium-200 unit tablet lactobacillus combo no.11 15 1 cap PO DAILY 01/12/24 01/22/24 History billion cell sprinkle capsule (Probiotic) Is last menstrual period known: No Post menopausal: Yes Patient : No Have you fallen in the past year?: No Nurse's Note: patient here for throat irritation on left side and sore throat since last monday. [facility] Medical History (Updated 01/22/24 @ 18:04 by Jer FAN, PA) Contact with or exposure to other viral diseases Acute pharyngitis, unspecified Wears dentures Wears partial dentures Wears glasses Thyroid disease Ambulates with cane Arthritis Bladder disease Fatty liver High cholesterol Gastric reflux History of irregular heartbeat Cardiology follow-up encounter Heart failure Gastroparesis PVC (premature ventricular contraction) Constipation Hypertension Tachycardia Urinary tract infection Urinary tract infection with hematuria Surgical History History of thyroidectomy History of knee replacement Social History Smoking Status: Never smoker HPI HPI Chief Complaint: throat irritation, ST Details: SARAH CHENG, is a 78 F who presents to the office today for initial evaluation 5-day history of irritated/sore throat after having EGD performed, though patient would prefer to be cleared of any sicknesses that could be causing the throat pain as well and is requesting be screened for streptococcal pharyngitis as well as COVID-19 and influenza; patient states she takes care of her (immunosuppressed) as well as daughter (immunocompromised due to cancer diagnosis/treatment). She has taken no xfej-qti-bocnlqx products to assist with her current symptoms. She notes no other associated symptoms and no other alleviating/aggravating factors. ROS Const Constitutional: No other (as above) Exam Const General: cooperative, healthy appearing and no acute distress Orientation: alert and awake [facility] Head: normal to inspection Ears: hearing grossly normal bilaterally, external ears normal, TM's normal bilaterally and EAC's normal Nose: external nose normal, nares normal, septum normal and no nasal discharge Face and sinus: normal facial exam, sinuses nontender and face symmetric Mouth: oral mucosae normal, lip normal, tongue normal, oropharynx normal and moist mucous membranes Throat: posterior oropharynx normal, uvula midline, abnormal tonsil on the left erythema and bilaterally no exudates and no hypertrophy, posterior oropharynx abnormal and postnasal drainage Neck Neck: normal visual inspectio (more content not included)... Normal [facility] EGD Reporton 01-17-2024 EGD Report [facility] Medical Records Department [address] [place] [address] EGD Report MR#: [id number] Acct: [id number] Name: SARAH CHENG Rep #: [id number] : 1945 78 From: Abelardo Torres DO PCP: Dr. Elena Jenkins DO Status:[facility] Patient Name: Sarah Cheng Procedure Date: 01/17/2024 9:53 AM Date of : 1945 Age: 78 Procedure: Upper GI endoscopy Indications: Dysphagia Providers: Abelardo Torres DO Referring MD: Abelardo Torres DO Medicines: Monitored Anesthesia Care Patient Profile: This is a 78 year old female. Refer to note in patient chart for documentation of history and physical. Patient has symptoms of dysphagia with solids. Complications: No immediate complications. Procedure: Pre-Anesthesia Assessment: - Prior to the procedure, a History and Physical was performed, and patient medications and allergies were reviewed. The patient is competent. The risks and benefits of the procedure and the sedation options and risks were discussed with the patient. All questions were answered and informed consent was obtained. Patient identification and proposed procedure were verified by the physician in the pre-procedure area. Mental Status Examination: alert and oriented. Airway Examination: normal oropharyngeal airway and neck mobility. Respiratory Examination: clear to auscultation. CV Examination: normal. Prophylactic Antibiotics: The patient does not require prophylactic antibiotics. Prior Anticoagulants: The patient has taken no anticoagulant or antiplatelet agents except for NSAID medication. ASA Grade Assessment: II - A patient with mild systemic disease. After reviewing the risks and benefits, the patient was deemed in satisfactory condition to undergo the procedure. The anesthesia plan was to use monitored anesthesia care (MAC). Immediately prior to administration of medications, the patient was re-assessed for adequacy to receive sedatives. The heart rate, respiratory rate, oxygen saturations, blood pressure, adequacy of pulmonary ventilation, and response to care were monitored throughout the procedure. The physical status of the patient was re-assessed after the procedure. After obtaining informed consent, the endoscope was passed under direct vision. Throughout the procedure, the patient's blood pressure, pulse, and oxygen saturations were monitored continuously. The gastroscope was introduced through the mouth, and advanced to the second part of duodenum. The upper GI endoscopy was accomplished without difficulty. The patient tolerated the procedure well. Scope In: 10:02:19 AM Scope Out: 10:08:39 AM Total Procedure Duration Time 0 hours 6 minutes 20 seconds Findings: Mucosal changes including ringed esophagus, small-caliber esophagus, circumferential folds and congestion (edema) were found in the middle third of the esophagus and in the lower third of the esophagus. Biopsies were obtained from the proximal and distal esophagus with cold forceps for histology of suspected eosinophilic esophagitis. Verification of patient identification for the specimen was done. Estimated blood loss was minimal. A guidewire was placed and the scope was withdrawn. Dilation was performed with a Savary dilator with no resistance at 54 Fr. No gross lesions were noted in the entire examined stomach. No gross lesions were noted in the duodenal bulb. Impression: - Esophageal mucosal changes suggestive of eosinophilic esophagitis. Dilated. - No gross lesions in the entire stomach. - No gross lesions in the duodenal bulb. - Biopsies were taken with a cold forceps for evaluation of eosinophilic esophagitis. Recommendation: - Discharge patient to home. - Resume previous diet. - Continue present medications. - Await pathology results. Procedure Code(s): --- Professional --- 24127, Esophagogastroduodenoscop y, flexible, transoral; with insertion of guide wire followed by passage of dilator(s) through esophagus over guide wire 95004, 59,51, Esophagogastroduodenoscop y, flexible, transoral; with biopsy, single or multiple CPT copyright 2021 [employer]. All rights reserved. The codes documented in this report are preliminary and upon development officer review may be revised to meet current compliance requirements. Abelardo Torres DO 01/17/2024 10:17:06 AM This report has been signed electronically. Number of Addenda: 0 Note Initiated On: 01/17/2024 9:53 AM 01/17/24 1017 Date Abelardo Torres DO Cosigner Signature: Date (if indicated) CC: Dr. Elena Jenkins DO; Abelardo Torres DO Date Dictated: 01/17/2453 Date Transcribed: Continuous Dryout Operator: ADRIANA Signed [facility] MR/POSTOP.ANEon 01-17-2024 MR/POSTOP.ANE [facility] Medical Records Department [address] [place] [address] Anesthesia Postop Eval I 01/17/24 1017 MR#: [id number] Acct: [id number] Name: PROSPERSARAH MOORE Rep #: [id number] : 1945 78 From: Cabrera Crouch PCP: Dr. Elena Jenkins, DO Status:[facility] Y Race: C Location: [place] [address] Anesthesia: Postop Eval I Current Vital Signs Temperature: 97.7 F Pulse Rate: 82 Blood Pressure: 114/66 Respiratory Rate: 16 Pulse Ox: 92 Oxygen Delivery Method: Room Air Assessment Airway patent: Yes Spontaneous unlabored respirations: Yes Mental status: Asleep nausea: No Vomiting: No Anesthesia Complication: No Fluid Hydration Crystalloid volume administer (ml): 30 Total IV fluid infused: 30 Progress Note Anesthesia document: Postop Eval 1 completed: Yes 01/17/24 101 Date Cabrera Martin Signature: Date CC: Signed [facility] MR/[id number] 01-17-2024 MR/POSTOPAN2 [facility] Medical Records Department [address] [place] [address] Anesthesia Postop Eval II 01/17/24 1118 MR#: [id number] Acct: [id number] Name: OTF CHENGN TERESA Rep #: [id number] : 1945 78 From: Orion Redman MD PCP: Dr. Elena Jenkins, DO Status:DEP SD Y Race: C Location: EN Anesthesia Postop Eval I Sum Postop Eval Completion status Anesthesia document: Postop Eval 1 completed: Yes Anesthesia Postop Eval I Summary Anesthesia Postop Eval I Summary: Anesthesia Postop Eval I: Assessment Summary Airway patent Yes 01/17/24 10:17 [email or web address] Spontaneous unlabored Yes 01/17/24 10:17 [email or web address] respirations Mental status Asleep 01/17/24 10:17 [email or web address] nausea No 01/17/24 10:17 [email or web address] Vomiting No 01/17/24 10:17 [email or web address] Anesthesia Postop Eval I: Fluid Summary Crystalloid volume administer 30 01/17/24 10:17 [email or web address] (ml) Colloids volume administered ( ml) Blood Product volume administered (ml) Total IV fluid infused 30 01/17/24 10:17 [email or web address] Anesthesia Postop Eval I: Summary Notes Anesthesia Complication No 01/17/24 10:17 [email or web address] Anesthesia Complication Comment: Post-operative progress note Anesthesia: Postop Eval II Evaluation Mental status: Awake Pain Level: 0 nausea: No Vomiting: No 01/17/24 1118 Date Orion Martin Signature: Date CC: Signed Normal [facility] Special Stain Group Ion 12-0 Special Stain Group I ------- Patient Age/Sex Location Account Attending Physician ASHISHSARAH RUBI 78/F EN [id number] Abelardo Torres DO Specimen: [id number] Received: 01/17/24 Status: RAFAEL Eitan Num: [id number] Spec Type: EGD BIOPSY Subm Dr: Abelardo Torres DO HEADER OPERATION: EGD with biopsy and dilatation PRE-OP DIAGNOSIS: Chest pain, epigastric abdominal pain TISSUE SUBMITTED: Random esophagus biopsy MICROSCOPIC DIAGNOSIS Esophagus, random biopsy: Fragments of benign squamous mucosa with focal changes consistent with reflux. Focal minimal acute inflammation. Negative for fungal organisms. See comment. AM. 01/18/2024 COMMENT GMS stain with matched control was used in the evaluation of this case. MICROSCOPIC DESCRIPTION Slides are reviewed. GROSS DESCRIPTION Received in fixative is one container labeled with the patient's name and designated "Random esophagus biopsy." The specimen consists of multiple irregular fragments of light culver soft tissue that in aggregate measure 1.5 x 0.6 x 0.1 cm. The specimen is totally submitted in one cassette. AM. 01/17/2024 TC:2 CPT:29099,95903 Patient Age/Sex Location Account Attending Physician SARAH CHENG 78/F EN [id number] Abelardo Torres DO Signed (signature on file) Dr. Jason Jc DO 01/19/24 1019 Normal [facility] Comment on above: Performed By: #### P SSI ####[facility] [id number] [place], [place], [id number] XR ELBOW MINIMUM 3 VIEWS LEF Ton 01-12-2024 XR ELBOW MINIMUM 3 VIEWS LEFT ORIGINAL EXAMINATION: THREE XRAY VIEWS OF THE LEFT ELBOW 01/10/2024 2:22 pm COMPARISON: None. HISTORY: ORDERING SYSTEM PROVIDED HISTORY: Reason for Exam: pain IMPRESSION: Elbow joint is maintained with mild degenerative change. No significant elbow joint effusion. No suspicious osseous lesions. No acute fracture or dislocation. Interpreted by: Alba Waller Preliminary Report By: Alba Waller Electronically signed By Alba Waller Dictated Date: 01/12/2024 4:17:05 PM Prelim Date: 01/12/2024 4:17:33 PM Sign Date: 01/12/2024 4:17:33 PM Ordering Provider: TAMRA OTERO [facility] ABD Limited w/ Elastographyo n 01-04-2024 ABD Limited w/ Elastography [facility] Imaging Services [address] [place] [address] ABD Limited w/ Elastography MR#: [id number] Acct: [id number] Name: SARAH CHENG Rep #: [id number] : 1945 F 78 From: Ghulam peterson MD PCP: Dr. Elena Jenkins, DO Status: REG CL Study: ABD Limited w/ Elastography Date of Exam: 12/15 03/08 Exam# [id number] Ordering Dr: Veronica Hinton [id number] STUDY: ABDOMINAL ULTRASOUND - RIGHT UPPER QUADRANT; ELASTOGRAPHY REASON FOR VISIT: Female, 78 years old. Fatty infiltration of the liver. TECHNIQUE: Ultrasound evaluation of the right upper quadrant was performed with real-time and static mcleod-scale imaging. Point quantification shear wave elastography was performed ([employer]). TECHNICAL QUALITY: Limited. Examination limited by bowel gas. COMPARISON: Comparison is made with prior CT scan the abdomen dated September 12, 2023. FINDINGS: Liver: The liver measures 16 cm. There is increased echogenicity consistent with fatty infiltration. The bile ducts are within normal limits. There is hepatic color flow. The direction of portal flow is hepatopetal. There is a 5.3 cm x 6 cm x 6.7 cm cyst in the midportion of the right lobe of the liver. There is also evidence of a 1 cm x 0.8 cm cyst in the inferior aspect of the right lobe. Median liver stiffness measured 5 kPa. Gallbladder: Normal distended gallbladder. The gallbladder wall measures 2.8 mm. There is a negative sonographic Hollis''s sign. There is no pericholecystic fluid. There are no gallstones. Common Bile Duct (C.B.D.): The common bile duct measures 3.5 mm. Pancreas: Limited visualization of the pancreas. Right Kidney: Normal size of the right kidney. The right kidney measures 10.5 cm x 5.3 cm x 4.8 cm. Normal renal cortex. The right cortex measures 1.2 cm. There is no demonstrated renal mass or cyst. There is no right hydronephrosis. US/ABD Limited w/ Elastography IMPRESSION: 1. Liver stiffness measures 5 kPa compatible with F0-F1 (Normal to mild liver fibrosis) Metavir score. Electronically Signed: Ghulam Bear MD at 13:49 EST Reading Location ID and State: [address] [place] [address] , Service support , CC: Dr. Elena Jenkins DO; MENG Coello Continuous Dryout Operator: Signed Normal [facility] SCRN MAMM (CAD)W/DARIO BILATo n 12-28-2023 SCRN MAMM (CAD)W/DARIO BILAT [facility] Imaging Services [address] [place], [place] [id number] SCRN MAMM (CAD)W/DARIO BILAT MR#: [id number] Acct: [id number] Name: SARAH CHENG Rep #: [id number] : 1945 F 78 From: Ghulam peterson MD PCP: Dr. Elena Jenkins DO Status: REG CL Study: SCRN MAMM (CAD)W/DARIO BILAT Date of Exam: 12/14 06/06 Exam# [id number] Ordering Dr: Elena Jenkins DO [id number] MAMMOGRAPHY - BILATERAL SCREENING REASON FOR EXAM: Female, 78 years old. Routine annual screening examination. PERTINENT HISTORY: Daughter with breast cancer. TECHNIQUE: Digital bilateral breast dario (3D mammographic acquisition) in the CC and MLO projections. 2-D mediolateral oblique (MLO) and craniocaudad (CC) views of both breasts were obtained. CAD: Full Field Digital Mammography with Computer Added Detection was performed. COMPARISON: Comparison is made with prior study January 04, 2022 and January 31, 2020. FINDINGS: Breast Composition: The breasts are heterogeneously dense, which may obscure small masses. There are no dominant masses or suspicious calcifications. No other significant abnormalities are identified. There has been no significant change since the prior study. BI/SCRN MAMM (CAD)W/DARIO BILAT IMPRESSION: Stable bilateral screening mammogram. Yearly follow-up mammogram recommended. (A) ASSESSMENT CATEGORY: BIRADS Category 1: Negative. A letter regarding these results will be sent to the patient by the facility within 30 days. Approximately 10% of breast cancers are not detected by mammography. A normal mammogram should not delay biopsy of a clinically suspicious abnormality. [id number] Electronically Signed: Ghulam Bear MD at 10:32 EST , CC: Dr. Elena Jenkins, DO Continuous Dryout Operator: Signed Normal [facility] Gastroenterology Visit Repor ton 12-20-2023 Gastroenterology Visit Report [facility] Gastroenterology [address] [place] [address] OFFICE VISIT Date of Service: 12/20/23 MR#: [id number] Acct: [id number] Name: SARAH CHENG Rep #: [id number] : 1945 Provider: MNEG Coello Age/Sex: 78/F Location[place] [facility] Status: Signed Intake Vital Signs 09/22/23 16:32 Height 5 ft 6 in Weight: 168 lb BMI 27.1 BP 128/86 H Blood Pressure Location Lt brachial Position Sitting Respiration 16 Pulse 79 Pulse Source Monitor Temp 98.9 F Temp Source Temporal Pulse Oximetry (%) 99 Oxygen Delivery Method room air Intake Visit Reasons: Chest pain Chief Complaint: Epigastric pain Real Estate 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 Required: No Accompanied by: Allergies adhesive tape Allergy (Verified 10/13/23 13:34) skin tear ciprofloxacin (From Cipro) Allergy (Verified 12/06/23 13:38) Nausea lisinopril Allergy (Verified 10/13/23 13:34) Other metoprolol Allergy (Verified 12/06/23 13:38) Rash tetracycline (Tetracycline) Allergy (Verified 10/13/23 13:34) Other Medications ???Medication ???Instructions ???Recorded ???Confirmed ???Type acetaminophen 500 mg tablet 1,000 mg PO TID 08/16/13 09/22/23 History diclofenac sodium 1 % topical gel 100 g TP PRN PRN BACK PAIN 12/15/17 09/22/23 History (Voltaren) losartan 100 1 ea PO DAILY 12/15/17 09/22/23 History mg-hydrochlorothiazide 25 mg tablet buspirone 15 mg tablet 15 mg PO TID 06/14/23 09/22/23 History diltiazem HCl 120 mg 120 mg PO DAILY 06/14/23 09/22/23 History capsule,extended release 24 hr (Cartia XT) diltiazem HCl 30 mg tablet 30 mg PO TID PRN PRN palpitations 06/14/23 09/22/23 History gabapentin 600 mg tablet 600 mg PO 4X/DAY 06/14/23 09/22/23 History losartan 25 mg tablet 25 mg PO DAILY 06/14/23 09/22/23 History pravastatin 20 mg tablet 20 mg PO DAILY 06/14/23 09/22/23 History omeprazole 20 mg capsule,delayed 20 mg PO QDAY 12/06/23 12/06/23 History release tramadol 50 mg tablet 50 mg PO QDAY 12/06/23 12/06/23 History Patient : No Have you fallen in the past year?: No Nurse's Note: OV 12.20.23 Pt here to establish care in our office for epigastric pain. Reports epigastric pain, trouble swallowing on occasion and coughing at mealtime. Denies any N/V. Had EGD several years ago. Takes omeprazole daily. [facility] Medical History (Updated 12/20/23 @ 11:16 by MENG Coello) Heart failure Gastroparesis PVC (premature ventricular contraction) Constipation Hypertension Tachycardia Urinary tract infection Urinary tract infection with hematuria Surgical History (Updated 12/06/23 @ 13:37 by Oksana Lin) History of thyroidectomy History of knee replacement Social History Smoking Status: Never smoker HPI HPI Chief Complaint: Epigastric pain Details: SARAH CHENG, is a 78 F who presents to the office today for establishment with [facility]. Pt has a PMHx of heart failure, gastroparesis and cervical spondylosis. She is here today for episodic stabbing epigastric pain happening a few times per year. These episodes typically resolve within 15 minutes. She does have daily soreness in the epigastric reason that causes her to have to take her bra off at the end of the day. She has seen GI in the past for her gastroparesis and her last EGD was a few years ago. SHe denies constipation, diarrhea, n/v, or heartburn. ROS Const Constitutional: Positive for fatigue and weight change; No fever(s) ENT ENT: No difficulty swallowing Gastro GI: Positive for abdominal pain, bloating, change in bowel habits, constipation, heartburn and excessive flatus; No belching, change in stool character, coffee ground emesis, cramping, diarrhea, difficulty swallowing, feeling full early, incontinent of stools, Vomiting blood/hematemesis, Blood in stool, loose stools, Black,tarry stools, nausea/dyspepsia, pain with swallowing, vomiting or other Musc Musculoskeletal: Positive for abnormal gait, joint pain, back pain and Arthritis Skin Skin: No yellowing of the eye or itchy eyes Neuro Neurology: Positive for abnormal gait Psych Psychiatric: Positive for anxiety and Positive for depression Endo Endocrine: Positive for fatigue and weight change Aller/Imm Allergy/Immunologic: No itchy eyes Christoph/Lymp Hematologic/Lymphatic: No easy bleeding or easy bruising Exam Const General: cooperative and comfortable Nutritional Appearance: average body habitus and well nourished HENOR Head: normal to inspection Ears: hearing grossly normal bilaterally Nose: external nose normal Face and sinus: normal facial exam Throat: posterior oropharynx normal Eyes General: appearance normal, both eyes and all related structures Neck Neck: normal visual inspection (more content not included)... Normal [facility] CNOVon 11-08-2023 CNOV Office Visit (NMMBHT ) ----- SARAH CHENG ([id number]) 1945 F Date Time Provider Department 11/08/23 3:00 PM PARKER MARCIAL [facility] During your visit today, we recorded the following information about you: Pulse Blood pressure 86/minute 128/80 Parker Marcial MD 11/08/2023 4:34 PM Signed [facility] Neurological [facility] New Patient Visit Note Consultation requested by Aisha Laboy PA-C for an opinion regarding arm pain. My final recommendations will be communicated back to the requesting physician by way of shared Medical record or letter to requesting physician via US mail. HPI: Ms. Sarah Cheng is a 78 year old female referred for arm pain. The patient has a past medical history of osteoarthritis, HTN, gastroparesis, tachycardia. The patient is accompanied by their , Cabrera. Symptoms ongoing for about 1 year, progressive. She is awoken at 6am most mornings experiencing a burning under her skin from her hands all the way up her arms and across her chest. While she feels burning, skin is cold to the touch, though rubbing the skin causes a tender sensation. Once she gets up and starts moving around, symptoms improve within 30 minutes. Does not generally affect her much during the day, but can occur in a minor fashion when she cold. Denies any associated weakness or incoordination with his symptoms. Symptoms re progressing, becoming more painful than it had been prior and seems to have progressed from lower arms to involve whole arms. Is on gabapentin 600mg QID chronically for back pain. Tried Elavil 25mg qHS for these symptoms for about 30 days, no improvement. Has cervical and thoracic spinal issues; gets frequent thoracic RFAs Tobacco use: no Daily alcohol use: no Family history: Denies family history of neuropathy, myopathy and/or neurodegenerative disease Physical Exam There were no vitals taken for this visit. GENERAL Well nourished, well hydrated, no acute distress. MENTAL STATUS EXAM Orientation: Alert and oriented to person, place and time. Memory: Cooperative, follows commands well. Recent and remote memory normal. Attention, concentration: Attention span and concentration are normal. Language: Speech is clear and language is normal. Fund of knowledge: Aware of current events, vocabulary appropriate for patient age. CRANIAL NERVES CNII: Visual acuity normal. Visual varela full to confrontation CNIII, IV, : Pupils equal, round and reactive to light. Full extraoccular movements without nystagmus CN V: Facial sensation intact bilaterally to fine touch CN VII: Frontalis, orbicularis oculi, buccinator, orbicularis antoinette strength intact. Symmetric smile CN VIII: Hears finger rub well bilaterally CN IX: Gag Reflex Not examined CN X: Palate elevates symmetrically CN XI: Full strength shoulder shrug bilaterally CN XII: Tongue protrusion full and midline. No atrophy or fasciculations. Tongue movements are normal Speech is normal MOTOR Strength/Power (MRC grade- out of 5): Neck Flexion: 5/5 Neck Extension: 5/5 Upper extremity power, when graded out of 5, revealed: Right Left shoulder abduction 5/5 5/5 shoulder external rotation 5/5 5/5 elbow extension 5/5 5/5 elbow flexion 5/5 5/5 wrist extension 5/5 5/5 finger extension 5/5 5/5 deep finger flexion (D2-3) 5/5 5/5 deep finger flexion (D4-5) 5/5 5/5 thumb flexion with FPL 5/5 5/5 finger abduction 5/5 5/5 Lower extremity strength, when reported the same way, showed: Right Left hip flexion 5/5 5/5 hip adduction 5/5 5/5 hip abduction 5/5 5/5 knee flexion 5/5 5/5 knee extension 5/5 5/5 ankle dorsiflexion 5/5 5/5 ankle plantar flexion 5/5 5/5 toe extension 5/5 5/5 toe flexion 5/5 5/5 Muscle: Tone is normal. There is no muscle atrophy or fasciculations. REFLEXES Right Left Bicep 2/4 2/4 Tricep 2/4 2/4 BrRad 2/4 2/4 Knee 2/4 2/4 Ankle 0/4 0/4 PATHOLOGIC REFLEXES: Babinski: bilaterally Downward response COORDINATION Finger-to- nose-finger intact bilaterally. No tremor. SENSATION Light touch: intact Proprioception: intact at great toes Vibration: intact at great toes Pinprick: intact GAIT Patient's gait is normal can heel and toe walk. Able to rise from seated position without the use of hands. Diagnostic Studies: MRI brain and cervical spine wwo 08/05/22: No acute findings or abnormal intracranial enhancement. Supratentorial chronic microvascular ischemic changes. C2-C3: Mild right foraminal stenosis due to asymmetric uncovertebral and facet hypertrophy. Patent canal and left foramen. C3-C4: Spondylolisthesis, disc/osteophyte complex, dorsal ligamentous hypertrophy, uncovertebral and facet hypertrophy; mild-moderate canal stenosis with cord abutment, at least moderate right greater than left foraminal stenosis. (more content not included)... Normal [facility] Absolute lymphocyte countOrd ered By: Julius Loving on 06-14-2023 Lymphocytes Auto (Unsp spec) [#/Vol] 3.04 10*3/uL 0.83-4.51 [facility] Automated lymphocyte count a s percentage of total leukocytesOrdered By: Julius Loving on 06-14-2023 Lymphocytes/100 WBC Auto (Unsp spec) 34.2 % 19-41 [facility] Basophil percentageOrdered B y: Julius Loving on 06-14-2023 Basophils/100 WBC (Bld) 0.6 % 0-1 [facility] Chloride [Moles/Vol] 109 mmol/L 98-107 [facility] Eosinophils/100 WBC (Bld) 2.1 % 0-5 [facility] Glucose [Mass/Vol] 113 mg/dL 74-106 [facility] Comment on above: Fasting Glucose resu lt from 100 to 125 mg/dL suggests IMPAIRED HOMEOSTASIS per A.D.A. criteria. Hemoglobin (Bld) [Mass/Vol] 14.0 g/dL 12.0-15.0 [facility] Monocytes/100 WBC (Bld) 9.6 % 0-10 [facility] Neutrophils (Bld) [#/Vol] 4.7 10*3/uL 2.0-7.7 [facility] Neutrophils/100 WBC (Bld) 52.6 % 47-70 [facility] Potassium [Moles/Vol] 3.7 mmol/L 3.5-5.1 [facility] Sodium [Moles/Vol] 141 mmol/L 136-145 [facility] WBC (Bld) [#/Vol] 8.9 10*3/uL 4.4-11.0 [facility] Determination of erythrocyte mean corpuscular volume (MCV)Ordered By: Julius Loving on 06-14-2023 MCV (RBC) [Entitic vol] 94.8 fL 81-99 [facility] Erythrocyte distribution wid th ratioOrdered By: Julius Loving on 06-14-2023 Erythrocyte distribution width (RBC) [Ratio] 13.2 % 11.6-14.6 [facility] Erythrocyte distribution wid th standard deviationOrdered By: Julius Loving on 06-14-2023 Erythrocyte distribution width (RBC) [Entitic vol] 46.1 fL 35.1-43.9 [facility] Hematocrit Auto (Bld) [Volum e fraction]Ordered By: Julius Loving on 06-14-2023 Hematocrit (Bld) [Volume fraction] 43.9 % 37-47 [facility] Immature granulocytes/100 WB C Auto (Bld)Ordered By: Julius Loving on 06-14-2023 Immature granulocytes/100 WBC (Bld) 0.900 % 0.0-0.9 [facility] Comment on above: IG% - Immature Granu locytes (promyelocytes, myelocytes and metamyelocytes) > 1% indicates that a LEFT SHIFT is Present. Laboratory - Chemistry and C hemistry - challengeOrdered By: Julius Loving on 06-14-2023 CO2 [Moles/Vol] 27.0 mmol/L 21.0-32.0 [facility] Urea nitrogen/Creatinine [Mass ratio] 20.3 mg/mg 10-20 [facility] Laboratory - Hematology and Cell countsOrdered By: Julius Loving on 06-14-2023 MCH (RBC) [Entitic mass] 30.2 pg 27.0-32.0 [facility] MCHC (RBC) [Mass/Vol] 31.9 g/dL 32-36 [facility] Nucleated RBC/100 WBC (Bld) [Ratio] 0 % 0-5 [facility] Platelet mean volume (Bld) [Entitic vol] 9.1 fL 6.2-12.0 [facility] Platelets (Bld) [#/Vol] 272 10*3/uL 150-450 [facility] Laboratory - Microbiology an d Antimicrobial susceptibilityOrdered By: Julius Loving on 06-14-2023 SARS-CoV-2 (COVID-19) RNA ELIZABETH+probe Ql (Unsp spec) [facility] No Panel InformationOrdered By: Julius Loving on 06-14-2023 Estimated Creatinine Clearance Calc 56.58 ml/min [facility] Estimated GFR (MDRD) Amer 80 mL/min >60 [facility] Comment on above: GFR Calc Estimated GFR (MDRD) Non-Af Amer 66 mL/min >60 [facility] Comment on above: Non- GFR Calc Troponin I High Sensitivity 8 pg/mL 3.0-54.0 [facility] Comment on above: Please Note: [place] Units and Gender Specific Reference Ranges. For more information see Policy Stat Procedure [place] High Sensitivity Troponin (TNIH) and attachments. RBC Auto (Bld) [#/Vol]Ordere d By: Julius Loving on 06-14-2023 RBC (Bld) [#/Vol] 4.63 10*6/uL 4.2-5.4 [facility] Serum or plasma calcium kyree urement (mass/volume)Ordered By: Julius Loving on 06-14-2023 Calcium [Mass/Vol] 9.5 mg/dL 8.5-10.1 [facility] Serum or plasma creatinine m easurement (mass/volume)Ordered By: Julius Loving on 06-14-2023 Creatinine [Mass/Vol] 0.88 mg/dL 0.55-1.02 [facility] Comment on above: The validity of the calculated GFR & GFRAA in patients over 70 years has not been determined. Clinical correlation is essential. Serum or plasma urea nitroge n measurement (mass/volume)Ordered By: Julius Loving on 06-14-2023 Urea nitrogen [Mass/Vol] 18 mg/dL 7-18 [facility] Thin prep Papanicolaou smear with manual screeningOrdered By: Julius Loving on 06-14-2023 Thin prep Papanicolaou smear with manual screening 5 5-15 [facility] Basophil percentageOrdered B y: Rory Kay on 04-17-2023 Basophil percentage 25-50 SEEN /hpf 0-5 [facility] Bilirubin Test strip Ql (U)O rdered By: Rory Kay on 04-17-2023 Bilirubin Ql (U) Negative Negative [facility] Calcium oxalate crystals det ection in urine sediment by light microscopyOrdered By: Rory Kay on 04-17-2023 Calcium oxalate crystals LM Ql (Urine sed) 1+ /hpf [facility] Culture, urineOrdered By: Saranya Kay on 04-17-2023 Bacteria identified Cx Nom (U) Positive [facility] Bacteria identified Cx Nom (U) Positive [facility] Ketones Test strip Ql (U)Ord ered By: Rory Kay on 04-17-2023 Ketones Ql (U) Negative Negative [facility] Mucus LM Ql (Urine sed)Order ed By: Rory Kay on 04-17-2023 Mucus Ql (Urine sed) 0 SEEN /hpf [facility] Nitrite Test strip Ql (U)Ord ered By: Rory Kay on 04-17-2023 Nitrite Ql (U) Negative Negative [facility] No Panel InformationOrdered By: Rory Kay on 04-17-2023 Urine RBC 0 SEEN /hpf 0-5 [facility] Protein Test strip Ql (U)Ord ered By: Rory Kay on 04-17-2023 Protein Ql (U) 15 mg/dl Negative [facility] Squamous epithelial cells de tection in urine sediment by light microscopyOrdered By: Rory Kay on 04-17-2023 Epithelial cells.squamous LM Ql (Urine sed) 0-5 SEEN /hpf 5-10 [facility] Urine blood detectionOrdered By: Rory Kay on 04-17-2023 RBC Ql (U) 150 /ul Negative [facility] Urine clarityOrdered By: Will Kay on 04-17-2023 Clarity (U) Sl. Cloudy Clear [facility] Urine color determinationOrd ered By: Rory Kay on 04-17-2023 Color (U) Yellow Yellow [facility] Urine glucose detectionOrder ed By: Rory Kay on 04-17-2023 Glucose Ql (U) Normal mg/dl Normal [facility] Urine leukocyte esterase det ection by dipstickOrdered By: Rory Kay on 04-17-2023 Leukocyte esterase Test strip Ql (U) 500 /ul Negative [facility] Urine pHOrdered By: Rory garcia on 04-17-2023 pH (U) 6.5 [pH] 5.0 - 8.0 [facility] Urine sediment bacteria coun t by microscopy (number/high power field)Ordered By: Rory Kay on 04-17-2023 Bacteria LM.HPF (Urine sed) [#/Area] 0 /[HPF] None Seen [facility] Urine specific gravity measu rementOrdered By: Rory Kay on 04-17-2023 Specific gravity (U) [Rel density] 1.010 1.002-1.030 [facility] Urine urobilinogen measureme ntOrdered By: Rory Kay on 04-17-2023 Urobilinogen Ql (U) Normal mg/dl Normal [facility] Laboratory - Chemistry and C hemistry - challengeon 04-16-2023 Bilirubin Ql (U) Negative [facility] Glucose Ql (U) Negative [facility] Ketones Ql (U) Negative [facility] pH (U) 6.0 [pH] [facility] Specific gravity (U) [Rel density] 1.010 [facility] Urobilinogen (U) [Mass/Vol] Negative [facility] Laboratory - Hematology and Cell countson 04-16-2023 Hemoglobin Ql (U) Moderate [facility] Laboratory - Specimen inform ationon 04-16-2023 Clarity (U) Cloudy [facility] Color (U) YELLOW [facility] Laboratory - Urinalysison Nitrite Ql (U) Negative [facility] Protein Ql (U) Negative [facility] No Panel Informationon 04-15 Urine Leukocytes Positive [facility] Urine Non-Hemolyzed Blood Non-Hemolyzed [facility] Basophil percentageOrdered B y: Dano Salvador on 03-09-2023 Basophil percentage >100 SEEN /hpf 0-5 [facility] Bilirubin Test strip Ql (U)O rdered By: Dano Salvador on 03-09-2023 Bilirubin Ql (U) Negative Negative [facility] Culture, urineOrdered By: Keren Salvador on 03-09-2023 Bacteria identified Cx Nom (U) ESBL Escherichia coli [facility] Bacteria identified Cx Nom (U) ESBL Escherichia coli [facility] Ketones Test strip Ql (U)Ord ered By: Dano Salvador on 03-09-2023 Ketones Ql (U) Negative Negative [facility] Laboratory - Chemistry and C hemistry - challengeon 03-09-2023 Bilirubin Ql (U) Negative [facility] Glucose Ql (U) Negative [facility] Ketones Ql (U) Negative [facility] pH (U) 6.0 [pH] [facility] Specific gravity (U) [Rel density] 1.020 [facility] Urobilinogen (U) [Mass/Vol] Negative [facility] Laboratory - Hematology and Cell countson 03-09-2023 Hemoglobin Ql (U) Hemolyzed [facility] Laboratory - Specimen inform ationon 03-09-2023 Clarity (U) Cloudy [facility] Color (U) YELLOW [facility] Laboratory - Urinalysison Nitrite Ql (U) Negative [facility] Protein Ql (U) Negative [facility] Mucus LM Ql (Urine sed)Order ed By: Dano Salvador on 03-09-2023 Mucus Ql (Urine sed) 0 SEEN /hpf [facility] Nitrite Test strip Ql (U)Ord ered By: Dano Salvador on 03-09-2023 Nitrite Ql (U) Negative Negative [facility] No Panel InformationOrdered By: Dano Salvador on 03-09-2023 Urine RBC 0 SEEN /hpf 0-5 [facility] No Panel Informationon 03-09 Urine Leukocytes Positive [facility] Urine Non-Hemolyzed Blood Moderate [facility] Protein Test strip Ql (U)Ord ered By: Dano Salvador on 03-09-2023 Protein Ql (U) 100 mg/dl Negative [facility] Squamous epithelial cells de tection in urine sediment by light microscopyOrdered By: Dano Salvador on 03-09-2023 Epithelial cells.squamous LM Ql (Urine sed) 0-5 SEEN /hpf 5-10 [facility] Urine blood detectionOrdered By: Dano Salvador on 03-09-2023 RBC Ql (U) 150 /ul Negative [facility] Urine clarityOrdered By: Jerome Salvador on 03-09-2023 Clarity (U) Cloudy Clear [facility] Urine color determinationOrd ered By: Dano Salvador on 03-09-2023 Color (U) Yellow Yellow [facility] Urine glucose detectionOrder ed By: Dano Salvador on 03-09-2023 Glucose Ql (U) Normal mg/dl Normal [facility] Urine leukocyte esterase det ection by dipstickOrdered By: Dano Salvador on 03-09-2023 Leukocyte esterase Test strip Ql (U) 500 /ul Negative [facility] Urine pHOrdered By: Dano jenkins on 03-09-2023 pH (U) 6.0 [pH] 5.0 - 8.0 [facility] Urine sediment bacteria coun t by microscopy (number/high power field)Ordered By: Dano Salvador on 03-09-2023 Bacteria LM.HPF (Urine sed) [#/Area] 0 /[HPF] None Seen [facility] Urine sediment renal epithel ial cell count by microscopy (number/high power field)Ordered By: Dano Salvador on 03-09-2023 Epithelial cells.renal LM.HPF (Urine sed) [#/Area] 0 /[HPF] 0-5 [facility] Urine specific gravity measu rementOrdered By: Dano Salvador on 03-09-2023 Specific gravity (U) [Rel density] 1.015 1.002-1.030 [facility] Urine urobilinogen measureme ntOrdered By: Dano Salvador on 03-09-2023 Urobilinogen Ql (U) Normal mg/dl Normal [facility] Vit B12 SerPl-mCncon 024 Cobalamin (Vitamin B12) [Mass/Vol] 717 pg/mL Normal 232-1245 [facility] Comment on above: Order Comment: Speci men Type: BLOOD SPECIMEN Ordering Facility: [facility] Address: [address] [place] [address] Performed By: #### [id number] #### [facility] CLIA [id number] [address] [place] [address] [place] Methylmalonate SerPl-sCncon 02-23-2023 Methylmalonate [Moles/Vol] 0.20 umol/L Normal <=0.40 [facility] Comment on above: Order Comment: Speci men Type: BLOOD SPECIMEN Ordering Facility: [facility] Address: [address] [place] [address] Result Comment: This test was developed and its performance characteristics determined by [facility] [place] ([facility]). It has not been cleared or approved by the FDA. [facility] is regulated under CLIA as qualified to perform high-complexity testing. This test is used for clinical purposes. It should not be regarded as investigational or for research. Performed By: #### 1 [id number] #### [facility] CLIA [id number] [address] [place] [address] [place] PROTEIN ELECTROPHORESIS SERU M WITH JOAN (P)on 02-23-2023 Albumin [Mass/Vol] 3.96 g/dL Normal 3.43-5.41 [facility] Comment on above: Order Comment: Speci men Type: BLOOD SPECIMEN Ordering Facility: [facility] Address: [address] [place] [address] Performed By: #### L [id number] #### [facility] CLIA [id number] [address] [place] [address] [place] Alpha 1 globulin Elph [Mass/Vol] 0.29 g/dL Normal 0.18-0.43 [facility] Comment on above: Order Comment: Speci men Type: BLOOD SPECIMEN Ordering Facility: [facility] Address: [address] [place] [address] Performed By: #### L [id number] #### [facility] CLIA [id number] [address] [place] [address] [place] Alpha 2 globulin Elph [Mass/Vol] 0.76 g/dL Normal 0.42-0.98 [facility] Comment on above: Order Comment: Speci men Type: BLOOD SPECIMEN Ordering Facility: [facility] Address: [address] [place] [address] Performed By: #### L [id number] #### [facility] CLIA [id number] [address] [place] [address] [place] Beta globulin Elph [Mass/Vol] 0.96 g/dL Normal 0.61-1.17 [facility] Comment on above: Order Comment: Speci men Type: BLOOD SPECIMEN Ordering Facility: [facility] Address: [address] [place] [address] Performed By: #### L [id number] #### [facility] CLIA [id number] [address] [place] [address] [place] COMMENT (SERUM PROT ELECTRO) Monoclonal Protein analysis (immunofixation) is not indicated. Normal [facility] Comment on above: Order Comment: Speci men Type: BLOOD SPECIMEN Ordering Facility: [facility] Address: [address] [place] [address] Performed By: #### L [id number] #### [facility] CLIA [id number] [address] [place] [address] [place] Gamma globulin Elph [Mass/Vol] 1.03 g/dL Normal 0.53-1.51 [facility] Comment on above: Order Comment: Speci men Type: BLOOD SPECIMEN Ordering Facility: [facility] Address: [address] [place] [address] Performed By: #### L [id number] #### [facility] CLIA [id number] [address] [place] [address] [place] M-PROTEIN LOCATION Normal [facility] Comment on above: Order Comment: Speci men Type: BLOOD SPECIMEN Ordering Facility: [facility] Address: [address] [place] [address] Result Comment: Not Applicable. Performed By: #### L [id number] #### [facility] CLIA [id number] [address] [place] [address] [place] Protein Fractions [Interp] No definitive M protein is identified on protein electrophoresis. Normal No definitive M protein is identified on protein electrophor esis. [facility] Comment on above: Order Comment: Speci men Type: BLOOD SPECIMEN Ordering Facility: [facility] Address: [address] [place] [address] Performed By: #### L [id number] #### [facility] CLIA [id number] [address] [place] [address] [place] Protein.monoclonal Elph [Mass/Vol] 0.00 g/dL Normal <=0.00 [facility] Comment on above: Order Comment: Speci men Type: BLOOD SPECIMEN Ordering Facility: [facility] Address: [address] [place] [address] Performed By: #### L [id number] #### [facility] CLIA [id number] [facility] [place] [address] [place] SPE STAFF REVIEW Reviewed by Chely Morales MD Normal [facility] Comment on above: Order Comment: Speci men Type: BLOOD SPECIMEN Ordering Facility: [facility] Address: [address] [place] [address] Performed By: #### L [id number] #### [facility] CLIA [id number] [address] [place] [address] [place] Prot SerPl-mCncon 02-23-2023 Protein [Mass/Vol] 7.0 g/dL Normal 6.3-8.0 [facility] Comment on above: Order Comment: Speci men Type: BLOOD SPECIMEN Ordering Facility: [facility] Address: [place] [id number] Performed By: #### 2 [id number] #### [facility] CLIA [id number] [address] [facility] [id number] [id number] [facility] CNOVon 02-22-2023 CNOV Office Visit (NEMOWS ) ----- SARAH CHENG ([id number]) 1945 F Date Time Provider Department 02/22/23 4:15 PM AISHA LABOY During your visit today, we recorded the following information about you: Pulse Respiration Blood pressure Weight 72/minute 16/minute 121/79 70.4 kg Aisha Laboy PA-C 02/22/2023 5:15 PM Signed ESTABLISHED PATIENT VISIT Last visit: 08/19/22 with [...] with pt having prior dx of fibromyalgia. Franki Hernandez MD CHIEF COMPLAINT: follow up HISTORY OF PRESENT ILLNESS: Sarah Cheng is a 78 year old female, There were no vitals taken for this visit. with a PMH significant for HTN, HLD, osteoarthritis, vitamin D deficiency. Saw Dr. Hernandez 08/19/22 for pain in upper extremities and cervcialgia, worse in the mroning. Repeat EMG negative. Wanted to follow up ih spine. On gabapentin 600mg four timmes a [...] with this as well. Notes this is never happened before, no etiology that she can think [...] disturbance, mood disorder and recent psychosocial stressors. HEMATOLOGIC/LYMPHATIC/IMM UNOLOGIC:Negative for prolonged bleeding, bruising easily or swollen nodes. ENDOCRINE: Negative for cold or heat in (more content not included)... Normal [facility] Culture, urineOrdered By: Keren Salvador on 12-21-2022 Bacteria identified Cx Nom (U) ESBL Escherichia coli [facility] - Chemistry and C hemistry - challengeon 12-21-2022 Bilirubin Ql (U) Negative [facility] Glucose Ql (U) Negative [facility] Ketones Ql (U) Trace (5) [facility] pH (U) 6.5 [pH] [facility] Specific gravity (U) [Rel density] 1.015 [facility] Urobilinogen (U) [Mass/Vol] 0.2077402 mg/dL [facility] - Hematology and Cell countson 12-21-2022 Hemoglobin Ql (U) Trace [facility] - Specimen inform ationon 12-21-2022 Clarity (U) Cloudy [facility] Color (U) YELLOW [facility] Laboratory - Urinalysison Nitrite Ql (U) Negative [facility] Protein Ql (U) Positive [facility] No Panel Informationon 12-21 Urine Leukocytes Positive [facility] Urine Non-Hemolyzed Blood Negative [facility] Culture, urineOrdered By: Keren Salvador on 12-03-2022 Bacteria identified Cx Nom (U) ESBL Escherichia coli [facility] Culture, urineOrdered By: Keren Salvador on 12-02-2022 Bacteria identified Cx Nom (U) ESBL Escherichia coli [facility] - Chemistry and C hemistry - challengeon 12-02-2022 Bilirubin Ql (U) Negative [facility] Glucose Ql (U) Negative [facility] Ketones Ql (U) Negative [facility] pH (U) 6.0 [pH] [facility] Specific gravity (U) [Rel density] 1.005 [facility] Urobilinogen (U) [Mass/Vol] 0.5740149 mg/dL [facility] - Hematology and Cell countson 12-02-2022 Hemoglobin Ql (U) Trace [facility] - Specimen inform ationon 12-02-2022 Clarity (U) Cloudy [facility] Color (U) Straw [facility] Laboratory - Urinalysison Nitrite Ql (U) Negative [facility] Protein Ql (U) Negative [facility] No Panel Informationon 12-02 Urine Leukocytes Positive [facility] Urine Non-Hemolyzed Blood [facility] EMG(NEURO/NI)on 09-19-2022 [facility] No Panel Informationon 08-05 [facility] Culture, urineOrdered By: Keren Salvador on 06-14-2022 Bacteria identified Cx Nom (U) Mixed Gram Pos & Gram Neg Org [facility] Basophil percentageOrdered B y: Dano Salvador on 06-12-2022 Basophil percentage >100 SEEN /hpf 0-5 [facility] Bilirubin Test strip Ql (U)O rdered By: Dano Salvador on 06-12-2022 Bilirubin Ql (U) Negative Negative [facility] Ketones Test strip Ql (U)Ord ered By: Dano Salvador on 06-12-2022 Ketones Ql (U) Negative Negative [facility] Mucus LM Ql (Urine sed)Order ed By: Dano Salvador on 06-12-2022 Mucus Ql (Urine sed) 0 SEEN /hpf [facility] Nitrite Test strip Ql (U)Ord ered By: Dano Salvador on 06-12-2022 Nitrite Ql (U) Negative Negative [facility] Protein Test strip Ql (U)Ord ered By: Dano Salvador on 06-12-2022 Protein Ql (U) Negative Negative [facility] Squamous epithelial cells de tection in urine sediment by light microscopyOrdered By: Dano Salvador on 06-12-2022 Epithelial cells.squamous LM Ql (Urine sed) 0-5 SEEN /hpf 5-10 [facility] Urine blood detectionOrdered By: Dano Salvador on 06-12-2022 RBC Ql (U) Negative Negative [facility] RBC Ql (U) 0 SEEN /hpf 0-5 [facility] Urine clarityOrdered By: Jerome Salvador on 06-12-2022 Clarity (U) Clear Clear [facility] Urine color determinationOrd ered By: Dano Salvador on 06-12-2022 Color (U) Yellow Yellow [facility] Urine glucose detectionOrder ed By: Dano Salvador on 06-12-2022 Glucose Ql (U) Normal mg/dl Normal [facility] Urine leukocyte esterase det ection by dipstickOrdered By: Dano Salvador on 06-12-2022 Leukocyte esterase Test strip Ql (U) 500 /ul Negative [facility] Urine pHOrdered By: Dano jenkins on 06-12-2022 pH (U) 7.0 [pH] 5.0 - 8.0 [facility] Urine sediment bacteria coun t by microscopy (number/high power field)Ordered By: Dano Salvador on 06-12-2022 Bacteria LM.HPF (Urine sed) [#/Area] 2 /[HPF] None Seen [facility] Urine specific gravity measu rementOrdered By: Dano Salvador on 06-12-2022 Specific gravity (U) [Rel density] 1.005 1.002-1.030 [facility] Urobilinogen Auto test strip Ql (U)Ordered By: Dano Salvador on 06-12-2022 Urobilinogen Ql (U) Normal mg/dl Normal [facility] Laboratory - Chemistry and C hemistry - challengeon 06-10-2022 Bilirubin Ql (U) Negative [facility] Glucose Ql (U) Negative [facility] Ketones Ql (U) Negative [facility] pH (U) 5.0 [pH] [facility] Specific gravity (U) [Rel density] 1.005 [facility] Urobilinogen (U) [Mass/Vol] 0.7065959 mg/dL [facility] - Hematology and Cell countson 06-10-2022 Hemoglobin Ql (U) Negative [facility] - Specimen inform ationon 06-10-2022 Clarity (U) Cloudy [facility] Color (U) Straw [facility] - Urinalysison Nitrite Ql (U) Negative [facility] Protein Ql (U) Negative [facility] No Panel Informationon 06-10 Urine Leukocytes Positive [facility] Urine Non-Hemolyzed Blood [facility] Basophil percentageon 2021 Basophil percentage 10-25 SEEN /hpf 0-5 [facility] Work Phone: Bilirubin Test strip Ql (U)o n 01-31-2022 Bilirubin Ql (U) Negative Negative [facility] Work Phone: Ketones Test strip Ql (U)on 01-31-2022 Ketones Ql (U) Negative Negative [facility] Work Phone: Mucus LM Ql (Urine sed)on Mucus Ql (Urine sed) 0 SEEN /hpf [facility] Work Phone: Nitrite Test strip Ql (U)on 01-31-2022 Nitrite Ql (U) Negative Negative [facility] Work Phone: Protein Test strip Ql (U)on 01-31-2022 Protein Ql (U) Negative Negative [facility] Work Phone: Squamous epithelial cells de tection in urine sediment by light microscopyon 01-31-2022 Epithelial cells.squamous LM Ql (Urine sed) 0 SEEN /hpf 5-10 [facility] Work Phone: Urine blood detectionon 01-13 RBC Ql (U) Negative Negative [facility] Work Phone: RBC Ql (U) 0 SEEN /hpf 0-5 [facility] Work Phone: Urine clarityon 01-31-2022 Clarity (U) Clear Clear [facility] Work Phone: Urine color determinationon 01-31-2022 Color (U) Yellow Yellow [facility] Work Phone: Urine glucose detectionon Glucose Ql (U) Normal mg/dl Normal [facility] Work Phone: Urine leukocyte esterase det ection by dipstickon 01-31-2022 Leukocyte esterase Test strip Ql (U) 500 /ul Negative [facility] Work Phone: Urine pHon 01-31-2022 pH (U) 6.5 [pH] 5.0 - 8.0 [facility] Work Phone: Urine sediment bacteria coun t by microscopy (number/high power field)on 01-31-2022 Bacteria LM.HPF (Urine sed) [#/Area] RARE /hpf None Seen [facility] Work Phone: Urine specific gravity measu rementon 01-31-2022 Specific gravity (U) [Rel density] 1.010 1.002-1.030 [facility] Work Phone: Urobilinogen Auto test strip Ql (U)on 01-31-2022 Urobilinogen Ql (U) Normal mg/dl Normal [facility] Work Phone: .Auto Diffon 11-23-2021 Basophil, Absolute 0.0 10 3/mcL Normal 0.0-0.2 [facility] ([place]) Comment on above: Performed By: #### G FR, CMP, TSH, MG, VIDH, ESR #### [facility] [address] [place], [place] [address] #### FOL, B12 #### [facility] [address] [place] [address] Basophils/100 WBC (Bld) 0.9 % Normal 0.0-2.5 [facility] ([place]) Comment on above: Performed By: #### G FR, CMP, TSH, MG, VIDH, ESR #### [address] [address] #### FOL, B12 #### [address] [address] Eosinophil, Absolute 0.2 10 3/mcL Normal 0.0-0.4 [facility] ([place]) Comment on above: Performed By: #### G FR, CMP, TSH, MG, VIDH, ESR #### [address] [address] #### FOL, B12 #### [address] [address] Eosinophils/100 WBC (Bld) 3.5 % Normal 0.0-7.0 [facility] ([place]) Comment on above: Performed By: #### G FR, CMP, TSH, MG, VIDH, ESR #### [address] [address] #### FOL, B12 #### [address] [address] Lymphocyte, Absolute 1.3 10 3/mcL Normal 0.8-3.9 [facility] ([place]) Comment on above: Performed By: #### G FR, CMP, TSH, MG, VIDH, ESR #### [address] [address] #### FOL, B12 #### [address] [address] Lymphocytes/100 WBC (Bld) 26.3 % Normal 10.0-50.0 [facility] ([place]) Comment on above: Performed By: #### G FR, CMP, TSH, MG, VIDH, ESR #### [address] [address] #### FOL, B12 #### [address] [address] Monocyte, Absolute 0.4 10 3/mcL Normal 0.2-1.0 [facility] ([place]) Comment on above: Performed By: #### G FR, CMP, TSH, MG, VIDH, ESR #### [address] [address] #### FOL, B12 #### [address] [address] Monocytes/100 WBC (Bld) 8.6 % Normal 1.7-13.0 [facility] ([place]) Comment on above: Performed By: #### G FR, CMP, TSH, MG, VIDH, ESR #### [address] [address] #### FOL, B12 #### [address] [address] Neutrophils/100 WBC (Bld) 60.7 % Normal 37.0-80.0 [facility] ([place]) Comment on above: Performed By: #### G FR, CMP, TSH, MG, VIDH, ESR #### [address] [address] #### FOL, B12 #### [address] [address] .GFRon 11-23-2021 GFR 75 ml/min/1.73sqm Normal [facility] ([place]) Comment on above: Result Comment: GFR Population mean for , Non- Americans Ages 20-29 = 116 mL/min/1.73 sq.m. Ages 30-39 = 107 mL/min/1.73 sq.m. Ages 40-49 = 99 mL/min/1.73 sq.m. Ages 50-59 = 93 mL/min/1.73 sq.m. Ages 60-69 = 85 mL/min/1.73 sq.m. Ages 70+ = 75 mL/min/1.73 sq.m. Chronic Kidney Disease: Less than 60 mL/min/1.73 square meters End Stage Renal Disease: Less than 15 mL/min/1.73 square meters Performed By: #### C MP, PBNP, TSH, MG, GFR #### [address] [address] GFR Non- 62 ml/min/1.73sqm Normal [facility] ([place]) Comment on above: Result Comment: GFR Population mean for , Non- Americans Ages 20-29 = 116 mL/min/1.73 sq.m. Ages 30-39 = 107 mL/min/1.73 sq.m. Ages 40-49 = 99 mL/min/1.73 sq.m. Ages 50-59 = 93 mL/min/1.73 sq.m. Ages 60-69 = 85 mL/min/1.73 sq.m. Ages 70+ = 75 mL/min/1.73 sq.m. Chronic Kidney Disease: Less than 60 mL/min/1.73 square meters End Stage Renal Disease: Less than 15 mL/min/1.73 square meters Performed By: #### C MP, PBNP, TSH, MG, GFR #### [address] [address] .NEUABSon 11-23-2021 Neutrophil, Absolute 3.1 10 3/mcL Normal 2.9-6.2 [facility] ([place]) Comment on above: Performed By: #### G FR, CMP, TSH, MG, VIDH, ESR #### [place] [address] #### FOL, B12 #### [address] [address] B12on 11-23-2021 Cobalamin (Vitamin B12) [Mass/Vol] 616 pg/mL Normal 211-911 [facility] ([place]) Comment on above: Performed By: #### C MP, PBNP, TSH, MG, GFR #### [address] [address] CBCon 11-23-2021 Erythrocyte distribution width (RBC) [Ratio] 13.5 % Normal 11.5-14.5 [facility] ([place]) Comment on above: Performed By: #### G FR, CMP, TSH, MG, VIDH, ESR #### [place] [id number] #### FOL, B12 #### [address] [address] Hematocrit (Bld) [Volume fraction] 38.9 % Normal 37.0-47.0 [facility] ([place]) Comment on above: Performed By: #### G FR, CMP, TSH, MG, VIDH, ESR #### [place] [address] #### FOL, B12 #### [place] [address] Hgb 13.0 G/dL Normal 12.0-16.0 [facility] ([place]) Comment on above: Performed By: #### G FR, CMP, TSH, MG, VIDH, ESR #### [place] [address] #### FOL, B12 #### [place] [address] MCH (RBC) [Entitic mass] 31.9 pg High 27.0-31.2 [facility] ([place]) Comment on above: Performed By: #### G FR, CMP, TSH, MG, VIDH, ESR #### [place] [address] #### FOL, B12 #### [place] [address] MCHC 33.5 G/dL Normal 33.0-37.0 [facility] ([place] Comment on above: Performed By: #### G FR, CMP, TSH, MG, VIDH, ESR #### [place] [address] #### FOL, B12 #### [place] [address] MCV (RBC) [Entitic vol] 95.3 fL High 80.0-94.0 [facility] ([place]) Comment on above: Performed By: #### G FR, CMP, TSH, MG, VIDH, ESR #### [place] [address] #### FOL, B12 #### [place] [address] Platelet 240 10 3/mcL Normal 130-400 [facility] ([place]) Comment on above: Performed By: #### G FR, CMP, TSH, MG, VIDH, ESR #### [address] [address] #### FOL, B12 #### [place] [address] Platelet mean volume (Bld) [Entitic vol] 7.3 fL Low 7.4-10.4 [facility] ([place]) Comment on above: Performed By: #### G FR, CMP, TSH, MG, VIDH, ESR #### [place] [address] #### FOL, B12 #### [place] [address] RBC 4.08 10 6/mcL Low 4.20-5.40 [facility] ([place] Comment on above: Performed By: #### G FR, CMP, TSH, MG, VIDH, ESR #### [place] [address] #### FOL, B12 #### [place] [address] WBC 5.0 10 3/mcL Normal 4.6-10.8 [facility] ([place] Comment on above: Performed By: #### G FR, CMP, TSH, MG, VIDH, ESR #### [place] [id number] #### FOL, B12 #### [place] [address] CMPon 11-23-2021 Albumin Level 3.9 G/dL Normal 3.4-4.8 [facility] ([place]) Comment on above: Performed By: #### C MP, PBNP, TSH, MG, GFR #### [address] [address] Albumin/Globulin [Mass ratio] 1.2 {ratio} Normal 1.1-2.5 [facility] ([place]) Comment on above: Performed By: #### C MP, PBNP, TSH, MG, GFR #### [address] [address] ALP [Catalytic activity/Vol] 72 U/L Normal 40-135 [facility] ([place]) Comment on above: Performed By: #### C MP, PBNP, TSH, MG, GFR #### [address] [address] ALT [Catalytic activity/Vol] 25 U/L Normal 14-59 [facility] ([place] Comment on above: Performed By: #### C MP, PBNP, TSH, MG, GFR #### [address] [address] AST [Catalytic activity/Vol] 21 U/L Normal 10-40 [facility] ([place]) Comment on above: Performed By: #### C MP, PBNP, TSH, MG, GFR #### [address] [address] Bili Total 0.2 mg/dL Normal 0.2-1.0 Pending sale to [facility]) Comment on above: Result Comment: Use of this assay is not recommended for patients undergoing treatment with eltrombopag due to the potential for falsely elevated results. Performed By: #### C MP, PBNP, TSH, MG, GFR #### [address] [address] BUN/Creatinine Ratio 9 ratio Normal 7-27 [facility]) Comment on above: Performed By: #### C MP, PBNP, TSH, MG, GFR #### [address] [address] Calcium [Mass/Vol] 9.3 mg/dL Normal 8.4-10.2 [facility] ([place]) Comment on above: Performed By: #### C MP, PBNP, TSH, MG, GFR #### [address] [address] Chloride [Moles/Vol] 104 mmol/L Normal 98-107 [facility] ([place]) Comment on above: Performed By: #### C MP, PBNP, TSH, MG, GFR #### [address] [address] CO2 [Moles/Vol] 27 mmol/L Normal 23-31 [facility] ([place]) Comment on above: Performed By: #### C MP, PBNP, TSH, MG, GFR #### [address] [address] Creatinine [Mass/Vol] 0.89 mg/dL Normal 0.55-1.02 [facility] ([place]) Comment on above: Performed By: #### C MP, PBNP, TSH, MG, GFR #### [address] [address] Electrolyte Balance 10.0 mEq/L Normal 4.0-15.0 Counts include 234 beds at the [facility] ([place]) Comment on above: Performed By: #### C MP, PBNP, TSH, MG, GFR #### [address] [address] Globulin 3.2 G/dL Normal [facility] ([place]) Comment on above: Performed By: #### C MP, PBNP, TSH, MG, GFR #### [address] [address] Glucose [Mass/Vol] 98 mg/dL Normal 83-110 [facility] ([place]) Comment on above: Performed By: #### C MP, PBNP, TSH, MG, GFR #### [address] [address] Potassium [Moles/Vol] 4.6 mmol/L Normal 3.5-5.1 [facility] ([place]) Comment on above: Performed By: #### C MP, PBNP, TSH, MG, GFR #### [address] [address] Sodium [Moles/Vol] 141 mmol/L Normal 136-145 [facility] ([place]) Comment on above: Performed By: #### C MP, PBNP, TSH, MG, GFR #### [address] [address] Total Protein 7.1 G/dL Normal 6.4-8.2 [facility] ([place]) Comment on above: Performed By: #### C MP, PBNP, TSH, MG, GFR #### Giancar[address] Grethel [address] [place], [place] [address] Urea nitrogen [Mass/Vol] 8 mg/dL Normal 7-18 [facility] ([place]) Comment on above: Performed By: #### C MP, PBNP, TSH, MG, GFR #### [place] [address] [place], [place] [address] ESRon 11-23-2021 Erythrocyte Sed Rate 17 mm/hr Normal 0-30 [facility] ([place]) Comment on above: Performed By: #### C MP, PBNP, TSH, MG, GFR #### [place] [address] [place], [place] [address] FOLon 11-23-2021 Folate 47.37 ng/mL High 5.38-24.00 [facility] ([place]) Comment on above: Performed By: #### C MP, PBNP, TSH, MG, GFR #### [address] [address] LABORATORYOrdered By: Juli Bryson on 11-23-2021 Albumin BCP dye [Mass/Vol] 3.9 G/dL Invalid Interpretation Code 3.4 - 4.8 G/dL AO ADM SS Albumin/Globulin [Mass ratio] 1.2 {ratio} Invalid Interpretation Code 1.1 - 2.5 ratio AO ADM SS ALP [Catalytic activity/Vol] 72 U/L Invalid Interpretation Code 40 - 135 U/L AO ADM SS ALT With P-5'-P [Catalytic activity/Vol] 25 U/L Invalid Interpretation Code 14 - 59 U/L AO ADM SS AST With P-5'-P [Catalytic activity/Vol] 21 U/L Invalid Interpretation Code 10 - 40 U/L AO ADM SS Bilirubin [Mass/Vol] 0.2 mg/dL Invalid Interpretation Code 0.2 - 1.0 mg/dL AO ADM SS Calcium [Mass/Vol] 9.3 mg/dL Invalid Interpretation Code 8.4 - 10.2 mg/dL AO ADM SS Chloride [Moles/Vol] 104 mmol/L Invalid Interpretation Code 98 - 107 mmol/L AO ADM SS CO2 [Moles/Vol] 27 mmol/L Invalid Interpretation Code 23 - 31 mmol/L AO ADM SS Creatinine [Mass/Vol] 0.89 mg/dL Invalid Interpretation Code 0.55 - 1.02 mg/dL AO ADM SS Electrolyte Balance 10.0 mEq/L Invalid Interpretation Code 4.0 - 15.0 mEq/L AO ADM SS Globulin 3.2 G/dL Invalid Interpretation Code AO ADM SS Glucose [Mass/Vol] 98 mg/dL Invalid Interpretation Code 83 - 110 mg/dL AO ADM SS Magnesium [Mass/Vol] 1.9 mg/dL Invalid Interpretation Code 1.8 - 2.4 mg/dL AO ADM SS Potassium [Moles/Vol] 4.6 mmol/L Invalid Interpretation Code 3.5 - 5.1 mmol/L AO ADM SS Protein [Mass/Vol] 7.1 G/dL Invalid Interpretation Code 6.4 - 8.2 G/dL AO ADM SS Sodium [Moles/Vol] 141 mmol/L Invalid Interpretation Code 136 - 145 mmol/L AO ADM SS TSH Qn 0.66 m[IU]/L Invalid Interpretation Code 0.36 - 3.74 mcIU/mL AO ADM SS Urea nitrogen [Mass/Vol] 8 mg/dL Invalid Interpretation Code 7 - 18 mg/dL AO ADM SS Urea nitrogen/Creatinine [Mass ratio] 9 ratio Invalid Interpretation Code 7 - 27 ratio AO ADM SS Vit. D 25-Hydroxy 63.0 ng/mL Invalid Interpretation Code AO ADM SS LABORATORYOrdered By: Vera Stallings on 11-23-2021 Basophil, Absolute 0.0 103/mcL Invalid Interpretation Code 0.0 - 0.2 10^3/mcL AO Workflow SS Basophils/100 WBC (Bld) 0.9 % Invalid Interpretation Code 0.0 - 2.5 % AO Workflow SS Eosinophil, Absolute 0.2 103/mcL Invalid Interpretation Code 0.0 - 0.4 10^3/mcL AO Workflow SS Eosinophils/100 WBC (Bld) 3.5 % Invalid Interpretation Code 0.0 - 7.0 % AO Workflow SS Erythrocyte distribution width (RBC) [Ratio] 13.5 % Invalid Interpretation Code 11.5 - 14.5 % AO Workflow SS ESR 15 minute reading (Bld) [Velocity] 17 mm/hr Invalid Interpretation Code 0 - 30 mm/hr AO Man Heme SS Hematocrit (Bld) [Volume fraction] 38.9 % Invalid Interpretation Code 37.0 - 47.0 % AO Workflow SS Hemoglobin (Bld) [Mass/Vol] 13.0 G/dL Invalid Interpretation Code 12.0 - 16.0 G/dL AO Workflow SS Lymphocyte, Absolute 1.3 103/mcL Invalid Interpretation Code 0.8 - 3.9 10^3/mcL AO Workflow SS Lymphocytes/100 WBC (Bld) 26.3 % Invalid Interpretation Code 10.0 - 50.0 % AO Workflow SS MCH (RBC) [Entitic mass] 31.9 pg Invalid Interpretation Code 27.0 - 31.2 pg AO Workflow SS MCHC 33.5 G/dL Invalid Interpretation Code 33.0 - 37.0 G/dL AO Workflow SS MCV (RBC) [Entitic vol] 95.3 fL Invalid Interpretation Code 80.0 - 94.0 fL AO Workflow SS Monocyte, Absolute 0.4 103/mcL Invalid Interpretation Code 0.2 - 1.0 10^3/mcL AO Workflow SS Monocytes/100 WBC (Bld) 8.6 % Invalid Interpretation Code 1.7 - 13.0 % AO Workflow SS Neutrophil, Absolute 3.1 103/mcL Invalid Interpretation Code 2.9 - 6.2 10^3/mcL AO Workflow SS Neutrophils/100 WBC (Bld) 60.7 % Invalid Interpretation Code 37.0 - 80.0 % AO Workflow SS Platelet mean volume (Bld) [Entitic vol] 7.3 fL Invalid Interpretation Code 7.4 - 10.4 fL AO Workflow SS Platelets (Bld) [#/Vol] 240 103/mcL Invalid Interpretation Code 130 - 400 10^3/mcL AO Workflow SS RBC (Bld) [#/Vol] 4.08 106/mcL Invalid Interpretation Code 4.20 - 5.40 10^6/mcL AO Workflow SS WBC (Bld) [#/Vol] 5.0 103/mcL Invalid Interpretation Code 4.6 - 10.8 10^3/mcL AO Workflow SS LABORATORYOrdered By: SYSTEM SYSTEM on 11-23-2021 Cobalamin (Vitamin B12) [Mass/Vol] 616 pg/mL Invalid Interpretation Code 211 - 911 pg/mL AH ADM SS Folate [Mass/Vol] 47.37 ng/mL Invalid Interpretation Code 5.38 - 24.00 ng/mL AH ADM SS GFR 75 ml/min/1.73sqm Invalid Interpretation Code AO Chemistry S GFR Non- 62 ml/min/1.73sqm Invalid Interpretation Code AO Chemistry S MGon 11-23-2021 Magnesium [Mass/Vol] 1.9 mg/dL Normal 1.8-2.4 [facility] ([place]) Comment on above: Performed By: #### C MP, PBNP, TSH, MG, GFR #### [address] [address] TSHon 11-23-2021 TSH Qn 0.66 m[IU]/L Normal 0.36-3.74 [facility] ([place]) Comment on above: Performed By: #### C MP, PBNP, TSH, MG, GFR #### [address] [address] VIDHon 11-23-2021 Vit. D 25-Hydroxy 63.0 ng/mL Normal [facility] ([place]) Comment on above: Result Comment: Inte rpretive Values Based on Total 25(OH) Vitamin D: Deficient <20 ng/mL Insufficient 20 - <30 ng/mL Sufficient 30-100 ng/mL Performed By: #### C MP, PBNP, TSH, MG, GFR #### [address] [address] Basophil percentageon 2021 Basophil percentage 10-25 SEEN /hpf 0-5 [facility] Work Phone: [phone] Bilirubin Test strip Ql (U)o n 11-10-2021 Bilirubin Ql (U) Negative Negative [facility] Work Phone: [phone] Ketones Test strip Ql (U)on 11-10-2021 Ketones Ql (U) Negative Negative [facility] Work Phone: Laboratory - Chemistry and C hemistry - challengeon 11-10-2021 Bilirubin Ql (U) Negative [facility] Work Phone: Glucose Ql (U) Negative [facility] Work Phone: Ketones Ql (U) Negative [facility] Work Phone: pH (U) 5.0 [pH] [facility] Work Phone: Specific gravity (U) [Rel density] 1.005 [facility] Work Phone: [phone] Urobilinogen (U) [Mass/Vol] Negative [facility] Work Phone: Laboratory - Hematology and Cell countson 11-10-2021 Hemoglobin Ql (U) Negative [facility] Work Phone: Laboratory - Specimen inform ationon 11-10-2021 Clarity (U) Hazy [facility] Work Phone: [phone] Color (U) STRAW [facility] Work Phone: Laboratory - Urinalysison Nitrite Ql (U) Negative [facility] Work Phone: Protein Ql (U) Negative [facility] Work Phone: Mucus LM Ql (Urine sed)on Mucus Ql (Urine sed) 0 SEEN /hpf [facility] Work Phone: Nitrite Test strip Ql (U)on 11-10-2021 Nitrite Ql (U) Negative Negative [facility] Work Phone: No Panel Informationon 11-10 Urine Leukocytes Positive [facility] Work Phone: Urine Non-Hemolyzed Blood Negative [facility] Work Phone: Protein Test strip Ql (U)on 11-10-2021 Protein Ql (U) Negative Negative [facility] Work Phone: Squamous epithelial cells de tection in urine sediment by light microscopyon 11-10-2021 Epithelial cells.squamous LM Ql (Urine sed) 0-5 SEEN /hpf 5-10 [facility] Work Phone: Urine blood detectionon 10-15 RBC Ql (U) Negative Negative [facility] Work Phone: RBC Ql (U) 0 SEEN /hpf 0-5 [facility] Work Phone: Urine clarityon 11-10-2021 Clarity (U) Clear Clear [facility] Work Phone: Urine color determinationon 11-10-2021 Color (U) Yellow Yellow [facility] Work Phone: Urine glucose detectionon Glucose Ql (U) Normal mg/dl Normal [facility] Work Phone: Urine leukocyte esterase det ection by dipstickon 11-10-2021 Leukocyte esterase Test strip Ql (U) 500 /ul Negative [facility] Work Phone: Urine pHon 11-10-2021 pH (U) 6.5 [pH] 5.0 - 8.0 [facility] Work Phone: Urine sediment bacteria coun t by microscopy (number/high power field)on 11-10-2021 Bacteria LM.HPF (Urine sed) [#/Area] 1 /[HPF] None Seen [facility] Work Phone: Urine specific gravity measu rementon 11-10-2021 Specific gravity (U) [Rel density] 1.010 1.002-1.030 [facility] Work Phone: Urobilinogen Auto test strip Ql (U)on 11-10-2021 Urobilinogen Ql (U) Normal mg/dl Normal [facility] Work Phone: NM MYOCARDIAL SPECT STRESS/R ESTon 07-26-2021 NM MYOCARDIAL SPECT STRESS/REST ORIGINAL NM MYOCARDIAL SPECT STRESS/REST CLINICAL STATEMENT: palpitations, SVT, PVC, NSVT TECHNIQUE: Lexiscan dose: 0.4 mg Radiopharmaceutical (stress): Tc-99m Sestamibi Dose:32.4 mCi Radiopharmaceutical (rest): Tc-99m Sestamibi Dose:10.9 mCi SPECT acquisition and processing Reconstruction and reorientation of SPECT images into short axis, vertical and horizontal long axis planes Quantitative LVEF assessment COMPARISON:No previous studies for comparison. REPORT:Technically difficult study. Significant extracardiac uptake noted next to the inferior inferolateral wall that may affect counts and image quality. No clear evidence of fixed or reversible perfusion defect within the limitations of the study. LEFT ventricular ejection fraction is 67%, tid ratio is 0.9] ventricular end-diastolic volume is 68 mL. These values are within normal limits. IMPRESSION:No evidence of ischemia or infarction. Normal LEFT ventricular ejection fraction. ECG portion will be dictated separately. Interpreted By: Dmitri La Preliminary Report By: Dmitri La Electronically Signed By: Dmitri La Dictated Date: 07/26/2021 10:56:48 AM Prelim Date: 07/26/2021 10:56:48 AM Sign Date: 07/26/2021 11:01:26 AM Ordering Provider:Pavithra Gomez [facility] ([place]) .GFRon 06-30-2021 GFR 74 ml/min/1.73sqm [facility] ([place]) Comment on above: Result Comment: GFR Population mean for , Non- Americans Ages 20-29 = 116 mL/min/1.73 sq.m. Ages 30-39 = 107 mL/min/1.73 sq.m. Ages 40-49 = 99 mL/min/1.73 sq.m. Ages 50-59 = 93 mL/min/1.73 sq.m. Ages 60-69 = 85 mL/min/1.73 sq.m. Ages 70+ = 75 mL/min/1.73 sq.m. Chronic Kidney Disease: Less than 60 mL/min/1.73 square meters End Stage Renal Disease: Less than 15 mL/min/1.73 square meters Performed By: #### C MP, PBNP, TSH, MG, GFR #### [place] [address] GFR Non- 61 ml/min/1.73sqm [facility] ([place] Comment on above: Result Comment: GFR Population mean for , Non- Americans Ages 20-29 = 116 mL/min/1.73 sq.m. Ages 30-39 = 107 mL/min/1.73 sq.m. Ages 40-49 = 99 mL/min/1.73 sq.m. Ages 50-59 = 93 mL/min/1.73 sq.m. Ages 60-69 = 85 mL/min/1.73 sq.m. Ages 70+ = 75 mL/min/1.73 sq.m. Chronic Kidney Disease: Less than 60 mL/min/1.73 square meters End Stage Renal Disease: Less than 15 mL/min/1.73 square meters Performed By: #### C MP, PBNP, TSH, MG, GFR #### [address] [address] CMPon 06-30-2021 Albumin Level 3.7 G/dL Normal 3.4-4.8 [facility] ([place] Comment on above: Performed By: #### C MP, PBNP, TSH, MG, GFR #### [address] [address] Albumin/Globulin [Mass ratio] 1.1 {ratio} Normal 1.1-2.5 [facility] ([place] Comment on above: Performed By: #### C MP, PBNP, TSH, MG, GFR #### [address] [address] ALP [Catalytic activity/Vol] 72 U/L Normal 40-135 [facility] ([place] Comment on above: Performed By: #### C MP, PBNP, TSH, MG, GFR #### [address] [address] ALT [Catalytic activity/Vol] 24 U/L Normal 14-59 [facility] ([place] Comment on above: Performed By: #### C MP, PBNP, TSH, MG, GFR #### [address] [address] AST [Catalytic activity/Vol] 17 U/L Normal 10-40 [facility] ([place] Comment on above: Performed By: #### C MP, PBNP, TSH, MG, GFR #### [address] [address] Bili Total 0.3 mg/dL Normal 0.2-1.0 [facility] ([place] Comment on above: Result Comment: Use of this assay is not recommended for patients undergoing treatment with eltrombopag due to the potential for falsely elevated results. Performed By: #### C MP, PBNP, TSH, MG, GFR #### [address] [address] BUN/Creatinine Ratio 11 ratio Normal 7-27 [facility] ([place]) Comment on above: Performed By: #### C MP, PBNP, TSH, MG, GFR #### [address] [address] Calcium [Mass/Vol] 9.3 mg/dL Normal 8.4-10.2 [facility] ([place]) Comment on above: Performed By: #### C MP, PBNP, TSH, MG, GFR #### [place] [address] Chloride [Moles/Vol] 106 mmol/L Normal 98-107 [facility] ([place] Comment on above: Performed By: #### C MP, PBNP, TSH, MG, GFR #### [place] [address] CO2 [Moles/Vol] 30 mmol/L Normal 23-31 [facility] ([place] Comment on above: Performed By: #### C MP, PBNP, TSH, MG, GFR #### [place] [address] Creatinine [Mass/Vol] 0.90 mg/dL Normal 0.55-1.02 [facility] ([place]) Comment on above: Performed By: #### C MP, PBNP, TSH, MG, GFR #### [address] [address] Electrolyte Balance 7.0 mEq/L Normal 4.0-15.0 Counts include 234 beds at the [facility] ([place]) Comment on above: Performed By: #### C MP, PBNP, TSH, MG, GFR #### [address] [address] Globulin 3.5 G/dL Normal [facility] ([place]) Comment on above: Performed By: #### C MP, PBNP, TSH, MG, GFR #### [place] [address] Glucose [Mass/Vol] 94 mg/dL Normal 83-110 [facility] ([place]) Comment on above: Performed By: #### C MP, PBNP, TSH, MG, GFR #### [place] [address] Potassium [Moles/Vol] 4.3 mmol/L Normal 3.5-5.1 [facility] ([place] Comment on above: Performed By: #### C MP, PBNP, TSH, MG, GFR #### [address] [address] Sodium [Moles/Vol] 143 mmol/L Normal 136-145 [facility] ([place] Comment on above: Performed By: #### C MP, PBNP, TSH, MG, GFR #### [address] [address] Total Protein 7.2 G/dL Normal 6.4-8.2 [facility] ([place] Comment on above: Performed By: #### C MP, PBNP, TSH, MG, GFR #### [address] [address] Urea nitrogen [Mass/Vol] 10 mg/dL Normal 7-18 [facility] ([place] Comment on above: Performed By: #### C MP, PBNP, TSH, MG, GFR #### [address] [address] LABORATORYOrdered By: Vera Stallings on 06-30-2021 Albumin BCP dye [Mass/Vol] 3.7 G/dL Invalid Interpretation Code 3.4 - 4.8 G/dL AO ADM SS Albumin/Globulin [Mass ratio] 1.1 {ratio} Invalid Interpretation Code 1.1 - 2.5 ratio AO ADM SS ALP [Catalytic activity/Vol] 72 U/L Invalid Interpretation Code 40 - 135 U/L AO ADM SS ALT With P-5'-P [Catalytic activity/Vol] 24 U/L Invalid Interpretation Code 14 - 59 U/L AO ADM SS AST With P-5'-P [Catalytic activity/Vol] 17 U/L Invalid Interpretation Code 10 - 40 U/L AO ADM SS Bilirubin [Mass/Vol] 0.3 mg/dL Invalid Interpretation Code 0.2 - 1.0 mg/dL AO ADM SS Calcium [Mass/Vol] 9.3 mg/dL Invalid Interpretation Code 8.4 - 10.2 mg/dL AO ADM SS Chloride [Moles/Vol] 106 mmol/L Invalid Interpretation Code 98 - 107 mmol/L AO ADM SS CO2 [Moles/Vol] 30 mmol/L Invalid Interpretation Code 23 - 31 mmol/L AO ADM SS Creatinine [Mass/Vol] 0.90 mg/dL Invalid Interpretation Code 0.55 - 1.02 mg/dL AO ADM SS Electrolyte Balance 7.0 mEq/L Invalid Interpretation Code 4.0 - 15.0 mEq/L AO ADM SS Globulin 3.5 G/dL Invalid Interpretation Code AO ADM SS Glucose [Mass/Vol] 94 mg/dL Invalid Interpretation Code 83 - 110 mg/dL AO ADM SS Magnesium [Mass/Vol] 2.2 mg/dL Invalid Interpretation Code 1.8 - 2.4 mg/dL AO ADM SS Natriuretic peptide.B prohormone N-Terminal [Mass/Vol] 281 pg/mL Invalid Interpretation Code 0 - 125 pg/mL AO ADM SS Potassium [Moles/Vol] 4.3 mmol/L Invalid Interpretation Code 3.5 - 5.1 mmol/L AO ADM SS Protein [Mass/Vol] 7.2 G/dL Invalid Interpretation Code 6.4 - 8.2 G/dL AO ADM SS Sodium [Moles/Vol] 143 mmol/L Invalid Interpretation Code 136 - 145 mmol/L AO ADM SS TSH Qn 0.91 m[IU]/L Invalid Interpretation Code 0.36 - 3.74 mcIU/mL AO ADM SS Urea nitrogen [Mass/Vol] 10 mg/dL Invalid Interpretation Code 7 - 18 mg/dL AO ADM SS Urea nitrogen/Creatinine [Mass ratio] 11 ratio Invalid Interpretation Code 7 - 27 ratio AO ADM SS LABORATORYOrdered By: SYSTEM SYSTEM on 06-30-2021 GFR 74 ml/min/1.73sqm Invalid Interpretation Code AO Chemistry S GFR Non- 61 ml/min/1.73sqm Invalid Interpretation Code AO Chemistry S MGon 06-30-2021 Magnesium [Mass/Vol] 2.2 mg/dL Normal 1.8-2.4 [facility] ([place] Comment on above: Performed By: #### C MP, PBNP, TSH, MG, GFR #### [address] [address] PBNPon 06-30-2021 Natriuretic peptide B (Bld) [Mass/Vol] 281 pg/mL High 0-125 [facility] ([place] Comment on above: Result Comment: NT-p roBNP results of less than 300 pg/mL effectively rules out acute congestive heart failure with 99% negative predictive value. Performed By: #### C MP, PBNP, TSH, MG, GFR #### [place] [place], [place] [address] TSHon 06-30-2021 TSH Qn 0.91 m[IU]/L Normal 0.36-3.74 [facility] ([place] Comment on above: Performed By: #### C MP, PBNP, TSH, MG, GFR #### [address] [place], [place] [address] Basophil percentageon 2021 Basophil percentage >100 SEEN /hpf [facility] Work Phone: Bilirubin Test strip Ql (U)o n 05-24-2021 Bilirubin Ql (U) Negative Negative [facility] Work Phone: Culture, urineon 05-24-2021 Bacteria identified Cx Nom (U) Escherichia coli [facility] Work Phone: Ketones Test strip Ql (U)on 05-24-2021 Ketones Ql (U) Negative Negative [facility] Work Phone: Laboratory - Chemistry and C hemistry - challengeon 05-24-2021 Bilirubin Ql (U) Negative [facility] Work Phone: Glucose Ql (U) Negative [facility] Work Phone: Ketones Ql (U) Trace (5) [facility] Work Phone: pH (U) 7.5 [pH] [facility] Work Phone: [phone] Specific gravity (U) [Rel density] 1.010 [facility] Work Phone: Urobilinogen (U) [Mass/Vol] Negative [facility] Work Phone: Laboratory - Hematology and Cell countson 05-24-2021 Hemoglobin Ql (U) Hemolyzed [facility] Work Phone: Laboratory - Specimen inform ationon 05-24-2021 Clarity (U) Cloudy [facility] Work Phone: Color (U) YELLOW [facility] Work Phone: [phone] Laboratory - Urinalysison Nitrite Ql (U) Negative [facility] Work Phone: Protein Ql (U) Negative [facility] Work Phone: Mucus LM Ql (Urine sed)on Mucus Ql (Urine sed) 0 SEEN /hpf [facility] Work Phone: Nitrite Test strip Ql (U)on 05-24-2021 Nitrite Ql (U) Negative Negative [facility] Work Phone: No Panel Informationon 05-24 Urine Leukocytes Positive [facility] Work Phone: Urine Non-Hemolyzed Blood Large [facility] Work Phone: Protein Test strip Ql (U)on 05-24-2021 Protein Ql (U) 15 mg/dl Negative [facility] Work Phone: Squamous epithelial cells de tection in urine sediment by light microscopyon 05-24-2021 Epithelial cells.squamous LM Ql (Urine sed) 0 SEEN /hpf [facility] Work Phone: Urine blood detectionon 05-14 RBC Ql (U) 250 /ul Negative [facility] Work Phone: RBC Ql (U) 5-10 SEEN /hpf [facility] Work Phone: Urine clarityon 05-24-2021 Clarity (U) Cloudy Clear [facility] Work Phone: Urine color determinationon 05-24-2021 Color (U) Yellow Yellow [facility] Work Phone: Urine glucose detectionon Glucose Ql (U) Normal mg/dl Normal [facility] Work Phone: Urine leukocyte esterase det ection by dipstickon 05-24-2021 Leukocyte esterase Test strip Ql (U) 500 /ul Negative [facility] Work Phone: Urine pHon 05-24-2021 pH (U) 7.0 [pH] [facility] Work Phone: Urine sediment bacteria coun t by microscopy (number/high power field)on 05-24-2021 Bacteria LM.HPF (Urine sed) [#/Area] RARE /hpf None Seen [facility] Work Phone: Urine specific gravity measu rementon 05-24-2021 Specific gravity (U) [Rel density] 1.010 [facility] Work Phone: Urobilinogen Auto test strip Ql (U)on 05-24-2021 Urobilinogen Ql (U) Normal mg/dl Normal [facility] Work Phone: Office Visit: [facility] practice, Rm: 2002-01-2019 NEGATED: Highlighted rowMRI (magnetic resonance imaging) history of the Thoracic Spine on 01/25/2019 at [facility] Work Phone: Clinical Lists Update: Prelo ad Extendedon 01-29-2019 Tobacco smoking status NDIS Tobacco smoking status NDIS [facility] Work Phone: Clinical Summary: Scanned Hi story Summaryon 01-29-2019 cause of , father Heart failure [facility] Work Phone: cause of , mother Congestive heart failure [facility] Work Phone: Chloride [Moles/Vol] xvmfcxwpf-17-2-Janet yondan setron evamxvlnayeyl-9-7-8 hours / As jdwrgwrlbuchgbej-657-6 1/2-Morning /eveningpravastatin byypqn-98-7-Dailymulti vitamin-Unknown Bwjflctu-3-Subxndycmnyom/ hct-100-12.4-8-kfxbpnvgka in d3-5000 HB-1-CuzztYhbijrdiz-3-1-D vqmhaxlqtjro-66-7-1-2 dailynaproxen rzqeze-007-4-12 zwuwfwubxcrywpf-17-8-Janet y [facility] Work Phone: Cholesterol [Mass/Vol] ArthritisFibromya lgiaHigh blood pressureHigh cholesterolOsteopeniaUlce rative colitis [facility] Work Phone: Data entered by patient, additional medical problems Gastroparesis [facility] Work Phone: data entered by patient, alcohol (ethanol or ETOH) use No [facility] Work Phone: Data entered by patient, allergy list TetracyclineI don't have any Environmental AllergiesI don't have any Food Allergies [facility] Work Phone: data entered by patient, drug (of abuse) use No [facility] Work Phone: data entered by patient, Employer Name retired [facility] Work Phone: data entered by patient, exercise history No [facility] Work Phone: data entered by patient, father's medical history ArthritisDiabetes - insulin dependent [facility] Work Phone: Data entered by patient, history of past surgeries HysterectomyKnee replacement - total [facility] Work Phone: data entered by patient, mother's medical history ArthritisDiabetes - insulin dependent [facility] Work Phone: data entered by patient, social history, current smoker former smoker [facility] Work Phone: data entered by patient, social history, former smoker 1967 [facility] Work Phone: data entered by patient, social history, marital status [facility] Work Phone: father of patient is alive or [facility] Work Phone: Housing Type: apartment, house, mcc, trailer, none house [facility] Work Phone: housing unit size (asthma environmental history, housing) (from single family to don't know) 1 floor [facility] Work Phone: medical history of patient's brother(s) ArthritisDiabetes - insulin dependent [facility] Work Phone: medical history of patient's sister ArthritisDiabetes - insulin dependent [facility] Work Phone: mother of patient is alive or [facility] Work Phone: Number of dependent children No [facility] Work Phone: Web entered surgical history comments Thyroidectomy - 3/4 [facility] Work Phone: ALLIED HEALTHon 10-16-2018 [facility] HNO ID: [id number] Author: KAIT Lopez (Ct) Service: Nuclear Medicine Author Type: Clinical It Technical Support Specialist Type: [facility] Filed: 10/16/2018 11:46 AM Note Text: RADIOLOGY SERVICE PROGRESS NOTE SERVICE DATE: 10/16/2018 SERVICE TIME: 11:45 AM PATIENT IDENTITY VERIFICATION COMPLETED USING TWO (2) METHODS: Name and Date of confirmed by patient verbally PATIENT GENDER DATA: .female : No ALLERGIES: Reviewed and unchanged MEDICATIONS REVIEWED: Not applicable PATIENT RELEVANT IMPLANT DATA REVIEWED: Not Applicable CREATININE: Creatinine Date Value Ref Range Status 01/26/2016 0.73 0.58 - 0.96 mg/dL Final 11/03/2015 0.77 0.58 - 0.96 mg/dL Final 08/13/2015 0.67 (L) 0.70 - 1.40 mg/dL Final eGFR-All Other Races Date Value Ref Range Status 01/26/2016 >60 . Final Comment: eGFR (Estimated GFR) Units of measure: mL/min/1.73 meters squared eGFR is derived from the reexpressed MDRD Study equation using the following parameters: serum creatinine, age, gender and race. The creatinine assay has been calibrated to be traceable to IDMS. An eGFR <60 mL/min/1.73m2 for >3 months is consistent with chronic kidney disease. Refer to KDOQI guidelines for clinical interpretation. In patients with unstable renal function, e.g. those with acute kidney injury, the eGFR may not accurately reflect actual GFR. eGFR- Date Value Ref Range Status 01/26/2016 >60 Final P.O.C.T. RESULTS: N/A October 16, [address] PERFORMED: No IV SITE: [place] only - not applicable, oral or physician administered agents given to patient POST EXAM PIV STATUS: Not applicable PROCEDURE TYPE: NM INJECT: gastric emptying. 1.1 mCi Tc99m SULFUR COLLOID . No other medications given.. ADMINISTRATION TIME: 10:00 PATIENT DISCHARGED TO: Ambulatory patient, left [place] department area. A Diagnostic radioactive procedure has taken place, with no further precautions necessary other than routine body substance precautions. More information regarding radiation safety can be found using this link: [email or web address] SIGNATURE: KAIT Lopez PATIENT NAME: Sarah Cheng DATE: October 16, 2018 TIME: 11:45 AM PAGER/CONTACT #: [facility] NM GASTRIC EMPTYING SOLIDon 10-16-2018 NM GASTRIC EMPTYING SOLID * * *Final Report* * * DATE OF EXAM: Oct 16 2018 2:05PM ELIAS [id number] - NM GASTRIC EMPTYING SOLID / PROCEDURE REASON: R68.81-Early satiety * * * * Physician Interpretation * * * * SOLID MEAL GASTRIC EMPTYING STUDY: CLINICAL HISTORY: Early satiety. To assess for abnormal gastric emptying of a solid meal. TECHNIQUE: 1.1 mCi Tc-99m sulfur colloid was given orally in a meal consisting of 4 oz Egg Beaters, 0.5 slice of toast, 1 ounce jelly, and 8 oz water, consumed over 5 to 10 minutes. RESULT: Solid study demonstrates: - 73% gastric retention at 1hr (normal range, 37-90%), - 51% gastric retention at 2hr (normal range, 30-60%), and - 13% gastric retention at 4hr (normal range, 0-10%). There is no evidence of accelerated emptying of gastric contents, with 73% retention at 1hr (rapid emptying is <30% retention at 1hr). IMPRESSION: DELAYED RATE OF GASTRIC EMPTYING OF SOLID MEAL. Evaluation limited due to mild superimpositioning of the small bowel bowel activity over the stomach. 11-20% GASTRIC RETENTION AT 4 HOURS IS CONSISTENT WITH MILD GASTROPARESIS. Continuous Dryout Operator: PSCTerrell Transcribe Date/Time: Oct 16 2018 3:17P Dictated by : CRISTIANE ANDRE MD This examination was interpreted and the report reviewed and electronically signed by: LEDA VERDUGO MD on Oct 16 2018 3:24PM EST [id number] Normal [facility] Culture, urine Bacteria identified Cx Nom (U) Presumptive E. coli [facility] Work Phone: Vital Signs Date Time Vital Sign Value Performing Clinician Faci lity 09-18-2024 14:45-0400 Body temperature 97.7 [degF] Dr. Elena Jenkins DO Work Phone: [facility] 09-18-2024 14:45-0400 Diastolic blood pressure 72 mm[Hg] Dr. Elena Jenkins DO Work Phone: [facility] 09-18-2024 14:45-0400 Heart rate 67 /min Dr. Elena Jenkins DO Work Phone: [facility] 09-18-2024 14:45-0400 Respiratory rate 18 /min Dr. Elena Jenkins DO Work Phone: [facility] 09-18-2024 14:45-0400 SaO2% (BldA) [Mass fraction] 95 % Dr. Elena Jenkins DO Work Phone: [facility] 09-18-2024 14:45-0400 Systolic blood pressure 122 mm[Hg] Dr. Elena Jenkins DO Work Phone: [facility] 08-13-2024 14:12-0400 Body height 167.[address] Elena Jenkins DO Work Phone: [facility] 08-13-2024 14:12-0400 Body mass index (BMI) [Ratio] 28 kg/m2 Dr. Elena Jenkins DO Work Phone: [facility] 08-13-2024 14:12-0400 Body weight 78.[address] Elena Jenkins DO Work Phone: [facility] 08-13-2024 14:12-0400 Diastolic blood pressure 80 mm[Hg] Dr. Elena Jenkins DO Work Phone: [facility] 08-13-2024 14:12-0400 Heart rate 77 /min Dr. Elena Jenkins DO Work Phone: [facility] 08-13-2024 14:12-0400 Respiratory rate 16 /min Dr. Elena Jenkins DO Work Phone: [facility] 08-13-2024 14:12-0400 Systolic blood pressure 137 mm[Hg] Dr. Elena Jenkins DO Work Phone: [facility] 07-19-2024 13:09-0400 Diastolic blood pressure 92 mm[Hg] Dr. Elena Jenkins DO Work Phone: [facility] 07-19-2024 13:09-0400 Heart rate 87 /min Dr. Elena Jenkins DO Work Phone: [facility] 07-19-2024 13:09-0400 Respiratory rate 16 /min Dr. Elena Jenkins DO Work Phone: [facility] 07-19-2024 13:09-0400 SaO2% (BldA) [Mass fraction] 94 % Dr. Elena Jenkins DO Work Phone: [facility] 07-19-2024 13:09-0400 Systolic blood pressure 121 mm[Hg] Dr. Elena Jenkins DO Work Phone: [facility] 07-19-2024 12:36-0400 Body height 167.[address] Elena Jenkins DO Work Phone: [facility] 07-19-2024 12:36-0400 Body mass index (BMI) [Ratio] 27.7 kg/m2 Dr. Elena Jenkins DO Work Phone: [facility] 07-19-2024 12:36-0400 Body temperature 97.7 [degF] Dr. Elena Jenkins DO Work Phone: [facility] 07-19-2024 12:36-0400 Body weight 78.[address] Elena Jenkins DO Work Phone: [facility] 05-13-2024 11:03-0400 Body height 167.[address] Elena Jenkins DO Work Phone: [facility] 05-13-2024 11:03-0400 Body mass index (BMI) [Ratio] 27.4 kg/m2 Dr. Elena Jenkins DO Work Phone: [facility] 05-13-2024 11:03-0400 Body weight 77.[address] Elena Jenkins DO Work Phone: [facility] 05-13-2024 11:03-0400 Diastolic blood pressure 75 mm[Hg] Dr. Elena Jenkins DO Work Phone: [facility] 05-13-2024 11:03-0400 Heart rate 84 /min Dr. Elena Jenkins DO Work Phone: [facility] 05-13-2024 11:03-0400 Respiratory rate 18 /min Dr. Elena Jenkins DO Work Phone: [facility] 05-13-2024 11:03-0400 SaO2% (BldA) [Mass fraction] 97 % Dr. Elena Jenkins DO Work Phone: [facility] 05-13-2024 11:03-0400 Systolic blood pressure 130 mm[Hg] Dr. Elena Jenkins DO Work Phone: [facility] 01-22-2024 12:33-0500 Body temperature 98.2 [degF] Dr. Elena Jenkins DO Work Phone: [facility] 01-22-2024 12:33-0500 Diastolic blood pressure 60 mm[Hg] Dr. Elena Jenkins DO Work Phone: [facility] 01-22-2024 12:33-0500 Heart rate 75 /min Dr. Elena Jenkins DO Work Phone: [facility] 01-22-2024 12:33-0500 Respiratory rate 12 /min Dr. Elena Jenkins DO Work Phone: [facility] 01-22-2024 12:33-0500 SaO2% (BldA) [Mass fraction] 94 % Dr. Elena Jenkins DO Work Phone: [facility] 01-22-2024 12:33-0500 Systolic blood pressure 120 mm[Hg] Dr. Elena Jenkins DO Work Phone: [facility] 01-17-2024 10:26-0500 Body temperature 97.8 [degF] Dr. Elena Jenkins DO Work Phone: [facility] 01-17-2024 10:26-0500 Diastolic blood pressure 66 mm[Hg] Dr. Elena Jenkins DO Work Phone: [facility] 01-17-2024 10:26-0500 Heart rate 80 /min Dr. Elena Jenkins DO Work Phone: [facility] 01-17-2024 10:26-0500 Respiratory rate 16 /min Dr. Elena Jenkins DO Work Phone: [facility] 01-17-2024 10:26-0500 SaO2% (BldA) [Mass fraction] 92 % Dr. Elena Jenkins DO Work Phone: [facility] 01-17-2024 10:26-0500 Systolic blood pressure 100 mm[Hg] Dr. Elena Jenkins DO Work Phone: [facility] 01-17-2024 09:11-0500 Body mass index (BMI) [Ratio] 27.3 kg/m2 Dr. Elena Jenkins DO Work Phone: [facility] 01-17-2024 09:11-0500 Body weight [address] Elena Jenkins DO Work Phone: [facility] 11-08-2023 15:04-0400 Diastolic blood pressure 80 mm[Hg] Parker Marcial MD Work Phone: [facility] 11-08-2023 15:04-0400 Heart rate 86 /min Parker Marcial MD Work Phone: [facility] 11-08-2023 15:04-0400 Systolic blood pressure 128 mm[Hg] Parker Marcial MD Work Phone: [facility] 06-14-2023 08:00-0400 Body temperature 97.6 [degF] Dr. Elena Jenkins Work Phone: [facility] 06-14-2023 08:00-0400 Diastolic blood pressure 76 mm[Hg] Dr. Elena Jenkins Work Phone: [facility] 06-14-2023 08:00-0400 Heart rate 64 /min Dr. Elena Jenkins Work Phone: [facility] 06-14-2023 08:00-0400 Respiratory rate 18 /min Dr. Elena Jenkins Work Phone: [facility] 06-14-2023 08:00-0400 SaO2% (BldA) [Mass fraction] 99 % Dr. Elena Jenkins Work Phone: [facility] 06-14-2023 08:00-0400 Systolic blood pressure 132 mm[Hg] Dr. Elena Jenkins Work Phone: [facility] 06-14-2023 05:37-0400 Body height 167.[address] Elena Jenkins Work Phone: [facility] 06-14-2023 05:37-0400 Body mass index (BMI) [Ratio] 26.9 kg/m2 Dr. Elena Jenkins Work Phone: [facility] 06-14-2023 05:37-0400 Body weight 75.[address] Elena Jenkins Work Phone: [facility] 04-16-2023 10:56-0500 Body temperature 97.6 [degF] Dr. Elena Jenkins Work Phone: [facility] 04-16-2023 10:56-0500 Diastolic blood pressure 78 mm[Hg] Dr. Elena Jenkins Work Phone: [facility] 04-16-2023 10:56-0500 Heart rate 66 /min Dr. Elena Jenkins Work Phone: [facility] 04-16-2023 10:56-0500 Respiratory rate 12 /min Dr. Elena Jenkins Work Phone: [facility] 04-16-2023 10:56-0500 SaO2% (BldA) [Mass fraction] 96 % Dr. Elena Jenkins Work Phone: [facility] 04-16-2023 10:56-0500 Systolic blood pressure 122 mm[Hg] Dr. Elena Jenkins Work Phone: [facility] 03-09-2023 16:00-0500 Body temperature 97.6 [degF] Dr. Elena Jenkins Work Phone: [facility] 03-09-2023 16:00-0500 Diastolic blood pressure 72 mm[Hg] Dr. Elena Jenkins Work Phone: [facility] 03-09-2023 16:00-0500 Heart rate 90 /min Dr. Elena Jenkins Work Phone: [facility] 03-09-2023 16:00-0500 Respiratory rate 12 /min Dr. Elena Jenkins Work Phone: [facility] 03-09-2023 16:00-0500 SaO2% (BldA) [Mass fraction] 94 % Dr. Elena Jenkins Work Phone: [facility] 03-09-2023 16:00-0500 Systolic blood pressure 120 mm[Hg] Dr. Elena Jenkins Work Phone: [facility] 12-21-2022 10:29-0500 Body height 167.[address] Elena Jenkins Work Phone: [facility] 12-21-2022 10:29-0500 Body mass index (BMI) [Ratio] 25.8 kg/m2 Dr. Elena Jenkins Work Phone: [facility] 12-21-2022 10:29-0500 Body temperature 98.4 [degF] Dr. Elena Jenkins Work Phone: [facility] 12-21-2022 10:29-0500 Body weight 72.[address] Elena Jenkins Work Phone: [facility] 12-21-2022 10:29-0500 Diastolic blood pressure 80 mm[Hg] Dr. Elena Jenkins Work Phone: [facility] 12-21-2022 10:29-0500 Heart rate 88 /min Dr. Elena Jenkins Work Phone: [facility] 12-21-2022 10:29-0500 Respiratory rate 16 /min Dr. Elena Jenkins Work Phone: [facility] 12-21-2022 10:29-0500 SaO2% (BldA) [Mass fraction] 94 % Dr. Elena Jenkins Work Phone: [facility] 12-21-2022 10:29-0500 Systolic blood pressure 130 mm[Hg] Dr. Elena Jenkins Work Phone: [facility] 12-02-2022 16:39-0400 Body temperature 98.4 [degF] Dr. Elena Jenkins Work Phone: [facility] 12-02-2022 16:39-0400 Diastolic blood pressure 82 mm[Hg] Dr. Elena Jenkins Work Phone: [facility] 12-02-2022 16:39-0400 Heart rate 70 /min Dr. Elena Jenkins Work Phone: [facility] 12-02-2022 16:39-0400 Respiratory rate 16 /min Dr. Elena Jenkins Work Phone: [facility] 12-02-2022 16:39-0400 SaO2% (BldA) [Mass fraction] 94 % Dr. Elena Jenkins Work Phone: [facility] 12-02-2022 16:39-0400 Systolic blood pressure 128 mm[Hg] Dr. Elena Jenkins Work Phone: [facility] 08-19-2022 08:53-0400 Body temperature 98.6 [degF] Franki Hernandez Jr., MD Work Phone: [facility] 08-19-2022 08:53-0400 Body weight 72.26 kg Franki Hernandez Jr., MD Work Phone: [facility] 08-19-2022 08:53-0400 Diastolic blood pressure 80 mm[Hg] Franki Hernandez Jr., MD Work Phone: [facility] 08-19-2022 08:53-0400 Heart rate 51 /min Franki Hernandez Jr., MD Work Phone: [facility] 08-19-2022 08:53-0400 Respiratory rate 16 /min Franki Hernandez Jr., MD Work Phone: [facility] 08-19-2022 08:53-0400 SaO2% (BldA) [Mass fraction] 98 % Franki Hernandez Jr., MD Work Phone: [facility] 08-19-2022 08:53-0400 Systolic blood pressure 135 mm[Hg] Franki Hernandez Jr., MD Work Phone: [facility] 06-10-2022 16:24-0400 Body temperature 98.4 [degF] Dr. Elena Jenkins Work Phone: [facility] 06-10-2022 16:24-0400 Diastolic blood pressure 72 mm[Hg] Dr. Elena Jenkins Work Phone: [facility] 06-10-2022 16:24-0400 Heart rate 81 /min Dr. Elena Jenkins Work Phone: [facility] 06-10-2022 16:24-0400 Respiratory rate 16 /min Dr. Elena Jenkins Work Phone: [facility] 06-10-2022 16:24-0400 SaO2% (BldA) [Mass fraction] 93 % Dr. Elena Jenkins Work Phone: [facility] 06-10-2022 16:24-0400 Systolic blood pressure 122 mm[Hg] Dr. Elena Jenkins Work Phone: [facility] 01-31-2022 16:04-0500 Body height 166.[address] Elena Jenkins Work Phone: [facility] Work Phone: 01-31-2022 16:04-0500 Body mass index (BMI) [Ratio] 24.4 kg/m2 Dr. Elena Jenkins Work Phone: [facility] Work Phone: 01-31-2022 16:04-0500 Body temperature 98 [degF] Dr. Elena Jenkins Work Phone: [facility] Work Phone: 01-31-2022 16:04-0500 Body weight 67.[address] Elena Jenkins Work Phone: [facility] Work Phone: 01-31-2022 16:04-0500 Diastolic blood pressure 70 mm[Hg] Dr. Elena Jenkins Work Phone: [facility] Work Phone: 01-31-2022 16:04-0500 Heart rate 65 /min Dr. Elena Jenkins Work Phone: [facility] Work Phone: 01-31-2022 16:04-0500 Respiratory rate 16 /min Dr. Elena Jenkins Work Phone: [facility] Work Phone: 01-31-2022 16:04-0500 SaO2% (BldA) [Mass fraction] 96 % Dr. Elena Jenkins Work Phone: [facility] Work Phone: 01-31-2022 16:04-0500 Systolic blood pressure 128 mm[Hg] Dr. Elena Jenkins Work Phone: [facility] Work Phone: 01-09-2022 13:12-0500 Body height 162.[address] Elena Jenkins Work Phone: [facility] Work Phone: 01-09-2022 13:12-0500 Body mass index (BMI) [Ratio] 24.9 kg/m2 Dr. Elena Jenkins Work Phone: [facility] Work Phone: 01-09-2022 13:12-0500 Body temperature 97.2 [degF] Dr. Elena Jenkins Work Phone: [facility] Work Phone: 01-09-2022 13:12-0500 Body weight 65.[address] Elena Jenkins Work Phone: [facility] Work Phone: 11-27-2022 13:12-0500 Diastolic blood pressure 70 mm[Hg] Dr. Elena Jenkins Work Phone: [facility] Work Phone: 01-09-2022 13:12-0500 Heart rate 79 /min Dr. Elena Jenkins Work Phone: [facility] Work Phone: 01-09-2022 13:12-0500 Respiratory rate 16 /min Dr. Elena Jenkins Work Phone: [facility] Work Phone: 01-09-2022 13:12-0500 SaO2% (BldA) [Mass fraction] 98 % Dr. Elena Jenkins Work Phone: [facility] Work Phone: 01-09-2022 13:12-0500 Systolic blood pressure 107 mm[Hg] Dr. Elena Jenkins Work Phone: [facility] Work Phone: 01-04-2022 13:40-0500 Body height 167.[address] Elena Jenkins Work Phone: [facility] Work Phone: 11-10-2021 16:58-0400 Body temperature 98.2 [degF] Dr. Elena Jenkins Work Phone: [facility] Work Phone: 11-10-2021 16:58-0400 Diastolic blood pressure 72 mm[Hg] Dr. Elena Jenkins Work Phone: [facility] Work Phone: 11-10-2021 16:58-0400 Heart rate 77 /min Dr. Elena Jenkins Work Phone: [facility] Work Phone: 11-10-2021 16:58-0400 Respiratory rate 14 /min Dr. Elena Jenkins Work Phone: [facility] Work Phone: 11-10-2021 16:58-0400 SaO2% (BldA) [Mass fraction] 98 % Dr. Elena Jenkins Work Phone: [facility] Work Phone: 11-10-2021 16:58-0400 Systolic blood pressure 122 mm[Hg] Dr. Elena Jenkins Work Phone: [facility] Work Phone: 05-24-2021 13:12-0400 Body height 167.[address] Elena Jenkins Work Phone: [facility] Work Phone: 05-24-2021 13:12-0400 Body mass index (BMI) [Ratio] 22.1 kg/m2 Dr. Elena Jenkins Work Phone: [facility] Work Phone: 05-24-2021 13:12-0400 Body temperature 98 [degF] Dr. Elena Jenkins Work Phone: [facility] Work Phone: 05-24-2021 13:12-0400 Body weight 62.[address] Elena Jenkins Work Phone: [facility] Work Phone: 05-24-2021 13:12-0400 Diastolic blood pressure 68 mm[Hg] Dr. Elena Jenkins Work Phone: [facility] Work Phone: 05-24-2021 13:12-0400 Heart rate 69 /min Dr. Elena Jenkins Work Phone: [facility] Work Phone: 05-24-2021 13:12-0400 Respiratory rate 16 /min Dr. Elena Jenkins Work Phone: [facility] Work Phone: 05-24-2021 13:12-0400 SaO2% (BldA) [Mass fraction] 98 % Dr. Elena Jenkins Work Phone: [facility] Work Phone: 05-24-2021 13:12-0400 Systolic blood pressure 118 mm[Hg] Dr. Elena Jenkins Work Phone: [facility] Work Phone: NEGATED: Highlighted [id number] 10:42-0500 BMI (Body Mass Index) 20.41 kg/m2 Judit Jyotsna AT [facility] Work Phone: NEGATED: Highlighted [id number] 10:42-0500 Body weight 57.15 kg Judit Jyotsna AT [facility] Work Phone: NEGATED: Highlighted [id number] 10:42-0500 Body weight 57 kg Judit Jyotsna AT [facility] Work Phone: NEGATED: Highlighted [id number] 10:42-0500 BP Diastolic 60 mm[Hg] Judit Jyotsna AT [facility] Work Phone: NEGATED: Highlighted [id number] 10:42-0500 BP Systolic 88 mm[Hg] Judit Jyotsna AT [facility] Work Phone: NEGATED: Highlighted [id number] 10:42-0500 Height 167.64 cm Judit Jyotsna AT [facility] Work Phone: NEGATED: Highlighted [id number] 10:42-0500 Height 168 cm Judit Jyotsna AT [facility] Work Phone: NEGATED: Highlighted [id number] 10:42-0500 Pulse (Heart Rate) 77 /min Judit Jyotsna AT [facility] Work Phone: Encounters Encounter Date Encounter Type Care Provider Facility Start: 10-25-2024 End: 10-29-2024 ambulatory GLENYS MORALES DO Facility:[facility] Start: 10-25-2024 End: 10-29-2024 Outreach Lab GLENYS MORALES DO [facility] Start: 10-23-2024 End: 10-23-[address] Elena Jenkins DO Work Phone: -Laboratory Start: 10-23-2024 End: 10-23-[address] Glenys Morales DO -Laboratory Work Phone: Start: 10-23-2024 End: 10-23-2024 ambulatory Elena Jenkins Facility:[facility] Start: 10-18-2024 End: 10-22-2024 ambulatory GLENYS MORALES DO Facility:[facility] Start: 10-18-2024 End: 10-22-2024 Outreach Lab GLENYS MORALES DO [facility] Start: 09-18-2024 End: 09-18-2024 Patient encounter procedure Jer Garcia [place] -[facility] Work Phone: Start: 09-18-2024 End: 09-18-[address] Elena Jenkins DO Work Phone: [facility] Start: 08-13-2024 End: 08-13-[address] Bertin Forman MD -[facility] Work Phone: Start: 08-13-2024 End: 08-13-[address] Elena Jenkins DO Work Phone: -[facility] Start: 08-13-2024 Non-patient / Non-visit Dr. Tanya Alexander MD -[facility] Work Phone: Start: 07-29-2024 ambulatory Elena Jenkins Facil ity:[facility] Start: 07-29-2024 Non-patient / Non-visit Dr. Bertin Forman MD -[facility] Start: 07-19-2024 End: 07-19-[address] Elena Jenkins DO Work Phone: [facility] Work Phone: Start: 07-19-2024 End: 07-19-2024 Patient encounter procedure Jeanna Valerio PA -Cat Scan [facility] Work Phone: Start: 07-19-2024 End: 07-19-2024 ambulatory Elena Jenkins Facility:[facility] Start: 07-19-2024 Non-patient / Non-visit Dr. Bertin Forman MD -[facility] Start: 06-03-2024 ambulatory Geovanni José Luis Facility:[facility] Start: 06-03-2024 Non-patient / Non-visit Dr. Geovanni Ordonez MD -[facility] Start: 05-31-2024 ambulatory Geovanni José Luis Facility:[facility] Start: 05-31-2024 Non-patient / Non-visit Dr. Geovanni Ordonez MD -[facility] Start: 05-31-2024 End: 05-31-[address] Elena Jenkins DO Work Phone: [facility] Work Phone: Start: 05-31-2024 End: 05-31-[address] Geovanni Ordonez MD -Cardiovascular Services Work Phone: Start: 05-31-2024 End: 05-31-2024 ambulatory Geovanni José Luis Facility:[facility] Start: 05-13-2024 End: 05-13-[address] Geovanni Ordonez MD -[facility] Work Phone: Start: 05-13-2024 End: 05-13-[address] Elena Jenkins DO Work Phone: [facility] Work Phone: Start: 05-13-2024 End: 05-13-2024 ambulatory Geovanni Ordonez Facility:[facility] Start: 03-28-2024 End: 03-28-2024 Patient encounter procedure Abelardo Torres DO -[facility] Work Phone: Start: 03-28-2024 End: 03-28-2024 ambulatory Elena Jenkins Facility:[facility] Start: 03-07-2024 End: 03-11-[address] ELENA JENKINS DO Facility:[facility] Start: 03-07-2024 End: 03-11-[address] ELENA JENKINS DO [facility] Start: 01-31-2024 End: 01-31-[address] Elena Jenkins DO -Outpatient Bone Densitometry Work Phone: Start: 01-31-2024 End: 01-31-2024 ambulatory Elena Jenkins Facility:[facility] Start: 01-22-2024 End: 01-22-2024 Patient encounter procedure Jer Garcia PA -[facility] Work Phone: Start: 01-22-2024 End: 01-22-2024 ambulatory Elena Jenkins Facility:[facility] Start: 01-17-2024 ambulatory Elena Jenkins Facil ity:[facility] Start: 01-17-2024 Non-patient / Non-visit Abelardo Torres DO -[facility] Start: 01-17-2024 End: 01-17-2024 Admission to same day surgery center Abelardo Torres DO -Endoscopy Work Phone: Start: 01-17-2024 End: 01-17-2024 ambulatory Elena Jenkins Facility:[facility] Start: 01-10-2024 End: 01-10-2024 ambulatory TAMRA OTERO DO Facility:[facility] Start: 01-10-2024 End: 01-10-2024 Patient encounter procedure TAMRA OTERO DO [facility] Start: 01-04-2024 End: 01-04-2024 ambulatory Elena Jenkins Facility:[facility] Start: 12-28-2023 End: 12-28-2023 ambulatory Elena Jenkins Facility:[facility] Start: 12-20-2023 End: 12-20-2023 ambulatory Elena Jenkins Facility:[facility] Start: 11-08-2023 End: 11-08-2023 Office outpatient new 45 minutes Parker Marcial MD Work Phone: [facility] Comment on above: Pain in both upper e xtremities (Primary Dx) Start: 11-08-2023 End: 11-08-2023 Refill Alek Lau MD Work Phone: Gastroenterology Comment on above: Refill Request Start: 06-14-2023 End: 06-14-2023 Emergency department patient visit Dr. Elena Jenkins Work Phone: [facility]-Emergency Department Work Phone: Start: 04-17-2023 End: 04-17-[address] Elena Jenkins Work Phone: [facility] Work Phone: Start: 04-17-2023 End: 04-17-[address] Elena Jenkins Work Phone: [facility]-Laboratory, Specimen Work Phone: Start: 04-16-2023 End: 04-16-[address] Elena Jenkins Work Phone: [facility] Work Phone: Start: 03-09-2023 End: 03-09-[address] Elena Jenkins Work Phone: [facility] Work Phone: Start: 03-09-2023 End: 03-09-[address] [facility] Work [facility] Start: 03-09-2023 End: 03-09-[address] Elena Jenkins Work Phone: [facility] Work Phone: Start: 02-24-2023 End: 02-24-2023 ambulatory ELENA JENKINS Facility:[facility] Start: 02-23-2023 End: 02-23-2023 ambulatory AISHA LABOY Facility:[facility] Start: 02-22-2023 End: 02-22-2023 ambulatory [facility] Facility:[facility] Start: 12-21-2022 End: 12-21-[address] Elena Jenkins Work Phone: [facility] Work Phone: Start: 12-21-2022 End: 12-21-[address] [facility] Work [facility] Start: 12-21-2022 End: 12-21-[address] Elena Jenkins Work Phone: [facility] Work Phone: Start: 12-21-2022 Non-patient / Non-visit Dr. Elena Jenkins Work Phone: [facility] Work Phone: Start: 12-02-2022 End: 12-02-[address] Elena Jenkins Work Phone: [facility] Work Phone: Start: 12-02-2022 End: 12-02-[address] [facility] Jenkins [facility] Work [facility] Start: 12-02-2022 End: 12-02-[address] Elena Jenkins Work Phone: [facility] Work Phone: Start: 09-19-2022 End: 09-19-2022 ambulatory Emg 850) Neurology Start: 09-19-2022 End: 09-19-2022 Patient encounter procedure Emg 2 Neur [facility] (Max Weight: 850) [facility] Start: 08-19-2022 End: 08-19-2022 Patient encounter procedure Franki Hernandez MD Work Phone: Neurology Comment on above: Pain in both upper e xtremities (Primary Dx); Cervicalgia; Arm weakness; Cervical stenosis of spine Start: 08-09-2022 Telephone encounter Alek altamirano MD Work Phone: Gastroenterology Comment on above: Patient Question Start: 08-05-2022 End: 08-05-2022 Subsequent hospital visit by physician [employer] [facility] (I-Stat/1.5t) Work Phone: Radiology Comment on above: Spinal stenosis of c ervical region [M48.02] Demyelinating diseas e of central nervous system (HCC) [G37.9] Start: 06-27-2022 Telephone encounter Neurology Provid er Neurology Comment on above: Appointment Start: 06-12-2022 End: 06-12-[address] Elena Jenkins Work Phone: [facility] Work Phone: Start: 06-12-2022 End: 06-12-[address] Elena Jenkins Work Phone: [facility]-Laboratory, Specimen Start: 06-10-2022 End: 06-10-[address] Elena Jenkins Work Phone: [facility] Start: 01-31-2022 End: 01-31-[address] Elena Jenkins Work Phone: [facility] Work Phone: Start: 01-31-2022 End: 01-31-[address] Elena Jenkins Work Phone: [facility]Laboratory, Specimen Start: 01-31-2022 End: 01-31-[address] [facility] Start: 01-25-2022 Refill Alek Khoury Work Phone: [facility] Comment on above: Refill Request Start: 01-09-2022 End: 01-09-2022 Emergency department patient visit Dr. Elena Jenkins Work Phone: [facility]-Emergency Department Start: 01-04-2022 End: 01-04-[address] Elena Jenkins Work Phone: [facility] Work Phone: Start: 01-04-2022 End: 01-04-[address] Elena Jenkins Work Phone: [facility]-Outpatient Bone Densitometry Start: 11-23-2021 End: 11-24-[address] ELENA JENKINS DO Facility:B Start: 11-23-2021 End: 11-23-[address] ELENA JENKINS DO [facility] Start: 11-10-2021 End: 11-10-[address] Elena Jenkins Work Phone: [facility] Work Phone: Start: 11-10-2021 End: 11-10-[address] [facility] Start: 11-10-2021 End: 11-10-[address] [facility] Start: 09-10-2021 End: 09-10-2021 ambulatory Alek Lau MD Work Phone: Gastroenterology Comment on above: Slow transit constip ation (Primary Dx) Start: 09-10-2021 End: 09-10-2021 Telemedicine consultation with patient Alek Lau MD Work Phone: [facility] Start: 08-27-2021 ambulatory Alek Khoury Work Phone: Gastroenterology Comment on above: Medication change Start: 08-17-2021 Refill Alek Khoury Work Phone: Gastroenterology Comment on above: Refill Request Start: 08-02-2021 Refill Alek Khoury Work Phone: Gastroenterology Comment on above: Refill Request Start: 07-26-2021 End: 07-27-[address] PAVITHRA GOMEZ MD. Facility:B Start: 07-26-2021 End: 07-26-[address] PAVITHRA GOMEZ MD [facility] Start: 07-23-2021 End: 07-23-2021 ambulatory Alek Lau MD Work Phone: Gastroenterology Comment on above: Chronic constipation (Primary Dx) Start: 07-23-2021 End: 07-23-2021 Telemedicine consultation with patient Alek Lau MD Work Phone: [facility] Start: 07-21-2021 ambulatory Alek Khoury Work Phone: Gastroenterology Comment on above: Email info Start: 07-21-[address] Elena Jenkins Work Phone: [facility]-Speech Therapy Start: 06-30-2021 End: 07-01-[address] PAVITHRA GOMEZ MD. Facility:B Start: 06-30-2021 End: 06-30-[address] PAVITHRA GOMEZ MD [facility] Start: 06-10-2021 End: 06-10-[address] Elena Jenkins [facility] Start: 06-03-2021 Refill Alek Khoury Work Phone: Gastroenterology Comment on above: Refill Request Start: 06-03-2021 End: 06-03-[address] Elena Jenkins Work Phone: [facility] Radiology Start: 05-25-[address] Elena Jenkins Work Phone: [facility]Speech Therapy Start: 05-24-2021 End: 05-24-[address] Elena Jenkins Work Phone: [facility]-Laboratory, Specimen Start: 05-24-2021 End: 05-24-[address] Elena Jenkins Work Phone: [facility] Start: 05-17-2021 Refill Alek Khoury Work Phone: Gastroenterology Comment on above: Refill Request Start: 03-23-2021 End: 03-23-[address] Elena Jenkins [facility] Start: 03-17-2021 End: 03-22-[address] ELENA JENKINS DO Facility:B Procedures Date Procedure Procedure Detail Performing Clinician Start: 07-19-2024 CT angiography of co ronary arteries Dr. Elena Jenkins DO Work Phone: Start: 05-31-2024 Cardiovascular stres s test using pharmacologic stress agent Dr. Elena Jenkins DO Work Phone: Start: 05-13-2024 Evaluation of diagno stic study results Dr. Elena Jenkins DO Work Phone: Start: 01-31-2024 Dual energy X-ray absorptiometry Dr. Elena Jenkins DO Work Phone: Start: 06-14-2023 SARS-CoV-2, Influenz a & RSV (PCR) Dr. Elena Jenkins Work Phone: Start: 06-14-2023 Plain chest X-ray Dr. Joseph Jenkins Work Phone: Start: 04-17-[address] Elena Jenkins Work Phone: Start: 03-09-[address] Elena Jenkins Work Phone: Start: 12-21-[address] Elena Jenkins Work Phone: Start: 12-02-[address] Elena Jenkins Work Phone: Start: 09-19-2022 Nerve conduction daphney dies 5-6 studies Franki Hernandez MD Work Phone: Start: 08-05-2022 Mri spinal canal cer vical w/o & w/contr matrl Franki Hernandez MD Work Phone: Start: 01-09-2022 Plain chest X-ray Dr. Joseph Jenkins Work Phone: Start: 01-04-2022 Dual energy X-ray absorptiometry Dr. Elena Jenkins Work Phone: Start: 01-04-2022 Screening mammography Iraida Jenkins Work Phone: Start: 08-27-[address] ELENA JENKINS DO Comment on above: Impression: Rare paroxysmal SVT episodes, P waves were not visible Start: 07-26-2021 Cardiovascular stres s testing DR ELENA JENKINS DO Comment on above: IMPRESSION:No eviden ce of ischemia or infarction. Normal LEFT ventricular ejection fraction. ECG Impression: 1. EKG portion of Lexiscan stress test is negative for inducible ischemia. 2. Results of nuclear images will be reported separately. 3. Dr. La was available through telephone/telehealth during stress test.portion will be dictated separately. Start: 07-26-[address] NIK JENKINS DO Comment on above: Summary: 1. Left ventricle: The cavity size is normal. Wall thickness is increased. Basal Septal Left Ventricular Hypertrophy Systolic function is normal. The estimated ejection fraction is 55-60%. Wall motion is normal; there are no regional wall motion abnormalities. Normal diastolic function. 2. Ventricular septum: Thickness is moderately increased. 3. Aortic valve: There is mild regurgitation. 4. Mitral valve: There is mild regurgitation. 5. Right ventricle: The RV systolic pressure by Doppler is 10 mm Hg. Start: 06-10-[address] Roland Jenkins Work Phone: Start: 06-03-2021 Plain x-ray of elbow Dr Jodi Jenkins Work Phone: Start: 06-03-2021 Complete x-ray serie s of lumbar spine with bending views Dr. Elena Jenkins Work Phone: Start: 05-24-[address] Elena Jenkins Work Phone: Start: 03-23-[address] Elena Jenkins Work Phone: Start: 02-19-2016 Colonoscopy Alek Lau MD Work Phone: Start: 10-21-2015 Adult depression scr eening assessment Alek Lau MD Work Phone: Start: 08-26-2015 Mammography Alek Lau MD Work Phone: Start: 06-18-2015 Lipid 1996 panel - S jose d or Plasma Mri (I-Stat/1.5t) Work Phone: Arthroplasty of knee DR JASIEL GOMEZ MD Comment on above: Right Cataract (morphologi c abnormality) DR PAVITHRA GOMEZ MD Comment on above: Bilateral - summer [address] PAVITHRA ROSENTHAL MD Comment on above: total Thyroidectomy DR PAVITHRA MURGUIA MD Comment on above: 11/2017 3/[address] Elena heredia Work Phone: Urine culture Dr. Elena heredia Work Phone: NEGATED: Highlighted rowStart: 02-01-2019 End: 02-01-2019 Documentation of current medications Judit Jyotsna AT Plan of Treatment Date Care Activity Detail Author Start: 10-25-2026 Urine microalbumin profile DTaP,Tdap,Td Vaccine (2 - Td or Tdap) [facility] Start: 07-04-2025 DIABETES SCREEN DIABETES SCREEN [facility] Start: 07-04-2025 Diabetes Screening Diabetes Screenin g [facility] Start: 07-19-2024 Following clinical pathway protocol [facility] Start: 02-23-2024 BP Controlled (<130/80) BP Controlle d (<130/80) [facility] Start: 01-17-2024 Egd insert guide wir e dilator passage esophagus EGD GUIDE WIRE INSERTION [facility] Start: 01-17-2024 Egd transoral biopsy single/multiple EGD BIOPSY SINGLE/MULTIPLE [facility] Start: 01-17-2024 Patient discharge [facility] Start: 11-08-2023 End: 02-07-2024 CELIAC SCREEN WITH REFLEX CELIAC SCREEN WITH REFLEX Lab Routine Pain in both upper extremities Expected: 11/08/2023, Expires: 02/07/2024 [facility] Comment on above: Expected: 11/08/2023 , Expires: 02/07/2024 Start: 11-08-2023 End: 02-07-2024 Folate [Mass/volume] in Serum or Plasma FOLATE, SERUM Lab Routine Pain in both upper extremities Expected: 11/08/2023, Expires: 02/07/2024 [facility] Comment on above: Expected: 11/08/2023 , Expires: 02/07/2024 Start: 11-08-2023 End: 02-07-2024 IMMUNOFIXATION SCREEN, SERUM IMMUNOFIXATION SCREEN, SERUM Lab Routine Pain in both upper extremities Expected: 11/08/2023, Expires: 02/07/2024 [facility] Work Phone: Comment on above: Expected: 11/08/2023 , Expires: 02/07/2024 Start: 11-08-2023 End: 02-07-2024 Pyridoxine [Mass/volume] in Serum or Plasma VITAMIN B6/PYRIDOXIN Lab Routine Pain in both upper extremities Expected: 11/08/2023, Expires: 02/07/2024 [facility] Comment on above: Expected: 11/08/2023 , Expires: 02/07/2024 Start: 11-08-2023 End: 02-07-2024 SYPHILIS TOTAL W/REFLEX SYPHILIS TOTAL W/REFLEX Lab Routine Pain in both upper extremities Expected: 11/08/2023, Expires: 02/07/2024 [facility] Comment on above: Expected: 11/08/2023 , Expires: 02/07/2024 Start: 10-15-2023 Covid-19 Vaccine ( season) Covid-19 Vaccine () [facility] Start: 10-15-2023 Influenza vaccination Influenza Vacc ine (#1) [facility] Start: 06-14-2023 [facility] Start: 06-14-2023 [facility] Start: 02-13-2023 Advance Directive Discussion Advance Directive Discussion [facility] Start: 10-14-2022 Covid-19 Vaccine ( season) Covid-19 Vaccine () [facility] Start: 10-14-2022 Influenza vaccination [facility] Start: 02-13-2022 ADVANCE DIRECTIVE DISCUSSION ADVANCE DIRECTIVE DISCUSSION [facility] Start: 02-13-2022 DEPRESSION ASSESSMENT DEPRESSION ASS ESSMENT [facility] Start: 01-31-2022 [facility] Work Phone: Start: 01-09-2022 [facility] Work Phone: Start: 01-04-2022 Dual energy X-ray absorptiometry Dexa Bone Density Study [facility] Work Phone: Start: 01-04-2022 DXA Bone [Mass/Area] Bone density [facility] Work Phone: Start: 01-04-2022 MG Breast - bilatera l Screening [facility] Work Phone: Start: 01-04-2022 Screening mammography SCRN MADDISON M (CAD)W/DARIO BILAT [facility] Work Phone: Start: 10-14-2021 Influenza vaccination C [facility] Start: 08-13-2021 COVID-19 VACCINE (5 - Booster for Moderna series) COVID-19 VACCINE (5 - Booster for Moderna series) [facility] Start: 08-13-2021 COVID-19 VACCINE (5 - Moderna series) COVID-19 VACCINE (5 - Moderna series) [facility] Start: 02-13-2021 ADVANCE DIRECTIVE DISCUSSION ADVANCE DIRECTIVE DISCUSSION [facility] Start: 02-13-2021 DEPRESSION ASSESSMENT DEPRESSION ASS ESSMENT [facility] Start: 06-17-2020 Lipid 1996 panel - S jose d or Plasma Lipid Screening [facility] Start: 06-17-2020 LIPID SCREEN LIPID SCREEN [facility] Start: 02-18-2019 Colonoscopy COLONOSCOPY [facility] Start: 02-18-2019 COLORECTAL CANCER SCREENING COLORECTAL CANCER SCREENING [facility] Start: 02-01-2019 End: 02-01-2019 Appointment Appointment [facility] Work Phone: Start: 01-25-2019 DIABETES SCREEN DIABETES SCREEN [facility] Start: 08-15-2017 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 DISEASE VISIT ANNUAL PCP TEAM CHRONIC DISEASE VISIT [facility] Start: 10-20-2016 Adult depression screening assessment DEPRESSION SCREENING [facility] Start: 08-25-2016 Mammography MAMMOGRAM [facility] Start: 03-09-2015 Shingrix Vaccine (2 of 3) Shingrix Vaccine (2 of 3) [facility] Start: 05-12-2014 SIGMOIDOSCOPY SIGMOIDOSCOPY [facility] Start: 02-15-2011 SHINGRIX VACCINE (2 of 3) SHINGRIX VACCINE (2 of 3) [facility] Start: 01-18-2011 MMR (1 of 2 - Risk 2-dose series) MMR (1 of 2 - Risk 2-dose series) [facility] Start: 01-18-2011 MMR Vaccine (1 of 2 - Risk 2-dose series) MMR Vaccine (1 of 2 - Risk 2-dose series) [facility] Start: 2007 HEPATITIS B (1 of 3 - Risk 3-dose series) HEPATITIS B (1 of 3 - Risk 3-dose series) [facility] Start: 2007 Hepatitis B Vaccine (1 of 3 - Risk 3-dose series) Hepatitis B Vaccine (1 of 3 - Risk 3-dose series) [facility] Start: 2007 RSV Vaccine (1 - 1-d ose 60+ series) RSV Vaccine (1 - 1-dose 60+ series) [facility] Start: 09-02-2005 Urine microalbumin profile [facility] Start: 02-12-1992 COLOGUARD (FIT-DNA) COLOGUARD (FIT-D NA) [facility] Start: 02-12-[address] COLONOGRAPHY [facility] Start: 02-12-1992 FECAL OCCULT BLOOD FECAL OCCULT BLOO D [facility] Start: 1966 HEPATITIS A (1 of 2 - Risk 2-dose series) HEPATITIS A (1 of 2 - Risk 2-dose series) [facility] Start: 1966 Hepatitis A Vaccine (1 of 2 - Risk 2-dose series) Hepatitis A Vaccine (1 of 2 - Risk 2-dose series) [facility] Start: 1966 HEPATITIS B (1 of 3 - Risk 3-dose series) HEPATITIS B (1 of 3 - Risk 3-dose series) [facility] Start: 1965 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 DISEASE VISIT ANNUAL PCP TEAM CHRONIC DISEASE VISIT [facility] Start: 1965 Anxiety Screening Anxiety Screening [facility] Start: 1965 BP CONTROLLED (<130/80) BP CONTROLLE D (<130/80) [facility] Start: 1965 Depression Screening Depression Scre ening [facility] Start: 1957 Meningococcal B Vacc ine: Consider Based On Risk (1 of 4 - Increased Risk) Meningococcal B Vaccine: Consider Based On Risk (1 of 4 - Increased Risk) [facility] Start: 1957 MENINGOCOCCAL B: Consider based on risk (1 of 4 - Increased Risk Bexsero 2-dose series) MENINGOCOCCAL B: Consider based on risk (1 of 4 - Increased Risk Bexsero 2-dose series) [facility] Start: 1957 MENINGOCOCCAL B: Consider based on risk (1 of 4 - Increased Risk) MENINGOCOCCAL B: Consider based on risk (1 of 4 - Increased Risk) [facility] Start: 02-12-1952 COVID-19 VACCINE (#1) COVID-19 VACCI NE (#1) [facility] Start: 02-12-1952 COVID-19 VACCINE (1) COVID-19 VACCIN E (1) [facility] Start: 02-12-1948 HEPATITIS A (1 of 2 - Risk 2-dose series) HEPATITIS A (1 of 2 - Risk 2-dose series) [facility] Ambulatory ECG [facility] End: 08-20-2023 EMG(NEURO/NI) EMG(NEURO/NI) EMG Routine Pain in both upper extremities Cervicalgia Arm weakness 1 Occurrences starting 08/19/2022 until 08/20/2023 [facility] Work Phone: Comment on above: 1 Occurrences starti ng 08/19/2022 until 08/20/2023 NM Heart Views W str ess and W radionuclide IV [facility] Patient Education [facility] Work Phone: Patient referral [facility] Work Phone: Urinalysis complete panel - Urine [facility] Urine culture Urine Culture [facility] Work Phone: US Heart [facility] Immunizations Immunization Date Immunization Notes Care Provider Fa [facility] 12-07-2023 Pneumococcal conjuga te PCV20, polysaccharide [id number] conjugate, adjuvant, PF; Translations: [Prevnar 20] TAMRA OTERO DO [facility] 11-01-2023 influenza virus vacc ine, unspecified formulation TAMRA OTERO DO [facility] 11-01-2023 SARS-CoV-2 (COVID-19 ) [id number] TAMRA THORNEY DO [facility] 01-13-2023 SARS-CoV-2 (COVID-19 ) [id number] TAMRA SINGLETONLAY DO [facility] 10-24-2022 Misc Vaccine 3 TAMRA MATI Franz DO [facility] Comment on above: Result Comment: Arex vy 120 mcg 10-24-2022 RSV vaccine preF3, recombinant TAMRA BRANDEN DO [facility] 10-04-2022 influenza virus vacc ine, unspecified formulation Alek Lau MD Work Phone: [facility] 11-23-2021 influenza, high dose seasonal, preservative-free DR ELENA JENKINS DO [facility] 11-23-2021 influenza virus vacc ine, unspecified formulation Mri (I-Stat/1.5t) Work Phone: [facility] 11-09-2021 SARS-CoV-2 (CV19)mRNA-1273 bivalent vac TAMRA BRANDEN DO [facility] 06-18-2021 COVID-19, mRNA, LNP- S, PF, 100 mcg or 50 mcg dose; Translations: [Moderna COVID-19 Vaccine] DR PAVITHRA GOMEZ MD [facility] 01-01-2021 COVID-19, mRNA, LNP- S, PF, 100 mcg or 50 mcg dose; Translations: [Moderna COVID-19 Vaccine] DR PAVITHRA GOMEZ MD [facility] 10-20-2020 influenza virus vacc ine, unspecified formulation DR PAVITHRA GOMEZ MD [facility] Comment on above: Location History: [facility] 04-08-2020 COVID-19, mRNA, LNP- S, PF, 100 mcg or 50 mcg dose; Translations: [Moderna COVID-19 Vaccine] DR PAVITHRA GOMEZ MD [facility] Comment on above: Result Comment: [facility] 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 Elena Jenkins Work Phone: [facility] 02-13-2017 pneumococcal conjuga te vaccine, [address] PAVITHRA GOMEZ MD [facility] 01-12-2017 pneumococcal conjuga te vaccine, [address] PAVITHRA GOMEZ MD [facility] 10-25-2016 tetanus toxoid, redu renato diphtheria toxoid, and acellular pertussis vaccine, adsorbed DR PAVITHRA GOMEZ MD [facility] 09-29-2016 influenza virus vacc ine, unspecified formulation DR PAVITHRA GOMEZ MD [facility] 11-06-2015 influenza virus vacc ine, unspecified formulation DR PAVITHRA GOMEZ MD [facility] 11-06-2015 influenza, high dose seasonal, preservative-free Alek Lau MD Work Phone: [facility] Work Phone: 02-13-2015 pneumococcal polysaccharide vaccine, [address] PAVITHRA GOMEZ MD [facility] 02-13-2015 zoster vaccine, live DR JASIEL GOMEZ MD [facility] 01-12-2015 pneumococcal polysaccharide vaccine, [address] PAVITHRA GOMEZ MD [facility] 01-12-2015 zoster vaccine, live DR JASIEL GOMEZ MD [facility] 12-22-2014 pneumococcal conjuga te vaccine, 13 valent Alek Lau MD Work Phone: [facility] 11-21-2014 influenza virus vacc ine, unspecified formulation DR PAVITHRA GOMEZ MD [facility] 11-21-2014 influenza, high dose seasonal, preservative-free Alek Lau MD Work Phone: [facility] 12-31-2012 influenza virus vacc ine, unspecified formulation DR PAVITHRA GOMEZ MD [facility] 05-22-2012 pneumococcal polysaccharide vaccine, 23 valent Alek Lau MD Work Phone: [facility] 01-18-2012 influenza virus vacc ine, unspecified formulation DR PAVITHRA GOMEZ MD [facility] 12-21-2010 zoster vaccine, live Alek pina MD Work Phone: [facility] 12-15-2006 influenza virus vacc ine, unspecified formulation Alek Lau MD Work Phone: [facility] Work Phone: 09-01-2005 tetanus and diphther ia toxoids, adsorbed, preservative free, for adult use (2 Lf of tetanus toxoid and 2 Lf of diphtheria toxoid) Alek Lau MD Work Phone: [facility] Payers Date Payer Category Payer Private Health Insurance [id number] 2023 Self-pay [id number] 2020 Unknown [id number] 2020 Medicare MMO MEDICARE MMO MEDADVANTAGE O [id number] 2020-Present [phone] [address] [place] [address] O [id number] 2020 Medicare MMO MEDICARE MMO MEDADVANTAGE O [id number] 2020-Present [phone] [address] [place] [address] [facility] [id number] 2016 Medicare [id number] 1947 Unknown [id number] 2.16.840.1.624873.3.579 .2.627 1947 Unknown [id number] 2.16.840.1.910528.3.579 .2.627 1947 Unknown [id number] 2.16.840.1.667718.3.579 .2.627 1947 Unknown [id number] 2.16.840.1.472045.3.579 .2.62 1945 Unknown [id number] 2.16.840.1.444023.3.579 .2.627 1945 Unknown [id number] 2.16.840.1.456253.3.579 .2.627 1947 Unknown [id number] 2.16.840.1.958595.3.579 .2.627 1947 Unknown [id number] 2.16.840.1.938510.3.579 .2.627 Unknown [id number] 2.16.840.1.023112.3.579 .2.462 Unknown [id number] 2.16.840.1.407467.3.579 .2.462 Unknown [id number] 2.16.840.1.372217.3.579 .2.462 Unknown [id number] 2.16.840.1.452903.3.579 .2.462 Unknown [id number] 2.16.840.1.843757.3.579 .2.462 Unknown [id number] 2.16.840.1.427390.3.579 .2.462 Unknown [id number] 2.16.840.1.596979.3.579 .2.462 Unknown [id number] 2.16.840.1.365859.3.579 .2.462 Unknown [id number] 2.16.840.1.279194.3.579 .2.462 Unknown [id number] 2.16.840.1.632402.3.579 .2.462 Unknown [id number] 2.16.840.1.152867.3.579 .2.462 Unknown [id number] 2.16.840.1.356995.3.579 .2.462 Unknown [id number] 2.16.840.1.141217.3.579 .2.462 Unknown [id number] 2.16.840.1.131258.3.579 .2.462 Unknown [id number] 2.16.840.1.283540.3.579 .2.462 Unknown [id number] 2.16.840.1.265320.3.579 .2.462 Unknown [id number] 2.16.840.1.279916.3.579 .2.462 Unknown [id number] 2.16.840.1.880300.3.579 .2.462 Unknown [id number] 2.16.840.1.376381.3.579 .2.462 Unknown [id number] 2.16.840.1.945317.3.579 .2.462 Unknown [id number] 2.16.840.1.925254.3.579 .2.462 Social History Date Type Detail Facility Start: 05-25-2021 End: 06-14-2023 Assertion Unknown if ever smoked [facility] Work Phone: Start: 11-27-2018 End: 01-22-2024 Tobacco smoking status NHIS Never smoked tobacco [facility] Start: 02-25-2019 End: 02-22-2023 Alcohol intake Current drinker of alcohol (finding) [facility] Start: 02-25-2019 End: 07-04-2022 Alcohol intake [facility] Start: 09-02-2010 History SDOH Alcohol Comment few glasses wine per year [facility] Start: 1945 Sex Assigned At Female [facility] Sex Assigned At [facility] Start: 08-02-2010 Tobacco use and exposure Smokeless tobacco non-user [facility] Work Phone: Start: 07-04-2022 End: 08-19-2022 Tobacco use panel [facility] Adult Depression Screening Assessment 1 [facility] Start: 10-16-2018 Gender identity Identifies as female gender (finding) [facility] [facility] Start: 10-16-2018 Sexual orientation Heterosexual (fin ding) [facility] Start: 08-30-2017 End: 06-05-2024 Sex Female (finding) [facility] NEGATED: Highlighted row Not [facility] Medical Equipment Procedure Code Equipment Code Equipment Origin al Text Equipment Identifier Dates Derick Bn Smpx P Ra dpq Fd Strl - [id number] Start: 11-25-2013 Comp Fem 3 Rt Kn Cr Derick Trthln - [id number] Start: 11-25-2013 Ins Tib 2 9mm Kn X3 Cr Trthln - [id number] Start: 11-25-2013 Comp Pat 3 20mm Asym Trthln - [id number] Start: 11-25-2013 Baseplt Tib Trth ln 2 Kn Derick - [id number] Start: 11-25-2013 RADIO FREQ ABLATION FDA Start : 04-03-2017 RADIO FREQ ABLATION FDA Start : 04-03-2017 RADIO FREQ ABLATION FDA Start : 04-03-2017 RADIO FREQ ABLATION FDA Start : 04-03-2017 RADIO FREQ ABLATION FDA Start : 04-03-2017 RADIO FREQ ABLATION FDA Start : 04-03-2017 RADIO FREQ ABLATION FDA Start : 04-03-2017 RADIO FREQ ABLATION FDA Start : 04-03-2017 RADIO FREQ ABLATION FDA Start : 04-03-2017 RADIO FREQ ABLATION FDA Start : 04-03-2017 RADIO FREQ ABLATION FDA Start : 04-03-2017 RADIO FREQ ABLATION FDA Start : 04-03-2017 RADIO FREQ ABLATION FDA Start : 04-03-2017 RADIO FREQ ABLATION FDA Start : 04-03-2017 RADIO FREQ ABLATION FDA Start : 04-03-2017 RADIO FREQ ABLATION FDA Start : 04-03-2017 RADIO FREQ ABLATION FDA Start : 04-03-2017 RADIO FREQ ABLATION FDA Start : 04-03-2017 RADIO FREQ ABLATION FDA Start : 04-03-2017 Goals Date Patient Goal Desired Activity /State Mental Status Date Assessment Result Facility 07-19-2024 Cognitive function Awake;Alert;A ppropriate;Follow s Commands [facility] Work Phone: 01-17-2024 Cognitive function Voice/Name [facility] Work Phone: 06-14-2023 Cognitive function Level Of Cons ciousness Awake;Alert;Appropriate [facility] Work Phone: Clinical Notes 09-26-2005 to 09-18-2024 Note Date & Type Note Facility 09-18-2024 Progress note [facility] 09-18-2024 Progress note Note Date/Time September 18, 2024 2:54pm [facility] [address], [address] [place] [address] OFFICE VISIT Date of Service: 09/18/24 MR#: [id number] Acct: [id number] Name: SARAH CHENG Rep #: [id number] : 1945 Provider: MENG Arreguin Age/Sex: 79/F Location: [facility] Status: Signed Intake Vital Signs 08/13/24 14:12 09/18/24 14:45 Height 5 ft 6 in Weight: 174 lb BMI 28.0 BP 137/80 H 122/72 H Blood Pressure Location Lt brachial Position Sitting Sitting Respiration 16 18 Pulse 77 67 Pulse Source Monitor Temp 97.7 F L Temp Source Oral Pulse Oximetry (%) 95 Oxygen Delivery Method room air Intake Visit Reasons: BEE STING R HAND Chief Complaint: Bee sting Rt hand Accompanied by: Allergies adhesive tape Allergy (Verified 08/13/24 14:18) skin tear ciprofloxacin (From Cipro) Allergy (Verified 08/13/24 14:18) Nausea lisinopril Allergy (Verified 08/13/24 14:18) Other metoprolol Allergy (Verified 08/13/24 14:18) Rash tetracycline (Tetracycline) Allergy (Verified 08/13/24 14:18) Other Have you fallen in the past year?: No Nurse's Note: Patient got stung by a bee on her Right hand yesterday. Patient states it bothered her a little yesterday but today it is itchy and swollen. [facility] Medical History Slow transit constipation Abnormal weight loss Early satiety Nausea Essential hypertension Vitamin D deficiency Digital mucous cyst Acute gastritis without mention of hemorrhage Right elbow pain Generalized osteoarthritis Pain in thoracic spine External hemorrhoids without complication Internal hemorrhoids without complication Sebaceous cyst Lumbago Ulcerative proctitis Contact with or exposure to other viral diseases Acute pharyngitis, unspecified Wears dentures Wears partial dentures Wears glasses Thyroid disease Ambulates with cane Arthritis Bladder disease Fatty liver High cholesterol Gastric reflux History of irregular heartbeat Cardiology follow-up encounter Heart failure Gastroparesis PVC (premature ventricular contraction) Constipation Hypertension Tachycardia Urinary tract infection Urinary tract infection with hematuria Surgical History History of thyroidectomy History of knee replacement Social History Smoking Status: Never smoker HPI HPI Chief Complaint: Bee sting Rt hand Details: SARAH CHENG, is a 79 F who presents to the office today for bee sting to rightpalmar hand yesterday morning while attending her orozco in her garden at home with localized erythema, pruritus, swelling appreciated to the same. No complaints of constricted/pruritic airway or chest pain/shortness of breath/dyspnea on exertion. No [id number]-[id number] topical or oral medications taken to assist. No other associated symptoms and no alleviating/aggravating factors. ROS Const Constitutional: No other (As above) Exam Const General: cooperative, healthy appearing and no acute distress Orientation: alert and awake [facility] Head: normal to inspection Ears: hearing grossly normal bilaterally, external ears normal, TM's normal bilaterally and EAC's normal Nose: external nose normal, nares normal, septum normal and no nasal discharge Face and sinus: normal facial exam, sinuses nontender and face symmetric Mouth: oral mucosae normal, lip normal, tongue normal, oropharynx normal and moist mucous membranes Throat: posterior oropharynx normal, uvula midline and no postnasal drainage Eyes General: appearance normal, both eyes and all related structures Neck Neck: normal visual inspection, no lymphadenopathy and no meningeal signs Chest Chest palpation & inspection: normal inspection of the chest Resp Effort & Inspection: normal respiratory effort and able to speak in complete sentences Auscultation: Bilateral: Clear to Auscultation Cardio Palpation: normal PMI Rate: regular rate Rhythm: regular rhythm Heart Sounds: S1 normal and S2 normal Pulses: radial pulses present Skin General: no rashes or lesions noted (Except right palmar hand erythema, edema and tenderness to touch same) Neuro General: patient alert and patient awake Cognition: normal cognition Speech: speech normal Psych Appearance: grossly normal Mental Status: mental status grossly normal Mood: congruent mood Affect: normal affect Speech and Movement: speech and movement normal Attitude: cooperative Coding Level of Care Code Off vis,est,level 3 Diagnoses Bee sting reaction T63.441A Assessment and Plan Assessment and Plan (1) Bee sting reaction: Status: Acute Plan: - right palmar hand Prednisone as prescribed today. Supportive measures including rest, elevate, oral diphenhydramine as needed. Follow-up with PCP in 3 to 5 days should symptoms not improve, ED sooner should symptoms only worsen or any other concerns develop. Patient states acknowledging understanding all the above. This note was generated with K[employer] dictation software. It may contain incorrectwords, spelling, and punctuation that were not noted in checking the note beforesigning. Medications: New prednisone 4 tablets daily x3 days, then 3 tablets daily x3 days, then 2 tablets daily x3 days, then 1 tablet daily x3 days 10 mg PO QDAY 30 tabs 0RF Clinical Quality Measures Falls Risk Screening/Assistive Devices Have you fallen in the past year?: No 09/18/24 4794 <Electronically signed by Jer FAN> Date _ Jer FAN Cosigner Signature: Date (if applicable) CC: ~ [facility] Work Phone: 1(851) 986-614607-01-2025 Evaluation note* Diagnosis Onset Date Resolution Status Admit Date Elevated coronary artery calcium score acute August 13, 2024 2 :08pm Dyslipidemia chronic August 13 2:08pm Hypertension chronic August 13 2:08pm Bee sting reaction acute September 18, 2024 2:38pm [facility] Work Phone: 1(785) 134-496406-06-2025 Radiology Diagnostic study note [facility] Imaging Services [address] [place], [place] [address] Limited Chest CT Cardiac Only MR#: [id number] Acct: [id number] Name: SARAH CHENG Rep #: [id number] : 1945 F 79 From: Aayush Brown MD PCP: Dr. Elena Jenkins DO Status: REG CLI Study:Limited Chest CT Cardiac Only Date of E xam: 07/19/24 Exam# [id number] Ordering Dr: Jeanna Guzman PROCEDURE: LIMITED CHEST CT CARDIAC ONLY REASON FOR EXAM: ABNORMAL STRESS TECHNIQUE: CT for coronary artery calcium scoring. One or more dose reduction techniques were used (e.g., Automated exposure control, adjustment of the mA and/or kV according to patient size, use of iterative reconstruction technique). COMPARISON: Chest x-ray of 06/14/[address] examination 09/12/2019 CT/Limited Chest CT Cardiac Only IMPRESSION: Right hepatic cyst again seen. Limited imaging of the lungs demonstrates no acute process. No pleural effusion or pneumothorax is seen in visualized areas. No adenopathy is noted. The visualized upper abdomen demonstrates no acute abnormality. Reading Location: [id number] CC: Dr. Elena Jenkins DO; MENG Al ~ Continuous Dryout Operator: Signed [facility]03-31-2025 Evaluation note* Diagnosis Onset Date Resolution Status Admit Date Dyslipidemia chronic May 13, 2024 10:59am Hypertension chronic May 13, 2024 10:59am PVC (premature ventricular contraction) chronic May 13, 2024 10:59am [facility] Work Phone: [phone]) 519-3932183599-23-6525 Evaluation note* Diagnosis Onset Date Resolution Status Admit Date Epigastric abdominal pain acute March 28, 2024 10:28am Dyslipidemia chronic May 13, 2024 10:59am Hypertension chronic May 13, 2024 10:59am PVC (premature ventricular contraction) chronic May 13, 2024 10:59am [facility] Work Phone: 1(174) 728-433312-09-2024 Evaluation note* Diagnosis Onset Date Resolution Status Admit Date Acute pharyngitis, unspecified acute January 22, 2024 5:22pm Contact with or exposure to other viral diseases acute January 5:22pm Epigastric abdominal pain acute March 28, 2024 10:28am Dyslipidemia chronic May 13, 2024 10:59am Hypertension chronic May 13, 2024 10:59am PVC (premature ventricular contraction) chronic May 13, 2024 10:59am [facility] Work Phone: 1(661) 930-690512-04-2024 [facility] Medical Records Department [address] [place] [address] History Physical Exam 01/17/24 0948 MR#: [id number] Acct: [id number] Name: SARAH CHENG Rep #: [id number] : 1945 78 From: Abelardo Friend DO PCP: Dr. Elena Jenkins DO Status:[facility] Location: [place] [address] History and Physical Date of Admission: 01/17/24 Nurse's Note: OV 12.20.23 Pt here to establish care in our office for epigastric pain. Reports epigastric pain, trouble swallowing on occasion and coughing at mealtime. Denies any N/V. Had EGD several years ago. Takes omeprazole daily. [facility] Medical History (Updated 12/20/23 @ 11:16 by MENG Coello) Heart failure Gastroparesis PVC (premature ventricular contraction) Constipation Hypertension Tachycardia Urinary tract infection Urinary tract infection with hematuria Surgical History (Updated 12/06/23 @ 13:37 by Oksana Lin) History of thyroidectomy History of knee replacement Social History Smoking Status: Never smoker HPI HPI Chief Complaint: Epigastric pain Details: SARAH CHENG, is a 78 F who presents to the office today for establishment with [facility]. Pt has a PMHx of heart failure, gastroparesis and cervical spondylosis. She is here today for episodic stabbing epigastric pain happening a few times per year. These episodes typically resolve within 15 minutes. She does have daily soreness in the epigastric reason that causes her to have to take her bra off at the end of the day. She has seen GI in the past for her gastroparesis and her last EGD was a few years ago. SHe denies constipation, diarrhea, n/v, or heartburn. ROS Const Constitutional: Positive for fatigue and weight change; No fever(s) ENT ENT: No difficulty swallowing Gastro GI: Positive for abdominal pain, bloating, change in bowel habits, constipation, heartburn and excessive flatus; No belching, change in stool character, coffee ground emesis, cramping, diarrhea, difficulty swallowing, feeling full early, incontinent of stools, Vomiting blood/hematemesis, Blood in stool, loose stools, Black,tarry stools, nausea/dyspepsia, pain with swallowing, vomiting or other Musc Musculoskeletal: Positive for abnormal gait, joint pain, back pain and Arthritis Skin Skin: No yellowing of the eye or itchy eyes Neuro Neurology: Positive for abnormal gait Psych Psychiatric: Positive for anxiety and Positive for depression Endo Endocrine: Positive for fatigue and weight change Aller/Imm Allergy/Immunologic: No itchy eyes Christoph/Lymp Hematologic/Lymphatic: No easy bleeding or easy bruising Exam Const General: cooperative and comfortable Nutritional Appearance: average body habitus and well nourished [facility] Head: normal to inspection Ears: hearing grossly normal bilaterally Nose: external nose normal Face and sinus: normal facial exam Throat: posterior oropharynx normal Eyes General: appearance normal, both eyes and all related structures Neck Neck: normal visual inspection Chest Chest palpation inspection: normal inspection of the chest and normal palpation of entire chest wall Resp Effort Inspection: normal respiratory effort Auscultation: Bilateral: Clear to Auscultation Cardio Palpation: normal PMI Rate: regular rate Rhythm: regular rhythm GI Inspection: normal to inspection Auscultation: normal bowel sounds Percussion: normal to percussion Palpation: no hepatosplenomegaly Skin General: no rashes or lesions noted Neuro General: patient alert Extrem General: normal to inspection Psych Affect: normal affect Assessment and Plan Assessment and Plan (1) Chest pain: (2) Epigastric abdominal pain: Status: Acute Plan: This is a 78 yo female pt here today for establishment with [facility]. For the past couple of years she has had episodic stabbing epigastric pain happening every couple of months. The pain typically resolves on its own after about 15 minutes. She has no hx of pancreatitis. She will undergo EGD to evaluate her stomach and small intestine for inflammation or ulcers. She has been on PPI therapy for years. I will also order blood work with CBC and lipase. She had an incidental finding of fatty liver a few months ago on CT. I will order liver elastography for monitoring Orders: Orders Lipase Today R10.13 - Epigastric pain CBC W/Diff, Automated Today R10.13 - Epigastric pain, R10.9 - Unspecified abdominal pain Comprehensive Metabolic Profil Today R10.13 - Epigastric pain ABD Limited w/ Elastography Today R10.13 - Epigastric pain I have examined the patient and the H P has been reviewed. There are no clinical changes since date of exam. 01/17/24 0948 Cosigner Signature (if applicable): CC: Dr. Elena Jenkins, DO; Abelardo Ingram (more content not included)... [facility]09-25-2024 History of Present illness Narrative* Parker Marcial MD - 11/08/2023 3:00 PM EDT [facility] [place] [facility] New Patient Visit Note Consultation requested by Aisha Laboy PA-C for an opinion regarding arm pain. My final recommendations will be communicated back to the requesting physician by way of shared Medical record or letter to requesting physician via US mail. HPI: Ms. Sarah Cheng is a 78 year old female referred for arm pain. The patient has a past medical history of osteoarthritis, HTN, gastroparesis, tachycardia. The patient is accompanied by their , Cabrera. Symptoms ongoing for about 1 year, progressive. She is awoken at 6am most mornings experiencing a burning under her skin from her hands all the way up her arms and across her chest. While she feels burning, skin is cold to the touch, though rubbing the skin causes a tender sensation. Once she gets up and starts moving around, symptoms improve within 30 minutes. Does not generally affect her much during the day, but can occur in a minor fashion when she cold. Denies any associated weakness or incoordination with his symptoms. Symptoms re progressing, becoming more painful than it had been prior and seems to have progressed from lower arms to involve whole arms. Is on gabapentin 600mg QID chronically for back pain. Tried Elavil 25mg qHS for these symptoms for about 30 days, no improvement. Has cervical and thoracic spinal issues; gets frequent thoracic RFAs Tobacco use: no Daily alcohol use: no Family history: Denies family history of neuropathy, myopathy and/or neurodegenerative disease Physical Exam There were no vitals taken for this visit. GENERAL Well nourished, well hydrated, no acute distress. MENTAL STATUS EXAM Orientation: Alert and oriented to person, place and time. Memory: Cooperative, follows commands well. Recent and remote memory normal. Attention, concentration: Attention span and concentration are normal. Language: Speech is clear and language is normal. Fund of knowledge: Aware of current events, vocabulary appropriate for patient age. CRANIAL NERVES CNII: Visual acuity normal. Visual varela full to confrontation CNIII, IV, : Pupils equal, round and reactive to light. Full extraoccular movements without nystagmus CN V: Facial sensation intact bilaterally to fine touch CN VII: Frontalis, orbicularis oculi, buccinator, orbicularis antoinette strength intact. Symmetric smile CN VIII: Hears finger rub well bilaterally CN IX: Gag Reflex Not examined CN X: Palate elevates symmetrically CN XI: Full strength shoulder shrug bilaterally CN XII: Tongue protrusion full and midline. No atrophy or fasciculations. Tongue movements are normal Speech is normal MOTOR Strength/Power (MRC grade- out of 5): Neck Flexion: 5/5 Neck Extension: 5/5 Upper extremity power, when graded out of 5, revealed: Right Left shoulder abduction 5/5 5/5 shoulder external rotation 5/5 5/5 elbow extension 5/5 5/5 elbow flexion 5/5 5/5 wrist extension 5/5 5/5 finger extension 5/5 5/5 deep finger flexion (D2-3) 5/5 5/5 deep finger flexion (D4-5) 5/5 5/5 thumb flexion with FPL / 5/5 finger abduction 5/5 5/5 Lower extremity strength, when reported the same way, showed: Right Left hip flexion / 5/5 hip adduction / 5/5 hip abduction / 5/5 knee flexion / 5/5 knee extension 5/ 5/5 ankle dorsiflexion / 5/5 ankle plantar flexion / 5/5 toe extension / 5/5 toe flexion 5/ 5/5 Muscle: Tone is normal. There is no muscle atrophy or fasciculations. REFLEXES Right Left Bicep 2/4 2/4 Tricep 2/4 2/4 BrRad 2/4 2/4 Knee 2/4 2/4 Ankle 0/4 0/4 PATHOLOGIC REFLEXES: Babinski: bilaterally Downward response COORDINATION Finger-to- nose-finger intact bilaterally. No tremor. SENSATION Light touch: intact Proprioception: intact at great toes Vibration: intact at great toes Pinprick: intact GAIT Patient's gait is normal can heel and toe walk. Able to rise from seated position without the use of hands. Diagnostic Studies: MRI brain and cervical spine o 08/05/22: No acute findings or abnormal intracranial enhancement. Supratentorial chronic microvascular ischemic changes. C2-C3: Mild right foraminal stenosis due to [...] foramen. C7-T1: Canal and foramina are patent. EMG 09/19/22: Electrodiagnostic examination of the right upper extremity with comparison studies of the left median nerve demonstrates no significant abnormalities. There is no significant evidence of compression neuropathy nor cervical radiculopathy in the right upper extremity. There is no significant evidence of median neuropathy in the left upper extremity. Serum labs: 06/2022- RF, LAURENT, ESR wnl 02/2023- B12, SPEP, MMA wl Assessment: Sarah Cheng is a 78 year old woman referred for further evaluation of bilateral upper extremity discomfort, occurring almost exclusively first time in the morning. She has a normal neurologic examination. EMG and MRI cervical spine without clear culprits for symptoms. Unclear etiology, no significant large fiber nerve damage to explain symptoms. Cannot rule out small fiber neuropathy, however symptoms and timing of pain are very atypical. Discussed looking for causes of small fiber neuropathybut that skin biopsy would not be useful as it only examines lower extremities. Symptomatic management recommended. Plan: - Serum workup: Bloodwork for SFN - Medications: Trial increased qHS dose of gabapentin - No follow-ups on file. Follow-up as needed The impression above as well as the plan as outlined below were extensively discussed with the patient who voiced understanding. All questions were answered to their stated satisfaction. When available, results of the above investigations and possible further recommendations will be communicated to the patient via telephone/NurseGridhart. Patient to call office if not contacted after expected testing turnaround time. To aid with communication, patients (and primary care physicians) can sign up for [employer] (or [employer]), which allows online appointment scheduling, transmission of labs results and chart notes, andsecure email communication. To establish either account, visit [email or web address]. I spent a total of 45 minutes on the date of the service which included preparing to see the patient, [id number] patient care, completing clinical documentation, performing a medically appropriate examination, counseling and educating the patient/family/caregiver, and ordering medications, tests,or procedures. Parker Marcial MD Neuromuscular Medicine (NM) Staff [facility], [facility] [place] documented in this encounter[facility] NoteHNO ID: [id number] Author: PARKER MARCIAL MD Service: ? Author Type: Physician Type: Progress Notes Filed: 11/08/2023 16:34 Note Text: [facility] [place] [facility] New Patient Visit Note Consultation requested by Aisha Laboy PA-C for an opinion regarding arm pain. My final recommendations will be communicated back to the requesting physician by way of shared Medical record or letter to requesting physician via US mail. HPI: Ms. Sarah Cheng is a 78 year old female referred for arm pain. The patient has a past medical history of osteoarthritis, HTN, gastroparesis, tachycardia. The patient is accompanied by their , Cabrera. Symptoms ongoing for about 1 year, progressive. She is awoken at 6am most mornings experiencing a burning under her skin from her hands all the way up her arms and across her chest. While she feels burning, skin is cold to the touch, though rubbing the skin causes a tender sensation. Once she gets up and starts moving around, symptoms improve within 30 minutes. Does not generally affect her much during the day, but can occur in a minor fashion when she cold. Denies any associated weakness or incoordination with his symptoms. Symptoms re progressing, becoming more painful than it had been prior and seems to have progressed from lower arms to involve whole arms. Is on gabapentin 600mg QID chronically for back pain. Tried Elavil 25mg qHS for these symptoms for about 30 days, no improvement. Has cervical and thoracic spinal issues; gets frequent thoracic RFAs Tobacco use: no Daily alcohol use: no Family history: Denies family history of neuropathy, myopathy and/or neurodegenerative disease Physical Exam There were no vitals taken for this visit. GENERAL Well nourished, well hydrated, no acute distress. MENTAL STATUS EXAM Orientation: Alert and oriented to person, place and time. Memory: Cooperative, follows commands well. Recent and remote memory normal. Attention, concentration: Attention span and concentration are normal. Language: Speech is clear and language is normal. Fund of knowledge: Aware of current events, vocabulary appropriate for patient age. CRANIAL NERVES CNII: Visual acuity normal. Visual varela full to confrontation CNIII, IV, : Pupils equal, round and reactive to light. Full extraoccular movements without nystagmus CN V: Facial sensation intact bilaterally to fine touch CN VII: Frontalis, orbicularis oculi, buccinator, orbicularis antoinette strength intact. Symmetric smile CN VIII: Hears finger rub well bilaterally CN IX: Gag Reflex Not examined CN X: Palate elevates symmetrically CN XI: Full strength shoulder shrug bilaterally CN XII: Tongue protrusion full and midline. No atrophy or fasciculations. Tongue movements are normal Speech is normal MOTOR Strength/Power (MRC grade- out of 5): Neck Flexion: 5/5 Neck Extension: 5/5 Upper extremity power, when graded out of 5, revealed: Right Left shoulder abduction 5/5 5/5 shoulder external rotation 5/5 5/5 elbow extension 5/5 5/5 elbow flexion 5/5 5/5 wrist extension 5/5 5/5 finger extension 5/5 5/5 deep finger flexion (D2-3) 5/5 5/5 deep finger flexion (D4-5) 5/5 5/5 thumb flexion with FPL 5/5 5/5 finger abduction 5/5 5/5 Lower extremity strength, when reported the same way, showed: Right Left hip flexion 5/5 5/5 hip adduction 5/5 5/5 hip abduction 5/5 5/5 knee flexion 5/5 5/5 knee extension 5/5 5/5 ankle dorsiflexion 5/5 5/5 ankle plantar flexion 5/5 5/5 toe extension 5/5 5/5 toe flexion 5/5 5/5 Muscle: Tone is normal. There is no muscle atrophy or fasciculations. REFLEXES Right Left Bicep 2/4 2/4 Tricep 2/4 2/4 BrRad 2/4 2/4 Knee 2/4 2/4 Ankle 0/4 0/4 PATHOLOGIC REFLEXES: Babinski: bilaterally Downward response COORDINATION Finger-to- nose-finger intact bilaterally. No tremor. SENSATION Light touch: intact Proprioception: intact at great toes Vibration: intact at great toes Pinprick: intact GAIT Patient's gait is normal can heel and toe walk. Able to rise from seated position without the use of hands. Diagnostic Studies: MRI brain and cervical spine wwo 08/05/22: No acute findings or abnormal intracranial enhancement. Supratentorial chronic microvascular ischemic changes. C2-C3: Mild right foraminal stenosis due to [...] complex abutting the ventral cord. At least (more content not included)...[facility]09-25-2024 Telephone encounter Note* Telephone Encounter - Tea Villavicencio - 11/08/2023 9:33 AM EDT Prescription Refill Information The patient has been identified by name and date of : Yes Caregiver verified no other encounters exist for this prescription request: Yes Caregiver confirmed with patient/requestor that no other refills are due, in the near future, with this provider at this time: Yes The last office visit in the department: 09-10-21 Does the patient have a future office visit with this provider/department: No Requested Prescriptions Pending Prescriptions Disp Refills busPIRone (BUSPAR) 15 mg tablet 270 tablet 2 Sig: Take 1 tablet by mouth three times a day. Tea Villavicencio November 08, 2023 9:33 AM [facility]09-25-2024 Miscellaneous Notes* Telephone Encounter - Tea Villavicencio - 11/08/2023 9:33 AM EDT Prescription Refill Information The patient has been identified by name and date of : Yes Caregiver verified no other encounters exist for this prescription request: Yes Caregiver confirmed with patient/requestor that no other refills are due, in the near future, with this provider at this time: Yes The last office visit in the department: 09-10-21 Does the patient have a future office visit with this provider/department: No Requested Prescriptions Pending Prescriptions Disp Refills busPIRone (BUSPAR) 15 mg tablet 270 tablet 2 Sig: Take 1 tablet by mouth three times a day. Tea Villavicencio November 08, 2023 9:33 AM documented in this encounterT[facility]01-10-2024 NoteHNO ID: [id number] Author: AISHA LABOY PA-C Service: ? Author Type: Physician I&C Technician Type: Progress Notes Filed: 02/22/2023 17:15 Note [...] with pt having prior dx of fibromyalgia. Franki Hernandez MD CHIEF COMPLAINT: follow up HISTORY OF PRESENT ILLNESS: Sarah Cheng is a 78 year old female, There were no vitals taken for this visit. with a PMH significant for HTN, HLD, osteoarthritis, vitamin D deficiency. Saw Dr. Hernandez 08/19/22 for pain in upper extremities and cervcialgia, worse in the mroning. Repeat EMG negative. Wanted to follow up [facility]. On gabapentin 600mg four timmes a [...] disturbance, mood disorder and recent psychosocial stressors. HEMATOLOGIC/LYMPHATIC/IMMUNOLOGIC:Negative for prolonged bleeding, bruising easily or swollen nodes. ENDOCRINE: Negative for cold or heat intolerance, polyuria, polydipsia and goiter. The remainder of the ROS was reviewed and is negative. LAB/IMAGING: Those performed since patient's last visit have been reviewed. EMG 09/19/22 Study Interpretation Electrodiagnostic examination of the right up (more content not included)... [facility]08-07-2023 History of Present illness Narrative* Bill Bills MD - 09/19/2022 10:35 AM EDT UNIVERSAL PROTOCOL / SAFETY CHECKLIST Procedure to [...] Care Visit completed when applicable. Nadeem Parekh [facility] Bill Bills MD documented in this encounterT[facility]07-07-2023 History of Present illness Narrative* Franki Hernandez Jr., MD - 08/19/2022 9:01 AM EDT ESTABLISHED PATIENT VISIT CHIEF COMPLAINT: Follow Up HISTORY OF PRESENT ILLNESS: Sarah Cheng is a 77 year old female, [...] as some degree of subjective weakness, and abnormalgait for which etiology is uncertain at this [...] (inconsistent with typical CTS symptoms). States wears longsleeves due to cold temperature on arms bothering her. No matter what [facility] with these symptoms. If takes a nap [...] symptoms. However, patient will be evaluated by spinefor any additional recommendations following their evaluation. Exam non-focal except for poor effort on strength testing. Prior rheum workup unremarkable. While symptoms per history not suggestive orperipheral n etiology, will repeat EMG/NCV due to possible variability between technicians. Patientagrees with plan. If workup remains unremarkable, then would defer further treatment to pain mgmt with pt having prior dx of fibromyalgia. Franki Hernandez MD Medical Decision Making: Problems: Low: Stable chronic illness Data: Unique test result(s) reviewed: 2 Unique test(s) ordered: 1 Risk: Moderate: Moderate risk from testing/treatment Medical Decision Making Level: 4 - Moderate Mod risk testing = EMG documented in this encounterTogus [facility]06-23-2023 History of Present illness Narrative* Glenys Josue, RT(R) - 08/05/2022 9:20 AM EDT Radiology Service Progress Note DATE OF SERVICE: August 05, 2022 TIME: 9:56 AM PATIENT IDENTITY VERIFICATION COMPLETED USING TWO (2) STANDARD IDENTIFIERS: Name and Date of confirmed by patient verbally. FALL SCREENING: Has the patient had 2 falls in the last year or 1 fall with injury or currently using an Ambulatory Assistive Device (Walker, Cane, Wheelchair, Crutches, etc.)? Yes, Patient High Riskfor Falls What interventions were put in place to prevent falls during this visit? Instructed Patient to Callfor Help if Needed, Offered Assistance with Transfers/Clothing, Instructed Patient to Remain Seated(Not on Exam Table) Until Exam, and Increased [...] Cervical spine SIGNATURE: RT Desirae(R) PATIENT NAME: Sarah Cheng DATE: August 05, 2022 TIME: 9:56 AM documented in this encounterTogus [facility] Center05-15-2023 Miscellaneous Notes* Telephone Encounter - Aisha Henson Pss - 06/27/2022 4:42 PM EDT The patient is requesting an appointment for a second opinion. The patient's referral is for fibromyalgia. The patient is aware the referral isn't for spine or pain issues. The patient declined sooner appointment with the PA. documented in this encounterTogus [facility] Center12-13-2022 Miscellaneous Notes* Telephone Encounter - Milvia Tavera RN - 01/25/2022 9:32 AM EST [facility] 09/10/21 Patient phones requesting refills as follows: Requested Prescriptions Pending Prescriptions Disp Refills ondansetron (ZOFRAN) 4 mg tablet 60 tablet 2 Sig: TAKE 1 TABLET BY MOUTH EVERY 8 HOURS NEEDED FOR NAUSEA Please review and advise. Milvia Tavera RN * Telephone Encounter - Jeanna Johnson - 01/25/2022 9:18 AM EST Pt is asking for refill on ondansetron (ZOFRAN) 4 mg tablet documented in this encounterTogus [facility] Center07-29-2022 History of Present illness Narrative* Alek Lau MD - 09/10/2021 9:04 AM EDT VIRTUAL VISIT FOLLOW UP I had a [...] Procedure Laterality Date COLONOSCOP W/ OR W/O BRS SPEC 03/01/04 Colonoscopy COLONOSCOP W/ OR W/O BRS SPEC 05/19/2008 Colonoscopy COLONOSCOP W/ OR W/O BRS SPEC 09/18/2012 Colonoscopy EGD W/O [facility] SPECIMEN W/BX 02/25/11 FRAGMENTING/KIDNEY STONE 09/18/2013 [...] No history of dysuria, frequency or incontinence 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 Alek Lau MD documented in this encounterTogus [facility] Center07-19-2022 Miscellaneous Notes* Telephone Encounter - Alek Lau MD - 08/31/2021 11:32 AM EDT Please call patient to schedule for either in person or virtual visit. Thank you. documented in this encounterTogus [facility] Center07-05-2022 Miscellaneous Notes* Telephone Encounter - Milvia Tavera RN - 08/17/2021 12:25 PM EDT Could you please let patient know she should have 2 refills at her pharmacy, ordered in May. Thanks, Alanna Tai MD Called patient. Informed of the message above from Dr. Tai. Patient will call pharmacy. Her bottle has no refills listed. Informed her receipt was confirmed by her pharmacy on 05/17/21. Patient verbalized understanding. * Telephone Encounter - Naya Davila - 08/17/2021 9:02 AM EDT Patient phones requesting refills as follows: Pending Prescriptions Disp Refills BUSPIRONE 15 MG TABLET 270 tablet 2 Sig: Take 1 tablet by mouth three times daily. VICKY: No Please review and advise. Naya Davila documented in this encounterTogus [facility] Center06-20-2022 Miscellaneous Notes* Telephone Encounter - Chely Verma RN - 08/02/2021 9:33 AM EDT Distance Health Visit 07/23/21 * Telephone Encounter - Dana Davila - 08/02/2021 9:18 AM EDT Patient phones requesting refills as follows: Pending Prescriptions Disp Refills ONDANSETRON HCL 4 MG TABLET 60 tablet 2 Sig: TAKE 1 TABLET BY MOUTH EVERY 8 HOURS NEEDED FOR NAUSEA VICKY: No Please review and advise. [place] Davila documented in this encounterTogus [facility] Medical Center06-10-2022 History of Present illness Narrative* Alek Lau MD - 07/23/2021 11:17 AM EDT VIRTUAL VISIT FOLLOW UP I had a virtual visit with Ms. Cheng today for follow up of dysphagia. UPDATED HISTORY: Underwent swallowing study @ [facility]. The oral phase is marked by piecemeal deglutition of cookie; however, pt independently cleared oral residue with use of multiple swallows. The pharyngeal phase is marked by mild deficits in airway closure due to decreased laryngeal elevation and epiglottic inversion. The patient had increased delay initiating the swallow with sequential sips. She demonstrated laryngeal penetration of certain thin liquid trials via tsp, cup,and straw with full ejection from the laryngeal [...] retention, and reflux observed during study. SEE "Impression" for details. Re: gastroparesis, weight is stable (living on carbs). Constipation continues. Not improved. Has tried Magnesium, MCT oil without much improvement. A localized area of mildly granular and vxxqsdhm-nkzlekc-musbpodkf mucosa was found in the rectum. Biopsies were taken with a cold forceps for histology. The sigmoid colon, descending colon, splenic flexure, transverse colon, hepatic flexure, ascending colon and cecum appeared normal. Biopsies weretaken with a cold forceps for histology. 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 Alek Lau MD documented in this encounterTogus [facility] Medical Center04-21-2022 Miscellaneous Notes* Telephone Encounter - Chely Verma RN - 06/03/2021 10:16 AM EDT Distance Health Visit 03/20/[address] Lau * Telephone Encounter - Naya Davila - 06/03/2021 9:25 AM EDT Patient phones requesting refills as follows: Pending Prescriptions Disp Refills ONDANSETRON HCL 4 MG TABLET 60 tablet 0 Sig: TAKE 1 TABLET BY MOUTH EVERY 8 HOURS NEEDED FOR NAUSEA VICKY: No Please review and advise. Naya Davila documented in this encounterTogus Va Medical Center04-04-2022 Miscellaneous Notes* Telephone Encounter - Milvia Tavera RN - 05/17/2021 10:21 AM EDT Patient phones requesting refills as follows: Pending Prescriptions Disp Refills BUSPIRONE 15 MG TABLET 270 tablet 2 Sig: Take 1 tablet by mouth three times daily. VICKY: No [facility]AMICA 03/20/20 Please review and advise. Milvia Tavera RN * Telephone Encounter - Maria Del Carmen Jansen - 05/17/2021 9:31 AM EDT Wrong pool? * Telephone Encounter - [place] Davila - 05/17/2021 9:19 AM EDT Patient phones requesting refills as follows: Pending Prescriptions Disp Refills BUSPIRONE 15 MG TABLET 270 tablet 2 Sig: Take 1 tablet by mouth three times daily. VICKY: No Please review and advise. Dana Davila documented in this encounterTogus Va Medical Center02-04-2022 Note. MICRO - Microbiology PROCEDURE: Urine Culture [*1] [...] Locations *1: This test was performed at: [facility], [address] [place] [address], [id number] , [facility] [place])09-26-2005 History of Past illness Narrative* Problem Noted Date Resolved Date Sebaceous cyst 09/26/2005 10/07/2014 External hemorrhoids without mention of complica tion 11/21/2014 documented as of this encounter (statuses as of 05/17/2021) [address]14-2006 History of Past illness Narrative* Problem Noted Date Resolved Date Sebaceous cyst 09/26/2005 10/07/2014 External hemorrhoids without mention of complica tion 11/21/2014 documented as of this encounter (statuses as of 06/03/2021) [place] [id number] History of Past illness Narrative* Problem Noted Date Resolved Date Sebaceous cyst 09/26/2005 10/07/2014 External hemorrhoids without mention of complica tion 11/21/2014 documented as of this encounter (statuses as of 07/22/2021) [place] [id number] History of Past illness Narrative* Problem Noted Date Resolved Date Sebaceous cyst 09/26/2005 10/07/2014 External hemorrhoids without mention of complica tion 11/21/2014 documented as of this encounter (statuses as of 07/23/2021) [place] [id number] History of Past illness Narrative* Problem Noted Date Resolved Date Sebaceous cyst 09/26/2005 10/07/2014 External hemorrhoids without mention of complica tion 11/21/2014 documented as of this encounter (statuses as of 08/02/2021) [facility] of Past illness Narrative* Problem Noted Date Resolved Date Sebaceous cyst 09/26/2005 10/07/2014 External hemorrhoids without mention of complica tion 11/21/2014 documented as of this encounter (statuses as of 08/17/2021) [facility] of [facility] illness Narrative* Problem Noted Date Resolved Date Sebaceous cyst 09/26/2005 10/07/2014 External hemorrhoids without mention of complica tion 11/21/2014 documented as of this encounter (statuses as of 08/31/2021) [facility] of [facility] illness Narrative* Problem Noted Date Resolved Date Sebaceous cyst 09/26/2005 10/07/2014 External hemorrhoids without mention of complica tion 11/21/2014 documented as of this encounter (statuses as of 09/10/2021) [facility] of [facility] illness Narrative* Problem Noted Date Resolved Date Sebaceous cyst 09/26/2005 10/07/2014 External hemorrhoids without mention of complica tion 11/21/2014 documented as of this encounter (statuses as of 01/25/2022) [place] [id number] History of Past illness Narrative* Problem Noted Date Resolved Date Sebaceous cyst 09/26/2005 10/07/2014 External hemorrhoids without mention of complica tion 11/21/2014 documented as of this encounter (statuses as of 06/28/2022) [place] [id number] History of Past illness Narrative* Problem Noted Date Diagnosed Date Resolved Date Sebaceous cyst 09/26/2005 10/07/2014 External hemorrhoids without mention of complication 11/21/2014 documented as of this encounter (statuses as of 08/21/2022) [facility] of [facility] illness Narrative* Problem Noted Date Diagnosed Date Resolved Date Sebaceous cyst 09/26/2005 10/07/2014 External hemorrhoids without mention of complication 11/21/2014 documented as of this encounter (statuses as of 08/25/2022) [facility] of [facility] illness Narrative* Problem Noted Date Diagnosed Date Resolved Date Sebaceous cyst 09/26/2005 10/07/2014 External hemorrhoids without mention of complication 11/21/2014 documented as of this encounter (statuses as of 09/19/2022) [facility] of Past illness Narrative* Problem Noted Date Diagnosed Date Resolved Date Sebaceous cyst 09/26/2005 10/07/2014 External hemorrhoids without mention of complication 11/21/2014 documented as of this encounter (statuses as of 12/17/2022) [facility] of Past illness Narrative* Problem Noted Date Diagnosed Date Resolved Date Sebaceous cyst 09/26/2005 10/07/2014 External hemorrhoids without mention of complication 11/21/2014 documented as of this encounter (statuses as of 12/17/2022) [facility] Future App[facility]ments Appointment Date:07/27/2021 08:30:00 AM Scheduled Provider: Location:[facility] Appointment Type:NM Myocardial Spect Rest/Stress (AH/AO) Appointment Date:07/27/2021 09:00:00 AM Scheduled Provider: Location:[facility] Appointment Type:CV Procedure - AOH Echo Appointment Date:12/17/2021 11:30:00 AM Scheduled Provider:ELENA JENKINS DO Location:[facility] Appointment Type:PC OV Future Scheduled Tests Laboratory* Magnesium Level 06/18/21 * Thyroid Stimulating Hormone 06/18/21 * Free T4 06/18/21 * Complete Blood Count 06/18/21 * Free T3 06/18/21 * Lipid Profile 06/18/21 * Complete Metabolic Panel 06/18/21 Radiology* NM Myocardial Spect Rest/Stress 07/27/21 [facility] Evaluation + Plan note Future Appointments Appointment Date:12/17/2021 11:30:00 AM Scheduled Provider:ELENA JENKINS DO Location:[facility] Appointment Type: OV Future Scheduled Tests Laboratory* Magnesium Level 06/18/21 * Thyroid Stimulating Hormone 06/18/21 * Free T4 06/18/21 * Complete Blood Count 06/18/21 * Free T3 06/18/21 * Lipid Profile 06/18/21 * Complete Metabolic Panel 06/18/21 [facility] Evaluation + Plan note Future Appointments Appointment Date:12/17/2021 11:30:00 AM Scheduled Provider:ELENA JENKINS DO Location:[facility] Appointment Type: OV Future Scheduled Tests Laboratory* Magnesium Level 06/18/21 * Thyroid Stimulating Hormone 06/18/21 * Free T4 06/18/21 * Complete Blood Count 06/18/21 * Free T3 06/18/21 * Lipid Profile 04/26/22 * Lipid Profile 06/18/21 * Complete Metabolic Panel 06/18/21 * N-Terminal proBNP 04/26/22 [facility] Evaluation + Plan note Future Appointments Appointment Date:02/27/2024 02:00:00 PM Scheduled Provider:ELENA JENKINS DO Location:[facility] Appointment Type:PC OV Future Scheduled Tests Laboratory* Lipid Profile 11/18/23 * N-Terminal proBNP 11/18/23 Radiology* MA Mammo Screening Bilateral w/ Dario 12/08/23 * BD Bone Density DEXA Axial Skeleton Adult (21 yrs or older) 12/08/23 [facility] Evaluation + Plan note Future Appointments Appointment Date:09/05/2024 02:30:00 PM Scheduled Provider:ELENA JENKINS DO Location:[facility] Appointment Type:PC OV Future Scheduled Tests Laboratory* Lipid Profile 11/18/23 * N-Terminal proBNP 11/18/23 [facility] Evaluation + Plan note Future Appointments Appointment Date:03/25/2025 10:30:00 AM Scheduled Provider:ELENA JENKINS DO Location:[facility] Appointment Type:PC Wellness Medicare Future Scheduled Tests Laboratory* C-Reactive Protein 10/21/24 * Thyroid Stimulating Hormone 09/20/24 * A1C Hemoglobin 09/20/24 * Complete Blood Count 09/20/24 * Complete Blood Count 10/21/24 * Lipid Profile 11/18/23 * Lipid Profile 09/20/24 * Sedimentation Rate Automated 10/21/24 * Complete Metabolic Panel 09/20/24 * Complete Metabolic Panel 10/21/24 * N-Terminal proBNP 11/18/23 [facility] evaluation note* Diagnosis Onset Date Resolution Status Urinary tract infection with hematuria acute [facility] Work Phone: evaluation note* Diagnosis Chronic ulcerative proctitis with complication (HCC) Ulcerative (chronic) proctitis Nausea Nausea alone Gastroparesis documented in this encounter [facility] [place] [facility]* Diagnosis Chronic constipation- Primary Unspecified constipation documented in this encounter [facility] [place] [facility]* Diagnosis Chronic ulcerative proctitis with complication (HCC) Ulcerative (chronic) proctitis Nausea Nausea alone Gastroparesis documented in this encounter [facility] [place] [facility]* Diagnosis Slow transit constipation- Primary documented in this encounter [facility] [place] [facility]* Diagnosis Onset Date Resolution Status Urinary tract infection [facility] Work Phone: Evaluation note* Diagnosis Onset Date Resolution Status Urinary tract infection acut e Urinary tract infection [facility] Work Phone: Evaluation note* Diagnosis Pain in both upper extremities- Primary Cervicalgia Arm weakness Other musculoskeletal symptoms referable to limbs Cervical stenosis of spine Spinal stenosis in cervical region [facility] Diagnosis Pain in both upper extremities Cervicalgia Arm weakness Other musculoskeletal symptoms referable to limbs [facility]* Diagnosis Spinal stenosis of cervical region Spinal stenosis in cervical region [facility]* Diagnosis Demyelinating disease of central nervous system (HCC) Demyelinating disease of central nervous system, unspecified [facility]* Diagnosis Onset Date Resolution Status Urinary tract infection acut e Urinary tract infection acut e Urinary tract infection acut e [facility] Work Phone: Evaluation note* Diagnosis Pain in both upper extremities- Primary documented [facility] this encounter [facility] Narrative No data available for this section [facility] Hospital Discharge instructions No data available for this section [facility] Hospital Discharge instructions Additional Instructions Plenty of fluids and rest. Tylenol as needed. You have a viral respiratory infection. Follow-up with your doctor if not improving or return if worse. At this time there is no reason to start you on any antibiotics. Your labs, chest x-ray and EKG were all normal.[facility] Work Phone: Progress note No data available for this section [facility] Reason for referral (narrative)No reason for referral information availableWClermont [facility] Work Phone: Reason for visit Narrative* Outpatient Procedure (Routine) - Closed Specialty Diagnoses / Procedures Referred By Contac t Referred To Contact NEUROLOGICAL [facility] Pain in both upper extremities Cervicalgia Arm weakness Procedures EMG(NEURO/NI) NERVE CONDUCTION STUDIES 9-10 STUDIES Franki Hernandez Jr., MD [address] [facility] [address] [place] [address] Neurological [place] [address] [place] [address] Referral ID Status Reason Start Date Expiration Date V isits Requested Visits Authorized [id number] Closed Auto-Generate d Referral 08/19/2022 08/20/2023 1 1 [facility] Summary Purpose Family History No Family History Records FoundThere may be information available, but it has not been provided by the sender.No Family History Records FoundNo Family History Records Found No data available for this section No data available for this section No data available for this section No data available for this section No Family History Records FoundNo Family History Records Found Advance Directives Documents on File Type Date Recorded 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 Director Product Management Yes December 09, 2020 10:04pm Advance Directive Response Recorded Date/ Time Advance Directives No September 18 8:58am Living Will No January 09 2:38pm Power of Sr. Director Product Management No January 09, 2022 2:38pm Advance Directive Response Recorded Date/ Time Advance Directives No September 18 9:58am Living Will No January 09 022 3:38pm Power of Sr. Director Product Management No January 09, 2022 3:38pm Advance Directive Response Recorded Date/ Time Name of Medical Power of Sr. Director Product Management June 14, 2023 5:39am Advance Directives No September 18 9:58am Living Will Yes June 14, 2023 5: 39am Power of Sr. Director Product Management Yes June 14, 2023 5:39am Advance Directive Response Recorded Date/ Time Advance Directives No January 22, 2024 1:33pm Living Will Yes January 11 024 10:52am Do you have a Healthcare Power of Sr. Director Product Management? Yes January 12, 2024 10:52am Name of Medical Power of Sr. Director Product Management January 12, 2024 10:52am Advance Directive Response Recorded Date/ Time Advance Directives No January 22, 2024 1:33pm Chief Complaint Chief Complaint Description Start Date [...] has not been provided by the sender. Chief Complaint and Reason for Visit Chief Complaint DYSPHAGIA CONCERN FOR UTI OROPHARYNGEAL DYSPHAGIA/RX HERE Reason for Visit Urinary tract infect ion with hematuria Chief Complaint DYSPHAGIA CONCERN FOR UTI OROPHARYNGEAL DYSPHAGIA/RX HERE Lumbar pain/Rt elbow pain UTI Reason for Visit Urinary tract infect ion with hematuria Chief Complaint OROPHARYNGEAL DYSPHA NATHAN/RX HERE CONCERN FOR UTI Reason for Visit Urinary tract infect ion Chief Complaint CONCERN FOR UTI Reason for Visit Urinary tract infect ion Chief Complaint CONCERN FOR UTI SCREENING/POSTMENOPAUSE Reason for Visit Urinary tract infect ion Chief Complaint CONCERN FOR UTI SCREENING/POSTMENOPAUSE cough Reason for Visit Urinary tract infect ion Chief Complaint CONCERN FOR UTI SCREENING/POSTMENOPAUSE cough Urinary tract infection Reason for Visit Urinary tract infect ion Urinary tract infection Chief Complaint Urinary tract infect ion Reason for Visit Urinary tract infect ion Chief Complaint Urinary tract infect ion CONCERN FOR UTI Reason for Visit Urinary tract infect ion Urinary tract infection Chief Complaint Urinary tract infect ion CONCERN FOR UTI Urinary tract infection Reason for Visit Urinary tract infect ion Urinary tract infection Urinary tract infection Chief Complaint CONCERN FOR UTI Urinary tract infection CONCERN FOR UTI Reason for Visit Urinary tract infect ion Urinary tract infection Urinary tract infection Chief Complaint Urinary tract infect ion CONCERN FOR UTI chest pain Reason for Visit Urinary tract infect ion Urinary tract infection Chief Complaint Admit Date THROAT IRRITATION/ST January 22, 2024 5:22pm SCREENING January 31, 2024 9:56am 2 M FU March 28, 2024 10:28am EST CARE IN FLEX May 13, 2024 10: 59am INT LAB ORDERS May 13, 2024 11: 50am Reason for Visit Admit Date Acute pharyngitis, unspecified January 22, 2024 5:22pm Contact with or exposure to other viral diseases January 22, 2024 5:22pm Epigastric abdominal pain March 28, 2024 10:28am Dyslipidemia May 13, 2024 10: 59am Hypertension May 13, 2024 10: 59am PVC (premature ventricular contraction) May 13, 2024 10:59am Chief Complaint Admit Date 2 M FU March 28, 2024 10:28am EST CARE IN [place] May 13, 2024 10: 59am INT LAB ORDERS May 13, 2024 11: 50am [id number] May 31, 2024 7:0 1am A-FIB, PVC June 03, 2024 9:5 9am Reason for Visit Admit Date Epigastric abdominal pain March 28, 2024 10:28am Dyslipidemia May 13, 2024 10: 59am Hypertension May 13, 2024 10: 59am PVC (premature ventricular contraction) May 13, 2024 10:59am Chief Complaint Admit Date 2 M FU March 28, 2024 10:28am EST CARE IN [place] May 13, 2024 10: 59am INT LAB ORDERS May 13, 2024 11: 50am [id number] May 31, 2024 7:0 1am [id number] May 31, 2024 10: 10am A-FIB, PVC June 03, 2024 9:5 9am ABNORMAL STRESS July 19, 2024 12:24 pm Chief Complaint Admit Date EST CARE IN [place] May 13, 2024 10: 59am INT LAB ORDERS May 13, 2024 11: 50am [id number] May 31, 2024 7:0 1am [id number] May 31, 2024 10: 10am A-FIB, PVC June 03, 2024 9:5 9am ABNORMAL STRESS July 19, 2024 12:00 am ABNORMAL STRESS July 19, 2024 12:24 pm ABNORMAL STRESS July 29, 2024 8:35 pm SEE NOTES August 13, 2024 2:08p m Reason for Visit Admit Date Dyslipidemia May 13, 2024 10: 59am Hypertension May 13, 2024 10: 59am PVC (premature ventricular contraction) May 13, 2024 10:59am Chief Complaint Admit Date [id number] May 31, 2024 7:0 1am [id number] May 31, 2024 10: 10am A-FIB, PVC June 03, 2024 9:5 9am ABNORMAL STRESS July 19, 2024 12:00 am ABNORMAL STRESS July 19, 2024 12:24 pm ABNORMAL STRESS July 29, 2024 8:35 pm SEE NOTES August 13, 2024 2:08p m BEE STING R HAND September 18, 2024 2:3 8pm Reason for Visit Admit Date Elevated coronary artery calcium score J javier 2024 2:08pm Dyslipidemia August 13, 2024 2:08p m Hypertension August 13, 2024 2:08p m Bee sting reaction September 18, 2024 2:3 8pm Chief Complaint Admit Date ABNORMAL STRESS July 19, 2024 12:00 am ABNORMAL STRESS July 19, 2024 12:24 pm ABNORMAL STRESS July 29, 2024 8:35 pm SEE NOTES August 13, 2024 2:08p m BEE STING R HAND September 18, 2024 2:3 8pm Reason for Referral Specialty Diagnoses / Procedures Referred By Contac t Referred To Contact Diagnoses Chronic ulcerative proctitis with complication (HCC) Nausea Gastroparesis Daniel Ibanez MD [address] [place] [address] Referral ID Status Reason Start Date Expiration Date Visits Re quested Visits Authorized [id number] Closed 1 1 Specialty Diagnoses / Procedures Referred By Contac t Referred To Contact Diagnoses Chronic ulcerative proctitis with complication (HCC) Nausea Gastroparesis Alek Lau MD [address] [place] [id number] Referral ID Status Reason Start Date Expiration Date Visits Re quested Visits Authorized [id number] Closed 1 1 Referral ID Status Reason Start Date Expiration Date Visits Re quested Visits Authorized [id number] Closed 1 1 Specialty Diagnoses / Procedures Referred By Contac t Referred To Contact Spine [place] Diagnoses Pain in both upper extremities Cervicalgia Arm weakness Cervical stenosis of spine Procedures CONSULT TO [facility] OFFICE/OUTPATIENT [facility] 60-74 MINUTES Franki Hernandez Jr., MD [address] [facility] [address] [place] [address] Referral ID Status Reason Start Date Expiration Date Visits Requested Visits Authorized [id number] Authorized PCP Requested Referral 08/19/2022 08/19/2023 1 1 Specialty Diagnoses / Procedures Referred By Contac t Referred To Contact [facility] Diagnoses Pain in both upper extremities Cervicalgia Arm weakness Procedures EMG(NEURO/NI) NERVE CONDUCTION STUDIES 9-10 STUDIES Franki Hernandez Jr., MD [address] [facility] [address] [place] [address] Neurological [place] [address] [place] [address] Referral ID Status Reason Start Date Expiration Date Visits Requested Visits Authorized [id number] Authorized Auto-Generat ed Referral 08/19/2022 08/20/2023 1 1 Specialty Diagnoses / Procedures Referred By Contac t Referred To Contact MR IMAGING Diagnoses Spinal stenosis of cervical region Procedures MRI CERVICAL SPINE WO/W IVCON MRI SPINAL CANAL CERVICAL W/O & W/CONTR MATRL Franki Hernandez Jr., MD [address] [facility] [address] [place] [address] Mr Imaging [place] [id number] Referral ID Status Reason Start Date Expiration Date V isits Requested Visits Authorized [id number] Closed Auto-Generate d Referral 07/04/2022 08/03/2023 1 1 Specialty Diagnoses / Procedures Referred By Contac t Referred To Contact MR IMAGING Diagnoses Demyelinating disease of central nervous system (HCC) Procedures MRI BRAIN WO/W IVCON MRI BRAIN BRAIN STEM W/O W/CONTRAST MATERIAL Franki Hernandez Jr., MD [address] [facility] [address] [place] [address] Mr Imaging [facility] Referral ID Status Reason Start Date Expiration Date V isits Requested Visits Authorized [id number] Closed Auto-Generate d Referral 07/04/2022 08/03/2023 1 1 Additional Source Comments INFORMATION SOURCE (unrecogn ized section and content) DATE CREATED AUTHOR 10/17/2018 [facility] DATE CREATED AUTHOR AUTHOR'S ORGANIZ ATION 11/24/[address] [facility] ([place]) DATE CREATED AUTHOR AUTHOR'S ORGANIZ ATION 11/14/2023 [facility] DATE CREATED AUTHOR AUTHOR'S ORGANIZ ATION 10/31/2024 [facility] DATE CREATED AUTHOR AUTHOR'S ORGANIZ ATION 11/06/2024 [facility] Reason for Visit (unrecogniz ed section and content) Reason For Visit Description New - 1st visit with practice Preliminary reason f or visit data, not yet signed by the author as of mid back pain Reason Onset Date Comments Refill Request 05/17/2021 [...] SPINAL CANAL CERVICAL W/O & W/CONTR MATRL Franki Hernandez Jr., MD [address] [facility] [address] [place] [address] Mr Imaging [place] [id number] Referral ID Status Reason Start Date Expiration Date V isits Requested Visits Authorized [id number] Closed Auto-Generate d Referral 07/04/2022 08/03/2023 1 1 Specialty Diagnoses / Procedures Referred By Contac t Referred To Contact MR IMAGING Diagnoses Demyelinating disease of central nervous system (HCC) Procedures MRI BRAIN WO/W IVCON MRI BRAIN BRAIN STEM W/O W/CONTRAST MATERIAL Franki Hernandez Jr., MD [address] [facility] [address] [place] [address] Mr Imaging [place] [address] Referral ID Status Reason Start Date Expiration Date V isits Requested Visits Authorized [id number] Closed Auto-Generate d Referral 07/04/2022 08/03/2023 1 1 Reason Comments Refill Request Reason Comments New Patient Specialty Diagnoses / Procedures Referred By Contac t Referred To Contact Neurology Diagnoses Pain in both upper extremities Arm weakness Neuropathy Procedures CONSULT TO NEUROLOGY OFFICE/OUTPATIENT NEW HIGH MDM 60 MINUTES Aisha Laboy PA-C [address] [place] [address] Referral ID Status Reason Start Date Expiration Date V isits Requested Visits Authorized [id number] Closed PCP Requested Referral 02/22/2023 02/22/2024 1 1 Source Comments (unrecognize d section and content) In the event this informatio n is protected by the Federal Confidentiality of Alcohol and Drug Abuse Patient Records regulations: The Federal rules restrict any use of the information to criminally investigate or prosecute any alcohol or drug abuse patient.[facility] the event this information is protected by the Federal Confidentiality of Alcohol and Drug Abuse Patient Records regulations: The Federal rules restrict any use of the information to criminally investigate or prosecute any alcohol or drug abuse patient.[facility] Center[facility] the event this information is protected by the Federal Confidentiality of Alcohol and Drug Abuse Patient Records regulations: The Federal rules restrict any use of the information to criminally investigate or prosecute any alcohol or drug abuse patient.[facility] Center[facility] the event this information is protected by the Federal Confidentiality of Alcohol and Drug Abuse Patient Records regulations: The Federal rules restrict any use of the information to criminally investigate or prosecute any alcohol or drug abuse patient.[facility] Center[facility] the event this information is protected by the Federal Confidentiality of Alcohol and Drug Abuse Patient Records regulations: The Federal rules restrict any use of the information to criminally investigate or prosecute any alcohol or drug abuse patient.[facility] the event this information is protected by the Federal Confidentiality of Alcohol and Drug Abuse Patient Records regulations: The Federal rules restrict any use of the information to criminally investigate or prosecute any alcohol or drug abuse patient.[facility] Center[facility] the event this information is protected by the Federal Confidentiality of Alcohol and Drug Abuse Patient Records regulations: The Federal rules restrict any use of the information to criminally investigate or prosecute any alcohol or drug abuse patient.[facility] Center[facility] the event this information is protected by the Federal Confidentiality of Alcohol and Drug Abuse Patient Records regulations: The Federal rules restrict any use of the information to criminally investigate or prosecute any alcohol or drug abuse patient.[facility] Center[facility] the event this information is protected by the Federal Confidentiality of Alcohol and Drug Abuse Patient Records regulations: The Federal rules restrict any use of the information to criminally investigate or prosecute any alcohol or drug abuse patient.[facility] Center[facility] the event this information is protected by the Federal Confidentiality of Alcohol and Drug Abuse Patient Records regulations: The Federal rules restrict any use of the information to criminally investigate or prosecute any alcohol or drug abuse patient.[facility] Center[facility] the event this information is protected by the Federal Confidentiality of Alcohol and Drug Abuse Patient Records regulations: The Federal rules restrict any use of the information to criminally investigate or prosecute any alcohol or drug abuse patient.[facility] Center[facility] the event this information is protected by the Federal Confidentiality of Alcohol and Drug Abuse Patient Records regulations: The Federal rules restrict any use of the information to criminally investigate or prosecute any alcohol or drug abuse patient.[facility] Center[facility] the event this information is protected by the Federal Confidentiality of Alcohol and Drug Abuse Patient Records regulations: The Federal rules restrict any use of the information to criminally investigate or prosecute any alcohol or drug abuse patient.[facility] Center[facility] the event this information is protected by the Federal Confidentiality of Alcohol and Drug Abuse Patient Records regulations: The Federal rules restrict any use of the information to criminally investigate or prosecute any alcohol or drug abuse patient.[facility] Center[facility] the event this information is protected by the Federal Confidentiality of Alcohol and Drug Abuse Patient Records regulations: The Federal rules restrict any use of the information to criminally investigate or prosecute any alcohol or drug abuse patient.[facility] Center[facility] the event this information is protected by the Federal Confidentiality of Alcohol and Drug Abuse Patient Records regulations: The Federal rules restrict any use of the information to criminally investigate or prosecute any alcohol or drug abuse patient.[facility] Center[facility] the event this information is protected by the Federal Confidentiality of Alcohol and Drug Abuse Patient Records regulations: The Federal rules restrict any use of the information to criminally investigate or prosecute any alcohol or drug abuse patient.[facility] Care Teams (unrecognized sec tion and content) Retail Aide Relationship Specialty Start Date End Date Elena Jenkins, DO [address] [place] [address] PCP - General Family Practice 05/30/18 Retail Aide Relationship Specialty Start Date End Date Elena Jenkins, DO [address] [place] [address] PCP - General Family Practice 05/30/18 Retail Aide Relationship Specialty Start Date End Date Elena Jenkins, DO [address] [place] [address] PCP - General Family Practice 05/30/18 Retail Aide Relationship Specialty Start Date End Date Elena Jenkins, DO [address] [place] [address] PCP - General Family Practice 05/30/18 Retail Aide Relationship Specialty Start Date End Date Elena Jenkins, DO [address] [place] [address] PCP - General Family Practice 05/30/18 Retail Aide Relationship Specialty Start Date End Date Elena Jenkins, DO [address] [place] [address] PCP - General Family Practice 05/30/18 Retail Aide Relationship Specialty Start Date End Date Elena Jenkins, DO [address] [place] [address] PCP - General Family Practice 05/30/18 Retail Aide Relationship Specialty Start Date End Date Elena Jenkins, DO [address] [place] [address] PCP - General Family Medicine 05/30/18 Team Status: Active Member Role Status Dates Dr. Elena Jenkins , DO Family Provider Active Dr. Elena Jenkins , DO Primary Care Provider Activ e Team Status: Inactive Member Role Status Dates Dr. Elena Jenkins , DO Primary Care Provider, Refe rring Provider Active Dano FAN PA Attending Provider Active Team Status: Inactive Member Role Status Dates Dr. Elena Jenkins , DO Primary Care Provider Activ e MENG Arana Attending Provider Active Retail Aide Relationship Specialty Start Date End Date Elena Jenkins, [address] [place] [address] PCP - General Family Medicine 05/30/18 Retail Aide Relationship Specialty Start Date End Date Elena Jenkins DO [address] [place] [address] PCP - General Family Medicine 05/30/18 Retail Aide Relationship Specialty Start Date End Date Elena Jenkins DO [address] [place] [address] PCP - General Family Medicine 05/30/18 Retail Aide Relationship Specialty Start Date End Date Elena Jenkins DO [address] [place] [address] PCP - General Family Medicine 05/30/18 Retail Aide Relationship Specialty Start Date End Date Elena Jenkins DO [address] [place] [id number] PCP - General Family Medicine 05/30/18 Retail Aide Relationship Specialty Start Date End Date Elena Jenkins DO [address] [place] [address] PCP - General Family Medicine 05/30/18 Team Status: Active Member Role Status Dates Dr. Elena Jenkins , DO Primary Care Provider Activ e Dano FAN, PA Attending Provider Active Team Status: Inactive Member Role Status Dates Dr. Elena Jenkins , DO Primary Care Provider, Refe rring Provider Active Rory Kay MACHINE HOSE CUTTER, MACHINE HOSE CUTTER-C Attending Provider Active Team Status: Inactive Member Role Status Dates Dr. Elena Jenkins , Primary Care Provider Activ e Rory Kay MACHINE HOSE CUTTER, MACHINE HOSE CUTTER-C Attending Provider, Referring Pro vider Active Team Status: Inactive Member Role Status Dates Dr. Elena Jenkins , DO Primary Care Provider Activ e Dr. Julius Loving MD Emergency Provider Active Retail Aide Relationship Specialty Start Date End Date Elena Jenkins DO [address] [place] [address] PCP - General Family Medicine 05/30/18 Retail Aide Relationship Specialty Start Date End Date Elena Jenkins DO [address] [place] [address] PCP - General Family Medicine 05/30/18 Team Status: Active Member Role Status Dates Dr. Elena Jenkins , DO Primary Care Provider Activ e Team Status: Inactive Member Role Status Dates Dr. Elena Jenkins DO Primary Care Provider Activ e Start: January 17, 2024 End: January 17, 2024 Dr. Elena Jenkins DO Referring Provider Active Start: January 17, 2024 End: January 17, 2024 Dr. Abelardo Torres , Attending Provider Active Start: January 17, 2024 End: January 17, 2024 Team Status: Active Member Role Status Dates Dr. Elena Jenkins DO Primary Care Provider Activ e Start: January 17, 2024 Dr. Elena Jenkins DO Referring Provider Active Start: January 17, 2024 Dr. Abelardo Torres DO Attending Provider Active Start: January 17, 2024 Dr. Abelardo Torres , DO Other Provider Active St art: January 17, 2024 Team Status: Inactive Member Role Status Dates Dr. Elena Jenkins DO Primary Care Provider Activ e Start: January 22, 2024 End: January 22, 2024 Dr. Elena Jenkins DO Referring Provider Active Start: January 22, 2024 End: January 22, 2024 Jer FAN, PA Attending Provider Active Start: January 22, 2024 End: January 22, 2024 Team Status: Inactive Member Role Status Dates Dr. Elena Jenkins DO Primary Care Provider Activ e Start: January 31, 2024 End: January 31, 2024 Dr. Elena Jenkins DO Attending Provider Active Start: January 31, 2024 End: January 31, 2024 Dr. Elena Jenkins DO Referring Provider Active Start: January 31, 2024 End: January 31, 2024 Team Status: Inactive Member Role Status Dates Dr. Elena Jenkins DO Primary Care Provider Activ e Start: March 28, 2024 End: March 28, 2024 Dr. Elena Jenkins DO Referring Provider Active Start: March 28, 2024 End: March 28, 2024 Dr. Abelardo Torres DO Attending Provider Active Start: March 28, 2024 End: March 28, 2024 Team Status: Inactive Member Role Status Dates Dr. Elena Jenkins DO Primary Care Provider Activ e Start: May 13, 2024 End: May 13, 2024 Dr. Elena Jenkins DO Referring Provider Active Start: May 13, 2024 End: May 13, 2024 Dr. Geovanni Ordonez MD Attending Provider Active Start: May 13, 2024 End: May 13, 2024 Team Status: Inactive Member Role Status Dates Dr. Elena Jenkins DO Primary Care Provider Activ e Start: May 13, 2024 End: May 13, 2024 Dr. Geovanni Ordonez MD Attending Provider Active Start: May 13, 2024 End: May 13, 2024 Dr. Geovanni Ordonez MD Referring Provider Active Start: May 13, 2024 End: May 13, 2024 Team Status: Inactive Member Role Status Dates Dr. Elena Jenkins DO Primary Care Provider Activ e Start: May 31, 2024 End: May 31, 2024 Dr. Geovanni Ordonez MD Attending Provider Active Start: May 31, 2024 End: May 31, 2024 Dr. Geovanni Ordonez MD Referring Provider Active Start: May 31, 2024 End: May 31, 2024 Team Status: Active Member Role Status Dates Dr. Elena Jenkins DO Primary Care Provider Activ e Start: May 31, 2024 Dr. Geovanni Ordonez MD Attending Provider Active Start: May 31, 2024 Team Status: Active Member Role Status Dates Dr. Elena Jenkins DO Primary Care Provider Activ e Start: June 03, 2024 Dr. Geovanni Ordonez MD Attending Provider Active Start: June 03, 2024 Dr. Geovanni Ordonez MD Referring Provider Active Start: June 03, 2024 Dr. Geovanni Ordonez MD Other Provider Active Star t: June 03, 2024 Team Status: Active Member Role Status Dates Dr. Elena Jenkins DO Primary Care Provider Activ e Start: May 31, 2024 Dr. Geovanni Ordonez MD Attending Provider Active Start: May 31, 2024 Dr. Geovanni Ordonez MD Referring Provider Active Start: May 31, 2024 Team Status: Inactive Member Role Status Dates Dr. Elena Jenkins DO Primary Care Provider Activ e Start: July 19, 2024 End: July 19, 2024 Jeanna FAN PA Attending Provider Active Start: July 19, 2024 End: July 19, 2024 Jeanna FAN PA Referring Provider Active Start: July 19, 2024 End: July 19, 2024 Team Status: Active Member Role/Relationship Status Dates Dr. Elena Jenkins DO Primary Care Provider Activ e Team Status: Inactive Member Role/Relationship Status Dates Dr. Elena Jenkins DO Primary Care Provider Activ e Start: May 13, 2024 End: May 13, 2024 Dr. Elena Jenkins DO Referring Provider Active Start: May 13, 2024 End: May 13, 2024 Dr. Geovanni Ordonez MD Attending Provider Active Start: May 13, 2024 End: May 13, 2024 Team Status: Inactive Member Role/Relationship Status Dates Dr. Elena Jenkins DO Primary Care Provider Activ e Start: May 13, 2024 End: May 13, 2024 Dr. Geovanni Ordonez MD Attending Provider Active Start: May 13, 2024 End: May 13, 2024 Dr. Geovanni Ordonez MD Referring Provider Active Start: May 13, 2024 End: May 13, 2024 Team Status: Inactive Member Role/Relationship Status Dates Dr. Elena Jenkins DO Primary Care Provider Activ e Start: May 31, 2024 End: May 31, 2024 Dr. Geovanni Ordonez MD Attending Provider Active Start: May 31, 2024 End: May 31, 2024 Dr. Geovanni Ordonez MD Referring Provider Active Start: May 31, 2024 End: May 31, 2024 Team Status: Active Member Role/Relationship Status Dates Dr. Elena Jenkins DO Primary Care Provider Activ e Start: May 31, 2024 Dr. Geovanni Ordonez MD Attending Provider Active Start: May 31, 2024 Team Status: Active Member Role/Relationship Status Dates Dr. Elena Jenkins DO Primary Care Provider Activ e Start: May 31, 2024 Dr. Geovanni Ordonez MD Attending Provider Active Start: May 31, 2024 Dr. Geovanni Ordonez MD Referring Provider Active Start: May 31, 2024 Team Status: Active Member Role/Relationship Status Dates Dr. Elena Jenkins DO Primary Care Provider Activ e Start: June 03, 2024 Dr. Geovanni Ordonez MD Attending Provider Active Start: June 03, 2024 Dr. Geovanni Ordonez MD Referring Provider Active Start: June 03, 2024 Dr. Geovanni Ordonez MD Other Provider Active Star t: June 03, 2024 Team Status: Active Member Role/Relationship Status Dates Dr. Elena Jenkins DO Primary Care Provider Activ e Start: July 19, 2024 Dr. Bertin Forman MD Attending Provider Active S tart: July 19, 2024 Jeanna Valerio PA, PA Referring Provider Active Start: July 19, 2024 Team Status: Inactive Member Role/Relationship Status Dates Dr. Elena Jenkins DO Primary Care Provider Activ e Start: July 19, 2024 End: July 19, 2024 Jeanna Valerio PA, PA Attending Provider Active Start: July 19, 2024 End: July 19, 2024 Jeanna Valerio PA, PA Referring Provider Active Start: July 19, 2024 End: July 19, 2024 Team Status: Active Member Role/Relationship Status Dates Dr. Elena Jenkins DO Primary Care Provider Activ e Start: July 29, 2024 Jeanna Valerio PA, PA Referring Provider Active Start: July 29, 2024 Jeanna Valerio PA, PA Other Provider Active Start: July 29, 2024 Dr. Bertin Forman MD Attending Provider Active S tart: July 29, 2024 Team Status: Inactive Member Role/Relationship Status Dates Dr. Elena Jenkins DO Primary Care Provider Activ e Start: August 13, 2024 End: August 13, 2024 Dr. Elena Jenkins DO Referring Provider Active Start: August 13, 2024 End: August 13, 2024 Dr. Bertin Forman MD Attending Provider Active S tart: August 13, 2024 End: August 13, 2024 Team Status: Inactive Member Role/Relationship Status Dates Dr. Elena Jenkins DO Primary Care Provider Activ e Start: May 31, 2024 End: May 31, 2024 Dr. Geovanni Ordonez MD Attending Provider Active Start: May 31, 2024 End: May 31, 2024 Dr. Geovanni Ordonez MD Referring Provider Active Start: May 31, 2024 End: May 31, 2024 Team Status: Active Member Role/Relationship Status Dates Dr. Elena Jenkins DO Primary Care Provider Activ e Start: May 31, 2024 Dr. Geovanni Ordonez MD Attending Provider Active Start: May 31, 2024 Team Status: Active Member Role/Relationship Status Dates Dr. Elena Jenkins DO Primary Care Provider Activ e Start: May 31, 2024 Dr. Geovanni Ordonez MD Attending Provider Active Start: May 31, 2024 Dr. Geovanni Ordonez MD Referring Provider Active Start: May 31, 2024 Team Status: Active Member Role/Relationship Status Dates Dr. Elena Jenkins DO Primary Care Provider Activ e Start: June 03, 2024 Dr. Geovanni Ordonez MD Attending Provider Active Start: June 03, 2024 Dr. Geovanni Ordonez MD Referring Provider Active Start: June 03, 2024 Dr. Geovanni Ordonez MD Other Provider Active Star t: June 03, 2024 Team Status: Active Member Role/Relationship Status Dates Dr. Elena Jenkins DO Primary Care Provider Activ e Start: July 19, 2024 Dr. Bertin Forman MD Attending Provider Active S tart: July 19, 2024 Jeanna Valerio PA, PA Referring Provider Active Start: July 19, 2024 Team Status: Inactive Member Role/Relationship Status Dates Dr. Elena Jenkins DO Primary Care Provider Activ e Start: July 19, 2024 End: July 19, 2024 Jeanna Valerio PA, PA Attending Provider Active Start: July 19, 2024 End: July 19, 2024 Jeanna Valerio PA, PA Referring Provider Active Start: July 19, 2024 End: July 19, 2024 Team Status: Active Member Role/Relationship Status Dates Dr. Elena Jenkins DO Primary Care Provider Activ e Start: July 29, 2024 Jeanna Valerio PA, PA Referring Provider Active Start: July 29, 2024 Jeanna FAN, PA Other Provider Active Start: July 29, 2024 Dr. Bertin Forman MD Attending Provider Active S tart: July 29, 2024 Team Status: Inactive Member Role/Relationship Status Dates Dr. Elena Jenkins , DO Primary Care Provider Activ e Start: August 13, 2024 Dr. Tanya Alexander MD Attending Provider Active Start: August 13, 2024 Team Status: Inactive Member Role/Relationship Status Dates Dr. Elena Jenkins DO Primary Care Provider Activ e Start: August 13, 2024 End: August 13, 2024 Dr. Elena Jenkins DO Referring Provider Active Start: August 13, 2024 End: August 13, 2024 Dr. Bertin Forman MD Attending Provider Active S tart: August 13, 2024 End: August 13, 2024 Team Status: Inactive Member Role/Relationship Status Dates Dr. Elena Jenkins DO Primary Care Provider Activ e Start: September 18, 2024 End: September 18, 2024 Dr. Elena Jenkins , DO Referring Provider Active Start: September 18, 2024 End: September 18, 2024 Jer FAN PA Attending Provider Active Start: September 18, 2024 End: September 18, 2024 Team Status: Active Member Role/Relationship Status Dates Dr. Elena Jenkins DO Primary care physician Acti ve Team Status: Active Member Role/Relationship Status Dates Dr. Elena Jenkins DO Primary care physician Acti ve Start: July 19, 2024 Dr. Bertin Forman MD Attending physician Active Start: July 19, 2024 Jeanna FAN, PA Referring Provider Active Start: July 19, 2024 Team Status: Inactive Member Role/Relationship Status Dates Dr. Elena Jenkins DO Primary care physician Acti ve Start: July 19, 2024 End: July 19, 2024 Jeanna FAN, PA Attending physician Active Start: July 19, 2024 End: July 19, 2024 Jeanna M Valerio PA, PA Referring Provider Active Start: July 19, 2024 End: July 19, 2024 Team Status: Active Member Role/Relationship Status Dates Dr. Elena Jenkins , Primary care physician Acti ve Start: July 29, 2024 MENG Luna Referring Provider Active Start: July 29, 2024 Jeanna FAN PA Nurse Practitioner Active Start: July 29, 2024 Dr. Bertin Forman MD Attending physician Active Start: July 29, 2024 Team Status: Inactive Member Role/Relationship Status Dates Dr. Elena Jenkins , Primary care physician Acti ve Start: August 13, 2024 Dr. Tanya Alexander MD Attending physician Active Start: August 13, 2024 Team Status: Inactive Member Role/Relationship Status Dates Dr. Elena Jenkins DO Primary care physician Acti ve Start: August 13, 2024 End: August 13, 2024 Dr. Elena Jenkins DO Referring Provider Active Start: August 13, 2024 End: August 13, 2024 Dr. Bertin Forman MD Attending physician Active Start: August 13, 2024 End: August 13, 2024 Team Status: Inactive Member Role/Relationship Status Dates Dr. Elena Jenkins DO Primary care physician Acti ve Start: September 18, 2024 End: September 18, 2024 Dr. Elena Jenkins DO Referring Provider Active Start: September 18, 2024 End: September 18, 2024 Jer FAN PA Attending physician Active Start: September 18, 2024 End: September 18, 2024 Team Status: Inactive Member Role/Relationship Status Dates Dr. Elena Jenkins DO Primary care physician Acti ve Start: October 23, 2024 End: October 23, 2024 Dr. Glenys Morales DO Attending physician Active Start: October 23, 2024 End: October 23, 2024 Dr. Glenys Morales , Referring Provider Active Start: October 23, 2024 End: October 23, 2024 Goals (unrecognized section and content) Goals may be documented in a n alternate sectionGoals may be documented in an alternate section No data available for this section No data available for this sectionGoals may be documented in an alternate section No data available for this sectionGoals may be documented in an alternate sectionGoals may be documented in an alternate sectionGoals may be documented in an alternate sectionGoals may be documented in an alternate sectionGoals may be documented in an alternate sectionGoals may be documented in an alternate sectionGoals may be documented in an alternate sectionGoals may be documented in an alternate sectionGoals may be documented in an alternate sectionGoals may be documented in an alternate section No data available for this section No data available for this sectionGoals may be documented in an alternate sectionGoals may be documented in an alternate sectionGoals may be documented in an alternate sectionGoals may be documented in an alternate section No data available for this section No data available for this sectionGoals may be documented in an alternate section Care Team (unrecognized sect ion and content) Care Team Personnel Name: ELENA JENKINS DO Position: P4 Physician - Primary Care Med Service: Active Provider Member Role: Primary Care Physician Address: Address: [address] [place] [id number] Name: PAVITHRA GOMEZ MD Position: P4 Physician - Cardiology Med Service: Active Provider Member Role: [employer] Address: Address: [address] [place] [address] [id number] [facility] [place], [place] [id number] Care Team Related Persons Name: NONE, NONE Name: CABRERA CHENG Address: [address], [place] [id number] Address: [place] [address] [address], [place] [id number] FOR RECORDS PERTAINING TO PATIENTS WHO ARE [...] BE BASED ON THE PRIMARY CLINICAL RECORDS. [facility] [employer] [facility]. provides no warranty or guarantee of the accuracy or completeness of information in this document.
[2024-12-13 15:02] LABS: Hematocrit 40.6 % (37-47); Hemoglobin 13.2 g/dL (12.0-15.0); Immature Granulocytes Count 0.030 X10^3/uL (0.0-0.0); Mean Corp Hgb Conc 32.5 g/dL (32-36); Mean Corpuscular Volume 96.4 fL (81-99); Mean Platelet Vol. 9.0 fl (6.2-12.0); NRBC Flagged by Analyzer 0 % (0-5); Platelet Count 265 K/mm3 (150-450); RBC Distribution Width CV 13.2 % (11.6-14.6); RBC Distribution Width SD 47.2 fl (35.1-43.9); Red Blood Count 4.21 M/mm3 (4.2-5.4); White Blood Count 5.8 K/mm3 (4.4-11.0)
[2024-12-13 15:41] LABS: CRP 4.76 mg/L (0.0-3.0)
== END | disposition home or self-care (01) ==
LOC: LAB 14:07
PROVIDERS: Referring Provider Ophthalmology; Visit Provider Ophthalmology
DX: H49.11 Fourth [trochlear] nerve palsy, right eye (principal)
CPT/HCPCS: 36415; 84238; 85025; 85652; 86140

== ENCOUNTER → 2024-12-30 | Outpatient (CLI) | payer MEDICARE, SELFPAY ==
--- NOTE | 2024-12-30 11:13 | MRI_ITS ---
PROCEDURE: BRAIN W/WO CONTRAST 12/30/2024 REASON FOR EXAM: R 4TH NERVE PALSY. Double vision when looking to the left. TECHNIQUE: Procedure Code: [id number] Modality: MR Procedure: BRAIN W/WO CONTRAST Multiplanar and multisequence images were obtained. CONTRAST: Clariscan VOLUME: 15 mL COMPARISON: None FINDINGS: There are scattered punctate foci of abnormal periventricular and subcortical white matter signal in both cerebral hemispheres consistent with chronic ischemic white matter disease. There are 2 chronic lacunar infarctions in the left hippocampal gyrus There is a normal sulcal pattern and gyral configuration. There is no evidence of acute intracranial hemorrhage or infarction. The mcleod-white differentiation is well preserved. There is no evidence of restricted diffusion. The ventricles and basilar cisterns are normal. There are normal flow voids demonstrated in the recognized intracranial vessels. The cerebellum and brainstem are unremarkable. The cerebellar pontine angles are normal. The craniovertebral junction is normal. The sella and suprasellar regions are normal. There are bilateral intra-ocular lens implants. The orbits and retro-orbital regions are otherwise unremarkable. The nasal septum is midline. The paranasal sinuses are clear. The mastoid air cells are clear. There is normal bone marrow signal in the skull base and calvarium. MRI/Brain W/WO Contrast IMPRESSION: 1. Findings consistent with chronic ischemic white matter disease. 2. Chronic lacunar infarctions in the left hippocampal gyrus. 3. Other findings as noted. Reading Location: [place] [id number]
== END | disposition home or self-care (01) ==
LOC: OPMRI 10:56
PROVIDERS: Referring Provider Ophthalmology; Visit Provider Ophthalmology
DX: H49.11 Fourth [trochlear] nerve palsy, right eye (principal)
CPT/HCPCS: 70553; A9575

== ENCOUNTER → 2025-01-24 | Outpatient (CLI) | payer MEDICARE, SELFPAY ==
--- NOTE | 2025-01-24 13:49 | CDU_ITS ---
Reason For Study Reason For Study: Abnormal MRI Rt. Velocities/BP Lt. Velocities/BP Prox CCA 69/8 cm/sec. Prox CCA 86/15 cm/sec. Mid CCA 65/10 cm/sec. Mid CCA 67/11 cm/sec. Dist CCA 60/11 cm/sec. Dist CCA 66/12 cm/sec. Prox ICA 45/11 cm/sec. Prox ICA 42/13 cm/sec. Mid ICA 59/16 cm/sec. Mid ICA 55/19 cm/sec. Dist ICA 62/17 cm/sec. Dist ICA 56/16 cm/sec. Rt. ICA/CCA = 1.0. Lt. ICA/CCA = 0.8. Prox ECA 92/4 cm/sec. Prox ECA 56/4 cm/sec. Rt. Vert. 63/9 cm/sec. Lt. Vert. 64/17 cm/sec. Right Extracranial There is heterogeneous, irregular atherosclerotic plaque noted in the right common carotid artery. There is intimal thickening but no significant atherosclerotic plaque noted in the right internal carotid artery. There is heterogeneous, irregular atherosclerotic plaque noted in the right external carotid artery. Antegrade flow is noted in the right vertebral artery. Left Extracranial There is heterogeneous, irregular atherosclerotic plaque noted in the left common carotid artery. There is intimal thickening but no significant atherosclerotic plaque noted in the left internal carotid artery. There is intimal thickening but no significant atherosclerotic plaque noted in the left external carotid artery. Antegrade flow is noted in the left vertebral artery. Procedure Carotid Duplex [id number]. This is a Carotid Duplex examination using B-mode, color flow and specral Doppler. Exam performed in department. VL/Carotid Duplex Ultrasound Interpretation Summary Normal right extracranial internal carotid. Normal left extracranial internal carotid. Patent and antegrade vertebrals bilaterally. Ordering Physician: Rory Kay Referring Physician: Blanca Jenkins Performed By: Ariadne Kay, FILOMENA, RVT
== END | disposition home or self-care (01) ==
LOC: CVS 13:46
PROVIDERS: Referring Provider Nurse Practitioner Family; Visit Provider Nurse Practitioner Family
DX: I65.22 Occlusion and stenosis of left carotid artery (principal)
CPT/HCPCS: 93880